=== PATIENT | female | born 1965 | race Caucasian/White ===

== ENCOUNTER 2016-10-20 13:40 | Inpatient (IN) | payer MEDICARE, OTHER ==
[2016-10-20] MEDS ORDERED: SODIUM CHLORIDE 0.9% 500 ML IV STA (14:03)
--- NOTE | 2016-10-20 14:20 | ED ---
Weakness HPI - General Chief complaint: Weakness Stated complaint: weakness Time Seen by Provider: 10/20/16 13:52 Source: patient Mode of arrival: EMS Limitations: physical limitation - History of Present Illness Initial comments: This 51-year-old white female presents with a complaint of some weakness. She relates that her right leg gave out approximately 2 days ago and she fell and twisted her right ankle leg and foot. She was seen at [facility] in their emergency department but not admitted to the hospital. They did a computed tomography scan of the brain as she hit her head as well. They also did x-rays of her right leg, ankle, and foot and did not notice any fracture. They did note a urinary tract infection and placed her on an antibiotic but she has not been able to get this filled as of yet. She further relates that she had a spinal stimulator placed on 10/07/2016 at [facility] by Dr. Guzman. She apparently had some discharge from her back wound 2 days ago. Since being home, she has had is significant problems with ambulation. She denies any urinary symptoms. She has had decreased fluid intake. Her weakness has progressively increased. She denies any actual fever but does have a temperature of 99.7 here. No other complaints or modifying factors. - Related Data Home Medications Medication Instructions Recorded Confirmed Dicyclomine [Bentyl] 20 mg PO Q4-6H PRN 10/08/14 10/20/16 Docusate [Colace] 200 mg PO DAILY 10/08/14 10/20/16 Fenofibrate Nanocrystallized 48 mg PO DAILY 10/08/14 10/20/16 [Tricor] Fesoterodine Fumarate [Toviaz] 8 mg PO DAILY 10/08/14 10/20/16 Fexofenadine HCl 180 mg PO DAILY 10/08/14 10/20/16 Triamterene-Hctz 37.5-25Mg 1 cap PO BID 10/08/14 10/20/16 [Dyazide 37.5-25 Capsule] hydrOXYzine PAMOATE [Vistaril] 25 mg PO HS 10/08/14 10/20/16 levETIRAcetam [Keppra] 750 mg PO BID 10/08/14 10/20/16 Levothyroxine Sodium [Synthroid] 200 mcg PO DAILY 11/01/14 10/20/16 Budesonide [Pulmicort] 0.5 mg INHALATION RT-BID 10/20/16 10/20/16 Diazepam [Valium] 5 mg PO QID PRN 10/20/16 10/20/16 Esomeprazole Magnesium [NexIUM] 40 mg PO DAILY 10/20/16 10/20/16 Haloperidol [Haldol] 5 mg PO DAILY 10/20/16 10/20/16 Lactulose 10 gm PO DAILY PRN 10/20/16 10/20/16 Levothyroxine Sodium [Synthroid] 50 mcg PO DAILY 10/20/16 10/20/16 Linaclotide [Linzess] 145 mcg PO DAILY 10/20/16 10/20/16 amLODIPine [Norvasc] 10 mg PO DAILY 10/20/16 10/20/16 oxyCODONE HCL [OxyCONTIN] 60 mg PO Q12H 10/20/16 10/20/16 oxyCODONE HCL [Roxicodone] 5 mg PO DAILY 10/20/16 10/20/16 tiZANidine [Zanaflex] 2 mg PO DAILY PRN 10/20/16 10/20/16 Previous Rx's Medication Instructions Recorded Citalopram Hydrobromide [CeleXA] 40 mg PO DAILY #30 tablet 11/11/14 Ziprasidone [Geodon] 80 mg PO AC-BID #30 cap 11/11/14 Allergies Allergy/AdvReac Type Severity Reaction Status Date / Time butalbital [From Fiorinal] Allergy Unknown Verified 10/20/16 14:34 caffeine [From Fiorinal] Allergy Unknown Verified 10/20/16 14:34 cimetidine [From Tagamet] Allergy Unknown Verified 10/20/16 14:34 cimetidine HCl [From Tagamet] Allergy Unknown Verified 10/20/16 14:34 codeine Allergy Unknown Verified 10/20/16 14:34 dichloralphenazone Allergy Unknown Verified 10/20/16 14:34 [From Midrin] diphenhydramine HCl Allergy Unknown Verified 10/20/16 14:34 [From Benadryl] heparin Allergy Rash/Hives Verified 10/20/16 14:34 indomethacin [From Indocin] Allergy Unknown Verified 10/20/16 14:34 indomethacin sodium Allergy Unknown Verified 10/20/16 14:34 [From Indocin] iodine Allergy Swelling Verified 10/20/16 14:34 isometheptene mucate Allergy Unknown Verified 10/20/16 14:34 [From Midrin] latex Allergy Anaphylaxis Verified 10/20/16 14:34 Macrolide Antibiotics Allergy Unknown Verified 10/20/16 14:34 nystatin Allergy Rash/Hives Verified 10/20/16 14:34 Penicillins Allergy Unknown Verified 10/20/16 14:34 propoxyphene HCl Allergy Unknown Verified 10/20/16 14:34 [From Darvon] shellfish derived [Shellfish] Allergy Swelling Verified 10/20/16 14:34 theophylline anhydrous Allergy Unknown Verified 10/20/16 14:34 [From [place]] Review of Systems ROS Statement: Those systems with pertinent positive or pertinent negative responses have been documented in the HPI. ROS Other: All systems not noted in ROS Statement are negative. Past Medical History Past Medical History: Respiratory Disorder Additional Past Medical History / Comment(s): 11/01/14 Pt presented to [facility] ER via EMS with c/o tremors-severe shaking at times. Has been occurring for past year. Hx frequent falls-fell yesterday. Can only walk a couple feet. Other HX : cerebral palsy, spinal stenosis, neuropathy bilateral feet and hands, arthritis, chronic respiratory failure, ejection fraction 45% 2011, generalized chronic pain, IBS, overactive bladder. History of Any Multi-Drug Resistant Organisms: C-DIFF, MRSA Date of last positivie culture/infection: 2008 MDRO Source:: foot Past Surgical History: Back Surgery, Cholecystectomy Additional Past Surgical History / Comment(s): Spinal surgery, bilateral eye surgery for muscle repair due to cerebral palsy. Past Anesthesia/Blood Transfusion Reactions: Motion Sickness, Postoperative Nausea & Vomiting (PONV) Past Psychological History: Depression, Schizoaffective Disorder Additional Psychological History / Comment(s): Pt lives with her boyfriend. Pt ambulates with a walker or uses a wheelchair at times. She has home O2 which [facility]. She is unsure of liter flow. She has a home care agency coming into her home 3-4 times aweek - she does not recall the name of the agency at this time. Smoking Status: Current every day smoker Past Alcohol Use History: None Reported Past Drug Use History: None Reported - Past Family History Father Family Medical History: No Reported History Mother Family Medical History: Diabetes Mellitus General Exam - General Exam Comments Initial Comments: GENERAL: The patient is well nourished but appears dehydrated. VITAL SIGNS: Heart rate, blood pressure, respiratory rate reviewed as recorded in nurse's notes. EYES: Pupils are round and reactive. Extraocular movements are intact. No conjunctival / lid redness or swelling. ENT: No external evidence of injury, swelling, or ecchymosis. Airway is patent. Throat is clear. No hematomas noted. The lips are dry. The oropharynx is dry. NECK: Nontender. No swelling or evidence of injury. No subcutaneous emphysema. Trachea is midline. No thyroid mass. HEART: Regular rate and rhythm. Good peripheral pulses. LUNGS/CHEST: Breath sounds clear and equal bilaterally. No rales, rhonchi, or wheezes. No ecchymosis, subcutaneous emphysema, or tenderness. ABDOMEN: Abdomen soft without tenderness. No palpable masses or organomegaly. No peritoneal signs. No abdominal wall swelling or ecchymosis. EXTREMITIES: There is diffuse tenderness present to the distal tibia/fibula, ankle, and foot on the right side. No ecchymosis noted. There is pain with any range of motion. No other masses skeletal abnormalities noted. Normal muscle tone and function. No thoracolumbar tenderness. NEUROLOGIC: Sensation is grossly intact. Cranial nerve exam reveals face is symmetrical, tongue is midline, speech is clear. SKIN: No abrasions or ecchymosis is noted. No induration or masses noted. PSYCHIATRIC: Alert and oriented. Appropriate behavior and judgment. Limitations: physical limitation Course Vital Signs 10/20/16 10/20/16 13:45 16:20 Temperature 99.7 F H 99.2 F Pulse Rate 94 62 Respiratory 18 20 Rate Blood Pressure 147/71 135/66 O2 Sat by Pulse 98 95 Oximetry Medical Decision Making - Medical Decision Making The patient was seen and examined. All diagnostics were reviewed. The EKG shows a normal sinus rhythm at a rate of 94. There is no acute ST-T wave changes identified other than some nonspecific T-wave changes in lead 1 and aVL. The TN interval is 158, castration is 90, and QTc interval is 467. The patient had x-rays of her right tibia/fibula, right ankle, and right foot no fracture is identified. Is felt that she likely does have right ankle sprain. A 4 inch Ortho-Glass custom molded splint is placed by myself with excellent post-splint neurovascular status noted. She also had a chest x-ray which showed possible pulmonary venous congestion although patient denies any actual shortness of breath or chest pain. Her laboratories reviewed and essentially within normal limits except for the magnesium is low at 1.4. This is replaced. Her urine does not show any current evidence of infection. Exact cause of all of her symptoms is not definitively determined. She certainly is feeling quite weak. The surgical wound on her back was evaluated and that does show excellent healing. There is no signs of any erythema or drainage whatsoever. Nevertheless the patient is unable to ambulate at home and is Brady fall and once. Is felt as though she would require admission to the hospital for further treatment. Case will be discussed with internal medicine in the near future and patient will be admitted for further definitive treatment. - Lab Data Result diagrams: 10/20/16 14:37 10/20/16 14:37 Lab Results 10/20/16 10/20/16 10/20/16 Range/Units 14:37 14:37 14:37 WBC 10.6 (3.8-10.6) k/uL RBC 4.81 (3.80-5.40) m/uL Hgb 12.4 (11.4-16.0) gm/dL Hct 39.9 (34.0-46.0) % MCV 82.9 (80.0-100.0) fL MCH 25.7 (25.0-35.0) pg MCHC 31.0 (31.0-37.0) g/dL RDW 19.7 H (11.5-15.5) % Plt Count 398 (150-450) k/uL Neutrophils % 77 % Lymphocytes % 15 % Monocytes % 4 % Eosinophils % 4 % Basophils % 1 % Neutrophils # 8.1 H (1.3-7.7) k/uL Lymphocytes # 1.5 (1.0-4.8) k/uL Monocytes # 0.4 (0-1.0) k/uL Eosinophils # 0.4 (0-0.7) k/uL Basophils # 0.1 (0-0.2) k/uL Hypochromasia Marked Poikilocytosis Slight Anisocytosis Slight Microcytosis Slight PT (9.0-12.0) sec INR (<1.1) APTT (22.0-30.0) sec Sodium 142 (137-145) mmol/L Potassium 4.0 (3.5-5.1) mmol/L Chloride 105 (98-107) mmol/L Carbon Dioxide 27 (22-30) mmol/L Anion Gap 10 mmol/L BUN 9 (7-17) mg/dL Creatinine 0.70 (0.52-1.04) mg/dL Est GFR (MDRD) Af Amer >60 (>60 ml/min/1.73 sqM) Est GFR (MDRD) Non-Af >60 (>60 ml/min/1.73 sqM) Glucose 99 (74-99) mg/dL Calcium 9.4 (8.4-10.2) mg/dL Phosphorus 3.8 (2.5-4.5) mg/dL Magnesium 1.4 L (1.6-2.3) mg/dL Total Bilirubin 0.5 (0.2-1.3) mg/dL AST 27 (14-36) U/L ALT 32 (9-52) U/L Alkaline Phosphatase 98 (38-126) U/L Total Creatine Kinase 38 (30-135) U/L CK-MB (CK-2) 0.3 (0.0-2.4) ng/mL CK-MB (CK-2) Rel Index 0.8 Troponin I <0.012 (0.000-0.034) ng/mL Total Protein 7.4 (6.3-8.2) g/dL Albumin 3.8 (3.5-5.0) g/dL TSH 1.320 (0.465-4.680) mIU/L Urine Color Urine Appearance (Clear) Urine pH (5.0-8.0) Ur Specific [place] (1.001-1.035) Urine Protein (Negative) Urine Glucose (UA) (Negative) Urine Ketones (Negative) Urine Blood (Negative) Urine Nitrate (Negative) Urine Bilirubin (Negative) Urine Urobilinogen (<2.0) mg/dL Ur Leukocyte Esterase (Negative) 10/20/16 10/20/16 Range/Units 14:37 14:50 WBC (3.8-10.6) k/uL RBC (3.80-5.40) m/uL Hgb (11.4-16.0) gm/dL Hct (34.0-46.0) % MCV (80.0-100.0) fL MCH (25.0-35.0) pg MCHC (31.0-37.0) g/dL RDW (11.5-15.5) % Plt Count (150-450) k/uL Neutrophils % % Lymphocytes % % Monocytes % % Eosinophils % % Basophils % % Neutrophils # (1.3-7.7) k/uL Lymphocytes # (1.0-4.8) k/uL Monocytes # (0-1.0) k/uL Eosinophils # (0-0.7) k/uL Basophils # (0-0.2) k/uL Hypochromasia Poikilocytosis Anisocytosis Microcytosis PT 10.7 (9.0-12.0) sec INR 1.1 (<1.1) APTT 23.8 (22.0-30.0) sec Sodium (137-145) mmol/L Potassium (3.5-5.1) mmol/L Chloride (98-107) mmol/L Carbon Dioxide (22-30) mmol/L Anion Gap mmol/L BUN (7-17) mg/dL Creatinine (0.52-1.04) mg/dL Est GFR (MDRD) Af Amer (>60 ml/min/1.73 sqM) Est GFR (MDRD) Non-Af (>60 ml/min/1.73 sqM) Glucose (74-99) mg/dL Calcium (8.4-10.2) mg/dL Phosphorus (2.5-4.5) mg/dL Magnesium (1.6-2.3) mg/dL Total Bilirubin (0.2-1.3) mg/dL AST (14-36) U/L ALT (9-52) U/L Alkaline Phosphatase (38-126) U/L Total Creatine Kinase (30-135) U/L CK-MB (CK-2) (0.0-2.4) ng/mL CK-MB (CK-2) Rel Index Troponin I (0.000-0.034) ng/mL Total Protein (6.3-8.2) g/dL Albumin (3.5-5.0) g/dL TSH (0.465-4.680) mIU/L Urine Color Yellow Urine Appearance Clear (Clear) Urine pH 6.0 (5.0-8.0) Ur Specific [place] 1.010 (1.001-1.035) Urine Protein Negative (Negative) Urine Glucose (UA) Negative (Negative) Urine Ketones Negative (Negative) Urine Blood Negative (Negative) Urine Nitrate Negative (Negative) Urine Bilirubin Negative (Negative) Urine Urobilinogen <2.0 (<2.0) mg/dL Ur Leukocyte Esterase Negative (Negative) Disposition Clinical Impression: Weakness generalized, Fall, Inability to ambulate due to ankle or foot, Right ankle sprain, Right foot sprain, Morbid obesity, Failure of outpatient treatment , Hypomagnesemia, Cerebral palsy, Pulmonary venous congestion Disposition: ADMITTED IP TO THIS [facility] Condition: Fair Time of Disposition: 16:43 Decision Date: 10/20/16 Decision Time: 16:43
[2016-10-20 14:51] LABS: Anisocytosis Slight; Basophils # (A) 0.1 k/uL (0-0.2); Basophils % (A) 1 %; CHCM 30.3; Eosinophils # (A) 0.4 k/uL (0-0.7); Eosinophils % (A) 4 %; HCT 39.9 % (34.0-46.0); HDW 3.65; HGB 12.4 gm/dL (11.4-16.0); Hypochromasia Marked; Luc % (Auto) 1; Lymphocytes # (A) 1.5 k/uL (1.0-4.8); Lymphocytes % (A) 15 %; MCH 25.7 pg (25.0-35.0); MCV 82.9 fL (80.0-100.0); Mean Platelet Volume 7.3; Microcytosis Slight; Monocytes # (A) 0.4 k/uL (0-1.0); Monocytes % (A) 4 %; Neutrophils # (A) 8.1 k/uL (1.3-7.7); Neutrophils % (A) 77 %; Poikilocytosis Slight; RBC 4.81 m/uL (3.80-5.40); RDW 19.7 % (11.5-15.5); WBC 10.6 k/uL (3.8-10.6); WBC (Perox) 10.62
[2016-10-20] MEDS: SODIUM CHLORIDE 0.9% 1,000 ML IV STA ×2 (14:54→17:14)
[2016-10-20 15:02] LABS: ALT 32 U/L (9-52); AST 27 U/L (14-36); Alkaline Phosphatase 98 U/L (38-126); Anion Gap 10 mmol/L; Blood Urea Nitrogen 9 mg/dL (7-17); Calcium 9.4 mg/dL (8.4-10.2); Carbon Dioxide 27 mmol/L (22-30); Chloride 105 mmol/L (98-107); Glucose 99 mg/dL (74-99); Magnesium 1.4 mg/dL (1.6-2.3); Non-African American GFR(MDRD) >60 (>60 ml/min/1.73 sqM); Phosphorous 3.8 mg/dL (2.5-4.5); Sodium 142 mmol/L (137-145); Total Bilirubin 0.5 mg/dL (0.2-1.3); Total Protein 7.4 g/dL (6.3-8.2)
[2016-10-20 15:04] LABS: INR 1.1 (<1.1); Partial Thromboplastin Time 23.8 sec (22.0-30.0); Prothrombin Time 10.7 sec (9.0-12.0)
[2016-10-20 15:11] LABS: Appearance,Urine Clear (Clear); Bilirubin,Urine Negative (Negative); Glucose,Urine (UA) Negative (Negative); Ketones,Urine Negative (Negative); Leukocyte Esterase,Urine Negative (Negative); Nitrite,Urine Negative (Negative); Protein,Urine Negative (Negative); UA Billing (MACRO vs. MICRO) CHEM; Urobilinogen,Urine <2.0 mg/dL (<2.0)
[2016-10-20 15:17] LABS: Creatine Kinase 38 U/L (30-135)
[2016-10-20 15:30] LABS: Creatine Kinase MB 0.3 ng/mL (0.0-2.4); Troponin I <0.012 ng/mL (0.000-0.034)
--- NOTE | 2016-10-20 15:51 | XR ---
EXAMINATION TYPE: XR foot complete RT DATE OF EXAM: 10/20/2016 3:47 PM CLINICAL HISTORY: pain TECHNIQUE: Frontal, lateral and oblique images of the right foot are obtained. COMPARISON: None. FINDINGS: There is no acute fracture/dislocation evident. The joint spaces appear within normal bernal its. Dorsal soft tissue edema is noted. IMPRESSION: There is no acute fracture or dislocation. ICD 10 NO FRACTURE, INITIAL EVALUATION
--- NOTE | 2016-10-20 15:53 | XR ---
EXAMINATION TYPE: XR ankle complete RT DATE OF EXAM: 10/20/2016 3:47 PM COMPARISON: NONE HISTORY: Pain TECHNIQUE: Frontal, lateral and oblique images of the right ankle are obtained. COMPARISON: None. FINDINGS: There is no acute fracture/dislocation evident. Remote avulsion fracture medial malleolus as well as lateral malleolus. Ankle mortise narrowing seen. IMPRESSION: There is no acute fracture or dislocation seen.
--- NOTE | 2016-10-20 15:54 | XR ---
EXAMINATION TYPE: XR chest 2V DATE OF EXAM: 10/20/2016 3:47 PM COMPARISON: 11/06/2014 HISTORY: Shortness of breath TECHNIQUE: Frontal and lateral views of the chest are obtained. FINDINGS: There is pulmonary venous congestion without overt failure. Cardiomegaly is seen. No focal consolidation. Hilar and mediastinal structures are unremarkable. IMPRESSION: Cardiomegaly with pulmonary venous congestion. No overt failure at this time.
--- NOTE | 2016-10-20 15:55 | XR ---
EXAMINATION TYPE: XR tibia fibula RT DATE OF EXAM: 10/20/2016 3:47 PM CLINICAL HISTORY: pain TECHNIQUE: AP and lateral images of the right tibia and fibula are obtained. COMPARISON: None. FINDINGS: There is no acute fracture/dislocation evident. Periosteal reaction and sclerosis about th e proximal fibula likely reflects healed fracture. The overlying soft tissue appears unremarkable. IMPRESSION: There is no acute fracture or dislocation seen. ICD 10 NO FRACTURE, INITIAL EVALUATION
[2016-10-20] MEDS ORDERED: ONDANSETRON 4 MG/2 ML VIAL IVP PRN (16:44)
[2016-10-20] MEDS ORDERED: NALOXONE 0.4 MG/ML 1 ML VIAL IV PRN (16:44)
[2016-10-20] MEDS ORDERED: LACTULOSE 20 GM/30 ML CUP PO PRN (16:48)
[2016-10-20] MEDS ORDERED: DICYCLOMINE 20 MG TAB PO PRN (16:48)
[2016-10-20] MEDS: MAGNESIUM SULFATE-D5W PMX 1 GM in DEXTROSE/WATER 1 100ML.BAG IVPB SCH ×2 (17:14→18:12)
[2016-10-20] MEDS ORDERED: oxyCODONE ER 20 MG TAB.ER.12H PO SCH (18:00)
[2016-10-20] MEDS: ZIPRASIDONE 80 MG CAP PO SCH (18:12)
[2016-10-20] MEDS: SODIUM CHLORIDE 0.9% 1,000 ML IV SCH (18:12)
[2016-10-20] MEDS: oxyCODONE ER 20 MG TAB.ER.12H PO SCH (19:39)
[2016-10-20] MEDS: BUDESONIDE 0.5 MG/2 ML NEBU INHALATION SCH (20:24)
[2016-10-20 21:15] LABS: Glucose,Whole Blood 126 mg/dL (75-99)
[2016-10-20] MEDS: hydrOXYzine PAMOATE 25 MG CAP PO SCH (22:38)
[2016-10-20] MEDS: TRIAMTERENE-HCTZ 37.5-25MG 1 EACH CAP PO SCH (22:38)
[2016-10-20] MEDS: INSULIN LISPRO (humaLOG) 300 UNIT/3 ML VIAL SQ SCH (22:39)
[2016-10-21] MEDS: LEVOTHYROXINE 50 MCG TAB PO SCH (06:48)
[2016-10-21] MEDS: LEVOTHYROXINE 100 MCG TAB PO SCH (06:48)
[2016-10-21 07:15] LABS: Glucose,Whole Blood 123 mg/dL (75-99)
[2016-10-21] MEDS: INSULIN LISPRO (humaLOG) 300 UNIT/3 ML VIAL SQ SCH ×4 (07:31→21:18)
[2016-10-21] MEDS: oxyCODONE ER 20 MG TAB.ER.12H PO SCH ×2 (08:27→19:38)
[2016-10-21] MEDS: DOCUSATE 100 MG CAP PO SCH (08:28)
[2016-10-21] MEDS: amLODIPine 10 MG TAB PO SCH (08:28)
[2016-10-21] MEDS: CITALOPRAM HYDROBROMIDE 20 MG TAB PO SCH (08:28)
[2016-10-21] MEDS: FENOFIBRATE 54 MG TAB PO SCH (08:28)
[2016-10-21] MEDS: LORATADINE 10 MG TAB PO SCH (08:29)
[2016-10-21] MEDS: OXYBUTYNIN XL 5 MG TAB.ER.24 PO SCH (08:29)
[2016-10-21] MEDS: HALOPERIDOL 5 MG TAB PO SCH (08:29)
[2016-10-21] MEDS: PANTOPRAZOLE 40 MG/10 ML VIAL IV SCH (08:30)
[2016-10-21] MEDS: TRIAMTERENE-HCTZ 37.5-25MG 1 EACH CAP PO SCH ×2 (08:30→21:52)
[2016-10-21] MEDS: ZIPRASIDONE 80 MG CAP PO SCH ×2 (08:31→18:17)
[2016-10-21] MEDS ORDERED: NON-FORMULARY DRUG (Linaclotide [Linzess] 145 MCG) PO SCH (09:00)
[2016-10-21] MEDS ORDERED: PANTOPRAZOLE 40 MG TABLET PO SCH (09:00)
[2016-10-21 09:18] LABS: Anisocytosis Slight; Basophils % (A) 0 %; CH 24.9; CHCM 30.2; Eosinophils # (A) 0.3 k/uL (0-0.7); Eosinophils % (A) 3 %; HCT 37.9 % (34.0-46.0); HDW 3.54; HGB 11.6 gm/dL (11.4-16.0); Hypochromasia Marked; Luc # (Auto) 0.14; Luc % (Auto) 1; Lymphocytes # (A) 1.3 k/uL (1.0-4.8); Lymphocytes % (A) 13 %; MCH 25.4 pg (25.0-35.0); MCHC 30.6 g/dL (31.0-37.0); MCV 82.8 fL (80.0-100.0); Mean Platelet Volume 7.2; Microcytosis Slight; Monocytes # (A) 0.4 k/uL (0-1.0); Monocytes % (A) 4 %; Neutrophils % (A) 78 %; Poikilocytosis Slight; RBC 4.57 m/uL (3.80-5.40); RDW 19.6 % (11.5-15.5); WBC 10.3 k/uL (3.8-10.6)
[2016-10-21 09:28] LABS: ALT 31 U/L (9-52); AST 22 U/L (14-36); Alkaline Phosphatase 82 U/L (38-126); Anion Gap 9 mmol/L; Blood Urea Nitrogen 8 mg/dL (7-17); Carbon Dioxide 30 mmol/L (22-30); Chloride 103 mmol/L (98-107); Glucose 133 mg/dL (74-99); Non-African American GFR(MDRD) >60 (>60 ml/min/1.73 sqM); Potassium 4.1 mmol/L (3.5-5.1); Sodium 142 mmol/L (137-145); Total Bilirubin 0.6 mg/dL (0.2-1.3); Total Protein 6.7 g/dL (6.3-8.2)
[2016-10-21] MEDS: BUDESONIDE 0.5 MG/2 ML NEBU INHALATION SCH ×2 (09:29→19:46)
[2016-10-21 09:43] LABS: Magnesium 1.4 mg/dL (1.6-2.3)
[2016-10-21 10:11] LABS: Hemoglobin A1C 6.3 % (4.2-6.1)
[2016-10-21] MEDS: SODIUM CHLORIDE 0.9% 1,000 ML IV SCH (11:07)
[2016-10-21 12:12] LABS: Glucose,Whole Blood 127 mg/dL (75-99)
--- NOTE | 2016-10-21 14:15 | P.CON ---
Consult Note - . Consult date: 10/21/16 Assessment/Plan:: consultation podiatric - General Chief complaint: Weakness Stated complaint: weakness Time Seen by Provider: 10/20/16 13:52 Source: patient Mode of arrival: EMS Limitations: physical limitation - History of Present Illness Initial comments: This 51-year-old white female presents with a complaintall painful nails as well as dry skin bilateral feety. She has been seenas a consultation per request of attending.. She relates that her right leg gave out approximately 2 days ago and she fell and twisted her right ankle leg and foot. She was seen at [facility] in their emergency department but not admitted to the hospital. They did a computed tomography scan of the brain as she hit her head as well. They also did x-rays of her right leg, ankle, and foot and did not notice any fracture. They did note a urinary tract infection and placed her on an antibiotic but she has not been able to get this filled as of yet. She further relates that she had a spinal stimulator placed on 10/07/2016 at [facility] by Dr. Guzman. She apparently had some discharge from her back wound 2 days ago. Since being home, she has had is significant problems with ambulation. She denies any urinary symptoms. She has had decreased fluid intake. Her weakness has progressively increased. She denies any actual fever but does have a temperature of 99.7 here. No other complaints or modifying factors.Review of past mental History is as below - Related Data Home Medications Medication Instructions Recorded Confirmed Dicyclomine [Bentyl] 20 mg PO Q4-6H PRN 10/08/14 10/20/16 Docusate [Colace] 200 mg PO DAILY 10/08/14 10/20/16 Fenofibrate Nanocrystallized 48 mg PO DAILY 10/08/14 10/20/16 [Tricor] Fesoterodine Fumarate [Toviaz] 8 mg PO DAILY 10/08/14 10/20/16 Fexofenadine HCl 180 mg PO DAILY 10/08/14 10/20/16 Triamterene-Hctz 37.5-25Mg 1 cap PO BID 10/08/14 10/20/16 [Dyazide 37.5-25 Capsule] hydrOXYzine PAMOATE [Vistaril] 25 mg PO HS 10/08/14 10/20/16 levETIRAcetam [Keppra] 750 mg PO BID 10/08/14 10/20/16 Levothyroxine Sodium [Synthroid] 200 mcg PO DAILY 11/01/14 10/20/16 Budesonide [Pulmicort] 0.5 mg INHALATION RT-BID 10/20/16 10/20/16 Diazepam [Valium] 5 mg PO QID PRN 10/20/16 10/20/16 Esomeprazole Magnesium [NexIUM] 40 mg PO DAILY 10/20/16 10/20/16 Haloperidol [Haldol] 5 mg PO DAILY 10/20/16 10/20/16 Lactulose 10 gm PO DAILY PRN 10/20/16 10/20/16 Levothyroxine Sodium [Synthroid] 50 mcg PO DAILY 10/20/16 10/20/16 Linaclotide [Linzess] 145 mcg PO DAILY 10/20/16 10/20/16 amLODIPine [Norvasc] 10 mg PO DAILY 10/20/16 10/20/16 oxyCODONE HCL [OxyCONTIN] 60 mg PO Q12H 10/20/16 10/20/16 oxyCODONE HCL [Roxicodone] 5 mg PO DAILY 10/20/16 10/20/16 tiZANidine [Zanaflex] 2 mg PO DAILY PRN 10/20/16 10/20/16 Previous Rx's Medication Instructions Recorded Citalopram Hydrobromide [CeleXA] 40 mg PO DAILY #30 tablet 11/11/14 Ziprasidone [Geodon] 80 mg PO AC-BID #30 cap 11/11/14 Allergies Allergy/AdvReac Type Severity Reaction Status Date / Time butalbital [From Fiorinal] Allergy Unknown Verified 10/20/16 14:34 caffeine [From Fiorinal] Allergy Unknown Verified 10/20/16 14:34 cimetidine [From Tagamet] Allergy Unknown Verified 10/20/16 14:34 cimetidine HCl [From Tagamet] Allergy Unknown Verified 10/20/16 14:34 codeine Allergy Unknown Verified 10/20/16 14:34 dichloralphenazone Allergy Unknown Verified 10/20/16 14:34 [From Midrin] diphenhydramine HCl Allergy Unknown Verified 10/20/16 14:34 [From Benadryl] heparin Allergy Rash/Hives Verified 10/20/16 14:34 indomethacin [From Indocin] Allergy Unknown Verified 10/20/16 14:34 indomethacin sodium Allergy Unknown Verified 10/20/16 14:34 [From Indocin] iodine Allergy Swelling Verified 10/20/16 14:34 isometheptene mucate Allergy Unknown Verified 10/20/16 14:34 [From Midrin] latex Allergy Anaphylaxis Verified 10/20/16 14:34 Macrolide Antibiotics Allergy Unknown Verified 10/20/16 14:34 nystatin Allergy Rash/Hives Verified 10/20/16 14:34 Penicillins Allergy Unknown Verified 10/20/16 14:34 propoxyphene HCl Allergy Unknown Verified 10/20/16 14:34 [From Darvon] shellfish derived [Shellfish] Allergy Swelling Verified 10/20/16 14:34 theophylline anhydrous Allergy Unknown Verified 10/20/16 14:34 [From [place]] Review of Systems ROS Statement: Those systems with pertinent positive or pertinent negative responses have been documented in the HPI. ROS Other: All systems not noted in ROS Statement are negative. Past Medical History Past Medical History: Respiratory Disorder Additional Past Medical History / Comment(s): 11/01/14 Pt presented to [facility] ER via EMS with c/o tremors-severe shaking at times. Has been occurring for past year. Hx frequent falls-fell yesterday. Can only walk a couple feet. Other HX : cerebral palsy, spinal stenosis, neuropathy bilateral feet and hands, arthritis, chronic respiratory failure, ejection fraction 45% 2011, generalized chronic pain, IBS, overactive bladder. History of Any Multi-Drug Resistant Organisms: C-DIFF, MRSA Date of last positivie culture/infection: 2008 MDRO Source:: foot Past Surgical History: Back Surgery, Cholecystectomy Additional Past Surgical History / Comment(s): Spinal surgery, bilateral eye surgery for muscle repair due to cerebral palsy. Past Anesthesia/Blood Transfusion Reactions: Motion Sickness, Postoperative Nausea & Vomiting (PONV) Past Psychological History: Depression, Schizoaffective Disorder Additional Psychological History / Comment(s): Pt lives with her boyfriend. Pt ambulates with a walker or uses a wheelchair at times. She has home O2 which she wears at nite. She is unsure of liter flow. She has a home care agency coming into her home 3-4 times aweek - she does not recall the name of the agency at this time. Smoking Status: Current every day smoker Past Alcohol Use History: None Reported Past Drug Use History: None Reported - Past Family History Father Family Medical History: No Reported History Mother Family Medical History: Diabetes Mellitus Podiatric Exam - podiatric Exam Comments Initial Comments: Dermatologic exam: Patient is elongated dystrophic nails 10. There is localized edema of the right greater than left foot secondary to t There is Xerosis noted bilateral lower extremities mostly from the dorsal skin extending from hallux to the fifth digit. No other significant dermatologic changes. Neurologic exam decreased epicritic and pallesthetic sensations bilateral patient has lack of protective sensation to digits 1 through 5 bilateral vibratory 2. tactile diminished bilateral grossly Vascular exam: Pedal pulses diminished bilaterally skin temperature texture to report decreased bilateral digital hair 10 there is atrophy of skin bilateral. Extremities are cool bilateral. Orthopedic exam range of motion of the ankle joint and subtalar joint diminished and painful on the right lower extremity per history. Remaining pedal joints are essentially normal. All inverters and everters plantar flexors dorsiflexors are grossly intact symmetric bilaterally hammering of digits 2 through 5 bilateral Course Vital Signs 10/20/16 10/20/16 13:45 16:20 Temperature 99.7 F H 99.2 F Pulse Rate 94 62 Respiratory 18 20 Rate Blood Pressure 147/71 135/66 O2 Sat by Pulse 98 95 Oximetry Medical Decision Making - Medical Decision Making The patient was seen and examined. All diagnostics were reviewed. TAfter review of patient's medical histo and clinical findings patient would benefitfrom debridement of these nails. We debrided the nails 10 and patient was given prescription for a emollient to be applied to the vikki She should respond favorably to this treatment plan. - Lab Data Result diagrams: 10/20/16 14:37 10/20/16 14:37 Lab Results 10/20/16 10/20/16 10/20/16 Range/Units 14:37 14:37 14:37 WBC 10.6 (3.8-10.6) k/uL RBC 4.81 (3.80-5.40) m/uL Hgb 12.4 (11.4-16.0) gm/dL Hct 39.9 (34.0-46.0) % MCV 82.9 (80.0-100.0) fL MCH 25.7 (25.0-35.0) pg MCHC 31.0 (31.0-37.0) g/dL RDW 19.7 H (11.5-15.5) % Plt Count 398 (150-450) k/uL Neutrophils % 77 % Lymphocytes % 15 % Monocytes % 4 % Eosinophils % 4 % Basophils % 1 % Neutrophils # 8.1 H (1.3-7.7) k/uL Lymphocytes # 1.5 (1.0-4.8) k/uL Monocytes # 0.4 (0-1.0) k/uL Eosinophils # 0.4 (0-0.7) k/uL Basophils # 0.1 (0-0.2) k/uL Hypochromasia Marked Poikilocytosis Slight Anisocytosis Slight Microcytosis Slight PT (9.0-12.0) sec INR (<1.1) APTT (22.0-30.0) sec Sodium 142 (137-145) mmol/L Potassium 4.0 (3.5-5.1) mmol/L Chloride 105 (98-107) mmol/L Carbon Dioxide 27 (22-30) mmol/L Anion Gap 10 mmol/L BUN 9 (7-17) mg/dL Creatinine 0.70 (0.52-1.04) mg/dL Est GFR (MDRD) Af Amer >60 (>60 ml/min/1.73 sqM) Est GFR (MDRD) Non-Af >60 (>60 ml/min/1.73 sqM) Glucose 99 (74-99) mg/dL Calcium 9.4 (8.4-10.2) mg/dL Phosphorus 3.8 (2.5-4.5) mg/dL Magnesium 1.4 L (1.6-2.3) mg/dL Total Bilirubin 0.5 (0.2-1.3) mg/dL AST 27 (14-36) U/L ALT 32 (9-52) U/L Alkaline Phosphatase 98 (38-126) U/L Total Creatine Kinase 38 (30-135) U/L CK-MB (CK-2) 0.3 (0.0-2.4) ng/mL CK-MB (CK-2) Rel Index 0.8 Troponin I <0.012 (0.000-0.034) ng/mL Total Protein 7.4 (6.3-8.2) g/dL Albumin 3.8 (3.5-5.0) g/dL TSH 1.320 (0.465-4.680) mIU/L Urine Color Urine Appearance (Clear) Urine pH (5.0-8.0) Ur Specific [place] (1.001-1.035) Urine Protein (Negative) Urine Glucose (UA) (Negative) Urine Ketones (Negative) Urine Blood (Negative) Urine Nitrate (Negative) Urine Bilirubin (Negative) Urine Urobilinogen (<2.0) mg/dL Ur Leukocyte Esterase (Negative) 10/20/16 10/20/16 Range/Units 14:37 14:50 WBC (3.8-10.6) k/uL RBC (3.80-5.40) m/uL Hgb (11.4-16.0) gm/dL Hct (34.0-46.0) % MCV (80.0-100.0) fL MCH (25.0-35.0) pg MCHC (31.0-37.0) g/dL RDW (11.5-15.5) % Plt Count (150-450) k/uL Neutrophils % % Lymphocytes % % Monocytes % % Eosinophils % % Basophils % % Neutrophils # (1.3-7.7) k/uL Lymphocytes # (1.0-4.8) k/uL Monocytes # (0-1.0) k/uL Eosinophils # (0-0.7) k/uL Basophils # (0-0.2) k/uL Hypochromasia Poikilocytosis Anisocytosis Microcytosis PT 10.7 (9.0-12.0) sec INR 1.1 (<1.1) APTT 23.8 (22.0-30.0) sec Sodium (137-145) mmol/L Potassium (3.5-5.1) mmol/L Chloride (98-107) mmol/L Carbon Dioxide (22-30) mmol/L Anion Gap mmol/L BUN (7-17) mg/dL Creatinine (0.52-1.04) mg/dL Est GFR (MDRD) Af Amer (>60 ml/min/1.73 sqM) Est GFR (MDRD) Non-Af (>60 ml/min/1.73 sqM) Glucose (74-99) mg/dL Calcium (8.4-10.2) mg/dL Phosphorus (2.5-4.5) mg/dL Magnesium (1.6-2.3) mg/dL Total Bilirubin (0.2-1.3) mg/dL AST (14-36) U/L ALT (9-52) U/L Alkaline Phosphatase (38-126) U/L Total Creatine Kinase (30-135) U/L CK-MB (CK-2) (0.0-2.4) ng/mL CK-MB (CK-2) Rel Index Troponin I (0.000-0.034) ng/mL Total Protein (6.3-8.2) g/dL Albumin (3.5-5.0) g/dL TSH (0.465-4.680) mIU/L Urine Color Yellow Urine Appearance Clear (Clear) Urine pH 6.0 (5.0-8.0) Ur Specific [place] 1.010 (1.001-1.035) Urine Protein Negative (Negative) Urine Glucose (UA) Negative (Negative) Urine Ketones Negative (Negative) Urine Blood Negative (Negative) Urine Nitrate Negative (Negative) Urine Bilirubin Negative (Negative) Urine Urobilinogen <2.0 (<2.0) mg/dL Ur Leukocyte Esterase Negative (Negative) Disposition Clinical Impression: Weakness generalized, Fall, Inability to ambulate due to ankle or foot, Right ankle sprain, Right foot sprain, Morbid obesity, Failure of outpatient treatment , Hypomagnesemia, Cerebral palsy, Pulmonary venous congestion Dystrophic nails x 10 xerosis bilateral Disposition: Dystrophic nails 10 xerosis b bilateral with contributory systemic condition
--- NOTE | 2016-10-21 14:32 | P.PN ---
Subjective 51-year-old who presented on October 20 with a chief complaint of weakness. Patient does have a history of cerebral palsy cognitive impairment. Apparently the patient stated her right leg gave out approximate 2 days she fell twisted her right ankle and foot. He reportedly was taken to [facility] in the emergency room at the facility they did a CAT scan of the brain which was negative. The x-ray of the right leg right ankle right foot there was no evidence of any fracture. They did note a urinary tract infection and did place patient on antibiotics which the patient states she did not get filled subsequently the patient was discharged from the emergency room and reappeared on October 20 to [facility]. Patient states since the incident she has had trouble ambulating. The temp in the emergency room was 99.7. Patient states at home she uses a walker or wheelchair and uses home O2 at night patient lives with an apartment with her boyfriend and does have a home care agency coming to her home 3-4 times a week x-rays were repeated at this facility in the tibia. Ankle and foot all were negative chest x-ray was unremarkable a computer system specialist consultation was requested Dr. Ramos did see patient on the for a chief complaint of painful nails as well as dry skin bilaterally. Fiber Machine Tender did trim the 10 toenails debridement of these nails were done by the computer system specialist. Patient was given a prescription and instructed on using emollient to the dry feet Objective - Vital Signs Vital signs: Vital Signs Temp 98.1 F 10/21/16 07:00 Pulse 80 10/21/16 09:37 Resp 22 10/21/16 07:00 BP 132/74 10/21/16 07:00 Pulse Ox 90 L 10/21/16 07:00 Intake & Output 10/20/16 10/21/16 10/21/16 18:59 06:59 18:59 Intake Total 1000 680 Output Total 28 Balance 1000 -28 680 Intake: IV 480 Sodium Chloride 0.9% 1, 480 000 ml @ 60 mls/hr IV . [id number] Rx#:[id number] Amount of Fluid Infused ( 1000 ml) Oral 200 Output: Post Void Residual 28 Other: Voiding Method Bedpan # Voids 2 # Bowel Movements 1 - Exam Physical exam 51-year-old female resting in bed appears in no acute distress oriented 3 Lungs essentially clear adequate air movement Heart S1-S2 audible regular Abdomen obese soft incontinent of urine Extremities no edema noted elongated dystrophic nails 10. - Labs CBC & Chem 7: 10/21/16 08:55 10/21/16 08:55 Labs: Abnormal Lab Results - Last 24 Hours (Table) 10/20/16 10/21/16 10/21/16 Range/Units 21:03 07:01 08:55 MCHC (31.0-37.0) g/dL RDW (11.5-15.5) % Neutrophils # (1.3-7.7) k/uL Glucose (74-99) mg/dL POC Glucose (mg/dL) 126 H 123 H (75-99) mg/dL Hemoglobin A1c 6.3 H (4.2-6.1) % Magnesium (1.6-2.3) mg/dL Albumin (3.5-5.0) g/dL 10/21/16 10/21/16 10/21/16 Range/Units 08:55 08:55 12:07 MCHC 30.6 L (31.0-37.0) g/dL RDW 19.6 H (11.5-15.5) % Neutrophils # 8.0 H (1.3-7.7) k/uL Glucose 133 H (74-99) mg/dL POC Glucose (mg/dL) 127 H (75-99) mg/dL Hemoglobin A1c (4.2-6.1) % Magnesium 1.4 L (1.6-2.3) mg/dL Albumin 3.3 L (3.5-5.0) g/dL Assessment and Plan Plan: Impression Chronic debility uses a walker or wheelchair suspect due to cerebral palsy History of cerebral palsy History of frequent falls limited mobility Present on admission elongated dystrophic nails 10. Present on admission generalized weakness inability to ambulate due to right ankle sprain Morbid obesity BMI 48 Dystrophic nails x 10 xerosis bilateral Every day current smoker suspect COPD undiagnosed Chronic respiratory failure 2 L at bedtime Suspect obstructive sleep apnea Chronic congestive heart failure systolic dysfunction EF 45 Chronic pain Peripheral neuropathy bilateral feet History of a recent UTI with no evidence of a UTI this admission a mood disorder Depressive disorder nonspecified History of a recent fall 2 days prior to his to right ankle and right leg x- rays right leg ankle and foot no evidence of fracture Plan vaccine manager pursuing subacute rehab placement PT OT Resume home meds as appropriate DVT and GI prophylaxis Further recommendations pending The above dictated assessment and findings were discussed with Dr. Patrick. Impression and the plan of care have been dictated as directed. Swati Aguilar nurse practitioner acting as a scribe for Dr. Patrick
--- NOTE | 2016-10-21 16:26 | HP ---
DATE OF ADMISSION: 10/20/2016 CHIEF COMPLAINT: Injury to the right ankle and inability to ambulate. HISTORY OF PRESENT ILLNESS: This is the first known admission for this 51-year-old white female from a prison who has cerebral palsy. Apparently she fell and injured her right ankle. She was evaluated for fracture and none was found. However, she cannot bear weight. Therefore, she could not stay at the prison and she is admitted as a disposition or management problem. She is not generally active or very ambulatory, anyway. She has a short limb structure, she is overweight, and she has exotropia. She has also been diagnosed to have urinary tract infection. REVIEW OF SYSTEMS: She denies any new neurologic or musculoskeletal signs or symptoms. She is not short of breath. She is not coughing. She has no known heart disease or hypertension. She is not complaining of abdominal pain. She is apparently not diabetic. Past medical history, family history, and personal and social histories are not obtainable from her in full detail at this time. Laboratory studies did indicate that her magnesium is low. PHYSICAL EXAMINATION: VITAL SIGNS: Blood pressure is 141/87 with a pulse of 85, respirations of 35, and she is afebrile. In general she appeared to overweight. Skin color is normal. Skin is warm and dry. Lymph nodes are not enlarged. Head, ears, eyes, nose, mouth and throat were normal. The chest is clear. Cardiac exam demonstrates sinus rhythm without any murmurs or extra sounds. Abdomen is slightly protuberant, soft and nontender. Extremities are normal except that the right ankle and foot were in an Smith wrap. ADMITTING DIAGNOSES: 1. Sprain of the right ankle. 2. Cerebral palsy. 3. Generalized failure to thrive. 4. Hypomagnesemia. 5. Urinary tract infection. PLAN: 1. Bed rest. 2. IV fluids. 3. donor services technician referral.
[2016-10-21 17:06] LABS: Glucose,Whole Blood 104 mg/dL (75-99)
[2016-10-21] MEDS: MAGNESIUM OXIDE 400 MG TAB PO SCH ×2 (18:17→21:52)
[2016-10-21] MEDS: DIAZEPAM 5 MG TAB PO PRN (18:19)
[2016-10-21 20:35] LABS: Glucose,Whole Blood 196 mg/dL (75-99)
[2016-10-21] MEDS: AMMONIUM LACTATE 12% LOTION 225 GM BTL TOPICAL SCH (21:18)
--- NOTE | 2016-10-21 21:32 | PN ---
DATE OF SERVICE: 10/21/2016 CHIEF COMPLAINT: Cerebral palsy, fall, pain in the right ankle. HISTORY OF PRESENT ILLNESS: This lady is having more difficulty in the right foot and ankle and she is quite uncomfortable. We will start working on rehab and a discharge plan. PHYSICAL EXAM: Strabismus is the same and her chest is clear. Cardiac is normal and the abdomen is soft and nontender. IMPRESSION: 1. Sprain of the right ankle. 2. Cerebral palsy with marginal ability to ambulate under normal circumstances. 3. Strabismus. PLAN: Await evaluation by Digital Forensics Examiner and Rehab. We may also have to have her seen by Orthopedics if the ankle and foot seem to be getting worse.
[2016-10-21] MEDS: hydrOXYzine PAMOATE 25 MG CAP PO SCH (22:14)
[2016-10-21] MEDS: ACETAMINOPHEN TAB 325 MG TAB PO PRN (23:32)
[2016-10-22] MEDS: SODIUM CHLORIDE 0.9% 1,000 ML IV SCH ×2 (03:11→17:14)
[2016-10-22] MEDS: LEVOTHYROXINE 100 MCG TAB PO SCH (06:20)
[2016-10-22] MEDS: LEVOTHYROXINE 50 MCG TAB PO SCH (06:20)
[2016-10-22 07:23] LABS: Glucose,Whole Blood 117 mg/dL (75-99)
[2016-10-22] MEDS: BUDESONIDE 0.5 MG/2 ML NEBU INHALATION SCH ×2 (08:33→19:59)
[2016-10-22] MEDS: oxyCODONE ER 20 MG TAB.ER.12H PO SCH ×2 (09:12→19:42)
[2016-10-22] MEDS: DIAZEPAM 5 MG TAB PO PRN ×2 (09:12→16:15)
[2016-10-22] MEDS: TRIAMTERENE-HCTZ 37.5-25MG 1 EACH CAP PO SCH ×2 (11:28→20:39)
[2016-10-22] MEDS: FENOFIBRATE 54 MG TAB PO SCH (11:28)
[2016-10-22] MEDS: OXYBUTYNIN XL 5 MG TAB.ER.24 PO SCH (11:28)
[2016-10-22] MEDS: DOCUSATE 100 MG CAP PO SCH (11:28)
[2016-10-22] MEDS: ZIPRASIDONE 80 MG CAP PO SCH ×2 (11:28→17:14)
[2016-10-22] MEDS: CITALOPRAM HYDROBROMIDE 20 MG TAB PO SCH (11:28)
[2016-10-22] MEDS: LORATADINE 10 MG TAB PO SCH (11:28)
[2016-10-22] MEDS: HALOPERIDOL 5 MG TAB PO SCH (11:28)
[2016-10-22] MEDS: MAGNESIUM OXIDE 400 MG TAB PO SCH ×3 (11:28→20:38)
[2016-10-22] MEDS: amLODIPine 10 MG TAB PO SCH (11:28)
[2016-10-22] MEDS: AMMONIUM LACTATE 12% LOTION 225 GM BTL TOPICAL SCH ×2 (11:29→20:50)
[2016-10-22] MEDS: PANTOPRAZOLE 40 MG/10 ML VIAL IV SCH (11:29)
[2016-10-22] MEDS: INSULIN LISPRO (humaLOG) 300 UNIT/3 ML VIAL SQ SCH ×4 (11:29→21:24)
--- NOTE | 2016-10-22 11:36 | PN ---
CHIEF COMPLAINT: Injury of the right ankle, cerebral palsy and general debility. HISTORY OF PRESENT ILLNESS: This lady is stable and doing fairly well and she has a fpc placement place, but she will have to be here for 72 hours. PHYSICAL EXAM: She has no complaints. Her vital signs are normal. CHEST: Clear. Cardiac exam is normal. IMPRESSION: 1. Cerebral palsy. 2. Sprain of the right ankle. 3. Failure to thrive. PLAN: Await fpc bed ( ) discharge.
--- NOTE | 2016-10-22 12:03 | P.PN ---
Subjective 51-year-old female who is being seen this morning is resting in bed. This been no new events. The discharge plan is in progress patient is scheduled to be transferred to ECF facility within the next 24 hours. Physical therapy indicates the patient does need max assist to stand. The urinalysis that was collected on the October 20 is negative Objective - Vital Signs Vital signs: Vital Signs Temp 98.4 F 10/22/16 07:00 Pulse 78 10/22/16 08:43 Resp 22 10/22/16 07:00 BP 134/77 10/22/16 07:00 Pulse Ox 95 10/22/16 07:00 Intake & Output 10/21/16 10/22/16 10/22/16 18:59 06:59 18:59 Intake Total 880 660 Output Total 150 Balance 880 660 -150 Intake: IV 480 660 Sodium Chloride 0.9% 1, 480 660 000 ml @ 60 mls/hr IV . [id number] [facility] Rx#:[id number] Oral 400 Output: Urine 150 Other: Voiding Method Bedpan # Voids 1 1 # Bowel Movements 1 - Exam Physical exam 51-year-old female resting in bed appears in no acute distress oriented 3 Lungs essentially clear adequate air movement Heart S1-S2 audible regular Abdomen obese soft incontinent of urine no stool Extremities no edema noted elongated dystrophic nails 10. - Labs CBC & Chem 7: 10/21/16 08:55 10/21/16 08:55 Labs: Abnormal Lab Results - Last 24 Hours (Table) 10/21/16 10/21/16 10/21/16 Range/Units 12:07 16:54 20:33 POC Glucose (mg/dL) 127 H 104 H 196 H (75-99) mg/dL 10/22/16 Range/Units 07:19 POC Glucose (mg/dL) 117 H (75-99) mg/dL Assessment and Plan Plan: Impression Chronic debility uses a walker or wheelchair suspect due to cerebral palsy History of cerebral palsy History of frequent falls limited mobility Present on admission elongated dystrophic nails 10. Present on admission generalized weakness inability to ambulate due to right ankle sprain Morbid obesity BMI 48 Dystrophic nails x 10 xerosis bilateral Every day current smoker suspect COPD undiagnosed Chronic respiratory failure 2 L at bedtime Suspect obstructive sleep apnea Chronic compensated congestive heart failure systolic dysfunction EF 45 Chronic pain Peripheral neuropathy bilateral feet History of a recent UTI with no evidence of a UTI this admission negative urine culture a mood disorder Depressive disorder nonspecified History of a recent fall 2 days prior to his to right ankle and right leg x- rays right leg ankle and foot no evidence of fracture Plan manager sales and marketing pursuing subacute rehab placement PT OT Resume home meds as appropriate DVT and GI prophylaxis Further recommendations pending The above dictated assessment and findings were discussed with Dr. Patrick. Impression and the plan of care have been dictated as directed. Swati Aguilar nurse practitioner acting as a scribe for Dr. Patrick
[2016-10-22 12:43] LABS: Glucose,Whole Blood 100 mg/dL (75-99)
[2016-10-22 17:15] LABS: Glucose,Whole Blood 123 mg/dL (75-99)
[2016-10-22] MEDS: hydrOXYzine PAMOATE 25 MG CAP PO SCH (20:38)
[2016-10-22] MEDS: ACETAMINOPHEN TAB 325 MG TAB PO PRN (20:50)
[2016-10-22 21:22] LABS: Glucose,Whole Blood 119 mg/dL (75-99)
[2016-10-23 07:22] LABS: Glucose,Whole Blood 122 mg/dL (75-99)
[2016-10-23] MEDS: LEVOTHYROXINE 50 MCG TAB PO SCH (07:24)
[2016-10-23] MEDS: LEVOTHYROXINE 100 MCG TAB PO SCH (07:24)
[2016-10-23 07:31] VITALS: BP 119/64; RESP 22; TEMP 98.2
[2016-10-23] MEDS: BUDESONIDE 0.5 MG/2 ML NEBU INHALATION SCH (08:06)
[2016-10-23 08:08] VITALS: PULSE 76
[2016-10-23] MEDS: amLODIPine 10 MG TAB PO SCH (08:21)
[2016-10-23] MEDS: ZIPRASIDONE 80 MG CAP PO SCH (08:21)
[2016-10-23] MEDS: CITALOPRAM HYDROBROMIDE 20 MG TAB PO SCH (08:21)
[2016-10-23] MEDS: LORATADINE 10 MG TAB PO SCH (08:21)
[2016-10-23] MEDS: MAGNESIUM OXIDE 400 MG TAB PO SCH (08:21)
[2016-10-23] MEDS: TRIAMTERENE-HCTZ 37.5-25MG 1 EACH CAP PO SCH (08:21)
[2016-10-23] MEDS: OXYBUTYNIN XL 5 MG TAB.ER.24 PO SCH (08:21)
[2016-10-23] MEDS: FENOFIBRATE 54 MG TAB PO SCH (08:21)
[2016-10-23] MEDS: DIAZEPAM 5 MG TAB PO PRN (08:21)
[2016-10-23] MEDS: AMMONIUM LACTATE 12% LOTION 225 GM BTL TOPICAL SCH (08:22)
[2016-10-23] MEDS: DOCUSATE 100 MG CAP PO SCH (08:22)
[2016-10-23] MEDS: INSULIN LISPRO (humaLOG) 300 UNIT/3 ML VIAL SQ SCH ×2 (08:22→12:13)
[2016-10-23] MEDS: oxyCODONE ER 20 MG TAB.ER.12H PO SCH (08:22)
[2016-10-23] MEDS: HALOPERIDOL 5 MG TAB PO SCH (08:23)
[2016-10-23] MEDS ORDERED: PANTOPRAZOLE 40 MG TABLET PO SCH (09:00)
[2016-10-23 12:10] LABS: Glucose,Whole Blood 107 mg/dL (75-99)
[2016-10-23] MEDS: SODIUM CHLORIDE 0.9% 1,000 ML IV SCH (12:14)
--- NOTE | 2016-10-23 13:39 | P.DS ---
Providers Date of admission: 10/20/16 16:45 Expected date of discharge: 10/23/16 Attending physician: Don Patrick Consults: 10/21/16 12:09 Consult Physician Urgent Consulting Provider: Randy Ramos Consult Reason/Comments: Dried scaly's again to the feet toe nail need trimming Do you want consulting provider notified?: Yes Primary care physician: [facility] Course: 51-year-old who presented on October 20 with a chief complaint of weakness. Patient does have a history of cerebral palsy cognitive impairment. Apparently the patient stated her right leg gave out approximate 2 days she fell twisted her right ankle and foot. He reportedly was taken to [facility] in the emergency room at the facility they did a CAT scan of the brain which was negative. The x-ray of the right leg right ankle right foot there was no evidence of any fracture. They did note a urinary tract infection and did place patient on antibiotics which the patient states she did not get filled subsequently the patient was discharged from the emergency room and reappeared on October 20 to [facility]. Patient states since the incident she has had trouble ambulating. The temp in the emergency room was 99.7. Patient states at home she uses a walker or wheelchair and uses home O2 at night patient lives with an apartment with her boyfriend and does have a home care agency coming to her home 3-4 times a week x-rays were repeated at this facility in the tibia. Ankle and foot all were negative chest x-ray was unremarkable a boat diesel motor mechanic consultation was requested Dr. Ramos did see patient on the for a chief complaint of painful nails as well as dry skin bilaterally. Safety Counselor did trim the 10 toenails debridement of these nails were done by the boat diesel motor mechanic. Patient was given a prescription and instructed on using emollient to the dry feet Impression Chronic debility uses a walker or wheelchair suspect due to cerebral palsy History of cerebral palsy History of frequent falls limited mobility Present on admission elongated dystrophic nails 10. Present on admission generalized weakness inability to ambulate due to right ankle sprain Morbid obesity BMI 48 Dystrophic nails x 10 xerosis bilateral Every day current smoker suspect COPD undiagnosed Chronic respiratory failure 2 L at bedtime Suspect obstructive sleep apnea Chronic compensated congestive heart failure systolic dysfunction EF 45 Chronic pain Peripheral neuropathy bilateral feet History of a recent UTI with no evidence of a UTI this admission negative urine culture a mood disorder Depressive disorder nonspecified History of a recent fall 2 days prior to his to right ankle and right leg x- rays right leg ankle and foot no evidence of fracture The above dictated assessment and findings were discussed with Dr. Patrick. Impression and the plan of care have been dictated as directed. Swati Aguilar nurse practitioner acting as a scribe for Dr. Patrick Patient Condition at Discharge: Fair Plan - Discharge Summary New Discharge Prescriptions: Diazepam [Valium] 5 mg PO QID PRN #30 tab PRN Reason: Anxiety Haloperidol [Haldol] 5 mg PO DAILY #30 tab oxyCODONE ER [OxyCONTIN] 60 mg PO Q12H #180 tab.er.12h Discharge Medication List Dicyclomine [Bentyl] 20 mg PO Q4-6H PRN 10/08/14 [History] Docusate [Colace] 200 mg PO DAILY 10/08/14 [History] Fenofibrate Nanocrystallized [Tricor] 48 mg PO DAILY 10/08/14 [History] Fesoterodine Fumarate [Toviaz] 8 mg PO DAILY 10/08/14 [History] Fexofenadine HCl 180 mg PO DAILY 10/08/14 [History] Triamterene-Hctz 37.5-25Mg [Dyazide 37.5-25 Capsule] 1 cap PO BID 10/08/14 [ History] hydrOXYzine PAMOATE [Vistaril] 25 mg PO HS 10/08/14 [History] levETIRAcetam [Keppra] 750 mg PO BID 10/08/14 [History] Levothyroxine Sodium [Synthroid] 200 mcg PO DAILY 11/01/14 [History] Citalopram Hydrobromide [CeleXA] 40 mg PO DAILY #30 tablet 11/11/14 [Rx] Ziprasidone [Geodon] 80 mg PO AC-BID #30 cap 11/11/14 [Rx] Budesonide [Pulmicort] 0.5 mg INHALATION RT-BID 10/20/16 [History] Diazepam [Valium] 5 mg PO QID PRN 10/20/16 [History] Esomeprazole Magnesium [NexIUM] 40 mg PO DAILY 10/20/16 [History] Lactulose 10 gm PO DAILY PRN 10/20/16 [History] Levothyroxine Sodium [Synthroid] 50 mcg PO DAILY 10/20/16 [History] Linaclotide [Linzess] 145 mcg PO DAILY 10/20/16 [History] amLODIPine [Norvasc] 10 mg PO DAILY 10/20/16 [History] oxyCODONE HCL [OxyCONTIN] 60 mg PO Q12H 10/20/16 [History] oxyCODONE HCL [Roxicodone] 5 mg PO DAILY 10/20/16 [History] tiZANidine [Zanaflex] 2 mg PO DAILY PRN 10/20/16 [History] Diazepam [Valium] 5 mg PO QID PRN #30 tab 10/23/16 [Rx] Haloperidol [Haldol] 5 mg PO DAILY #30 tab 10/23/16 [Rx] oxyCODONE ER [OxyCONTIN] 60 mg PO Q12H #180 tab.er.12h 10/23/16 [Rx] Follow up Appointment(s)/Referral(s): Estuardo Grimes DO [Primary Care Provider] - 1-2 days Patient Instructions/Handouts: Type 2 Diabetes in Adults (DC) Discharge Disposition: TRANSFER TO SNF/ECF
--- NOTE | 2016-10-23 17:18 | PN ---
DATE OF SERVICE: 10/23/2016 CHIEF COMPLAINT: Pain in the right foot and ankle with cerebral palsy and inability to ambulate. HISTORY OF PRESENT ILLNESS: This lady has a bed at [facility] and she will be going there today. This will be arranged by the nurse practitioner.
== END 2016-10-23 16:32 | DRG 563 ==
LOC: EC 13:40 → 4MS4W 16:45
PROVIDERS: ADMIT Family Medicine; ATTEND Family Medicine
PROC: 2W3QX1Z Immobilization of Right Lower Leg using Splint (ICD-10-PCS; principal; 2016-10-20)
PROC: 0HBRXZZ Excision of Toe Nail, External Approach (ICD-10-PCS; 2016-10-21)
PROC: 0HBRXZZ Excision of Toe Nail, External Approach (ICD-10-PCS; 2016-10-21)
PROC: 0HBRXZZ Excision of Toe Nail, External Approach (ICD-10-PCS; 2016-10-21)
PROC: 0HBRXZZ Excision of Toe Nail, External Approach (ICD-10-PCS; 2016-10-21)
PROC: 0HBRXZZ Excision of Toe Nail, External Approach (ICD-10-PCS; 2016-10-21)
PROC: 0HBRXZZ Excision of Toe Nail, External Approach (ICD-10-PCS; 2016-10-21)
PROC: 0HBRXZZ Excision of Toe Nail, External Approach (ICD-10-PCS; 2016-10-21)
PROC: 0HBRXZZ Excision of Toe Nail, External Approach (ICD-10-PCS; 2016-10-21)
PROC: 0HBRXZZ Excision of Toe Nail, External Approach (ICD-10-PCS; 2016-10-21)
PROC: 0HBRXZZ Excision of Toe Nail, External Approach (ICD-10-PCS; 2016-10-21)
DX: S93.401A Sprain of unspecified ligament of right ankle, initial encounter (principal); J96.10 Chronic respiratory failure, unspecified whether with hypoxia or hypercapnia; I50.22 Chronic systolic (congestive) heart failure; Z99.81 Dependence on supplemental oxygen; Z68.42 Body mass index [BMI] 45.0-49.9, adult; G80.9 Cerebral palsy, unspecified; E83.42 Hypomagnesemia; G62.9 Polyneuropathy, unspecified; G89.29 Other chronic pain; E66.01 Morbid (severe) obesity due to excess calories; R62.7 Adult failure to thrive; F32.9 Major depressive disorder, single episode, unspecified; N32.81 Overactive bladder; K58.9 Irritable bowel syndrome, unspecified; R29.6 Repeated falls; M48.00 Spinal stenosis, site unspecified; F25.9 Schizoaffective disorder, unspecified; H50.9 Unspecified strabismus; G47.33 Obstructive sleep apnea (adult) (pediatric); J44.9 Chronic obstructive pulmonary disease, unspecified; M19.90 Unspecified osteoarthritis, unspecified site; H50.10 Unspecified exotropia; L60.3 Nail dystrophy; R53.1 Weakness; T36.96XA Underdosing of unspecified systemic antibiotic, initial encounter; G31.84 Mild cognitive impairment of uncertain or unknown etiology; L85.3 Xerosis cutis; R32 Unspecified urinary incontinence; F17.200 Nicotine dependence, unspecified, uncomplicated; Z87.828 Personal history of other (healed) physical injury and trauma; Z86.14 Personal history of Methicillin resistant Staphylococcus aureus infection; Z87.19 Personal history of other diseases of the digestive system; Z91.81 History of falling; Z16.24 Resistance to multiple antibiotics; Z83.3 Family history of diabetes mellitus; Z86.19 Personal history of other infectious and parasitic diseases; Z87.440 Personal history of urinary (tract) infections; Z88.1 Allergy status to other antibiotic agents; Z91.041 Radiographic dye allergy status; Z91.040 Latex allergy status; Z91.011 Allergy to milk products; Z88.5 Allergy status to narcotic agent; Z91.010 Allergy to peanuts; Z91.013 Allergy to seafood; Z88.8 Allergy status to other drugs, medicaments and biological substances; Z91.018 Allergy to other foods; Z79.891 Long term (current) use of opiate analgesic; Z79.51 Long term (current) use of inhaled steroids; Z79.899 Other long term (current) drug therapy; Z90.49 Acquired absence of other specified parts of digestive tract
CPT/HCPCS: 36415; 71020; 80053; 81003; 82550; 82553; 83036; 83735; 84100; 84443; 84484; 85025; 85610; 85730; 87040; 87086; 93005; 94640; 94660; 96361; 96365; 99285

== ENCOUNTER 2016-11-02 21:53 | Emergency (ER) | payer MEDICARE, OTHER ==
[2016-11-02] MEDS ORDERED: ACETAMINOPHEN TAB 325 MG TAB PO STA (23:07)
--- NOTE | 2016-11-02 23:44 | XR ---
EXAM: XR Chest, 2 Views. CLINICAL HISTORY: Reason: fever TECHNIQUE: Frontal and lateral views of the chest. COMPARISON: Chest x-ray 10/20/16 FINDINGS: Lungs: Reduced lung volumes. Vascular congestion and patchy edema and/or pneumonitis in the lower lung yang. Pleural space: Unremarkable. No pneumothorax. Heart: Large cardiomediastinal silhouette. Mediastinum: See above. Bones/joints: Surgical changes related to the right shoulder. Tubes, lines and devices: Spinal lead. IMPRESSION: Vascular congestion and patchy edema and/or pneumonitis in the lower lung yang.
[2016-11-02] MEDS ORDERED: OSELTAMIVIR 75 MG CAP PO STA (23:52)
[2016-11-02 23:56] LABS: Anisocytosis Moderate; Basophils % (A) 0 %; CH 25.6; CHCM 29.8; Eosinophils # (A) 0.2 k/uL (0-0.7); Eosinophils % (A) 2 %; HCT 42.4 % (34.0-46.0); HDW 3.24; HGB 12.4 gm/dL (11.4-16.0); Hypochromasia Marked; Luc # (Auto) 0.15; Luc % (Auto) 2; Lymphocytes # (A) 0.4 k/uL (1.0-4.8); Lymphocytes % (A) 5 %; MCH 25.2 pg (25.0-35.0); MCHC 29.3 g/dL (31.0-37.0); Mean Platelet Volume 7.1; Monocytes # (A) 0.6 k/uL (0-1.0); Monocytes % (A) 6 %; Neutrophils # (A) 8.2 k/uL (1.3-7.7); Neutrophils % (A) 85 %; RBC 4.94 m/uL (3.80-5.40); RDW 20.1 % (11.5-15.5); WBC 9.6 k/uL (3.8-10.6); WBC (Perox) 10.13
[2016-11-03 00:05] LABS: ALT 39 U/L (9-52); AST 56 U/L (14-36); Alkaline Phosphatase 79 U/L (38-126); Anion Gap 12 mmol/L; Blood Urea Nitrogen 10 mg/dL (7-17); Calcium 9.7 mg/dL (8.4-10.2); Carbon Dioxide 29 mmol/L (22-30); Chloride 99 mmol/L (98-107); Glucose 162 mg/dL (74-99); Non-African American GFR(MDRD) >60 (>60 ml/min/1.73 sqM); Potassium 3.9 mmol/L (3.5-5.1); Sodium 140 mmol/L (137-145); Total Bilirubin 0.9 mg/dL (0.2-1.3); Total Protein 7.8 g/dL (6.3-8.2)
--- NOTE | 2016-11-03 01:45 | ED ---
Fever HPI - General Chief Complaint: Fever Stated Complaint: fever Time Seen by Provider: 11/02/16 21:54 Source: EMS Mode of arrival: EMS Limitations: no limitations - History of Present Illness Initial Comments: This patient is a 51-year-old woman sent from the medical [place] to be evaluated for fever and a cough. The patient states that she had been feeling well earlier today and then this evening felt hot, and she also started having cough. The patient is currently denying pain, including no headache, neck pain , or chest pain. She is not having any sputum or shortness of breath. She has not had vomiting or diarrhea. No abdominal pain. She has not noted change in urination. The patient does have a splint on her right leg, but states that she is currently not having pain. She believes that the splint as there related to a fall she had early this month. She states that after the fall she was not able to bear weight. MD Complaint: fever, other (Cough) -: hour(s) Temperature Source: oral Associated Symptoms: cough Treatments Prior to Arrival: none - Related Data Home Medications Medication Instructions Recorded Confirmed Dicyclomine [Bentyl] 20 mg PO Q4-6H PRN 10/08/14 10/20/16 Docusate [Colace] 200 mg PO DAILY 10/08/14 10/20/16 Fenofibrate Nanocrystallized 48 mg PO DAILY 10/08/14 10/20/16 [Tricor] Fesoterodine Fumarate [Toviaz] 8 mg PO DAILY 10/08/14 10/20/16 Fexofenadine HCl 180 mg PO DAILY 10/08/14 10/20/16 Triamterene-Hctz 37.5-25Mg 1 cap PO BID 10/08/14 10/20/16 [Dyazide 37.5-25 Capsule] hydrOXYzine PAMOATE [Vistaril] 25 mg PO HS 10/08/14 10/20/16 levETIRAcetam [Keppra] 750 mg PO BID 10/08/14 10/20/16 Levothyroxine Sodium [Synthroid] 200 mcg PO DAILY 11/01/14 10/20/16 Budesonide [Pulmicort] 0.5 mg INHALATION RT-BID 10/20/16 10/20/16 Diazepam [Valium] 5 mg PO QID PRN 10/20/16 10/20/16 Esomeprazole Magnesium [NexIUM] 40 mg PO DAILY 10/20/16 10/20/16 Lactulose 10 gm PO DAILY PRN 10/20/16 10/20/16 Levothyroxine Sodium [Synthroid] 50 mcg PO DAILY 10/20/16 10/20/16 Linaclotide [Linzess] 145 mcg PO DAILY 10/20/16 10/20/16 amLODIPine [Norvasc] 10 mg PO DAILY 10/20/16 10/20/16 oxyCODONE HCL [OxyCONTIN] 60 mg PO Q12H 10/20/16 10/20/16 oxyCODONE HCL [Roxicodone] 5 mg PO DAILY 10/20/16 10/20/16 tiZANidine [Zanaflex] 2 mg PO DAILY PRN 10/20/16 10/20/16 Previous Rx's Medication Instructions Recorded Citalopram Hydrobromide [CeleXA] 40 mg PO DAILY #30 tablet 11/11/14 Ziprasidone [Geodon] 80 mg PO AC-BID #30 cap 11/11/14 Diazepam [Valium] 5 mg PO QID PRN #30 tab 10/23/16 Haloperidol [Haldol] 5 mg PO DAILY #30 tab 10/23/16 oxyCODONE ER [OxyCONTIN] 60 mg PO Q12H #180 tab.er.12h 10/23/16 Oseltamivir [Tamiflu] 75 mg PO Q12HR #10 cap 11/03/16 Allergies Allergy/AdvReac Type Severity Reaction Status Date / Time butalbital [From Fiorinal] Allergy Unknown Verified 10/20/16 14:34 caffeine [From Fiorinal] Allergy Unknown Verified 10/20/16 14:34 cimetidine [From Tagamet] Allergy Unknown Verified 10/20/16 14:34 cimetidine HCl [From Tagamet] Allergy Unknown Verified 10/20/16 14:34 codeine Allergy Unknown Verified 10/20/16 14:34 dichloralphenazone Allergy Unknown Verified 10/20/16 14:34 [From Midrin] diphenhydramine HCl Allergy Unknown Verified 10/20/16 14:34 [From Benadryl] heparin Allergy Rash/Hives Verified 10/20/16 14:34 indomethacin [From Indocin] Allergy Unknown Verified 10/20/16 14:34 indomethacin sodium Allergy Unknown Verified 10/20/16 14:34 [From Indocin] iodine Allergy Swelling Verified 10/20/16 14:34 isometheptene mucate Allergy Unknown Verified 10/20/16 14:34 [From Midrin] latex Allergy Anaphylaxis Verified 10/20/16 14:34 Macrolide Antibiotics Allergy Unknown Verified 10/20/16 14:34 nystatin Allergy Rash/Hives Verified 10/20/16 14:34 Penicillins Allergy Unknown Verified 10/20/16 14:34 propoxyphene HCl Allergy Unknown Verified 10/20/16 14:34 [From Darvon] shellfish derived [Shellfish] Allergy Swelling Verified 10/20/16 14:34 theophylline anhydrous Allergy Unknown Verified 10/20/16 14:34 [From [place]] lactose intolerant AdvReac Unknown Uncoded 10/20/16 18:32 Review of Systems ROS Statement: Those systems with pertinent positive or pertinent negative responses have been documented in the HPI. ROS Other: All systems not noted in ROS Statement are negative. Constitutional: Reports: fever, chills. Denies: weakness Respiratory: Reports: cough. Denies: dyspnea, hemoptysis Cardiovascular: Denies: chest pain, edema, syncope Gastrointestinal: Denies: abdominal pain, vomiting, diarrhea Genitourinary: Denies: dysuria, frequency, hematuria Musculoskeletal: Reports: as per HPI. Denies: back pain Skin: Denies: rash Neurological: Denies: headache, weakness, numbness Past Medical History Past Medical History: Asthma, Diabetes Mellitus, GERD/Reflux, Osteoarthritis (OA ), Pneumonia, Respiratory Disorder, Seizure Disorder, Sleep Apnea/CPAP/BIPAP, Thyroid Disorder Additional Past Medical History / Comment(s): falls. C-diff 2009 cerebral palsy, spinal stenosis, neuropathy bilateral feet and hands, arthritis, chronic respiratory failure, ejection fraction 45% 2012, generalized chronic pain, IBS/ CONSTIPATION(LAST BM 10-19-16),kidney stones, overactive bladder wears brief for incont of urine."diabetic on metformin", glaucoma, home 02 3 liters during day , 5 liters at hs "pt can't remember what lung disease she has", uti."had a pne vaccine in past but not sure of date" History of Any Multi-Drug Resistant Organisms: MRSA Date of last positivie culture/infection: 2008 MDRO Source:: foot Past Surgical History: Back Surgery, Cholecystectomy Additional Past Surgical History / Comment(s): Spinal surgery x2,spinal stimulator 2-2016, bilateral eye surgery for muscle repair due to cerebral palsy. rt shoulder sx, rom carpal tunnel, cyst removed from wrist Past Anesthesia/Blood Transfusion Reactions: Motion Sickness, Postoperative Nausea & Vomiting (PONV) Past Psychological History: Depression, Schizoaffective Disorder Additional Psychological History / Comment(s): pt has a public legal guardian, Pt lives with her boyfriend. Pt ambulates with a walker or uses a wheelchair at times. She has home O2 which she wears3 liters in daytime and 5 liters at nite.walker/w/c, shower cahir, nebulizer . She has a home health lpn coming into her home daily. no steps to navigate. Smoking Status: Current every day smoker Past Alcohol Use History: None Reported Additional Past Alcohol Use History / Comment(s): started smoking at age 20, smokes 10 cig per day Past Drug Use History: None Reported - Past Family History Father Family Medical History: No Reported History Mother Family Medical History: Diabetes Mellitus General Exam Limitations: no limitations General appearance: alert, in no apparent distress Head exam: Present: atraumatic, normocephalic ENT exam: Present: normal oropharynx Neck exam: Present: normal inspection, full ROM. Absent: meningismus Respiratory exam: Present: normal lung sounds bilaterally, other (Patient has a frequent, nonproductive cough during the exam.). Absent: respiratory distress, wheezes, rales, rhonchi, stridor, decreased breath sounds, prolonged expiratory Cardiovascular Exam: Present: tachycardia (Rate is 100-104 at my exam), normal heart sounds. Absent: systolic murmur, diastolic murmur, rubs, gallop GI/Abdominal exam: Present: soft. Absent: distended, tenderness, guarding, rebound, mass Extremities exam: Present: normal capillary refill, other (Patient wears a posterior mold splint to the right ankle. This was removed with nursing assistance, and reapplied. There is no underlying skin change or evidence of infection.). Absent: pedal edema, calf tenderness Neurological exam: Present: alert, oriented X3 Psychiatric exam: Present: normal affect Skin exam: Present: warm, dry, normal color. Absent: rash Course Vital Signs 11/02/16 11/03/16 21:55 01:11 Temperature 102.6 F H 101.6 F H Pulse Rate 102 H 90 Respiratory 24 22 Rate Blood Pressure 139/60 144/63 O2 Sat by Pulse 93 L 92 L Oximetry Medical Decision Making - Medical Decision Making Patient is a 51-year-old woman in [facility] with cough and fever and found to have influenza. Started on oseltamivir here and discharged with prescription for the same. I do have concerns about the patient remaining in the splint for prolonged period of time and discussed this with her, as well as noting this in the discharge instructions. They will need to follow with orthopedics to have definitive treatment for her lower leg. At this time there is no evidence of any infection or septic arthritis.. - Lab Data Result diagrams: 11/02/16 23:38 11/02/16 23:38 Lab Results 11/02/16 11/02/16 11/02/16 Range/Units 23:10 23:38 23:38 WBC 9.6 (3.8-10.6) k/uL RBC 4.94 (3.80-5.40) m/uL Hgb 12.4 (11.4-16.0) gm/dL Hct 42.4 (34.0-46.0) % MCV 86.0 (80.0-100.0) fL MCH 25.2 (25.0-35.0) pg MCHC 29.3 L (31.0-37.0) g/dL RDW 20.1 H (11.5-15.5) % Plt Count 260 (150-450) k/uL Neutrophils % 85 % Lymphocytes % 5 % Monocytes % 6 % Eosinophils % 2 % Basophils % 0 % Neutrophils # 8.2 H (1.3-7.7) k/uL Lymphocytes # 0.4 L (1.0-4.8) k/uL Monocytes # 0.6 (0-1.0) k/uL Eosinophils # 0.2 (0-0.7) k/uL Basophils # 0.0 (0-0.2) k/uL Hypochromasia Marked Anisocytosis Moderate Sodium 140 (137-145) mmol/L Potassium 3.9 (3.5-5.1) mmol/L Chloride 99 (98-107) mmol/L Carbon Dioxide 29 (22-30) mmol/L Anion Gap 12 mmol/L BUN 10 (7-17) mg/dL Creatinine 0.80 (0.52-1.04) mg/dL Est GFR (MDRD) Af Amer >60 (>60 ml/min/1.73 sqM) Est GFR (MDRD) Non-Af >60 (>60 ml/min/1.73 sqM) Glucose 162 H (74-99) mg/dL Plasma Lactic Acid Mello (0.7-2.0) mmol/L Calcium 9.7 (8.4-10.2) mg/dL Total Bilirubin 0.9 (0.2-1.3) mg/dL AST 56 H (14-36) U/L ALT 39 (9-52) U/L Alkaline Phosphatase 79 (38-126) U/L Total Protein 7.8 (6.3-8.2) g/dL Albumin 3.9 (3.5-5.0) g/dL Influenza Type A RNA Detected H (Not Detectd) Influenza Type B (PCR) Not Detected (Not Detectd) 11/02/16 Range/Units 23:38 WBC (3.8-10.6) k/uL RBC (3.80-5.40) m/uL Hgb (11.4-16.0) gm/dL Hct (34.0-46.0) % MCV (80.0-100.0) fL MCH (25.0-35.0) pg MCHC (31.0-37.0) g/dL RDW (11.5-15.5) % Plt Count (150-450) k/uL Neutrophils % % Lymphocytes % % Monocytes % % Eosinophils % % Basophils % % Neutrophils # (1.3-7.7) k/uL Lymphocytes # (1.0-4.8) k/uL Monocytes # (0-1.0) k/uL Eosinophils # (0-0.7) k/uL Basophils # (0-0.2) k/uL Hypochromasia Anisocytosis Sodium (137-145) mmol/L Potassium (3.5-5.1) mmol/L Chloride (98-107) mmol/L Carbon Dioxide (22-30) mmol/L Anion Gap mmol/L BUN (7-17) mg/dL Creatinine (0.52-1.04) mg/dL Est GFR (MDRD) Af Amer (>60 ml/min/1.73 sqM) Est GFR (MDRD) Non-Af (>60 ml/min/1.73 sqM) Glucose (74-99) mg/dL Plasma Lactic Acid Mello 1.2 (0.7-2.0) mmol/L Calcium (8.4-10.2) mg/dL Total Bilirubin (0.2-1.3) mg/dL AST (14-36) U/L ALT (9-52) U/L Alkaline Phosphatase (38-126) U/L Total Protein (6.3-8.2) g/dL Albumin (3.5-5.0) g/dL Influenza Type A RNA (Not Detectd) Influenza Type B (PCR) (Not Detectd) Disposition Clinical Impression: Influenza Disposition: HOME SELF-CARE Condition: Fair Instructions: Fever in Adults (ED), Ankle Sprain (ED) Additional Instructions: As discussed, you must follow-up with orthopedic doctor about having the splint removed and to see if casting is required. Prolonged use of this type of splint without appropriate follow-up is discouraged. Prescriptions: Oseltamivir [Tamiflu] 75 mg PO Q12HR #10 cap Referrals: Anthony Stone DO [Primary Care Provider] - 1-2 days Jose Bowie MD [Medical Doctor] - 1-2 days
[2016-11-03 02:57] VITALS: BP 145/60; PULSE 88; RESP 16; TEMP 101
== END 2016-11-03 03:19 | disposition home or self-care (01) ==
LOC: EC 21:53
DX: J11.1 Influenza due to unidentified influenza virus with other respiratory manifestations (principal); J45.909 Unspecified asthma, uncomplicated; E07.9 Disorder of thyroid, unspecified; M19.90 Unspecified osteoarthritis, unspecified site; G40.909 Epilepsy, unspecified, not intractable, without status epilepticus; K21.9 Gastro-esophageal reflux disease without esophagitis; F17.200 Nicotine dependence, unspecified, uncomplicated; Z86.14 Personal history of Methicillin resistant Staphylococcus aureus infection; Z79.51 Long term (current) use of inhaled steroids; Z79.891 Long term (current) use of opiate analgesic; Z79.899 Other long term (current) drug therapy; Z88.0 Allergy status to penicillin; Z88.1 Allergy status to other antibiotic agents; Z88.5 Allergy status to narcotic agent; Z88.6 Allergy status to analgesic agent; Z88.8 Allergy status to other drugs, medicaments and biological substances; Z91.013 Allergy to seafood; Z91.040 Latex allergy status; Z91.048 Other nonmedicinal substance allergy status
CPT/HCPCS: 36415; 71020; 80053; 83605; 85025; 87502; 99284

== ENCOUNTER 2016-11-03 14:10 | Inpatient (IN) | payer MEDICARE, OTHER ==
[2016-11-03] MEDS ORDERED: methylPREDNISolone SOD SUCCI 125 MG/2 ML VIAL IV STA (14:48)
[2016-11-03] MEDS ORDERED: SODIUM CHLORIDE 0.9% 1,000 ML IV STA (14:48)
[2016-11-03] MEDS ORDERED: IPRATROPIUM-ALBUTEROL 3 ML NEB INHALATION STA (14:48)
[2016-11-03] MEDS ORDERED: BUTALB/APAP/CAFF 50-325-40MG TAB PO STA (14:52)
--- NOTE | 2016-11-03 15:00 | ED ---
General Adult HPI <Zia Junior J - Last Filed: 11/03/16 17:02> - General Source: patient, EMS, RN notes reviewed, old records reviewed Mode of arrival: EMS <Gordon Cruz - Last Filed: 11/03/16 17:17> - General Chief complaint: Shortness of Breath Stated complaint: EDUARDO Time Seen by Provider: 11/03/16 14:27 - History of Present Illness Initial comments: Patient is a 51-year-old female with significant past medical history for cervical pulses, who presents emergency room today with chief complaint of increased shortness of breath. Patient was seen here in the emergency room late last night diagnosed with influenza A. Started on Tamiflu. Was discharged home. He is currently staying at [facility]. Nursing staff noticed that breathing seemed to be more labored. States they had a difficult time keeping pulse ox greater than 80s. States that they give breathing treatment. States he had increased to a nonrebreather. At this time patient resting more comfortably here in the emergency room. Is on 5 L of oxygen currently pulse ox 95%. She states she is 5 L of oxygen at night and 3 L of oxygen during the day. Patient does admit that she does feel more congested more short of breath. She states his symptoms started just yesterday. She denies any other complaints. She does admit to injury to the right lower extremity that occurred she believes 2 weeks ago had states she has been following up. She currently is splint. Patient denies any recent chest pain, back pain, abdominal pain, nausea or vomiting, numbness or tingling, dysuria or hematuria, constipation or diarrhea, headaches or visual changes, or any other complaints. (Gordon Cruz) - Related Data Home Medications Medication Instructions Recorded Confirmed Dicyclomine [Bentyl] 20 mg PO Q4-6H PRN 10/08/14 11/03/16 Docusate [Colace] 200 mg PO DAILY 10/08/14 11/03/16 Fenofibrate Nanocrystallized 48 mg PO DAILY 10/08/14 11/03/16 [Tricor] Fesoterodine Fumarate [Toviaz] 8 mg PO DAILY 10/08/14 11/03/16 Fexofenadine HCl 180 mg PO DAILY 10/08/14 11/03/16 Triamterene-Hctz 37.5-25Mg 1 cap PO BID 10/08/14 11/03/16 [Dyazide 37.5-25 Capsule] levETIRAcetam [Keppra] 750 mg PO BID 10/08/14 11/03/16 Levothyroxine Sodium [Synthroid] 200 mcg PO HS 11/01/14 11/03/16 Budesonide [Pulmicort] 0.5 mg INHALATION RT-BID 10/20/16 11/03/16 Esomeprazole Magnesium [NexIUM] 40 mg PO DAILY 10/20/16 11/03/16 Lactulose 10 gm PO DAILY PRN 10/20/16 11/03/16 Levothyroxine Sodium [Synthroid] 50 mcg PO HS 10/20/16 11/03/16 Linaclotide [Linzess] 145 mcg PO DAILY 10/20/16 11/03/16 amLODIPine [Norvasc] 10 mg PO DAILY 10/20/16 11/03/16 oxyCODONE HCL [Roxicodone] 5 mg PO HS 10/20/16 11/03/16 tiZANidine [Zanaflex] 2 mg PO DAILY PRN 10/20/16 11/03/16 Sulfamethox-Tmp 800-160Mg [Bactrim 1 tab PO Q12HR 11/03/16 11/03/16 DS 800-160 mg] hydrOXYzine HCL [Atarax] 25 mg PO HS 11/03/16 11/03/16 Previous Rx's Medication Instructions Recorded Citalopram Hydrobromide [CeleXA] 40 mg PO DAILY #30 tablet 11/11/14 Ziprasidone [Geodon] 80 mg PO AC-BID #30 cap 11/11/14 Diazepam [Valium] 5 mg PO QID PRN #30 tab 10/23/16 Haloperidol [Haldol] 5 mg PO DAILY #30 tab 10/23/16 oxyCODONE ER [OxyCONTIN] 60 mg PO Q12H #180 tab.er.12h 10/23/16 Oseltamivir [Tamiflu] 75 mg PO Q12HR #10 cap 11/03/16 Allergies Allergy/AdvReac Type Severity Reaction Status Date / Time butalbital [From Fiorinal] Allergy Unknown Verified 11/03/16 14:28 caffeine [From Fiorinal] Allergy Unknown Verified 11/03/16 14:28 cimetidine [From Tagamet] Allergy Unknown Verified 11/03/16 14:28 cimetidine HCl [From Tagamet] Allergy Unknown Verified 11/03/16 14:28 codeine Allergy Unknown Verified 11/03/16 14:28 dichloralphenazone Allergy Unknown Verified 11/03/16 14:28 [From Midrin] diphenhydramine HCl Allergy Unknown Verified 11/03/16 14:28 [From Benadryl] heparin Allergy Rash/Hives Verified 11/03/16 14:28 indomethacin [From Indocin] Allergy Unknown Verified 11/03/16 14:28 indomethacin sodium Allergy Unknown Verified 11/03/16 14:28 [From Indocin] iodine Allergy Swelling Verified 11/03/16 14:28 isometheptene mucate Allergy Unknown Verified 11/03/16 14:28 [From Midrin] latex Allergy Anaphylaxis Verified 11/03/16 14:28 Macrolide Antibiotics Allergy Unknown Verified 11/03/16 14:28 nystatin Allergy Rash/Hives Verified 11/03/16 14:28 Penicillins Allergy Unknown Verified 11/03/16 14:28 propoxyphene HCl Allergy Unknown Verified 11/03/16 14:28 [From Darvon] shellfish derived [Shellfish] Allergy Swelling Verified 11/03/16 14:28 theophylline anhydrous Allergy Unknown Verified 11/03/16 14:28 [From [place]] lactose intolerant AdvReac Unknown Uncoded 11/03/16 14:28 Review of Systems ROS Other: All systems not noted in ROS Statement are negative. <Zia Junior - Last Filed: 11/03/16 17:02> ROS Other: All systems not noted in ROS Statement are negative. <Gordon Cruz - Last Filed: 11/03/16 17:17> ROS Statement: Those systems with pertinent positive or pertinent negative responses have been documented in the HPI. Past Medical History Past Medical History: Asthma, Diabetes Mellitus, GERD/Reflux, Osteoarthritis (OA ), Pneumonia, Respiratory Disorder, Seizure Disorder, Sleep Apnea/CPAP/BIPAP, Thyroid Disorder Additional Past Medical History / Comment(s): falls. C-diff 2008 cerebral palsy, spinal stenosis, neuropathy bilateral feet and hands, arthritis, chronic respiratory failure, ejection fraction 45% 2011, generalized chronic pain, IBS/ CONSTIPATION(LAST BM 10-19-16),kidney stones, overactive bladder wears brief for incont of urine."diabetic on metformin", glaucoma, home 02 3 liters during day History of Any Multi-Drug Resistant Organisms: MRSA Date of last positivie culture/infection: 2008 MDRO Source:: foot Past Surgical History: Back Surgery, Cholecystectomy Additional Past Surgical History / Comment(s): Spinal surgery x2,spinal stimulator 2-2016, bilateral eye surgery for muscle repair due to cerebral palsy. rt shoulder sx, rom carpal tunnel, cyst removed from wrist Past Anesthesia/Blood Transfusion Reactions: Motion Sickness, Postoperative Nausea & Vomiting (PONV) Past Psychological History: Depression, Schizoaffective Disorder Additional Psychological History / Comment(s): pt has a public legal guardian, Pt lives with her boyfriend. Pt ambulates with a walker or uses a wheelchair at times. She has home O2 which she wears3 liters in daytime and 5 liters at nite.walker/w/c, shower cahir, nebulizer . She has a home supervisor coming into her home daily. no steps to navigate. Smoking Status: Former smoker Past Alcohol Use History: None Reported Additional Past Alcohol Use History / Comment(s): started smoking at age 20, smokes 10 cig per day Past Drug Use History: None Reported - Past Family History Father Family Medical History: No Reported History Mother Family Medical History: Diabetes Mellitus <Gordon Cruz - Last Filed: 11/03/16 17:17> General Exam <Zia Junior - Last Filed: 11/03/16 17:02> <Gordon Cruz - Last Filed: 11/03/16 17:17> - General Exam Comments Initial Comments: General: The patient is awake and alert, in no distress, and does not appear acutely ill. Eye: Pupils are equal, round and reactive to light, extra-ocular movements are intact. No nystagmus. There is normal conjunctiva bilaterally. No signs of icterus. Ears, nose, mouth and throat: There are moist mucous membranes and no oral lesions. Neck: The neck is supple, there is no tenderness or JVD. Cardiovascular: There is a regular rate and rhythm. No murmur, rub or gallop is appreciated. Respiratory: Decreased breath sounds bilaterally. respirations are non-labored , breath sounds are equal. No wheezes, stridor, rales, or rhonchi. Musculoskeletal: Normal ROM, no tenderness. Strength 5/5. Sensation intact. Pulses equal bilaterally 2+. Patient does have a splint short leg on the right lower extremity. Neurological: A&O x 3. CN II-XII intact, There are no obvious motor or sensory deficits. Coordination appears grossly intact. Speech is normal. Skin: Skin is warm and dry and no rashes or lesions are noted. Psychiatric: Cooperative, appropriate mood & affect, normal judgment. (Gordon Cruz) Medical Decision Making - Lab Data Result diagrams: 11/03/16 15:59 11/03/16 15:59 <Zia Junior - Last Filed: 11/03/16 17:02> - Lab Data Result diagrams: 11/03/16 15:59 11/03/16 15:59 <Gordon Cruz - Last Filed: 11/03/16 17:17> - Medical Decision Making The patient was seen and examined. All diagnostics were reviewed. The case is discussed with Dr. Cook. The case is discussed with the PA and I agree with the findings as documented. Case is also discussed with Dr. Parnell. (Zia Junior) Visual be admitted to the hospital continue breathing treatments and steroids. Advised will be added to cover for pneumonia as recommended by admitting physician Dr. Parnell. Patient aware the plan. (Gordon Cruz) - Lab Data Lab Results 11/03/16 11/03/16 Range/Units 15:59 15:59 WBC 5.7 (3.8-10.6) k/uL RBC 4.72 (3.80-5.40) m/uL Hgb 12.1 (11.4-16.0) gm/dL Hct 39.5 (34.0-46.0) % MCV 83.7 (80.0-100.0) fL MCH 25.7 (25.0-35.0) pg MCHC 30.7 L (31.0-37.0) g/dL RDW 20.3 H (11.5-15.5) % Plt Count 246 (150-450) k/uL Neutrophils % 72 % Lymphocytes % 14 % Monocytes % 10 % Eosinophils % 1 % Basophils % 1 % Neutrophils # 4.0 (1.3-7.7) k/uL Lymphocytes # 0.8 L (1.0-4.8) k/uL Monocytes # 0.6 (0-1.0) k/uL Eosinophils # 0.1 (0-0.7) k/uL Basophils # 0.0 (0-0.2) k/uL Hypochromasia Marked Anisocytosis Moderate Microcytosis Slight Sodium 140 (137-145) mmol/L Potassium 3.8 (3.5-5.1) mmol/L Chloride 97 L (98-107) mmol/L Carbon Dioxide 33 H (22-30) mmol/L Anion Gap 10 mmol/L BUN 15 (7-17) mg/dL Creatinine 1.02 (0.52-1.04) mg/dL Est GFR (MDRD) Af Amer >60 (>60 ml/min/1.73 sqM) Est GFR (MDRD) Non-Af 58 (>60 ml/min/1.73 sqM) Glucose 110 H (74-99) mg/dL Calcium 9.4 (8.4-10.2) mg/dL Total Bilirubin 0.7 (0.2-1.3) mg/dL AST 74 H (14-36) U/L ALT 40 (9-52) U/L Alkaline Phosphatase 70 (38-126) U/L Total Protein 7.5 (6.3-8.2) g/dL Albumin 3.8 (3.5-5.0) g/dL Disposition <Zia Junior - Last Filed: 11/03/16 17:02> Time of Disposition: 17:06 <Gordon Cruz - Last Filed: 11/03/16 17:17> Clinical Impression: Influenza A, COPD exacerbation Disposition: ADMITTED IP TO THIS HOSP Condition: Stable
[2016-11-03 16:22] LABS: ALT 40 U/L (9-52); AST 74 U/L (14-36); Alkaline Phosphatase 70 U/L (38-126); Anion Gap 10 mmol/L; Anisocytosis Moderate; Basophils % (A) 1 %; Blood Urea Nitrogen 15 mg/dL (7-17); CH 25.8; CHCM 30.8; Calcium 9.4 mg/dL (8.4-10.2); Carbon Dioxide 33 mmol/L (22-30); Chloride 97 mmol/L (98-107); Eosinophils # (A) 0.1 k/uL (0-0.7); Eosinophils % (A) 1 %; Glucose 110 mg/dL (74-99); HCT 39.5 % (34.0-46.0); HDW 3.37; HGB 12.1 gm/dL (11.4-16.0); Hypochromasia Marked; Luc # (Auto) 0.13; Luc % (Auto) 2; Lymphocytes # (A) 0.8 k/uL (1.0-4.8); Lymphocytes % (A) 14 %; MCH 25.7 pg (25.0-35.0); MCHC 30.7 g/dL (31.0-37.0); MCV 83.7 fL (80.0-100.0); Mean Platelet Volume 7.5; Microcytosis Slight; Monocytes # (A) 0.6 k/uL (0-1.0); Monocytes % (A) 10 %; Neutrophils % (A) 72 %; Non-African American GFR(MDRD) 58 (>60 ml/min/1.73 sqM); Potassium 3.8 mmol/L (3.5-5.1); RBC 4.72 m/uL (3.80-5.40); RDW 20.3 % (11.5-15.5); Sodium 140 mmol/L (137-145); Total Bilirubin 0.7 mg/dL (0.2-1.3); Total Protein 7.5 g/dL (6.3-8.2); WBC 5.7 k/uL (3.8-10.6); WBC (Perox) 5.93
--- NOTE | 2016-11-03 16:25 | XR ---
EXAMINATION TYPE: XR chest 2V DATE OF EXAM: 11/03/2016 4:19 PM COMPARISON: 11/02/2016 TECHNIQUE: PA and lateral views submitted. HISTORY: Fever FINDINGS: Perihilar interstitial pattern seen. Exam limited by technique. Heart is enlarged but stable. Spinal canal device noted. Mild hypertrophic change of the spine. No pneumothorax. IMPRESSION: 1. Perihilar interstitial pattern is stable. Atypical or viral pneumonia or pneumonitis. Venous conge stion less likely consideration given lack of pleural fluid but correlate clinically.
[2016-11-03] MEDS ORDERED: LEVOFLOXACIN 500MG-D5W PMX 500 MG in DEXTROSE/WATER 1 100ML.BAG IVPB STA (16:27)
[2016-11-03] MEDS ORDERED: SODIUM CHLORIDE 0.9% 1,000 ML IV ONE (17:17)
[2016-11-03] MEDS ORDERED: ACETAMINOPHEN TAB 325 MG TAB PO PRN (17:17)
[2016-11-03] MEDS ORDERED: NALOXONE 0.4 MG/ML 1 ML VIAL IV PRN (17:17)
[2016-11-03 20:24] LABS: Glucose,Whole Blood 174 mg/dL (75-99)
[2016-11-03] MEDS ORDERED: DIAZEPAM 5 MG TAB PO PRN (20:52)
[2016-11-03] MEDS ORDERED: DICYCLOMINE 20 MG TAB PO PRN (20:52)
[2016-11-03] MEDS: oxyCODONE ER 20 MG TAB.ER.12H PO SCH (23:01)
[2016-11-03] MEDS: LEVOTHYROXINE 100 MCG TAB PO SCH (23:02)
[2016-11-03] MEDS: OSELTAMIVIR 75 MG CAP PO SCH (23:02)
[2016-11-03] MEDS: hydrOXYzine HCL 25 MG TAB PO SCH (23:03)
[2016-11-03] MEDS: SULFAMETHOX-TMP 800-160MG 1 EACH TAB PO SCH (23:03)
[2016-11-03] MEDS: TRIAMTERENE-HCTZ 37.5-25MG 1 EACH CAP PO SCH (23:04)
[2016-11-04] MEDS: methylPREDNISolone SOD SUCCI 125 MG/2 ML VIAL IV SCH ×5 (00:44→23:59)
[2016-11-04 06:53] LABS: Glucose,Whole Blood 144 mg/dL (75-99)
[2016-11-04] MEDS: ZIPRASIDONE 80 MG CAP PO SCH ×2 (07:32→16:18)
[2016-11-04] MEDS: PANTOPRAZOLE 40 MG TABLET PO SCH (07:32)
[2016-11-04] MEDS: INSULIN LISPRO (humaLOG) 300 UNIT/3 ML VIAL SQ SCH ×4 (07:32→20:22)
[2016-11-04] MEDS: amLODIPine 10 MG TAB PO SCH (07:33)
[2016-11-04] MEDS: HALOPERIDOL 5 MG TAB PO SCH (07:34)
[2016-11-04] MEDS: DOCUSATE 100 MG CAP PO SCH (07:34)
[2016-11-04] MEDS: FENOFIBRATE 54 MG TAB PO SCH (07:34)
[2016-11-04] MEDS: TRIAMTERENE-HCTZ 37.5-25MG 1 EACH CAP PO SCH ×2 (07:34→20:21)
[2016-11-04] MEDS: CITALOPRAM HYDROBROMIDE 20 MG TAB PO SCH (07:34)
[2016-11-04] MEDS: OXYBUTYNIN XL 5 MG TAB.ER.24 PO SCH (07:35)
[2016-11-04] MEDS: oxyCODONE ER 20 MG TAB.ER.12H PO SCH ×2 (07:35→20:21)
[2016-11-04] MEDS: SULFAMETHOX-TMP 800-160MG 1 EACH TAB PO SCH (07:35)
[2016-11-04] MEDS: OSELTAMIVIR 75 MG CAP PO SCH ×2 (07:38→20:21)
[2016-11-04] MEDS: LORATADINE 10 MG TAB PO SCH (07:38)
[2016-11-04 07:55] LABS: Anisocytosis Moderate; Basophils % (A) 0 %; CH 26.1; CHCM 30.7; Eosinophils % (A) 0 %; HGB 12.4 gm/dL (11.4-16.0); Hypochromasia Marked; Luc # (Auto) 0.12; Luc % (Auto) 3; Lymphocytes # (A) 0.7 k/uL (1.0-4.8); Lymphocytes % (A) 18 %; MCH 26.4 pg (25.0-35.0); MCV 85.2 fL (80.0-100.0); Mean Platelet Volume 7.8; Microcytosis Slight; Monocytes # (A) 0.3 k/uL (0-1.0); Monocytes % (A) 8 %; Neutrophils # (A) 2.8 k/uL (1.3-7.7); Neutrophils % (A) 71 %; RDW 20.4 % (11.5-15.5); WBC (Perox) 4.15
[2016-11-04 08:30] LABS: ALT 43 U/L (9-52); AST 74 U/L (14-36); Alkaline Phosphatase 67 U/L (38-126); Anion Gap 12 mmol/L; Blood Urea Nitrogen 18 mg/dL (7-17); Calcium 9.2 mg/dL (8.4-10.2); Carbon Dioxide 30 mmol/L (22-30); Chloride 100 mmol/L (98-107); Glucose 135 mg/dL (74-99); Non-African American GFR(MDRD) >60 (>60 ml/min/1.73 sqM); Potassium 4.2 mmol/L (3.5-5.1); Sodium 142 mmol/L (137-145); Total Bilirubin 0.7 mg/dL (0.2-1.3); Total Protein 7.6 g/dL (6.3-8.2)
[2016-11-04] MEDS: BUDESONIDE 0.5 MG/2 ML NEBU INHALATION SCH ×2 (10:12→19:47)
[2016-11-04] MEDS: IPRATROPIUM-ALBUTEROL 3 ML NEB INHALATION PRN ×2 (10:13→19:47)
[2016-11-04 11:38] LABS: Glucose,Whole Blood 265 mg/dL (75-99)
--- NOTE | 2016-11-04 13:20 | P.CNPUL ---
History of Present Illness Consult date: 11/04/16 Requesting physician: Yoshi Ventura Reason for consult: abnormal CXR/CT Chief complaint: Shortness of breath, hypoxia History of present illness: This is a very pleasant 51-year-old female patient who follows with Dr. Stone as her primary care physician. She resides in [facility]. She has a history of cerebral palsy, diabetes mellitus, osteoarthritis, seizure disorder, spinal surgery 2 and recent stimulator placed in September 2016. She has a history of depression and schizoaffective disorder. She says a previous history of chronic nicotine addiction. She is seen in our office by Dr. Miller for chronic hypoxic respiratory failure and does utilize home oxygen. She also has obstructive sleep apnea and utilizes CPAP in the outpatient setting. She had recently been having issues with cough, congestion and decreased O2 saturations well residing at the [facility]. She was seen in the emergency room 2 evenings ago and was found to have influenza A treated with Tamiflu and discharge back. She represented here later yesterday afternoon with increasing shortness of breath, cough and congestion. They were having trouble maintaining her O2 saturations in the 90s. Her chest x-ray showed atypical versus viral pneumonia or pneumonitis. She is seen today in consultation. Her chest x-ray and labs were reviewed. There is no leukocytosis. She had a T-max of 100.3. She is maintaining good O2 saturations in the upper 90s on 5 L/m per nasal cannula. She is usually on 2-3 L. She is awake and alert in no acute distress. She has a loose nonproductive cough. No nausea, vomiting or diarrhea. Review of Systems 14 point review of system was conducted. Mainly negative other than as mentioned in HPI. Past Medical History Past Medical History: Asthma, Diabetes Mellitus, GERD/Reflux, Osteoarthritis (OA ), Pneumonia, Respiratory Disorder, Seizure Disorder, Sleep Apnea/CPAP/BIPAP, Thyroid Disorder Additional Past Medical History / Comment(s): falls. C-diff 2008 cerebral palsy, spinal stenosis, neuropathy bilateral feet and hands, arthritis, chronic respiratory failure, ejection fraction 45% 2011, generalized chronic pain, IBS/ CONSTIPATION(LAST BM 3),kidney stones, overactive bladder wears brief for incont of urine."diabetic on metformin", glaucoma, "home 02 3 liters during day and 5 liters at night" History of Any Multi-Drug Resistant Organisms: MRSA Date of last positivie culture/infection: 2008 MDRO Source:: foot Past Surgical History: Back Surgery, Cholecystectomy Additional Past Surgical History / Comment(s): Spinal surgery x2,spinal stimulator 2-2016, bilateral eye surgery for muscle repair due to cerebral palsy. rt shoulder sx, rom carpal tunnel, cyst removed from wrist Past Anesthesia/Blood Transfusion Reactions: Motion Sickness, Postoperative Nausea & Vomiting (PONV) Past Psychological History: Depression, Schizoaffective Disorder Additional Psychological History / Comment(s): pt has a public legal guardian, Pt was living with her boyfriend but after 10-23-16 from hospital -she went to [facility]. Pt ambulates with a walker or uses a wheelchair at times. She statesuses O2 which she wears3 liters in daytime and 5 liters at nite. at home she has walker/w/c, shower chair, nebulizer . (She was getting a nursing home assistant coming into her home daily. had no steps to navigate to to apt). Smoking Status: Former smoker Past Alcohol Use History: None Reported Additional Past Alcohol Use History / Comment(s): started smoking at age 20, smoked 10 cig per day, quit 10-20-16 Past Drug Use History: None Reported - Past Family History Father Family Medical History: No Reported History Mother Family Medical History: Diabetes Mellitus Medications and Allergies Home Medications Medication Instructions Recorded Confirmed Type Dicyclomine [Bentyl] 20 mg PO Q4-6H PRN 10/08/14 11/03/16 History Docusate [Colace] 200 mg PO DAILY 10/08/14 11/03/16 History Fenofibrate Nanocrystallized 48 mg PO DAILY 10/08/14 11/03/16 History [Tricor] Fesoterodine Fumarate [Toviaz] 8 mg PO DAILY 10/08/14 11/03/16 History Fexofenadine HCl 180 mg PO DAILY 10/08/14 11/03/16 History Triamterene-Hctz 37.5-25Mg 1 cap PO BID 10/08/14 11/03/16 History [Dyazide 37.5-25 Capsule] levETIRAcetam [Keppra] 750 mg PO BID 10/08/14 11/03/16 History Levothyroxine Sodium [Synthroid] 200 mcg PO HS 11/01/14 11/03/16 History Budesonide [Pulmicort] 0.5 mg INHALATION RT-BID 10/20/16 11/03/16 History Esomeprazole Magnesium [NexIUM] 40 mg PO DAILY 10/20/16 11/03/16 History Lactulose 10 gm PO DAILY PRN 10/20/16 11/03/16 History Levothyroxine Sodium [Synthroid] 50 mcg PO HS 10/20/16 11/03/16 History Linaclotide [Linzess] 145 mcg PO DAILY 10/20/16 11/03/16 History amLODIPine [Norvasc] 10 mg PO DAILY 10/20/16 11/03/16 History oxyCODONE HCL [Roxicodone] 5 mg PO HS 10/20/16 11/03/16 History tiZANidine [Zanaflex] 2 mg PO DAILY PRN 10/20/16 11/03/16 History Sulfamethox-Tmp 800-160Mg [Bactrim 1 tab PO Q12HR 11/03/16 11/03/16 History DS 800-160 mg] hydrOXYzine HCL [Atarax] 25 mg PO HS 11/03/16 11/03/16 History Allergies Allergy/AdvReac Type Severity Reaction Status Date / Time butalbital [From Fiorinal] Allergy Unknown Verified 11/03/16 14:28 caffeine [From Fiorinal] Allergy Unknown Verified 11/03/16 14:28 cimetidine [From Tagamet] Allergy Unknown Verified 11/03/16 14:28 cimetidine HCl [From Tagamet] Allergy Unknown Verified 11/03/16 14:28 codeine Allergy Unknown Verified 11/03/16 14:28 dichloralphenazone Allergy Unknown Verified 11/03/16 14:28 [From Midrin] diphenhydramine HCl Allergy Unknown Verified 11/03/16 14:28 [From Benadryl] heparin Allergy Rash/Hives Verified 11/03/16 14:28 indomethacin [From Indocin] Allergy Unknown Verified 11/03/16 14:28 indomethacin sodium Allergy Unknown Verified 11/03/16 14:28 [From Indocin] iodine Allergy Swelling Verified 11/03/16 14:28 isometheptene mucate Allergy Unknown Verified 11/03/16 14:28 [From Midrin] latex Allergy Anaphylaxis Verified 11/03/16 14:28 Macrolide Antibiotics Allergy Unknown Verified 11/03/16 14:28 nystatin Allergy Rash/Hives Verified 11/03/16 14:28 Penicillins Allergy Unknown Verified 11/03/16 14:28 propoxyphene HCl Allergy Unknown Verified 11/03/16 14:28 [From Darvon] shellfish derived [Shellfish] Allergy Swelling Verified 11/03/16 14:28 theophylline anhydrous Allergy Unknown Verified 11/03/16 14:28 [From [place]] lactose intolerant AdvReac Unknown Uncoded 11/03/16 14:28 Physical Exam Vitals: Vital Signs Temp Pulse Pulse Resp BP BP Pulse Ox 11/04/16 10:37 76 11/04/16 10:15 75 11/04/16 07:49 71 17 11/04/16 07:00 98.1 F 67 17 120/64 97 11/03/16 23:00 97.9 F 71 17 128/58 92 L 11/03/16 19:44 97.8 F 78 17 136/65 95 11/03/16 18:41 98.1 F 83 18 128/63 94 L Intake and Output 11/03/16 11/04/16 11/04/16 22:59 06:59 14:59 Other: Voiding Method Bedpan Bedpan # Voids 4 3 1 Weight 109.769 kg GENERAL EXAM: Obese. Alert, comfortable in no apparent distress. HEAD: Normocephalic. EYES: Normal reaction of pupils, equal size. NOSE: Clear with pink turbinates. THROAT: There is crowding the posterior pharynx. No erythema or exudates. NECK: Short. No masses, no JVD. CHEST: No chest wall deformity. LUNGS: Equal air entry with few scattered rhonchi. CVS: S1 and S2 normal with no audible murmurs, regular rhythm. ABDOMEN: No hepatosplenomegaly, normal bowel sounds, no guarding or rigidity. Extremities: There is trace peripheral edema. No clubbing, no cyanosis. Peripheral pulses are intact. Results - Laboratory Findings CBC and BMP: 11/04/16 07:32 11/04/16 07:32 Abnormal lab findings: Abnormal Labs 11/03/16 11/04/16 11/04/16 20:15 06:47 07:32 RDW 20.4 H Lymphocytes # 0.7 L BUN Glucose POC Glucose (mg/dL) 174 H 144 H AST 11/04/16 11/04/16 07:32 11:23 RDW Lymphocytes # BUN 18 H Glucose 135 H POC Glucose (mg/dL) 265 H AST 74 H - Diagnostic Findings Chest x-ray: image reviewed Assessment and Plan Plan: Impression: #1 Acute on chronic hypoxic respiratory failure secondary to atypical pneumonia. #2 Atypical pneumonia complicated by influenza A. #3Chronic and ongoing tobacco dependence. #4 Morbid obesity with obesity/hypoventilation syndrome. #5 Obstructive sleep apnea utilizing CPAP in the outpatient setting. #6 Diabetes mellitus. #7 Hypothyroidism. #8 Spinal stenosis with previous surgery and stimulator in place. #9 History of nephrolithiasis. #10 History of seizure disorder. #11 Schizophrenia. Plan: The patient was seen and evaluated by Dr. Cook. Her chest x-ray and labs were reviewed. We'll continue with her bronchodilators, antibiotics in the form of Levaquin and Bactrim. She remains on IV Solu-Medrol. She'll complete her course of Tamiflu. We'll repeat her chest x-ray in the a.m. We'll continue to follow. Time with Patient: Greater than 30
--- NOTE | 2016-11-04 13:59 | HP ---
DATE OF ADMISSION: The chief complaint is shortness of breath. HISTORY OF PRESENT ILLNESS: This 51-year-old woman with a past medical history of multiple medical problems, including asthma, history of diabetes mellitus, GERD, DJD, history of pneumonia, respiratory difficulties, seizures, sleep apnea, history of falls, C. difficile, history of back surgery, depression and schizoaffective disorder, being followed by Dr. Stone in the outpatient setting, is apparently residing at the [facility]. Patient apparently had very limited mobility. Patient was diagnosed to have influenza. The patient sent back to the [facility] and now came back with significant shortness of breath and pulse ox dipping into 80's. Patient was started on Tamiflu. Perihilar pneumonia suspected on chest x-ray. Patient admitted for further evaluation and treatment. There is history of any rigors, no history of headaches, loss of consciousness. The patient is on 5 L of oxygen saturating around 95%. PAST MEDICAL HISTORY: History of asthma, diabetes mellitus, GERD, history of pneumonia, history of seizure disorder, sleep apnea, hypothyroidism, C. difficile, history of back surgery, spinal surgery, depression, schizoaffective disorder. Medications prior to admission include, the home medications are: 1. Zanaflex 2 mg daily p.r.n. 2. Geodon 80 mg a.c. b.i.d. 3. Oxycodone 5 mg q.h.s. 4. Dyazide 1 capsule b.i.d. 5. Tamiflu 75 mg b.i.d. 6. TriCor 40 mg p.o. daily. 7. OxyContin 60 mg b.i.d. 8. Linzess 145 mcg p.o. daily. 9. Synthroid 50 mcg p.o. q.h.s. 200 mg p.o. q.h.s. 10. Nexium 40 mg p.o. daily. 11. Keppra 750 mg p.o. b.i.d. 12. Imitrex 25 mg q.h.s. 13. Lactulose 10 gm p.o. daily p.r.n. 14. Haldol 5 mg p.o. daily. 15. Fexofenadine 180 mg p.o. daily. 16. Toviaz 8 mg p.o. daily. 17. Colace 200 mg p.o. daily. 18. Valium 5 mg q.i.d. p.r.n. 19. Bactrim DS 1 p.o. b.i.d. 20. Bentyl 20 mg p.o. q.4 to 6 p.r.n. 21. Celexa 40 mg daily. 22. Pulmicort 0.5 mg daily. 23. Norvasc 10 mg p.o. daily. Allergies are FIORINAL, TAGAMET, CODEINE, MIDRIN, BENADRYL, HEPARIN, INDOCIN, IODINE, LATEX, MACROLIDE ANTIBIOTICS, NYSTATIN, PENICILLIN, CARVONE, SHELLFISH, NISHI-DUR, LACTOSE INTOLERANT. FAMILY HISTORY: No history of heart disease or stroke in the family. SOCIAL HISTORY: Previous history of smoking, no history of current smoke or alcohol intake. REVIEW OF SYSTEMS: ENT: No diminished hearing. No diminished vision. CARDIOVASCULAR: No angina or palpitation. RESPIRATORY: As mentioned earlier. GI: No nausea. : No dysuria. NERVOUS SYSTEM: As mentioned earlier. ALLERGY/IMMUNOLOGY: No asthma or hayfever. MUSCULOSKELETAL: As mentioned earlier. HEMATOLOGY/ONCOLOGY: As mentioned earlier. ENDOCRINE: As mentioned earlier. CONSTITUTIONAL: As mentioned earlier. DERMATOLOGY: Negative. RHEUMATOLOGY: Negative. PSYCHIATRY: As mentioned earlier. PHYSICAL EXAM: Patient is alert and oriented x3. The pulse is 83, blood pressure 126/69, respirations 18, temperature 98.4, pulse ox 94% on 5 L, 98% on 3 L on admission, temperature 100.3. HEENT: Conjunctivae normal, oral mucosa moist. NECK: No jugular venous distension. No lymph node enlargement, no carotid bruit. CARDIOVASCULAR: S1, S2, muffled, no S3, no S4. RESPIRATORY: Breath sounds diminished at the bases. A few scattered rhonchi, no crackles, respiratory wheezing also present. ABDOMEN: Soft, nontender, obese. EXTREMITIES: Legs no edema, no swelling. NERVOUS SYSTEM: Diffusely weak. LAB INVESTIGATION: WBC is 5.7, hemoglobin is 12.1. Otherwise, CO2 is 33, glucose is 110, AST 74. ASSESSMENT: 1. Asthma acute exacerbation. 2. Acute influenza. 3. Pneumonia, possibly influenza pneumonia. 4. Increased random blood sugar. 5. Obesity. 6. Diabetes mellitus type 2. 7. Gastroesophageal reflux disease. 8. History of degenerative joint disease. 9. History of seizure disorder. 10. History of sleep apnea. 11. History of Clostridium difficile colitis. 12. Degenerative joint disease. 13. History of depression, schizoaffective disorder. 14. FULL CODE. RECOMMENDATION: In this 51-year-old woman who was admitted for multiple counts, medically will monitor the patient closely. Continue with the bronchodilators. Continue with the antivirals. Continue with the antibiotics. The patient was also started on IV steroids. We will continue to monitor. Monitor blood sugars closely. Otherwise, Pulmonary will be consulted and continue to monitor. A copy of this will be forwarded to Dr. Stone who is the primary physician.
[2016-11-04] MEDS: LEVOFLOXACIN 500MG-D5W PMX 500 MG in DEXTROSE/WATER 1 100ML.BAG IVPB SCH (16:17)
[2016-11-04 17:15] LABS: Glucose,Whole Blood 250 mg/dL (75-99)
--- NOTE | 2016-11-04 20:08 | PN ---
DATE OF SERVICE: 11/04/2016 PRESENTING COMPLAINT: Short of breath, wheezing. INTERVAL HISTORY: This is a patient admitted with what appears to be influenza A and pneumonitis. Patient is still wheezing, tired, no appetite. A little cough is present. Did not eat much. Review of systems done for constitutional, cardiovascular, GI, pulmonary; relevant findings as above. Current medications are reviewed that include: 1. Tamiflu. 2. Bactrim and 3. Levaquin. 4. Solu-Medrol. On examination, temperature 98.5, pulse 79, respirations 17, blood pressure 114/57, pulse ox 93% on 5L. GENERAL APPEARANCE: Lying in bed. Tired-appearing. EYES: Pupils equal. Conjunctivae normal. NECK: JVD unable to assess. RESPIRATORY: Effort increased. LUNGS: Diminished breath sounds and wheezing. CARDIOVASCULAR: First and second sounds normal. No edema. ABDOMEN: Soft, nontender. PSYCHIATRY: Awake, answering simple questions. INVESTIGATIONS: White count 4, hemoglobin 12.4. Potassium 4.2, BUN 18, creatinine 0.82. ASSESSMENT: 1. Acute pneumonitis from type A. 2. Atypical pneumonia, present on admission. 3. Diabetes mellitus type II. 4. Gastroesophageal reflux disease. 5. Primary osteoarthritis of multiple joints. 6. Sleep apnea, uses continuous positive airway pressure. 7. Hypothyroidism. 8. Cerebral palsy. 9. Peripheral neuropathy in both the feet and hands. 10. History of irritable bowel syndrome. 11. Kidney stones, asymptomatic. 12. Chronic hypoxic respiratory failure, uses 3L to 5L of oxygen at home. 13. Depression, not otherwise specified. 14. Patient has a public legal guardian. 15. Chronic seizure disorder. 16. Chronic pain syndrome. 17. Chronic lumbar spinal stenosis. PLAN: Continue current medication and treatment plan. Will leave the patient on Levaquin empirically. Will discontinue the Bactrim. Patient is slow to respond, not feeling well, tired, poor appetite. Follow.
[2016-11-04 20:12] LABS: Glucose,Whole Blood 235 mg/dL (75-99)
[2016-11-04] MEDS: hydrOXYzine HCL 25 MG TAB PO SCH (20:20)
[2016-11-04] MEDS: LEVOTHYROXINE 100 MCG TAB PO SCH (20:22)
[2016-11-05] MEDS: methylPREDNISolone SOD SUCCI 125 MG/2 ML VIAL IV SCH ×2 (05:46→12:47)
[2016-11-05 07:11] LABS: Glucose,Whole Blood 144 mg/dL (75-99)
[2016-11-05] MEDS: IPRATROPIUM-ALBUTEROL 3 ML NEB INHALATION PRN ×2 (07:55→20:36)
[2016-11-05] MEDS: BUDESONIDE 0.5 MG/2 ML NEBU INHALATION SCH ×2 (07:55→20:35)
--- NOTE | 2016-11-05 08:02 | XR ---
EXAMINATION TYPE: XR chest 1V portable DATE OF EXAM: 11/05/2016 7:22 AM COMPARISON: Prior chest x-ray October HISTORY: Pneumonia, COPD TECHNIQUE: Single frontal view of the chest is obtained. FINDINGS: Patient is rotated. Heart remains enlarged. There are overlying cardiac leads. Thoracic co rd stimulator is noted. No evident pneumothorax or pleural effusion. IMPRESSION: Suspect improvement in volume status.
[2016-11-05] MEDS: DOCUSATE 100 MG CAP PO SCH (10:08)
[2016-11-05] MEDS: CITALOPRAM HYDROBROMIDE 20 MG TAB PO SCH (10:11)
[2016-11-05] MEDS: PANTOPRAZOLE 40 MG TABLET PO SCH (10:11)
[2016-11-05] MEDS: amLODIPine 10 MG TAB PO SCH (10:11)
[2016-11-05] MEDS: ZIPRASIDONE 80 MG CAP PO SCH ×2 (10:11→18:27)
[2016-11-05] MEDS: HALOPERIDOL 5 MG TAB PO SCH (10:12)
[2016-11-05] MEDS: LORATADINE 10 MG TAB PO SCH (10:12)
[2016-11-05] MEDS: FENOFIBRATE 54 MG TAB PO SCH (10:12)
[2016-11-05] MEDS: TRIAMTERENE-HCTZ 37.5-25MG 1 EACH CAP PO SCH ×2 (10:13→22:40)
[2016-11-05] MEDS: oxyCODONE ER 20 MG TAB.ER.12H PO SCH ×2 (10:13→22:48)
[2016-11-05] MEDS: OSELTAMIVIR 75 MG CAP PO SCH ×2 (10:13→22:40)
[2016-11-05] MEDS: OXYBUTYNIN XL 5 MG TAB.ER.24 PO SCH (10:13)
[2016-11-05] MEDS: INSULIN LISPRO (humaLOG) 300 UNIT/3 ML VIAL SQ SCH ×4 (10:14→22:42)
[2016-11-05 11:50] LABS: Glucose,Whole Blood 175 mg/dL (75-99)
--- NOTE | 2016-11-05 12:05 | P.PN ---
Subjective Principal diagnosis: Atypical pneumonia, influenza A. This is a very pleasant 51-year-old female patient who follows with Dr. Stone as her primary care physician. She resides in [facility]. She has a history of cerebral palsy, diabetes mellitus, osteoarthritis, seizure disorder, spinal surgery 2 and recent stimulator placed in September 2016. She has a history of depression and schizoaffective disorder. She says a previous history of chronic nicotine addiction. She is seen in our office by Dr. Miller for chronic hypoxic respiratory failure and does utilize home oxygen. She also has obstructive sleep apnea and utilizes CPAP in the outpatient setting. She had recently been having issues with cough, congestion and decreased O2 saturations well residing at the [facility]. She was seen in the emergency room 2 evenings ago and was found to have influenza A treated with Tamiflu and discharge back. She represented here later yesterday afternoon with increasing shortness of breath, cough and congestion. They were having trouble maintaining her O2 saturations in the 90s. Her chest x-ray showed atypical versus viral pneumonia or pneumonitis. She is seen today in consultation. Her chest x-ray and labs were reviewed. There is no leukocytosis. She had a T-max of 100.3. She is maintaining good O2 saturations in the upper 90s on 5 L/m per nasal cannula. She is usually on 2-3 L. She is awake and alert in no acute distress. She has a loose nonproductive cough. No nausea, vomiting or diarrhea. The patient is seen again today 11/05/2016 in follow-up on the regular medical floor. She is awake and alert in no acute distress. Today's chest x-ray revealed improved aeration. She denies any worsening shortness of breath. She continues with a loose nonproductive cough. No chills or night sweats. She has been maintained on Levaquin and Tamiflu. Blood cultures revealed no growth to date. She is maintaining good O2 saturations in the mid 90s on 3 L/m per nasal cannula. He does utilize BiPAP throughout the evenings. Objective - Vital Signs Vital signs: Vital Signs Temp 98 F 11/05/16 07:00 Pulse 76 11/05/16 08:05 Resp 17 11/05/16 08:00 BP 117/65 11/05/16 07:00 Pulse Ox 97 11/05/16 07:00 Intake & Output 11/04/16 11/05/16 11/05/16 18:59 06:59 18:59 Intake Total 240 240 Balance 240 240 Intake: Oral 240 240 Other: Voiding Method Bedpan Bedpan Bedpan # Voids 3 2 2 - Exam GENERAL EXAM: Obese. Alert, comfortable in no apparent distress. HEAD: Normocephalic. EYES: Normal reaction of pupils, equal size. NOSE: Clear with pink turbinates. THROAT: There is crowding the posterior pharynx. No erythema or exudates. NECK: Short. No masses, no JVD. CHEST: No chest wall deformity. LUNGS: Equal air entry with few scattered rhonchi. CVS: S1 and S2 normal with no audible murmurs, regular rhythm. ABDOMEN: No hepatosplenomegaly, normal bowel sounds, no guarding or rigidity. Extremities: There is trace peripheral edema. No clubbing, no cyanosis. Peripheral pulses are intact. - Labs CBC & Chem 7: 11/04/16 07:32 11/04/16 07:32 Labs: Abnormal Lab Results - Last 24 Hours (Table) 11/04/16 11/04/16 11/05/16 Range/Units 17:03 20:10 06:45 POC Glucose (mg/dL) 250 H 235 H 144 H (75-99) mg/dL 11/05/16 Range/Units 11:39 POC Glucose (mg/dL) 175 H (75-99) mg/dL Assessment and Plan Plan: Impression: #1 Acute on chronic hypoxic respiratory failure secondary to atypical pneumonia. #2 Atypical pneumonia complicated by influenza A. #3Chronic and ongoing tobacco dependence. #4 Morbid obesity with obesity/hypoventilation syndrome. #5 Obstructive sleep apnea utilizing CPAP in the outpatient setting. #6 Diabetes mellitus. #7 Hypothyroidism. #8 Spinal stenosis with previous surgery and stimulator in place. #9 History of nephrolithiasis. #10 History of seizure disorder. #11 Schizophrenia. Plan: The patient was seen and evaluated by Dr. Cook. Her chest x-ray and labs were reviewed. We'll continue with her bronchodilators, Pulmicort and antibiotics in the form of Levaquin. She remains on IV Solu-Medrol, we'll begin to taper. She'll complete her course of Tamiflu. We will increase her activity as tolerated. We'll continue to follow.
--- NOTE | 2016-11-05 12:48 | XR ---
Right ankle HISTORY: Right ankle fracture, pain 3 views of the right ankle correlated to prior 20 October 2016 There is soft tissue swelling present. Lucency at the level of the medial malleolus is well-corticate d and not felt likely to be acute. No dislocation. Lucency at the medial ankle mortise may be indicat amanda of osteochondral defect. Bone mineralization is reduced which may limit sensitivity. Lateral exam not optimally positioned. IMPRESSION: Similar to prior exam. Possible osteochondral fracture and the ankle mortise of indetermi antonio age, ankle MRI may be of benefit.
[2016-11-05] MEDS: LEVOFLOXACIN 500MG-D5W PMX 500 MG in DEXTROSE/WATER 1 100ML.BAG IVPB SCH (15:34)
[2016-11-05] MEDS: methylPREDNISolone SOD SUCCI 40 MG/ML 1 ML VIAL IV SCH (15:34)
[2016-11-05 17:08] LABS: Glucose,Whole Blood 99 mg/dL (75-99)
[2016-11-05] MEDS ORDERED: FUROSEMIDE 10 MG/ML 4 ML VIAL IV STA (17:18)
[2016-11-05 20:50] LABS: Glucose,Whole Blood 197 mg/dL (75-99)
[2016-11-05] MEDS: guaiFENesin 600 MG TABLET.ER PO SCH (22:39)
[2016-11-05] MEDS: LEVOTHYROXINE 100 MCG TAB PO SCH (22:39)
[2016-11-05] MEDS: hydrOXYzine HCL 25 MG TAB PO SCH (22:40)
--- NOTE | 2016-11-05 23:42 | PN ---
DATE OF SERVICE: 11/05/2016 PRESENTING COMPLAINT: Short of breath, wheezing. INTERVAL HISTORY: Patient was admitted with what appears to be influenza A pneumonitis. Wheezing is a shade better. Patient actually did eat a bit but has still got a cough, rather chesty; has not really been out of bed. Review of systems done for constitutional, cardiovascular, GI, pulmonary; relevant findings as above. Current medications are reviewed that include IV Levaquin, Solu-Medrol, Tamiflu. On examination, temperature 98, pulse 61, respiration 20, blood pressure 117/65, pulse ox 97% on 5 L GENERAL APPEARANCE: Lying in bed. Looking better. EYES: Pupils equal. Conjunctivae normal. NECK: JVD not raised. Mass not palpable. RESPIRATORY: Effort increased. LUNGS: Some expiratory wheezing. Some fine expiratory crackles. CARDIOVASCULAR: First and second sounds normal. No edema. ABDOMEN: Soft, nontender. Liver and spleen not palpable. PSYCHIATRY: Far more awake. Answering questions more appropriately today. INVESTIGATIONS: Accu-Cheks are noted. ASSESSMENT: 1. Acute pneumonitis from type A influenza. 2. Atypical pneumonia, present on admission. 3. Diabetes mellitus, type 2, on oral hypoglycemic. 4. Gastroesophageal reflux disease. 5. Primary osteoarthritis in multiple joints. 6. Sleep apnea; uses CPAP. 7. Hypothyroidism. 8. Chronic cerebral palsy. 9. Peripheral neuropathy in both feet and hands from diabetes mellitus, type 2. 10. Irritable bowel syndrome. 11. Kidney stones, asymptomatic. 12. Chronic hypoxic respiratory failure; uses 3 to 5 liters of oxygen at home. 13. Depression not otherwise specified. 14. Patient has a public legal guardian. 15. Chronic seizure disorder. 16. Chronic pain syndrome. 17. Chronic lumbar spinal stenosis. PLAN: Continue with bronchodilators. Patient is feeling a bit better. She may have a bit of a fluid overload per chest x-ray. Will give one dose of IV Lasix. Will also add some Mucinex. Switch the patient to oral Levaquin.
[2016-11-06] MEDS: methylPREDNISolone SOD SUCCI 40 MG/ML 1 ML VIAL IV SCH ×3 (00:08→15:52)
[2016-11-06] MEDS: BUDESONIDE 0.5 MG/2 ML NEBU INHALATION SCH (07:25)
[2016-11-06] MEDS: IPRATROPIUM-ALBUTEROL 3 ML NEB INHALATION PRN ×2 (07:25→15:28)
[2016-11-06 08:13] LABS: Glucose,Whole Blood 84 mg/dL (75-99)
[2016-11-06 08:23] VITALS: RESP 20
[2016-11-06] MEDS: INSULIN LISPRO (humaLOG) 300 UNIT/3 ML VIAL SQ SCH ×2 (08:45→14:15)
[2016-11-06] MEDS: OSELTAMIVIR 75 MG CAP PO SCH (08:48)
[2016-11-06] MEDS: OXYBUTYNIN XL 5 MG TAB.ER.24 PO SCH (08:48)
[2016-11-06] MEDS: TRIAMTERENE-HCTZ 37.5-25MG 1 EACH CAP PO SCH (08:48)
[2016-11-06] MEDS: LORATADINE 10 MG TAB PO SCH (08:49)
[2016-11-06] MEDS: CITALOPRAM HYDROBROMIDE 20 MG TAB PO SCH (08:50)
[2016-11-06] MEDS: guaiFENesin 600 MG TABLET.ER PO SCH (08:50)
[2016-11-06] MEDS: HALOPERIDOL 5 MG TAB PO SCH (08:50)
[2016-11-06] MEDS: DOCUSATE 100 MG CAP PO SCH (08:50)
[2016-11-06] MEDS: FENOFIBRATE 54 MG TAB PO SCH (08:50)
[2016-11-06] MEDS: amLODIPine 10 MG TAB PO SCH (08:51)
[2016-11-06] MEDS: ZIPRASIDONE 80 MG CAP PO SCH (08:51)
[2016-11-06] MEDS: PANTOPRAZOLE 40 MG TABLET PO SCH (08:51)
[2016-11-06] MEDS: oxyCODONE ER 20 MG TAB.ER.12H PO SCH (08:57)
--- NOTE | 2016-11-06 09:54 | P.CNOR ---
History of Present Illness - HPI Consult date: 11/06/16 Requesting physician: Jose Bowie Consult reason: joint pain (Right ankle) History of present illness: Patient is a 51-year-old female seen at bedside today. Orthopedics was consulted for right ankle pain. She states she twisted her ankle a little over 2 weeks ago where there is documentation for an ER visit on October 20. X-rays of the tibia and fibula at that time were negative for acute appearing fracture. Her current admission is for an upper respiratory infection however she has been in a splint and has had continued right ankle and foot pain. Pain worsens with weightbearing and ambulation. She states the pain is across her ankle and foot. She denies numbness or tingling. She has no calf pain. She also denies knee pain. Pertinent past medical history is positive for cerebral palsy and seizure disorder. Review of systems is negative for fever, chills, chest pain, shortness of breath or other. Review of Systems All systems: negative Constitutional: Denies chills, Denies fever Eyes: denies blurred vision, denies pain Ears, nose, mouth and throat: Denies headache, Denies sore throat Cardiovascular: Denies chest pain, Denies shortness of breath Respiratory: Reports cough Gastrointestinal: Denies abdominal pain, Denies diarrhea, Denies nausea, Denies vomiting Genitourinary: Denies dysuria, Denies hematuria Musculoskeletal: Denies myalgias Integumentary: Denies pruritus, Denies rash Neurological: Denies numbness, Denies weakness Psychiatric: Denies anxiety, Denies depression Endocrine: Denies fatigue, Denies weight change Past Medical History Past Medical History: Asthma, Diabetes Mellitus, GERD/Reflux, Osteoarthritis (OA ), Pneumonia, Respiratory Disorder, Seizure Disorder, Sleep Apnea/CPAP/BIPAP, Thyroid Disorder Additional Past Medical History / Comment(s): falls. C-diff 2008 cerebral palsy, spinal stenosis, neuropathy bilateral feet and hands, arthritis, chronic respiratory failure, ejection fraction 45% 2012, generalized chronic pain, IBS/ CONSTIPATION(LAST BM 10-19-16),kidney stones, overactive bladder wears brief for incont of urine."diabetic on metformin", glaucoma, "home 02 3 liters during day and 5 liters at night" History of Any Multi-Drug Resistant Organisms: MRSA Year Discovered:: 2008 MDRO Source:: foot Past Surgical History: Back Surgery, Cholecystectomy Additional Past Surgical History / Comment(s): Spinal surgery x2,spinal stimulator 2-2016, bilateral eye surgery for muscle repair due to cerebral palsy. rt shoulder sx, rom carpal tunnel, cyst removed from wrist Past Anesthesia/Blood Transfusion Reactions: Motion Sickness, Postoperative Nausea & Vomiting (PONV) Past Psychological History: Depression, Schizoaffective Disorder Additional Psychological History / Comment(s): pt has a public legal guardian, Pt was living with her boyfriend but after dc/ 10-23-16 from hospital -[facility]. Pt ambulates with a walker or uses a wheelchair at times. She statesuses O2 which she wears3 liters in daytime and 5 liters at nite. at home she has walker/w/c, shower chair, nebulizer . (She was getting a home health rn coming into her home daily. had no steps to navigate to to apt). Smoking Status: Former smoker Past Alcohol Use History: None Reported Additional Past Alcohol Use History / Comment(s): started smoking at age 20, smoked 10 cig per day, quit 10-20-16 Past Drug Use History: None Reported - Past Family History Father Family Medical History: No Reported History Mother Family Medical History: Diabetes Mellitus Medications and Allergies Home Medications Medication Instructions Recorded Confirmed Type Dicyclomine [Bentyl] 20 mg PO Q4-6H PRN 10/08/14 11/03/16 History Docusate [Colace] 200 mg PO DAILY 10/08/14 11/03/16 History Fenofibrate Nanocrystallized 48 mg PO DAILY 10/08/14 11/03/16 History [Tricor] Fesoterodine Fumarate [Toviaz] 8 mg PO DAILY 10/08/14 11/03/16 History Fexofenadine HCl 180 mg PO DAILY 10/08/14 11/03/16 History Triamterene-Hctz 37.5-25Mg 1 cap PO BID 10/08/14 11/03/16 History [Dyazide 37.5-25 Capsule] levETIRAcetam [Keppra] 750 mg PO BID 10/08/14 11/03/16 History Levothyroxine Sodium [Synthroid] 200 mcg PO HS 11/01/14 11/03/16 History Budesonide [Pulmicort] 0.5 mg INHALATION RT-BID 10/20/16 11/03/16 History Esomeprazole Magnesium [NexIUM] 40 mg PO DAILY 10/20/16 11/03/16 History Lactulose 10 gm PO DAILY PRN 10/20/16 11/03/16 History Levothyroxine Sodium [Synthroid] 50 mcg PO HS 10/20/16 11/03/16 History Linaclotide [Linzess] 145 mcg PO DAILY 10/20/16 11/03/16 History amLODIPine [Norvasc] 10 mg PO DAILY 10/20/16 11/03/16 History oxyCODONE HCL [Roxicodone] 5 mg PO HS 10/20/16 11/03/16 History tiZANidine [Zanaflex] 2 mg PO DAILY PRN 10/20/16 11/03/16 History Sulfamethox-Tmp 800-160Mg [Bactrim 1 tab PO Q12HR 11/03/16 11/03/16 History DS 800-160 mg] hydrOXYzine HCL [Atarax] 25 mg PO HS 11/03/16 11/03/16 History Allergies Allergy/AdvReac Type Severity Reaction Status Date / Time butalbital [From Fiorinal] Allergy Unknown Verified 11/03/16 14:28 caffeine [From Fiorinal] Allergy Unknown Verified 11/03/16 14:28 cimetidine [From Tagamet] Allergy Unknown Verified 11/03/16 14:28 cimetidine HCl [From Tagamet] Allergy Unknown Verified 11/03/16 14:28 codeine Allergy Unknown Verified 11/03/16 14:28 dichloralphenazone Allergy Unknown Verified 11/03/16 14:28 [From Midrin] diphenhydramine HCl Allergy Unknown Verified 11/03/16 14:28 [From Benadryl] heparin Allergy Rash/Hives Verified 11/03/16 14:28 indomethacin [From Indocin] Allergy Unknown Verified 11/03/16 14:28 indomethacin sodium Allergy Unknown Verified 11/03/16 14:28 [From Indocin] iodine Allergy Swelling Verified 11/03/16 14:28 isometheptene mucate Allergy Unknown Verified 11/03/16 14:28 [From Midrin] latex Allergy Anaphylaxis Verified 11/03/16 14:28 Macrolide Antibiotics Allergy Unknown Verified 11/03/16 14:28 nystatin Allergy Rash/Hives Verified 11/03/16 14:28 Penicillins Allergy Unknown Verified 11/03/16 14:28 propoxyphene HCl Allergy Unknown Verified 11/03/16 14:28 [From Darvon] shellfish derived [Shellfish] Allergy Swelling Verified 11/03/16 14:28 theophylline anhydrous Allergy Unknown Verified 11/03/16 14:28 [From Boone-Dur] lactose intolerant AdvReac Unknown Uncoded 11/03/16 14:28 Physical Examination Inspection of the right lower extremity shows generalized edema at the lower leg , ankle and foot. There is no erythema or ecchymoses. There is diffuse tenderness to palpation about the ankle and foot. There is no point specific tenderness. There is no bony deformity. She has ankle pain with dorsiflexion and plantarflexion. The joint appears to be ligamentously stable at the ankle. She has painless range of motion at the knee. The calf is soft and nontender. Sensation to light touch is intact throughout the right leg, ankle and foot. Motor function is also intact throughout the right lower extremity. There is 2+ dorsalis pedis pulses present and less than 2 second capillary refill present. Results X-rays of the right ankle from 11/05/2016 show what appears to be an old medial malleolus fracture versus heterotopic ossification. There is an osteochondral defect noted at the medial aspect of the superior talus. There are no acute appearing fractures or dislocations. There is degenerative changes throughout the ankle and foot. - Labs Labs: Abnormal Lab Results - Last 24 Hours (Table) 11/05/16 11/05/16 Range/Units 11:39 20:49 POC Glucose (mg/dL) 175 H 197 H (75-99) mg/dL Microbiology - Last 24 Hours (Table) 11/05/16 18:13 Gram Stain - Preliminary Labia Wound Culture - Preliminary H & H 11/04/16 Range/Units 07:32 Hgb 12.4 (11.4-16.0) gm/dL Hct 40.0 (34.0-46.0) % Result Diagrams: 11/04/16 07:32 11/04/16 07:32 Assessment and Plan (1) Right ankle sprain Narrative/Plan: Because she is complaining of foot pain in addition to her ankle pain, and the foot is not fully visualized on her ankle x-rays, I have ordered foot x-rays. I 've also ordered a walking boot for the right ankle and foot which she may weight-bear as tolerated with. She likely has a grade 1-2 ankle sprain with degenerative joint disease of the ankle and foot. It doesn't appear that she requires surgical intervention however we'll confirm foot x-rays are negative and review with Dr. Bowie for further recommendations. Should she not improve with time and utilizing the walking boot she may follow up as an outpatient and where MRI may be indicated. Further recommendations to follow. thank you. Status: Acute (2) Right foot sprain Status: Acute Time with Patient: Less than 30
--- NOTE | 2016-11-06 10:02 | XR ---
EXAMINATION TYPE: XR foot complete RT DATE OF EXAM: 11/06/2016 9:53 AM CLINICAL HISTORY: Right foot pain and swelling. TECHNIQUE: Frontal, lateral, and oblique images of the right foot are obtained. COMPARISON: Right foot x-ray October 20, 2016 FINDINGS: There is no acute fracture/dislocation evident in the right foot. Mild spurring at first m etatarsal-phalangeal joint is redemonstrated. Moderate to severe diffuse subcutaneous edema is redemo nstrated most prominent over dorsal surface unchanged from prior. IMPRESSION: There is persistent diffuse soft tissue swelling and subcutaneous edema. No significant change from prior study is seen.
[2016-11-06 11:40] LABS: Glucose,Whole Blood 111 mg/dL (75-99)
[2016-11-06] MEDS ORDERED: LEVOFLOXACIN 500 MG TAB PO SCH (14:00)
--- NOTE | 2016-11-06 14:34 | P.PN ---
Subjective Principal diagnosis: Atypical pneumonia, influenza A. This is a very pleasant 51-year-old female patient who follows with Dr. Stone as her primary care physician. She resides in [facility]. She has a history of cerebral palsy, diabetes mellitus, osteoarthritis, seizure disorder, spinal surgery 2 and recent stimulator placed in September 2016. She has a history of depression and schizoaffective disorder. She says a previous history of chronic nicotine addiction. She is seen in our office by Dr. Miller for chronic hypoxic respiratory failure and does utilize home oxygen. She also has obstructive sleep apnea and utilizes CPAP in the outpatient setting. She had recently been having issues with cough, congestion and decreased O2 saturations well residing at the [facility]. She was seen in the emergency room 2 evenings ago and was found to have influenza A treated with Tamiflu and discharge back. She represented here later yesterday afternoon with increasing shortness of breath, cough and congestion. They were having trouble maintaining her O2 saturations in the 90s. Her chest x-ray showed atypical versus viral pneumonia or pneumonitis. She is seen today in consultation. Her chest x-ray and labs were reviewed. There is no leukocytosis. She had a T-max of 100.3. She is maintaining good O2 saturations in the upper 90s on 5 L/m per nasal cannula. She is usually on 2-3 L. She is awake and alert in no acute distress. She has a loose nonproductive cough. No nausea, vomiting or diarrhea. The patient is seen again today 11/05/2016 in follow-up on the regular medical floor. She is awake and alert in no acute distress. Today's chest x-ray revealed improved aeration. She denies any worsening shortness of breath. She continues with a loose nonproductive cough. No chills or night sweats. She has been maintained on Levaquin and Tamiflu. Blood cultures revealed no growth to date. She is maintaining good O2 saturations in the mid 90s on 3 L/m per nasal cannula. He does utilize BiPAP throughout the evenings. She is seen again today 11/06/2016 in follow-up. She remains awake and alert in no acute distress. She is still has a loose nonproductive cough. No chills or night sweats. Blood cultures reveal no growth to date. Wound culture of the labia revealing moderate gram-negative bacilli. She's also had continued right foot pain and an x-ray reveals persistent diffuse soft tissue swelling and subcutaneous edema but no change from previous. Orthopedics has been consulted. Objective - Vital Signs Vital signs: Vital Signs Temp 98.3 F 11/06/16 07:00 Pulse 72 11/06/16 07:43 Resp 20 11/06/16 07:00 BP 112/62 11/06/16 07:00 Pulse Ox 97 11/06/16 07:00 Intake & Output 11/05/16 11/06/16 11/06/16 18:59 06:59 18:59 Intake Total 240 540 Balance 240 540 Weight 109.769 kg Intake: Oral 240 540 Other: Voiding Method Bedpan Bedpan Bedpan # Voids 5 2 # Bowel Movements 1 - Exam GENERAL EXAM: Obese. Alert, comfortable in no apparent distress. HEAD: Normocephalic. EYES: Normal reaction of pupils, equal size. NOSE: Clear with pink turbinates. THROAT: There is crowding the posterior pharynx. No erythema or exudates. NECK: Short. No masses, no JVD. CHEST: No chest wall deformity. LUNGS: Equal air entry with few scattered rhonchi. CVS: S1 and S2 normal with no audible murmurs, regular rhythm. ABDOMEN: No hepatosplenomegaly, normal bowel sounds, no guarding or rigidity. Extremities: There is trace peripheral edema. No clubbing, no cyanosis. Peripheral pulses are intact. - Labs CBC & Chem 7: 11/04/16 07:32 11/04/16 07:32 Labs: Abnormal Lab Results - Last 24 Hours (Table) 11/05/16 11/06/16 Range/Units 20:49 11:35 POC Glucose (mg/dL) 197 H 111 H (75-99) mg/dL Microbiology - Last 24 Hours (Table) 11/05/16 18:13 Gram Stain - Preliminary Labia Wound Culture - Preliminary Assessment and Plan Plan: Impression: #1 Acute on chronic hypoxic respiratory failure secondary to atypical pneumonia. #2 Atypical pneumonia complicated by influenza A. #3Chronic and ongoing tobacco dependence. #4 Morbid obesity with obesity/hypoventilation syndrome. #5 Obstructive sleep apnea utilizing CPAP in the outpatient setting. #6 Diabetes mellitus. #7 Hypothyroidism. #8 Spinal stenosis with previous surgery and stimulator in place. #9 History of nephrolithiasis. #10 History of seizure disorder. #11 Schizophrenia. #12 Wound of the labia positive for many gram-negative bacilli. Plan: The patient was seen and evaluated by Dr. Cook. We'll continue with her bronchodilators, Pulmicort and antibiotics in the form of Levaquin. She remains on IV Solu-Medrol, we'll continue to taper. She'll complete her course of Tamiflu. We will increase her activity as tolerated. We'll continue to follow.
--- NOTE | 2016-11-06 16:16 | DS ---
DATE OF ADMISSION: 11/03/2016 DATE OF DISCHARGE: 11/06/2016 FINAL DIAGNOSES: 1. Acute pneumonitis from type A influenza. 2. Atypical pneumonia, present on admission. 3. Diabetes mellitus, type 2, on oral hypoglycemic. 4. Gastroesophageal reflux disease. 5. Primary osteoarthritis of multiple joints. 6. Right ankle sprain, present on admission. 7. Sleep apnea; uses CPAP. 8. Hypothyroidism. 9. Chronic cerebral palsy. 10. Peripheral neuropathy in both feet and hands from diabetes mellitus, type 2. 11. Irritable bowel syndrome. 12. Kidney stones, asymptomatic. 13. Chronic hypoxic respiratory failure; uses 3 to 5 liters nasal oxygen at home; secondary to moderate persistent asthma. 14. Acute exacerbation of moderate persistent asthma. 15. Depression not otherwise specified. 16. Patient has a public legal guardian. 17. Chronic seizure disorder. 18. Chronic pain syndrome. 19. Chronic lumbar spinal stenosis. 20. Schizoaffective disorder, chronic. 21. Chronic urinary incontinence with overactive bladder. CONSULTATIONS: 1. Dr. Bowie for sprain of the right ankle. 2. Dr. Cook for asthma. HOSPITAL COURSE: This is a patient who presented with shortness of breath, found to have asthma exacerbation, possibly pneumonia, and also positive for influenza pneumonitis. Short course of antibiotics was given. At the time of discharge, patient is eating much better. Wheezing is greatly improved. Patient did get a burst of steroids. Patient's right ankle was evaluated by Dr. Bowie. Supportive boot has been given; to be followed as an outpatient. Care was discussed with the patient. Also discussed with Dr. Cook. Discharge planning more than 35 minutes. On examination, lungs have improved air entry, mild wheezing. PSYCH: Patient is following commands. DISCHARGE MEDICATIONS: 1. Bentyl 20 mg p.o. q.4 to 6 p.r.n. 2. TriCor 48 mg p.o. daily. 3. Toviaz 8 mg p.o. daily. 4. Fexofenadine 180 mg p.o. daily. 5. Dyazide 37.5/25 one capsule p.o. b.i.d. 6. Keppra 750 mg p.o. b.i.d. 7. Synthroid 200 mcg p.o. at bedtime. 8. Celexa 40 mg p.o. daily. 9. Geodon 80 mg p.o. b.i.d. 10. Pulmicort 0.5 mg nebulizer b.i.d. 11. Nexium 40 mg p.o. daily. 12. Lactulose 10 grams p.o. daily p.r.n. 13. Synthroid 50 mcg p.o. at bedtime. 14. Linzess 145 mcg p.o. daily. 15. Norvasc 10 mg p.o. daily. 16. Zanaflex 2 mg p.o. daily. 17. Atarax 25 mg p.o. at bedtime. 18. Ventolin 2.5 mg q.4 p.r.n. 19. Valium 5 mg p.o. q.i.d. p.r.n. 20. Haldol 5 mg p.o. daily. 21. Tamiflu 75 mg p.o. q.12; 4 capsules. 22. Senokot S one tablet p.o. daily. 23. OxyContin 60 mg p.o. q.12. 24. Oxycodone 5 mg p.o. at bedtime. 25. Prednisone taper. DISPOSITION: Jey. Follow up with Dr. Stone on 11/07/16. Follow up with Dr. Bowie in 2 weeks. Right foot weight-bearing as tolerated. Patient is on home oxygen at 3 L during the day and 5 L at night. Discharge planning more than 35 minutes.
[2016-11-06 16:32] LABS: Glucose,Whole Blood 230 mg/dL (75-99)
[2016-11-06 17:18] VITALS: BP 118/61; PULSE 67; TEMP 98
== END 2016-11-06 17:30 | DRG 193 ==
LOC: EC 14:10 → 5MS5E 17:41
PROVIDERS: ADMIT Hospitalist; ATTEND Hospitalist
DX: J10.00 Influenza due to other identified influenza virus with unspecified type of pneumonia (principal); J96.21 Acute and chronic respiratory failure with hypoxia; E11.42 Type 2 diabetes mellitus with diabetic polyneuropathy; J44.1 Chronic obstructive pulmonary disease with (acute) exacerbation; J45.41 Moderate persistent asthma with (acute) exacerbation; E66.2 Morbid (severe) obesity with alveolar hypoventilation; Z68.43 Body mass index [BMI] 50.0-59.9, adult; G80.9 Cerebral palsy, unspecified; K21.9 Gastro-esophageal reflux disease without esophagitis; F25.9 Schizoaffective disorder, unspecified; F32.9 Major depressive disorder, single episode, unspecified; M19.079 Primary osteoarthritis, unspecified ankle and foot; M19.91 Primary osteoarthritis, unspecified site; F17.210 Nicotine dependence, cigarettes, uncomplicated; G47.33 Obstructive sleep apnea (adult) (pediatric); G40.909 Epilepsy, unspecified, not intractable, without status epilepticus; E03.9 Hypothyroidism, unspecified; G89.4 Chronic pain syndrome; H40.9 Unspecified glaucoma; N32.81 Overactive bladder; R32 Unspecified urinary incontinence; M48.06 Spinal stenosis, lumbar region; K58.9 Irritable bowel syndrome, unspecified; K59.00 Constipation, unspecified; S31.40XA Unspecified open wound of vagina and vulva, initial encounter; S93.401A Sprain of unspecified ligament of right ankle, initial encounter; Z99.81 Dependence on supplemental oxygen; Z91.81 History of falling; Z87.442 Personal history of urinary calculi; Z96.89 Presence of other specified functional implants; Z86.19 Personal history of other infectious and parasitic diseases; Z88.0 Allergy status to penicillin; Z91.040 Latex allergy status; Z88.8 Allergy status to other drugs, medicaments and biological substances; Z88.1 Allergy status to other antibiotic agents; Z91.013 Allergy to seafood; Z87.01 Personal history of pneumonia (recurrent); Z90.49 Acquired absence of other specified parts of digestive tract; Z86.14 Personal history of Methicillin resistant Staphylococcus aureus infection; Z79.899 Other long term (current) drug therapy; Z79.891 Long term (current) use of opiate analgesic; Z79.51 Long term (current) use of inhaled steroids
CPT/HCPCS: 36415; 71010; 71020; 80053; 83605; 85025; 87040; 87070; 87077; 87186; 87205; 87502; 94640; 94660; 96361; 96365; 96375; 99284; 99285

== ENCOUNTER → 2019-04-12 | Outpatient (CLI) | payer MEDICARE, OTHER ==
--- NOTE | 2019-04-12 12:02 | CT ---
EXAMINATION TYPE: CT lumbar spine wo con DATE OF EXAM: 04/12/2019 11:28 AM COMPARISON: MRI lumbar spine February 07, 2016. HISTORY: Low back pain and leg weakness CT DLP: 3787.4 mGycm Automated exposure control for dose reduction was used. Unenhanced CT of the lumbar spine was performed. Bone and soft tissue window settings are submitted as well as coronal and sagittal reconstructions. There is persistent dextroconvex scoliosis centered at L1-L2 level. There is stable slight grade 1 re trolisthesis L5 on S1. 5 lumbar type vertebra are redemonstrated. Vertebral body heights are maintain ed. Disc space heights are fairly well-preserved. Vacuum disc phenomenon T11-T12 level is seen. There is disc calcification at T12-L1 level noted with some disc calcification and moderate to advanced le ft-sided disc space narrowing. Spinal canal is grossly preserved. Axial images demonstrate mild broad disc bulges L2-L3 and mild/moderate broad-based posterior disc pr otrusion L3-L4 level effacing anterior thecal sac. There is mild/moderate facet arthropathy L4-L5 and L5-S1 levels. Exam was suboptimal due to patient's large body habitus. There is stimulator device in the posterior soft tissue with lead terminating at the level of L2-L3 disc space spinal canal bin burgess image 37. Cholecystectomy clips are partially imaged. IMPRESSION: Scoliosis and multilevel degenerative changes redemonstrated as detailed above.
== END | disposition home or self-care (01) ==
LOC: RADCTMAIN 10:53
PROVIDERS: ATTEND Physician Assistant
DX: M47.816 Spondylosis without myelopathy or radiculopathy, lumbar region (principal); M41.86 Other forms of scoliosis, lumbar region; Z91.013 Allergy to seafood; Z91.040 Latex allergy status; Z91.041 Radiographic dye allergy status; Z88.5 Allergy status to narcotic agent; Z88.8 Allergy status to other drugs, medicaments and biological substances
CPT/HCPCS: 72131

== ENCOUNTER 2019-04-20 09:47 | Inpatient (IN) | payer MEDICARE, OTHER ==
[2019-04-20] MEDS ORDERED: SODIUM CHLORIDE 0.9% 1,000 ML IV STA (09:55)
[2019-04-20] MEDS ORDERED: ACETAMINOPHEN SUPPOSITORY 650 MG SUPP RECTAL STA (09:56)
[2019-04-20 10:01] LABS: Glucose,Whole Blood 140 mg/dL (75-99)
--- NOTE | 2019-04-20 10:20 | CT ---
EXAMINATION TYPE: CT brain wo con for TPA DATE OF EXAM: 04/20/2019 COMPARISON: 11/01/2014 INDICATION: dysphasia neuro deficits DLP: 1056.4 mGycm, Automated exposure control for dose reduction was used. CONTRAST: None CT of the brain is performed utilizing 3 mm thick sections through the posterior fossa and 3 mm thick sections through the remaining calvarium. Study is performed within 24 hours of arrival to the hosp ital. No abnormal hyperdensity is present to suggest an acute intracranial hemorrhage. No mass lesion is evident. No acute infarcts are evident. Subtle mild chronic-appearing white matter ischemic type changes are p resent. Ventricles and sulci are appropriate for the patient age. Paranasal sinuses and mastoid air cells within the [id number] are clear. IMPRESSIONS: 1. Mild chronic appearing white matter ischemic changes.
[2019-04-20 10:29] LABS: Basophils # (A) 0.1 k/uL (0-0.2); Basophils % (A) 1 %; Eosinophils # (A) 0.1 k/uL (0-0.7); Eosinophils % (A) 1 %; HCT 45.3 % (34.0-46.0); HGB 14.7 gm/dL (11.4-16.0); Lymphocytes # (A) 1.6 k/uL (1.0-4.8); Lymphocytes % (A) 11 %; MCHC 32.5 g/dL (31.0-37.0); MCV 86.1 fL (80.0-100.0); Mean Platelet Volume 6.3; Monocytes # (A) 0.6 k/uL (0-1.0); Monocytes % (A) 4 %; Neutrophils # (A) 12.2 k/uL (1.3-7.7); Neutrophils % (A) 83 %; Platelet Count 319 k/uL (150-450); RBC 5.25 m/uL (3.80-5.40); RDW 14.9 % (11.5-15.5); WBC 14.8 k/uL (3.8-10.6)
--- NOTE | 2019-04-20 10:30 | ED ---
General Adult HPI - General Chief complaint: Neuro Symptoms/Deficit Stated complaint: poss CVA Time Seen by Provider: 04/20/19 09:50 Source: patient, RN notes reviewed Mode of arrival: EMS Limitations: altered mental status - History of Present Illness Initial comments: This is a 54-year-old female who presents emergency Department with a past history of diabetes hypertension high cholesterol and schizophrenia. [facility] resides at a [facility]. Patient was last seen at her baseline at 5 AM. At about 8:30 she noted her to be altered. Patient was aphasic. Patient is unable to give us any history but she is able to follow basic commands. She does not appear to be any facial droop she does appear to move all 4 extremities equally sensation can't be tested. No other history is available this time. - Related Data Home Medications Medication Instructions Recorded Confirmed Dicyclomine [Bentyl] 20 mg PO Q6H PRN 10/08/14 04/20/19 Fexofenadine HCl 180 mg PO DAILY 10/08/14 04/20/19 levETIRAcetam [Keppra] 750 mg PO BID 10/08/14 04/20/19 Levothyroxine Sodium [Synthroid] 200 mcg PO DAILY 11/01/14 04/20/19 Budesonide [Pulmicort] 0.5 mg INHALATION RT-BID 10/20/16 04/20/19 Esomeprazole Magnesium [NexIUM] 40 mg PO DAILY 10/20/16 04/20/19 Levothyroxine Sodium [Synthroid] 50 mcg PO DAILY 10/20/16 04/20/19 amLODIPine [Norvasc] 10 mg PO DAILY 10/20/16 04/20/19 tiZANidine [Zanaflex] 2 mg PO DAILY 10/20/16 04/20/19 hydrOXYzine HCL [Atarax] 25 mg PO HS 11/03/16 04/20/19 Acetaminophen Tab [Tylenol Tab] 500 mg PO Q6HR PRN 04/20/19 04/20/19 Antifungak Cream 1 applic TOPICAL TID 04/20/19 04/20/19 Atorvastatin [Lipitor] 10 mg PO HS 04/20/19 04/20/19 Butalb/Asprin/Caff 50-325-40Mg 1 cap PO Q4HR PRN 04/20/19 04/20/19 [Fiorinal 50-325-40 MG] Cholecalciferol (Vitamin D3) 2,000 unit PO DAILY 04/20/19 04/20/19 [Vitamin D3] Citalopram Hydrobromide [CeleXA] 20 mg PO DAILY 04/20/19 04/20/19 Gabapentin [Neurontin] 100 mg PO Q6H 04/20/19 04/20/19 Ketoconazole [Ketoconazole 2%] 1 applic TOPICAL Q8H PRN 04/20/19 04/20/19 Lisinopril [Zestril] 5 mg PO DAILY 04/20/19 04/20/19 Loperamide HCl [Imodium A-D] 4 mg PO Q12H PRN 04/20/19 04/20/19 Melatonin 5 mg PO HS 04/20/19 04/20/19 Oxybutynin Chloride [Oxybutynin 10 mg PO DAILY 04/20/19 04/20/19 Chloride ER] Polyethylene Glycol 3350 [Miralax] 17 gm PO Q12H PRN 04/20/19 04/20/19 Promethazine [Phenergan] 25 mg PO Q6H PRN 04/20/19 04/20/19 Sennosides-Docusate Sodium 1 tab PO BID 04/20/19 04/20/19 [Senokot-S] Ziprasidone [Geodon] 20 mg PO HS 04/20/19 04/20/19 glipiZIDE XL [Glucotrol Xl] 5 mg PO DAILY 04/20/19 04/20/19 oxyCODONE-APAP 5-325MG [Percocet 1 tab PO DAILY PRN 04/20/19 04/20/19 5-325 mg] Allergies Allergy/AdvReac Type Severity Reaction Status Date / Time butalbital [From Fiorinal] Allergy Unknown Verified 04/20/19 09:51 caffeine [From Fiorinal] Allergy Unknown Verified 04/20/19 09:51 cimetidine [From Tagamet] Allergy Unknown Verified 04/20/19 09:51 cimetidine HCl [From Tagamet] Allergy Unknown Verified 04/20/19 09:51 codeine Allergy Unknown Verified 04/20/19 09:51 dichloralphenazone Allergy Unknown Verified 04/20/19 09:51 [From Midrin] diphenhydramine HCl Allergy Unknown Verified 04/20/19 09:51 [From Benadryl] heparin Allergy Rash/Hives Verified 04/20/19 09:51 indomethacin [From Indocin] Allergy Unknown Verified 04/20/19 09:51 indomethacin sodium Allergy Unknown Verified 04/20/19 09:51 [From Indocin] iodine Allergy Swelling Verified 04/20/19 09:51 isometheptene mucate Allergy Unknown Verified 04/20/19 09:51 [From Midrin] latex Allergy Anaphylaxis Verified 04/20/19 09:51 Macrolide Antibiotics Allergy Unknown Verified 04/20/19 09:51 nystatin Allergy Rash/Hives Verified 04/20/19 09:51 Penicillins Allergy Unknown Verified 04/20/19 09:51 propoxyphene HCl Allergy Unknown Verified 04/20/19 09:51 [From Darvon] shellfish derived [Shellfish] Allergy Swelling Verified 04/20/19 09:51 theophylline anhydrous Allergy Unknown Verified 04/20/19 09:51 [From [place]] lactose intolerant AdvReac Unknown Uncoded 11/03/16 14:28 Review of Systems ROS Statement: Those systems with pertinent positive or pertinent negative responses have been documented in the HPI. ROS Other: All systems not noted in ROS Statement are negative. Past Medical History Past Medical History: Asthma, Diabetes Mellitus, GERD/Reflux, Osteoarthritis (OA), Pneumonia, Respiratory Disorder, Seizure Disorder, Sleep Apnea/CPAP/BIPAP, Thyroid Disorder Additional Past Medical History / Comment(s): falls. C-diff 2008 cerebral palsy, spinal stenosis, neuropathy bilateral feet and hands, arthritis, chronic respiratory failure, ejection fraction 45% 2011, generalized chronic pain, IBS/ CONSTIPATION(LAST BM 10-19-16),kidney stones, overactive bladder wears brief for incont of urine."diabetic on metformin", glaucoma, "home 02 3 liters during day and 5 liters at night" History of Any Multi-Drug Resistant Organisms: MRSA Date of last positivie culture/infection: 2008 MDRO Source:: foot Past Surgical History: Back Surgery, Cholecystectomy Additional Past Surgical History / Comment(s): Spinal surgery x2,spinal stimul ator -2016, bilateral eye surgery for muscle repair due to cerebral palsy. rt shoulder sx, rom carpal tunnel, cyst removed from wrist Past Anesthesia/Blood Transfusion Reactions: Motion Sickness, Postoperative Nausea & Vomiting (PONV) Past Psychological History: Depression, Schizoaffective Disorder Smoking Status: Former smoker Past Alcohol Use History: None Reported Past Drug Use History: None Reported - Past Family History Father Family Medical History: No Reported History Mother Family Medical History: Diabetes Mellitus General Exam - General Exam Comments Initial Comments: GENERAL: Patient is well-developed and well-nourished. Patient is nontoxic and well- hydrated and is in mild distress ENT: Neck is soft and supple. No significant lymphadenopathy is noted. Oropharynx is clear. Moist mucous membranes. Neck has full range of motion without eliciting any pain. EYES: The sclera were anicteric and conjunctiva were pink and moist. Extraocular movements were intact and pupils were equal round and reactive to light. Eyelids were unremarkable. PULMONARY: Unlabored respirations. Good breath sounds bilaterally. No audible rales rhonchi or wheezing was noted. CARDIOVASCULAR: There is a regular rate and rhythm without any murmurs gallops or rubs. ABDOMEN: Soft and nontender with normal bowel sounds. SKIN: Skin is clear with no lesions or rashes and otherwise unremarkable. NEUROLOGIC: Patient is alert and follows simple commands. Unable to tell orientation since she does not speak she is completely aphasic during the ER stay. Patient is able to move all 4 extremities equally I cannot assess sensation secondary to the fact the patient does not speak. Extraocular motion is intact. MUSCULOSKELETAL: Normal extremities with adequate strength and full range of motion. LYMPHATICS: No significant lymphadenopathy is noted PSYCHIATRIC: Unable to evaluate since the patient is aphasic Limitations: altered mental status Course Vital Signs 04/20/19 04/20/19 04/20/19 09:50 12:30 13:29 Temperature 101.2 F H 98.6 F Pulse Rate 93 93 Respiratory 18 18 Rate Blood Pressure 128/72 177/93 O2 Sat by Pulse 98 94 L Oximetry 04/20/19 14:15 Temperature Pulse Rate 91 Respiratory 18 Rate Blood Pressure 153/88 O2 Sat by Pulse 93 L Oximetry Medical Decision Making - Medical Decision Making EKG shows normal sinus rhythm at 92 bpm FL interval is 152 QRS is 86 QT interval 376 QTC is 464. Patient's EKG shows no ST segment elevation or depression. CT of the brain shows no acute abnormality. CT angiogram shows no significant stenosis. I spoke with Dr. laureano and he did not want TPA since the patient's symptoms were greater than 4 hours old. Patient's chest x-ray showed a possible infiltrate behind the heart on the left side. Patient was started on Rocephin. Spoke with Dr. Ventura admitted the patient I wrote admitting orders and continue the antibiotics. I consult the neurology. - Lab Data Result diagrams: 04/20/19 10:00 04/20/19 10:00 Lab Results 04/20/19 04/20/19 04/20/19 Range/Units 09:53 10:00 10:00 WBC 14.8 H (3.8-10.6) k/uL RBC 5.25 (3.80-5.40) m/uL Hgb 14.7 (11.4-16.0) gm/dL Hct 45.3 (34.0-46.0) % MCV 86.1 (80.0-100.0) fL MCH 28.0 (25.0-35.0) pg MCHC 32.5 (31.0-37.0) g/dL RDW 14.9 (11.5-15.5) % Plt Count 319 (150-450) k/uL Neutrophils % 83 % Lymphocytes % 11 % Monocytes % 4 % Eosinophils % 1 % Basophils % 1 % Neutrophils # 12.2 H (1.3-7.7) k/uL Lymphocytes # 1.6 (1.0-4.8) k/uL Monocytes # 0.6 (0-1.0) k/uL Eosinophils # 0.1 (0-0.7) k/uL Basophils # 0.1 (0-0.2) k/uL PT (9.0-12.0) sec INR (<1.2) APTT (22.0-30.0) sec Sodium 140 (137-145) mmol/L Potassium 4.5 (3.5-5.1) mmol/L Chloride 97 L (98-107) mmol/L Carbon Dioxide 33 H (22-30) mmol/L Anion Gap 10 mmol/L BUN 16 (7-17) mg/dL Creatinine 0.51 L (0.52-1.04) mg/dL Est GFR (CKD-EPI)AfAm >90 (>60 ml/min/1.73 sqM) Est GFR (CKD-EPI)NonAf >90 (>60 ml/min/1.73 sqM) Glucose 144 H (74-99) mg/dL POC Glucose (mg/dL) 140 H (75-99) mg/dL POC Glu Bilingual Sales Consultant ID Nathan Calhoun Plasma Lactic Acid Mello (0.7-2.0) mmol/L Calcium 9.5 (8.4-10.2) mg/dL Total Bilirubin 0.8 (0.2-1.3) mg/dL AST 44 H (14-36) U/L ALT 63 H (9-52) U/L Alkaline Phosphatase 145 H (38-126) U/L Total Creatine Kinase (30-135) U/L CK-MB (CK-2) (0.0-2.4) ng/mL CK-MB (CK-2) Rel Index Troponin I (0.000-0.034) ng/mL Total Protein 8.5 H (6.3-8.2) g/dL Albumin 4.3 (3.5-5.0) g/dL Urine Color Urine Appearance (Clear) Urine pH (5.0-8.0) Ur Specific [place] (1.001-1.035) Urine Protein (Negative) Urine Glucose (UA) (Negative) Urine Ketones (Negative) Urine Blood (Negative) Urine Nitrite (Negative) Urine Bilirubin (Negative) Urine Urobilinogen (<2.0) mg/dL Ur Leukocyte Esterase (Negative) Urine RBC (0-5) /hpf Urine WBC (0-5) /hpf Ur Squamous Epith Cells (0-4) /hpf Urine Mucus (None) /hpf 04/20/19 04/20/19 04/20/19 Range/Units 10:00 10:00 10:00 WBC (3.8-10.6) k/uL RBC (3.80-5.40) m/uL Hgb (11.4-16.0) gm/dL Hct (34.0-46.0) % MCV (80.0-100.0) fL MCH (25.0-35.0) pg MCHC (31.0-37.0) g/dL RDW (11.5-15.5) % Plt Count (150-450) k/uL Neutrophils % % Lymphocytes % % Monocytes % % Eosinophils % % Basophils % % Neutrophils # (1.3-7.7) k/uL Lymphocytes # (1.0-4.8) k/uL Monocytes # (0-1.0) k/uL Eosinophils # (0-0.7) k/uL Basophils # (0-0.2) k/uL PT 10.2 (9.0-12.0) sec INR 0.9 (<1.2) APTT 24.7 (22.0-30.0) sec Sodium (137-145) mmol/L Potassium (3.5-5.1) mmol/L Chloride (98-107) mmol/L Carbon Dioxide (22-30) mmol/L Anion Gap mmol/L BUN (7-17) mg/dL Creatinine (0.52-1.04) mg/dL Est GFR (CKD-EPI)AfAm (>60 ml/min/1.73 sqM) Est GFR (CKD-EPI)NonAf (>60 ml/min/1.73 sqM) Glucose (74-99) mg/dL POC Glucose (mg/dL) (75-99) mg/dL POC Glu Bilingual Sales Consultant ID Plasma Lactic Acid Mello 1.3 (0.7-2.0) mmol/L Calcium (8.4-10.2) mg/dL Total Bilirubin (0.2-1.3) mg/dL AST (14-36) U/L ALT (9-52) U/L Alkaline Phosphatase (38-126) U/L Total Creatine Kinase 45 (30-135) U/L CK-MB (CK-2) 0.8 (0.0-2.4) ng/mL CK-MB (CK-2) Rel Index 1.8 Troponin I <0.012 (0.000-0.034) ng/mL Total Protein (6.3-8.2) g/dL Albumin (3.5-5.0) g/dL Urine Color Urine Appearance (Clear) Urine pH (5.0-8.0) Ur Specific [place] (1.001-1.035) Urine Protein (Negative) Urine Glucose (UA) (Negative) Urine Ketones (Negative) Urine Blood (Negative) Urine Nitrite (Negative) Urine Bilirubin (Negative) Urine Urobilinogen (<2.0) mg/dL Ur Leukocyte Esterase (Negative) Urine RBC (0-5) /hpf Urine WBC (0-5) /hpf Ur Squamous Epith Cells (0-4) /hpf Urine Mucus (None) /hpf 04/20/19 Range/Units Unknown WBC (3.8-10.6) k/uL RBC (3.80-5.40) m/uL Hgb (11.4-16.0) gm/dL Hct (34.0-46.0) % MCV (80.0-100.0) fL MCH (25.0-35.0) pg MCHC (31.0-37.0) g/dL RDW (11.5-15.5) % Plt Count (150-450) k/uL Neutrophils % % Lymphocytes % % Monocytes % % Eosinophils % % Basophils % % Neutrophils # (1.3-7.7) k/uL Lymphocytes # (1.0-4.8) k/uL Monocytes # (0-1.0) k/uL Eosinophils # (0-0.7) k/uL Basophils # (0-0.2) k/uL PT (9.0-12.0) sec INR (<1.2) APTT (22.0-30.0) sec Sodium (137-145) mmol/L Potassium (3.5-5.1) mmol/L Chloride (98-107) mmol/L Carbon Dioxide (22-30) mmol/L Anion Gap mmol/L BUN (7-17) mg/dL Creatinine (0.52-1.04) mg/dL Est GFR (CKD-EPI)AfAm (>60 ml/min/1.73 sqM) Est GFR (CKD-EPI)NonAf (>60 ml/min/1.73 sqM) Glucose (74-99) mg/dL POC Glucose (mg/dL) (75-99) mg/dL POC Glu Bilingual Sales Consultant ID Plasma Lactic Acid [place] (0.7-2.0) mmol/L Calcium (8.4-10.2) mg/dL Total Bilirubin (0.2-1.3) mg/dL AST (14-36) U/L ALT (9-52) U/L Alkaline Phosphatase (38-126) U/L Total Creatine Kinase (30-135) U/L CK-MB (CK-2) (0.0-2.4) ng/mL CK-MB (CK-2) Rel Index Troponin I (0.000-0.034) ng/mL Total Protein (6.3-8.2) g/dL Albumin (3.5-5.0) g/dL Urine Color Yellow Urine Appearance Clear (Clear) Urine pH 7.5 (5.0-8.0) Ur Specific [place] 1.025 (1.001-1.035) Urine Protein 4+ H (Negative) Urine Glucose (UA) Negative (Negative) Urine Ketones 2+ H (Negative) Urine Blood Negative (Negative) Urine Nitrite Negative (Negative) Urine Bilirubin 1+ H (Negative) Urine Urobilinogen 6.0 (<2.0) mg/dL Ur Leukocyte Esterase Negative (Negative) Urine RBC 3 (0-5) /hpf Urine WBC <1 (0-5) /hpf Ur Squamous Epith Cells 1 (0-4) /hpf Urine Mucus Rare H (None) /hpf Disposition Clinical Impression: Cerebrovascular accident, Pneumonia, Altered mental status Disposition: ADMITTED IP TO THIS HOSP Referrals: Anthony Stone DO [Primary Care Provider] - 1-2 days Time of Disposition: 14:22
[2019-04-20 10:38] LABS: ALT 63 U/L (9-52); AST 44 U/L (14-36); African American GFR (CKD) >90 (>60 ml/min/1.73 sqM); Albumin 4.3 g/dL (3.5-5.0); Alkaline Phosphatase 145 U/L (38-126); Anion Gap 10 mmol/L; Blood Urea Nitrogen 16 mg/dL (7-17); Calcium 9.5 mg/dL (8.4-10.2); Carbon Dioxide 33 mmol/L (22-30); Chloride 97 mmol/L (98-107); Glucose 144 mg/dL (74-99); Potassium 4.5 mmol/L (3.5-5.1); Sodium 140 mmol/L (137-145); Total Bilirubin 0.8 mg/dL (0.2-1.3); Total Protein 8.5 g/dL (6.3-8.2)
[2019-04-20 10:39] LABS: INR 0.9 (<1.2); Partial Thromboplastin Time 24.7 sec (22.0-30.0); Prothrombin Time 10.2 sec (9.0-12.0)
[2019-04-20 10:49] LABS: Creatine Kinase 45 U/L (30-135)
[2019-04-20] MEDS ORDERED: diphenhydrAMINE 50 MG/ML 1 ML VIAL IVP STA (10:54)
[2019-04-20] MEDS ORDERED: EPINEPHrine 1 MG/ML 1 ML AMP IM STA (10:54)
[2019-04-20] MEDS ORDERED: methylPREDNISolone SOD SUCCI 125 MG/2 ML VIAL IV STA (10:54)
[2019-04-20 11:03] LABS: Creatine Kinase MB 0.8 ng/mL (0.0-2.4); Troponin I <0.012 ng/mL (0.000-0.034)
[2019-04-20 11:17] LABS: Appearance,Urine Clear (Clear); Bilirubin,Urine 1+ (Negative); Blood,Urine Negative (Negative); Color,Urine Yellow; Glucose,Urine (UA) Negative (Negative); Ketones,Urine 2+ (Negative); Leukocyte Esterase,Urine Negative (Negative); Mucus,Urine Rare /hpf; Nitrite,Urine Negative (Negative); PH, Urine 7.5 (5.0-8.0); Protein,Urine 4+ (Negative); RBC,Urine 3 /hpf (0-5); Specific Gravity,Urine 1.025 (1.001-1.035); Squamous Epithelial Cell,Urine 1 /hpf (0-4); WBC,Urine <1 /hpf (0-5)
[2019-04-20] MEDS ORDERED: cefTRIAXone IN SWFI 1,000 MG/10 ML SYRINGE IVP STA (12:08)
--- NOTE | 2019-04-20 12:53 | XR ---
EXAMINATION TYPE: XR chest 2V DATE OF EXAM: 04/20/2019 COMPARISON: 11/05/2016 INDICATION: Mental status history of asthma TECHNIQUE: Frontal and lateral views of the chest are obtained. FINDINGS: The heart size is largest. The pulmonary vasculature is upper limits of normal. No suspicious consolidations are evident. On the lateral view is somewhat limited. Stimulator leads a re within the mid thoracic region.. IMPRESSION: 1. Cardiomegaly.
--- NOTE | 2019-04-20 13:10 | CT ---
EXAMINATION TYPE: CT angio head neck DATE OF EXAM: 04/20/2019 HISTORY: Neuro deficits COMPARISON: None CT DLP: 663.2 mGycm. Automated Exposure Control for Dose Reduction was Utilized. TECHNIQUE: CTA scan of the neck is performed with IV Contrast, patient injected with 50 mL of Isovue 370, axial images are obtained, coronal and sagittal reformatted images are reviewed. Three-D recons tructed images are created on an independent workstation and reviewed. Source images are reviewed. FINDINGS: Carotid/Vascular Structures: There is a three-vessel arch. Vertebral arteries are codominant. Common carotid arteries bifurcate into internal and external iliac vessels without obvious stenosis. The int ernal carotid artery course is somewhat medial in nearly in the prevertebral space. Reconstructed nilo ges have some atheromatous plaquing at the internal carotid artery origin on the left and right inter nal carotid artery appears normal. Cervical of [place]: Vertebral basilar system appears normal. Posterior cerebral vasculature is unrema rkable. Internal carotid arteries bifurcate normally into A1 and M1 segments. A2 segments are normal. The anterior communicating artery is visualized. Posterior communicating arteries are not visualized . Small left posterior communicating artery on reconstructed images however is not excluded. Other: The soft tissues of the neck appear grossly normal. Upper lung yang appear clear IMPRESSION: 1. No flow-limiting stenosis bilateral carotid bifurcations. Some atheromatous plaquing is present on the left at the origin. 2. Normal [place]
[2019-04-20] MEDS ORDERED: AZITHROMYCIN 500 MG in SODIUM CHLORIDE 0.9% 250 ML IVPB STA (15:19)
[2019-04-20 20:13] LABS: Glucose,Whole Blood 156 mg/dL (75-99)
[2019-04-21 01:51] VITALS: BMI 42.9
[2019-04-21 03:20] LABS: Cholesterol 209 mg/dL (<200); HDL Cholesterol 66 mg/dL (40-60); LDL Cholesterol,Calculated 112 mg/dL (0-99); Triglycerides 157 mg/dL (<150)
[2019-04-21 06:28] LABS: Glucose,Whole Blood 135 mg/dL (75-99)
--- NOTE | 2019-04-21 08:09 | P.CNNES ---
History of Present Illness Consult date: 04/20/19 Reason for Consult: Altered mental status Chief complaint: Altered mental status History of Present Illness: REFERRING PHYSICIAN: Dr. Mateo Dodd HISTORY OF PRESENT ILLNESS: Thank you for allowing me to evaluate Ms. Sneha Vasquez. Ms. Vasquez is a 54-year-old woman with past medical history of asthma, diabetes, GERD, ocular arthritis, pneumonia, seizure disorder, sleep apnea, cerebral palsy, spinal stenosis, peripheral neuropathy, chronic respiratory failure, arthritis, congestive heart failure, generalized chronic pain, overactive bladder, glaucoma, depression, schizoaffective disorder/nicholas, hypothyroidism, presenting to [facility] for altered mental status and aphasic. No further additional information is available at this time. It appears the patient was here last time on 11/03/2016 for shortness of breath and diagnosed with. Even at that time. Patient was on Geodon 80 mg twice a day dosing. PAST MEDICAL HISTORY: Asthma, diabetes, GERD, ocular arthritis, pneumonia, seizure disorder, sleep apnea, cerebral palsy, spinal stenosis, peripheral neuropathy, chronic respiratory failure, arthritis, congestive heart failure, generalized chronic pain, overactive bladder, glaucoma, depression, schizoaffective disorder, hypothyroidism PAST SURGICAL HISTORY: Cholecystectomy, spine surgery 2, spinal stimulator, bilateral eye surgery for muscle repair due to cerebral palsy, right shoulder surgery, bilateral upper tunnel surgery HOME MEDICATIONS: Fexofenadine, Keppra 750 twice a day, levothyroxine, tizanidine, Nexium, budesonide, amlodipine, hydroxyzine, oxycodone when necessary, gabapentin, ox ybutynin, melatonin, lisinopril, atorvastatin, glipizide, Geodon, citalopram ALLERGIES: Butalbital, caffeine, symmetric, codeine, diphenhydramine, heparin, indomethacin, iodine, latex, macrolides, penicillin, shellfish, iodine, [place], and lactose intolerant SOCIAL HISTORY: Former smoker. He resides a facility FAMILY HISTORY: Mother had diabetes. PHYSICAL EXAMINATION: VITAL SIGNS: Temperature 98.5 pulse rate 92 respiratory rate 16 blood pressure 140/82 O2 saturation 92% on 2 L via nasal cannula GEN.: Blank stares although patient follows, appears catatonic HEENT: NCAT, sclera without icterus NECK: Supple SKIN AND EXTREMITIES: Warm to touch, no edema NEURO: MENTAL STATUS: No verbal response. When asked about patient's tattoos on her right arm, patient turns her head and look at her arm but does not answer any questions. Patient did not her head when I asked whether the song that's tattooed to her arm is repair of her song. CRANIAL NERVES II THROUGH XII: II: Left pupil 2 mm right pupil 1.5 mm but both responsive to light equally. Blinks to threat bilaterally III, IV, : No ptosis. Tracks horizontally. Some baseline exotropia. VII. No clear facial asymmetry. MOTOR: Normal bulk/tone. Patient is able to keep her arms against gravity but they drift down. No movement appreciated there bilateral lower extremities. SENSORY: no grimacing to pain in all 4 showers. REFLEXES: 1+ throughout. Toes are mute. COORDINATION/GAIT: unable to examine DIAGNOSTIC TESTING: LABORATORY: WBC 14.8 hemoglobin 14.7 platelets 319 PT 10.2 INR 0.9 Sodium 140 potassium 4.5 chloride 97 bicarb 33 BUN 16 findings 0.51 glucose 144 AST 44 ALT 63 alk phos 145 troponin <0.012 urinalysis 4+ protein 2+ ketones no nitrites or esterase IMAGING: CT head without contrast 04/20/2019: Mild chronic-appearing white matter ischemic changes. CTA head and neck with contrast 04/20/2019: No flow-limiting stenosis bilateral carotid bifurcations. [place]. ASSESSMENT: Ms. Vasquez is a 54-year-old woman with past medical history of asthma, diabetes, GERD, ocular arthritis, pneumonia, seizure disorder, sleep apnea, cerebral palsy, spinal stenosis, peripheral neuropathy, chronic respiratory failure, arthritis, congestive heart failure, generalized chronic pain, overactive bladder, glaucoma, depression, schizoaffective disorder/nicholas, hypothyroidism, presenting to [facility] for altered mental status and aphasic. Patient with psychiatric disorders along with her symptom of global aphasia with no other neuro deficits is unusual as global A facial be caused by a large terr itory MCA stroke. However, patient with multiple risk factors. Will obtain MRI brain w/o contrast and if positive, consider stroke work-up and management. RECOMMENDATIONS: 1. Routine EEG 2. MRI brain without contrast 3. Psychiatry consultation 4. Neurology will continue to follow Past Medical History Past Medical History: Asthma, Diabetes Mellitus, GERD/Reflux, Osteoarthritis (OA), Pneumonia, Respiratory Disorder, Seizure Disorder, Sleep Apnea/CPAP/BIPAP, Thyroid Disorder Additional Past Medical History / Comment(s): falls. C-diff 2008 cerebral palsy, spinal stenosis, neuropathy bilateral feet and hands, arthritis, chronic respiratory failure, ejection fraction 45% 2011, generalized chronic pain, IBS/ CONSTIPATION(LAST BM 10-19-16),kidney stones, overactive bladder wears brief for incont of urine."diabetic on metformin", glaucoma, "home 02 3 liters during day and 5 liters at night" History of Any Multi-Drug Resistant Organisms: MRSA Date of last positivie culture/infection: 2008 MDRO Source:: foot Past Surgical History: Back Surgery, Cholecystectomy Additional Past Surgical History / Comment(s): Spinal surgery x2,spinal stimulator -2016, bilateral eye surgery for muscle repair due to cerebral palsy. rt shoulder sx, rom carpal tunnel, cyst removed from wrist Past Anesthesia/Blood Transfusion Reactions: Motion Sickness, Postoperative Nausea & Vomiting (PONV) Past Psychological History: Depression, Schizoaffective Disorder Smoking Status: Former smoker Past Alcohol Use History: None Reported Past Drug Use History: None Reported - Past Family History Father Family Medical History: No Reported History Mother Family Medical History: Diabetes Mellitus Medications and Allergies Home Medications Medication Instructions Recorded Confirmed Type Dicyclomine [Bentyl] 20 mg PO Q6H PRN 10/08/14 04/20/19 History Fexofenadine HCl 180 mg PO DAILY 10/08/14 04/20/19 History levETIRAcetam [Keppra] 750 mg PO BID 10/08/14 04/20/19 History Levothyroxine Sodium [Synthroid] 200 mcg PO DAILY 11/01/14 04/20/19 History Budesonide [Pulmicort] 0.5 mg INHALATION RT-BID 10/20/16 04/20/19 History Esomeprazole Magnesium [NexIUM] 40 mg PO DAILY 10/20/16 04/20/19 History Levothyroxine Sodium [Synthroid] 50 mcg PO DAILY 10/20/16 04/20/19 History amLODIPine [Norvasc] 10 mg PO DAILY 10/20/16 04/20/19 History tiZANidine [Zanaflex] 2 mg PO DAILY 10/20/16 04/20/19 History hydrOXYzine HCL [Atarax] 25 mg PO HS 11/03/16 04/20/19 History Acetaminophen Tab [Tylenol Tab] 500 mg PO Q6HR PRN 04/20/19 04/20/19 History Antifungak Cream 1 applic TOPICAL TID 04/20/19 04/20/19 History Atorvastatin [Lipitor] 10 mg PO HS 04/20/19 04/20/19 History Butalb/Asprin/Caff 50-325-40Mg 1 cap PO Q4HR PRN 04/20/19 04/20/19 History [Fiorinal 50-325-40 MG] Cholecalciferol (Vitamin D3) 2,000 unit PO DAILY 04/20/19 04/20/19 History [Vitamin D3] Citalopram Hydrobromide [CeleXA] 20 mg PO DAILY 04/20/19 04/20/19 History Gabapentin [Neurontin] 100 mg PO Q6H 04/20/19 04/20/19 History Ketoconazole [Ketoconazole 2%] 1 applic TOPICAL Q8H PRN 04/20/19 04/20/19 History Lisinopril [Zestril] 5 mg PO DAILY 04/20/19 04/20/19 History Loperamide HCl [Imodium A-D] 4 mg PO Q12H PRN 04/20/19 04/20/19 History Melatonin 5 mg PO HS 04/20/19 04/20/19 History Oxybutynin Chloride [Oxybutynin 10 mg PO DAILY 04/20/19 04/20/19 History Chloride ER] Polyethylene Glycol 3350 [Miralax] 17 gm PO Q12H PRN 04/20/19 04/20/19 History Promethazine [Phenergan] 25 mg PO Q6H PRN 04/20/19 04/20/19 History Sennosides-Docusate Sodium 1 tab PO BID 04/20/19 04/20/19 History [Senokot-S] Ziprasidone [Geodon] 20 mg PO HS 04/20/19 04/20/19 History glipiZIDE XL [Glucotrol Xl] 5 mg PO DAILY 04/20/19 04/20/19 History oxyCODONE-APAP 5-325MG [Percocet 1 tab PO DAILY PRN 04/20/19 04/20/19 History 5-325 mg] Allergies Allergy/AdvReac Type Severity Reaction Status Date / Time butalbital [From Fiorinal] Allergy Unknown Verified 04/20/19 09:51 caffeine [From Fiorinal] Allergy Unknown Verified 04/20/19 09:51 cimetidine [From Tagamet] Allergy Unknown Verified 04/20/19 09:51 cimetidine HCl [From Tagamet] Allergy Unknown Verified 04/20/19 09:51 codeine Allergy Unknown Verified 04/20/19 09:51 dichloralphenazone Allergy Unknown Verified 04/20/19 09:51 [From Midrin] diphenhydramine HCl Allergy Unknown Verified 04/20/19 09:51 [From Benadryl] heparin Allergy Rash/Hives Verified 04/20/19 09:51 indomethacin [From Indocin] Allergy Unknown Verified 04/20/19 09:51 indomethacin sodium Allergy Unknown Verified 04/20/19 09:51 [From Indocin] iodine Allergy Swelling Verified 04/20/19 09:51 isometheptene mucate Allergy Unknown Verified 04/20/19 09:51 [From Midrin] latex Allergy Anaphylaxis Verified 04/20/19 09:51 Macrolide Antibiotics Allergy Unknown Verified 04/20/19 09:51 nystatin Allergy Rash/Hives Verified 04/20/19 09:51 Penicillins Allergy Unknown Verified 04/20/19 09:51 propoxyphene HCl Allergy Unknown Verified 04/20/19 09:51 [From Darvon] shellfish derived [Shellfish] Allergy Swelling Verified 04/20/19 09:51 theophylline anhydrous Allergy Unknown Verified 04/20/19 09:51 [From [place]] lactose intolerant AdvReac Unknown Uncoded 11/03/16 14:28 Physical Examination - Vital Signs Vital Signs: Vital Signs Temp Pulse Pulse Resp BP BP Pulse Ox 04/20/19 19:02 98.5 F 92 16 148/82 92 L 04/20/19 18:00 98 18 181/98 93 L 04/20/19 16:00 98.2 F 92 18 177/91 94 L 04/20/19 15:00 90 18 163/83 93 L 04/20/19 14:15 91 18 153/88 93 L 04/20/19 13:29 98.6 F 04/20/19 12:30 93 18 177/93 94 L 04/20/19 09:50 101.2 F H 93 18 128/72 98 Intake and Output 04/20/19 04/20/19 04/20/19 06:59 14:59 22:59 Other: Weight 113.398 kg Results - Laboratory Findings CBC and BMP: 04/20/19 10:00 04/20/19 10:00 Abnormal Lab Findings: Abnormal Labs 04/20/19 04/20/19 04/20/19 09:53 10:00 10:00 WBC 14.8 H Neutrophils # 12.2 H Chloride 97 L Carbon Dioxide 33 H Creatinine 0.51 L Glucose 144 H POC Glucose (mg/dL) 140 H AST 44 H ALT 63 H Alkaline Phosphatase 145 H Total Protein 8.5 H Urine Protein Urine Ketones Urine Bilirubin Urine Mucus 04/20/19 04/20/19 20:12 Unknown WBC Neutrophils # Chloride Carbon Dioxide Creatinine Glucose POC Glucose (mg/dL) 156 H AST ALT Alkaline Phosphatase Total Protein Urine Protein 4+ H Urine Ketones 2+ H Urine Bilirubin 1+ H Urine Mucus Rare H
[2019-04-21] MEDS: AZITHROMYCIN 500 MG in SODIUM CHLORIDE 0.9% 250 ML IVPB SCH (11:11)
[2019-04-21 11:47] LABS: Glucose,Whole Blood 133 mg/dL (75-99)
--- NOTE | 2019-04-21 12:29 | P.PN ---
Progress Note - Text Progress Note Date: 04/21/19 SUBJECTIVE/INTERVAL EVENTS: No acute overnight event. 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 Today patient says "yeah" and smiles when I ask her about the song on her right arm. Of note, MRI cannot be done as patient with a spinal pump that is not MRI compatible PHYSICAL EXAMINATION: VITAL SIGNS: Temperature 98.5 pulse rate 98 respiratory rate 18 blood pressure 143/72 O2 saturation 99% on 3 L via nasal cannula GEN.: Blank stares although patient follows, appears catatonic HEENT: NCAT, sclera without icterus NECK: Supple SKIN AND EXTREMITIES: Warm to touch, no edema NEURO: MENTAL STATUS: No verbal response. When asked about patient's tattoos on her right arm, patient turns her head and look at her arm but does not answer any questions. Patient did not her head when I asked whether the song that's tattooed to her arm is repair of her song. CRANIAL NERVES II THROUGH XII: II: Left pupil 2 mm right pupil 1.5 mm but both responsive to light equally. Blinks to threat bilaterally III, IV, : No ptosis. Tracks horizontally. Some baseline exotropia. VII. No clear facial asymmetry. MOTOR: Normal bulk/tone. Patient is able to keep her arms against gravity but they drift down. No movement appreciated there bilateral lower extremities. SENSORY: no grimacing to pain in all 4 showers. REFLEXES: 1+ throughout. Toes are mute. COORDINATION/GAIT: unable to examine DIAGNOSTIC TESTING: LABORATORY: WBC 14.8 hemoglobin 14.7 platelets 319 PT 10.2 INR 0.9 Sodium 140 potassium 4.5 chloride 97 bicarb 33 BUN 16 findings 0.51 glucose 144 AST 44 ALT 63 alk phos 145 troponin <0.012 urinalysis 4+ protein 2+ ketones no nitrites or esterase IMAGING: CT head without contrast 04/20/2019: Mild chronic-appearing white matter ischemic changes. CTA head and neck with contrast 04/20/2019: No flow-limiting stenosis bilateral carotid bifurcations. [place]. ASSESSMENT: Ms. Vasquez is a 54-year-old woman with past medical history of asthma, diabetes, GERD, ocular arthritis, pneumonia, seizure disorder, sleep apnea, cerebral palsy, spinal stenosis, peripheral neuropathy, chronic respiratory failure, arthritis, congestive heart failure, generalized chronic pain, overactive bladder, glaucoma, depression, schizoaffective disorder/nicholas, hypothyroidism, presenting to [facility] for altered mental status and aphasic. Patient with psychiatric disorders along with her symptom of global aphasia with no other neuro deficits is unusual as global aphasia be caused by a large territory MCA stroke. However, patient with multiple risk factors. Will obtain MRI brain w/o contrast and if positive, consider stroke work-up and management. RECOMMENDATIONS: 1. Routine EEG done. Awaiting final results. 2. MRI brain without contrast contraindicated due to her spinal pump 3. Will obtain CT head later today to see if there is any evolution of a stroke if she had one. If negative, neurology will sign off. 3. Psychiatry consultation
[2019-04-21] MEDS ORDERED: BUTALB PO PRN (12:40)
[2019-04-21] MEDS ORDERED: oxyCODONE-APAP 5-325MG 1 EACH TAB PO PRN (12:40)
[2019-04-21] MEDS ORDERED: PROMETHAZINE 25 MG TAB PO PRN (12:40)
[2019-04-21] MEDS ORDERED: DICYCLOMINE 20 MG TAB PO PRN (12:40)
[2019-04-21] MEDS ORDERED: ASPRIN PO PRN (12:40)
[2019-04-21] MEDS ORDERED: CAFF PO PRN (12:40)
[2019-04-21] MEDS: amLODIPine 10 MG TAB PO SCH (14:11)
[2019-04-21] MEDS: LISINOPRIL 5 MG TAB PO SCH (14:11)
[2019-04-21] MEDS: GABAPENTIN 100 MG CAP PO SCH ×2 (14:12→20:36)
[2019-04-21] MEDS ORDERED: CLOTRIMAZOLE 1% CREAM 15 GM TUBE TOPICAL PRN (15:39)
[2019-04-21] MEDS ORDERED: LOPERAMIDE 2 MG CAP PO PRN (15:39)
[2019-04-21] MEDS ORDERED: ACETAMINOPHEN TAB 500 MG TAB PO PRN (15:39)
[2019-04-21] MEDS ORDERED: [UNRECOGNIZED DRUG - OTHER] TOPICAL SCH (16:00)
--- NOTE | 2019-04-21 16:00 | P.HPIM ---
History of Present Illness H&P Date: 04/21/19 Chief Complaint: Less responsive History of presenting complaint: This is a 54-year-old patient was currently a resident of [facility] at [facility].. Chronic stable medical conditions include diabetes, GERD, osteoarthritis, sleep apnea uses CPAP, hypothyroid, cerebral palsy, peripheral neuropathy, kidney stones, moderate persistent asthma, home oxygen, seizure disorder, chronic lumbar spinal stenosis, schizoaffective disorder, chronic urinary incontinence. Patient was around 5:00 in the morning noticed to be usual self. Late in the morning she was just noted to be generally less responsive. Does still awake. Following less commands. She was brought in by the EMS to the ER. When I saw this patient this morning. Patient is awake with simply did not respond to name may slowly sometime more eyes. Spoke to this to the nurse at the bedside. She has spoken occasional word earlier today. But not really been on a conversation. Simply just slow in all aspect. Review of systems cannot be done as patient is barely communicating Past medical history: Diabetes mellitus type 2, GERD, primary osteoarthritis, sleep apnea uses CPAP, hypothyroid, chronic cerebral palsy, peripheral neuropathy in both feet and hands from diabetes, irritable bowel syndrome, kidney stones, home oxygen, moderate persistent asthma, depression, seizure disorder, chronic pain syndrome, chronic lumbar spinal stenosis, schizoaffective disorder, chronic urinary incontinence,. 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 She had a baseline has a walker or uses a wheelchair at times. Based 3 L of oxygen the daytime on 5 L at night. Patient started smoking at age of 20 smoked 10 cigarettes a day stopped in October 2016. No alcohol. Family history: Patient cannot tell Physical examination: VITAL SIGNS: 101.2, 93, 18, 128/72 GENERAL: BMI 45.6, propped up in bed lethargic but awake. EYES: Pupils equal. Conjunctiva normal. HEENT: External appearance of nose and ears normal, oral cavity grossly normal. NECK: JVD unable to assess, mass not palpable. HEART: Heart sounds distant no edema. LUNGS: Respiratory rate normal; diminished breath sounds. ABDOMEN: Soft, nontender, liver spleen not palpable, no masses palpable. PSYCH: Unable to assess as patient is Sigrid answering questionsl. NEUROLOGICAL: No facial asymmetry, patient is Sigrid following commands, has spoken occasional word to the nursing staff.. Limbs and not floppy LYMPHATICS: No lymph nodes palpable in the axilla and neck INVESTIGATIONS, reviewed in the clinical context: White count 14.8 hemoglobin 14.7 potassium 4.5 bun 16 creatinine 0.51 LDL 112 AST 44 ALT 63 EKG tracing personally reviewed by me-normal sinus rhythm nonspecific findings Chest x-ray film personally reviewed by me-on the lateral view shows possible infiltrate, the film penetration not very good CT angiogram head and neck unremarkable. Computed tomography scan of the brain chronic white matter changes Assessment: -Possible basal pneumonia suspect gram-negative organism, causing sepsis on presentation with fever and elevated white count -Patient is overall decreased responsiveness, maybe encephalopathy from the pneumonia. Unable to rule out a catatonic state. We'll also order an EEG to rule out subclinical seizures -Diabetes mellitus type 2 -GERD -Primary osteoarthritis -Obstructive sleep apnea uses CPAP -Hypothyroid -Chronic cerebral palsy -The diabetic peripheral neuropathy -Moderate persistent asthma -Chronic hypoxic respiratory failure on 3 L oxygen at the time and 5 L at night -Chronic seizure disorder -Chronic lumbar spinal stenosis Schizoaffective disorder -Chronic urinary incontinence Plan: Patient to be continued on ceftriaxone. Home medications resumed. Accu-Cheks will be followed. We'll order EEG. Both neurology and psychiatry consultation be done. Aspiration precautions neurochecks were done. And fall precautions. Past Medical History Past Medical History: Asthma, Diabetes Mellitus, GERD/Reflux, Osteoarthritis (OA), Pneumonia, Respiratory Disorder, Seizure Disorder, Sleep Apnea/CPAP/BIPAP, Thyroid Disorder Additional Past Medical History / Comment(s): falls. C-diff 2008 cerebral palsy, spinal stenosis, neuropathy bilateral feet and hands, arthritis, chronic respiratory failure, ejection fraction 45% 2011, generalized chronic pain, IBS/ CONSTIPATION(LAST BM 10-19-16),kidney stones, overactive bladder wears brief for incont of urine."diabetic on metformin", glaucoma, "home 02 3 liters during day and 5 liters at night" History of Any Multi-Drug Resistant Organisms: MRSA Date of last positivie culture/infection: 2008 MDRO Source:: foot Past Surgical History: Back Surgery, Cholecystectomy Additional Past Surgical History / Comment(s): Spinal surgery x2,spinal stim ulator 2-2016, bilateral eye surgery for muscle repair due to cerebral palsy. rt shoulder sx, rom carpal tunnel, cyst removed from wrist Past Anesthesia/Blood Transfusion Reactions: Motion Sickness, Postoperative Nausea & Vomiting (PONV) Past Psychological History: Depression, Schizoaffective Disorder Smoking Status: Former smoker Past Alcohol Use History: None Reported Past Drug Use History: None Reported - Past Family History Father Family Medical History: No Reported History Mother Family Medical History: Diabetes Mellitus Medications and Allergies Home Medications Medication Instructions Recorded Confirmed Type Dicyclomine [Bentyl] 20 mg PO Q6H PRN 10/08/14 04/20/19 History Fexofenadine HCl 180 mg PO DAILY 10/08/14 04/20/19 History levETIRAcetam [Keppra] 750 mg PO BID 10/08/14 04/20/19 History Levothyroxine Sodium [Synthroid] 200 mcg PO DAILY 11/01/14 04/20/19 History Budesonide [Pulmicort] 0.5 mg INHALATION RT-BID 10/20/16 04/20/19 History Esomeprazole Magnesium [NexIUM] 40 mg PO DAILY 10/20/16 04/20/19 History Levothyroxine Sodium [Synthroid] 50 mcg PO DAILY 10/20/16 04/20/19 History amLODIPine [Norvasc] 10 mg PO DAILY 10/20/16 04/20/19 History tiZANidine [Zanaflex] 2 mg PO DAILY 10/20/16 04/20/19 History hydrOXYzine HCL [Atarax] 25 mg PO HS 11/03/16 04/20/19 History Acetaminophen Tab [Tylenol Tab] 500 mg PO Q6HR PRN 04/20/19 04/20/19 History Antifungak Cream 1 applic TOPICAL TID 04/20/19 04/20/19 History Atorvastatin [Lipitor] 10 mg PO HS 04/20/19 04/20/19 History Butalb/Asprin/Caff 50-325-40Mg 1 cap PO Q4HR PRN 04/20/19 04/20/19 History [Fiorinal 50-325-40 MG] Cholecalciferol (Vitamin D3) 2,000 unit PO DAILY 04/20/19 04/20/19 History [Vitamin D3] Citalopram Hydrobromide [CeleXA] 20 mg PO DAILY 04/20/19 04/20/19 History Gabapentin [Neurontin] 100 mg PO Q6H 04/20/19 04/20/19 History Ketoconazole [Ketoconazole 2%] 1 applic TOPICAL Q8H PRN 04/20/19 04/20/19 History Lisinopril [Zestril] 5 mg PO DAILY 04/20/19 04/20/19 History Loperamide HCl [Imodium A-D] 4 mg PO Q12H PRN 04/20/19 04/20/19 History Melatonin 5 mg PO HS 04/20/19 04/20/19 History Oxybutynin Chloride [Oxybutynin 10 mg PO DAILY 04/20/19 04/20/19 History Chloride ER] Polyethylene Glycol 3350 [Miralax] 17 gm PO Q12H PRN 04/20/19 04/20/19 History Promethazine [Phenergan] 25 mg PO Q6H PRN 04/20/19 04/20/19 History Sennosides-Docusate Sodium 1 tab PO BID 04/20/19 04/20/19 History [Senokot-S] Ziprasidone [Geodon] 20 mg PO HS 04/20/19 04/20/19 History glipiZIDE XL [Glucotrol Xl] 5 mg PO DAILY 04/20/19 04/20/19 History oxyCODONE-APAP 5-325MG [Percocet 1 tab PO DAILY PRN 04/20/19 04/20/19 History 5-325 mg] Allergies Allergy/AdvReac Type Severity Reaction Status Date / Time Fish Containing Products Allergy Unknown Swelling Verified 04/21/19 11:52 [Fish] butalbital [From Fiorinal] Allergy Unknown Verified 04/20/19 09:51 caffeine [From Fiorinal] Allergy Unknown Verified 04/20/19 09:51 cimetidine [From Tagamet] Allergy Unknown Verified 04/20/19 09:51 cimetidine HCl [From Tagamet] Allergy Unknown Verified 04/20/19 09:51 codeine Allergy Unknown Verified 04/20/19 09:51 dichloralphenazone Allergy Unknown Verified 04/20/19 09:51 [From Midrin] diphenhydramine HCl Allergy Unknown Verified 04/20/19 09:51 [From Benadryl] heparin Allergy Rash/Hives Verified 04/20/19 09:51 indomethacin [From Indocin] Allergy Unknown Verified 04/20/19 09:51 indomethacin sodium Allergy Unknown Verified 04/20/19 09:51 [From Indocin] iodine Allergy Swelling Verified 04/20/19 09:51 isometheptene mucate Allergy Unknown Verified 04/20/19 09:51 [From Midrin] latex Allergy Anaphylaxis Verified 04/20/19 09:51 Macrolide Antibiotics Allergy Unknown Verified 04/20/19 09:51 nystatin Allergy Rash/Hives Verified 04/20/19 09:51 Penicillins Allergy Unknown Verified 04/20/19 09:51 propoxyphene HCl Allergy Unknown Verified 04/20/19 09:51 [From Darvon] shellfish derived [Shellfish] Allergy Swelling Verified 04/20/19 09:51 theophylline anhydrous Allergy Unknown Verified 04/20/19 09:51 [From [place]] lactose intolerant AdvReac Unknown Uncoded 11/03/16 14:28 Physical Exam Vitals: Vital Signs Temp Pulse Pulse Pulse Resp BP BP 04/21/19 08:00 98 18 04/21/19 07:42 98.5 F 98 18 04/21/19 04:13 97.4 F L 92 17 177/77 04/21/19 04:00 97.4 F L 92 16 177/77 04/21/19 00:00 97.4 F L 100 17 140/96 04/20/19 20:13 99.2 F 91 17 140/75 04/20/19 20:00 99.2 F 91 17 04/20/19 19:02 98.5 F 92 16 04/20/19 18:00 98 18 181/98 04/20/19 16:00 98.2 F 92 18 177/91 04/20/19 15:00 90 18 163/83 04/20/19 14:15 91 18 153/88 04/20/19 13:29 98.6 F 04/20/19 12:30 93 18 177/93 BP Pulse Ox 04/21/19 08:00 04/21/19 07:42 143/72 04/21/19 04:13 99 04/21/19 04:00 99 04/21/19 00:00 97 04/20/19 20:13 98 04/20/19 20:00 140/75 98 04/20/19 19:02 148/82 92 L 04/20/19 18:00 93 L 09/04/19 16:00 94 L 04/20/19 15:00 93 L 04/20/19 14:15 93 L 04/20/19 13:29 04/20/19 12:30 94 L Intake and Output 04/20/19 04/21/19 04/21/19 22:59 06:59 14:59 Intake Total 200 Balance 200 Intake: Oral 200 Other: # Voids 1 Weight 120.5 kg Results CBC & Chem 7: 04/20/19 10:00 04/20/19 10:00 Labs: Abnormal Lab Results - Last 24 Hours (Table) 04/20/19 04/20/19 04/20/19 Range/Units 10:00 10:00 10:00 WBC 14.8 H (3.8-10.6) k/uL Neutrophils # 12.2 H (1.3-7.7) k/uL Chloride 97 L (98-107) mmol/L Carbon Dioxide 33 H (22-30) mmol/L Creatinine 0.51 L (0.52-1.04) mg/dL Glucose 144 H (74-99) mg/dL POC Glucose (mg/dL) (75-99) mg/dL AST 44 H (14-36) U/L ALT 63 H (9-52) U/L Alkaline Phosphatase 145 H (38-126) U/L Total Protein 8.5 H (6.3-8.2) g/dL Triglycerides 157 H (<150) mg/dL Cholesterol 209 H (<200) mg/dL LDL Cholesterol, Calc 112 H (0-99) mg/dL HDL Cholesterol 66 H (40-60) mg/dL Urine Protein (Negative) Urine Ketones (Negative) Urine Bilirubin (Negative) Urine Mucus (None) /hpf 04/20/19 04/20/19 04/21/19 Range/Units 20:12 Unknown 06:27 WBC (3.8-10.6) k/uL Neutrophils # (1.3-7.7) k/uL Chloride (98-107) mmol/L Carbon Dioxide (22-30) mmol/L Creatinine (0.52-1.04) mg/dL Glucose (74-99) mg/dL POC Glucose (mg/dL) 156 H 135 H (75-99) mg/dL AST (14-36) U/L ALT (9-52) U/L Alkaline Phosphatase (38-126) U/L Total Protein (6.3-8.2) g/dL Triglycerides (<150) mg/dL Cholesterol (<200) mg/dL LDL Cholesterol, Calc (0-99) mg/dL HDL Cholesterol (40-60) mg/dL Urine Protein 4+ H (Negative) Urine Ketones 2+ H (Negative) Urine Bilirubin 1+ H (Negative) Urine Mucus Rare H (None) /hpf Thrombosis Risk Factor Assmnt - Choose All That Apply Any of the Below Risk Factors Present?: Yes Each Factor Represents 1 point: Abnormal pulmonary function (COPD), Age 41-60 years, Obesity (BMI >25), Swollen legs (current) Other Risk Factors: Yes Each Risk Factor Represents 2 Points: Patient confined to bed Other congenital or acquired thrombophilia - If yes, enter type in comment: No Thrombosis Risk Factor Assessment Total Risk Factor Score: 6 Thrombosis Risk Factor Assessment Level: High Risk
--- NOTE | 2019-04-21 16:23 | CT ---
EXAMINATION TYPE: CT brain wo con DATE OF EXAM: 04/21/2019 COMPARISON: 04/20/2019 HISTORY: CVA CT DLP: 1099.[address] of the brain was performed. The ventricles, basal cisterns and sulci overlying the cerebral convexities demonstrate mild enlargem ent. There is no evidence for intracranial hemorrhage or sulcal effacement. There is decreased attenuation about the periventricular white matter and deep white matter of both c erebral hemispheres, compatible with chronic small vessel ischemia. Differential diagnosis does inclu de demyelination. No mass effects are seen.No midline shift. Osseous calvarium is intact. If symptoms persist consider MRI. IMPRESSION: 1. Age related atrophic and chronic small vessel ischemic change without acute intracranial process s een at this time.
[2019-04-21 16:38] LABS: Glucose,Whole Blood 145 mg/dL (75-99)
[2019-04-21] MEDS: PANTOPRAZOLE 40 MG TABLET PO SCH (16:52)
[2019-04-21] MEDS: ENOXAPARIN 40 MG/0.4 ML SYRINGE SQ SCH (16:52)
[2019-04-21] MEDS: BUDESONIDE 0.5 MG/2 ML NEBU INHALATION SCH (19:19)
[2019-04-21] MEDS: ATORVASTATIN 10 MG TAB PO SCH (20:35)
[2019-04-21] MEDS: MELATONIN 5 MG TABLET PO SCH (20:35)
[2019-04-21] MEDS: SENNOSIDES-DOCUSATE SODIUM 1 EACH TAB PO SCH (20:35)
[2019-04-21 20:44] LABS: Glucose,Whole Blood 150 mg/dL (75-99)
[2019-04-21] MEDS ORDERED: hydrOXYzine HCL 25 MG TAB PO SCH (21:00)
[2019-04-21] MEDS ORDERED: ZIPRASIDONE 20 MG CAP PO SCH (21:00)
[2019-04-22] MEDS: GABAPENTIN 100 MG CAP PO SCH ×5 (04:45→23:10)
[2019-04-22 06:02] LABS: Glucose,Whole Blood 121 mg/dL (75-99)
[2019-04-22] MEDS: LEVOTHYROXINE 100 MCG TAB PO SCH (06:26)
[2019-04-22] MEDS: LEVOTHYROXINE 50 MCG TAB PO SCH (06:26)
[2019-04-22] MEDS: PANTOPRAZOLE 40 MG TABLET PO SCH (06:26)
[2019-04-22] MEDS: BUDESONIDE 0.5 MG/2 ML NEBU INHALATION SCH ×2 (08:09→19:53)
[2019-04-22] MEDS: OXYBUTYNIN 10 MG TAB.ER.24 PO SCH (08:45)
[2019-04-22] MEDS: CHOLECALCIFEROL 1,000 UNIT TAB PO SCH (08:45)
[2019-04-22] MEDS: LISINOPRIL 5 MG TAB PO SCH (08:46)
[2019-04-22] MEDS: SENNOSIDES-DOCUSATE SODIUM 1 EACH TAB PO SCH ×2 (08:46→20:22)
[2019-04-22] MEDS: amLODIPine 10 MG TAB PO SCH (08:46)
[2019-04-22] MEDS: CITALOPRAM HYDROBROMIDE 20 MG TAB PO SCH (08:46)
[2019-04-22] MEDS: ENOXAPARIN 40 MG/0.4 ML SYRINGE SQ SCH (08:46)
[2019-04-22] MEDS ORDERED: POLYETHYLENE GLYCOL 3350 17 GM POWD.PACK PO PRN (09:00)
[2019-04-22] MEDS: AZITHROMYCIN 500 MG in SODIUM CHLORIDE 0.9% 250 ML IVPB SCH (09:32)
[2019-04-22 10:08] LABS: Basophils # (A) 0.2 k/uL (0-0.2); Basophils % (A) 1 %; Eosinophils # (A) 0.3 k/uL (0-0.7); Eosinophils % (A) 2 %; HCT 39.2 % (34.0-46.0); HGB 13.1 gm/dL (11.4-16.0); Lymphocytes # (A) 1.9 k/uL (1.0-4.8); Lymphocytes % (A) 14 %; MCH 28.8 pg (25.0-35.0); MCHC 33.3 g/dL (31.0-37.0); MCV 86.4 fL (80.0-100.0); Mean Platelet Volume 7.8; Monocytes # (A) 0.8 k/uL (0-1.0); Monocytes % (A) 6 %; Neutrophils # (A) 10.1 k/uL (1.3-7.7); Neutrophils % (A) 75 %; Platelet Count 262 k/uL (150-450); RBC 4.54 m/uL (3.80-5.40); RDW 15.1 % (11.5-15.5); WBC 13.5 k/uL (3.8-10.6)
[2019-04-22 11:57] LABS: Glucose,Whole Blood 137 mg/dL (75-99)
--- NOTE | 2019-04-22 13:58 | EEG ---
ELECTROENCEPHALOGRAM REPORT PROCEDURE DATE: 04/21/2019. ELECTROENCEPHALOGRAM (EEG) REPORT: TECHNIQUE: A routine 18 channel EEG was performed with video using the 10/20 international placement system. HISTORY: The patient presented with altered mental status and aphagia. OTHER MEDICAL HISTORY: Includes asthma, diabetes, gastroesophageal reflux, pneumonia, seizure disorder, depression, schizoaffective disorder, hypothyroidism, spinal stenosis, and other conditions. CURRENT MEDICATIONS: Antibiotics. STUDY DURATION: 21 minutes. FINDINGS: Please note that quality of this study was limited due to the presence of muscle artifact over the right frontotemporal chains. Interpretation from these chains was essentially not possible. A mild excess of beta frequency activity was noted. This is not epileptiform in nature and may in part be due to medication effect. BACKGROUND: The background activity consists of unsustained 8-9 hertz rhythmic waveforms symmetric through both posterior quadrants. ACTIVATION: HYPERVENTILATION: Not performed. PHOTIC STIMULATION: Symmetric driving seen. SLEEP: Drowsy. ABNORMALITIES: Intermittent diffuse 5-7 hertz polymorphic theta range slowing was seen. IMPRESSION: Limited study, abnormal EEG. The intermittent diffuse theta range slowing mentioned above is not epileptiform in nature. These findings suggest mild diffuse cerebral dysfunction. No seizures were recorded. No definitive epileptiform activity was present. If clinical concern remains for a seizure disorder, would suggest a repeat study. MMODL / IJN: [id number] /
--- NOTE | 2019-04-22 14:57 | P.CN ---
Psychiatric Consult - . Consult date: 04/22/19 Consult:: 04/22/19 14:44 IDENTIFYING DATA: This patient is a 54-year-old female who is currently living at an assisted living facility, no kids and is unmarried HISTORY OF PRESENT ILLNESS: The patient was brought into the hospital for c oncerns of acute AMS and patient being aphasic. Patient does have a reported history of cerebral palsy and "schizophrenia". Patient appeared to have mild leukocytosis with neutrophilia associated with it and an increase in her liver function tests. Psychiatry was consulted for history of schizophrenia. Patient did undergo a CTA and CT had that showed no acute changes however did show chronic white matter ischemic changes. Reproduction Artist sought patient today who is laying in the bed and was sleeping however was arousable and somewhat somnolent initially. Patient was initially not very cooperative with the interview however began to awaken and speak more. She was mainly struggling to speak and had slowed thought process. Patient did however answer all questions appropriately and followed commands when asked. Patient did endorse a "poor mood" chronically however states that it is somewhat stable and did also endorse poor sleep. She claims that she has no problems at her assisted living and enjoys living there. When asked about auditory hallucinations and hearing voices patient was unclear in her answer however did state that one to 2 times a week she does hear voices and states that it is troubling her. Patient denies any visual hallucinations. At this time patient denies any suicidal or homical ideations, intent or plan. Patient denies any paranoia or delusions. As per nurse who is caring for patient, she claims that patient has been cooperative in taking her medications and is a lot more alert than when she came in. PAST PSYCHIATRIC HISTORY: History of schizophrenia, cerebral palsy. Patient claims that she has been admitted to a psych hospital in the past in 2008 and claims that she was following up with her psychiatrist Dr. Arguelles however has not seen her in years and has been off meds. Patient denies any previous suicide attempts. PAST MEDICAL HISTORY: Seizures, asthma, diabetes mellitus, GERD, cerebral palsy, respiratory failure, CHF, chronic pain, thyroid disorder. ALLERGIES: As per EMR. CHEMICAL DEPENDENCY HISTORY: Patient denies any substance use. She states that she quit cigarettes in 2017. FAMILY PSYCHIATRIC/SUBSTANCE USE HISTORY: denies. SOCIAL HISTORY: Patient states that she was born and raised in [place] and moved to [place]. She states that she currently lives at [facility] living facility has no kids and is unmarried. Patient claims that she completed the 12th grade of high school. MENTAL STATUS EXAM: General Appearance: Patient appears to be older than stated age is lethargic, pleasant, and cooperative. Patient is obese and appears to have poor hygiene and grooming. Behavior: Patient is calmly lying in bed without any agitated behavior. Appears to be lethargic. Speech: Patient's speech is fluent and nonpressured. Mood/Affect: Patient reports their mood is "poor", affect is congruent Suicidality/Homicidality: Patient denies having any suicidal or homicidal ideation intent or plan. Perceptions: Patient does admit to auditory hallucinations, occurring 1-2 times per week however cannot give detailed information about what the voices say. Though content/process: There is no evidence of any delusional thought content and thought process is linear and goal-directed. Memory and concentration: AOX3, grossly intact for the purposes of this session. Can spell "WORLD" backwards Judgment and insight: fair IMPRESSIONS: Psychosis unspecified PLAN: -At this time patient patient does NOT meet criteria for inpatient psychiatric admission. -Patient appears to be more cooperative and alert and is unclear the etiology of acute mental status changes and aphasia. MRI would've helped to rule out any acute stroke or organic brain problem. -Would recommend the following medication changes/additions: We'll order Seroquel 25 mg daily at bedtime for psychosis/insomnia. This dose can be increased to 50 mg daily at bedtime if patient is still having poor sleep after 2-3 days. Will discontinue Geodon. We'll also discontinue Atarax as a could be contributing to somnolence and has anticholinergic effects. Patient may continue Celexa 20 mg daily for mood. -Psychiatry will sign off at this point, can see patient if needed. Thank you for the consult
[2019-04-22 17:15] LABS: Glucose,Whole Blood 103 mg/dL (75-99)
[2019-04-22 20:16] LABS: Glucose,Whole Blood 136 mg/dL (75-99)
[2019-04-22] MEDS: ATORVASTATIN 10 MG TAB PO SCH (20:22)
[2019-04-22] MEDS: MELATONIN 5 MG TABLET PO SCH (20:22)
[2019-04-22] MEDS ORDERED: QUEtiapine 25 MG TAB PO SCH (21:00)
--- NOTE | 2019-04-22 22:25 | P.PN ---
Progress Note - Text Progress Note Date: 04/22/19 Chief Complaint: Less responsive Interval history: This is a 54-year-old patient was currently a resident of COUNTS IN[facility] 234 BEDS AT THE [facility] at [facility].. Chronic stable medical conditions include diabetes, GERD, osteoarthritis, sleep apnea uses CPAP, hypothyroid, cerebral palsy, peripheral neuropathy, kidney stones, moderate persistent asthma, home oxygen, seizure disorder, chronic lumbar spinal stenosis, schizoaffective disorder, chronic urinary incontinence. Patient was around 5:00 in the morning noticed to be usual self. Late in the morning she was just noted to be generally less responsive. Does still awake. Following less commands. She was brought in by the EMS to the ER. When I saw this patient this morning. Patient is awake with simply did not respond to name may slowly sometime more eyes. Spoke to this to the nurse at the bedside. She has spoken occasional word earlier today. But not really been on a conversation. Simply just slow in all aspect. Patient was admitted would appear to be catatonic state. Possibly precipitated by pneumonia. Today-patient did much better cooperative answering questions. Did tolerate her diet. More recently the limbs. Patient is much better. Review of systems: Was done for constitutional, cardiovascular, GI, pulmonary. relevant finding as above Active Medications Acetaminophen (Tylenol Tab) 500 mg PO Q6HR PRN PRN Reason: Pain Amlodipine Besylate (Norvasc) 10 mg PO DAILY [facility] Last Admin: 04/22/19 08:46 Dose: 10 mg Documented by: Atorvastatin Calcium (Lipitor) 10 mg PO HS [facility] Last Admin: 04/22/19 20:22 Dose: 10 mg Documented by: Budesonide (Pulmicort) 0.5 mg INHALATION RT-BID [facility] Last Admin: 04/22/19 19:53 Dose: 0.5 mg Documented by: Cholecalciferol (Vitamin D3 (25 Mcg = 1000 Iu)) 2,000 unit PO DAILY [facility] Last Admin: 04/22/19 08:45 Dose: 2,000 unit Documented by: Citalopram Hydrobromide (Celexa) 20 mg PO DAILY [facility] Last Admin: 04/22/19 08:46 Dose: 20 mg Documented by: Clotrimazole (Lotrimin Cream) 1 applic TOPICAL Q8H PRN PRN Reason: REDNESS Dicyclomine HCl (Bentyl) 20 mg PO Q6H PRN PRN Reason: GI Upset Enoxaparin Sodium (Lovenox) 40 mg SQ DAILY [facility] Last Admin: 04/22/19 08:46 Dose: 40 mg Documented by: Gabapentin (Neurontin) 100 mg PO Q6H [facility] Last Admin: 04/22/19 17:39 Dose: 100 mg Documented by: Ceftriaxone Sodium 1 gm/ (Sodium Chloride) 50 mls @ 100 mls/hr IVPB Q24HR [facility] Last Admin: 04/22/19 08:43 Dose: 100 mls/hr Documented by: Azithromycin 500 mg/ Sodium (Chloride) 250 mls @ 250 mls/hr IVPB DAILY [facility] Last Admin: 04/22/19 09:32 Dose: 250 mls/hr Documented by: Levetiracetam (Keppra) 750 mg PO BID [facility] Last Admin: 04/22/19 20:22 Dose: 750 mg Documented by: Levothyroxine Sodium (Synthroid) 50 mcg PO 0630 [facility] Last Admin: 04/22/19 06:26 Dose: 50 mcg Documented by: Levothyroxine Sodium (Synthroid) 200 mcg PO 0630 [facility] Last Admin: 04/22/19 06:26 Dose: 200 mcg Documented by: Lisinopril (Zestril) 5 mg PO DAILY [facility] Last Admin: 04/22/19 08:46 Dose: 5 mg Documented by: Loperamide HCl (Imodium) 4 mg PO Q12H PRN PRN Reason: Loose Stool Melatonin (Melatonin) 5 mg PO HS [facility] Last Admin: 04/22/19 20:22 Dose: 5 mg Documented by: Patient's Own ( Butalb/Asprin/Caff 50-325-40mg 1 Cap) 1 cap PO Q4HR PRN PRN Reason: Headache Oxybutynin Chloride (Ditropan Xl) 10 mg PO DAILY [facility] Last Admin: 04/22/19 08:45 Dose: 10 mg Documented by: Oxycodone/Acetaminophen (Percocet 5-325) 1 each PO DAILY PRN PRN Reason: Pain Last Admin: 04/22/19 18:52 Dose: 1 each Documented by: Pantoprazole Sodium (Protonix) 40 mg PO AC-BRKFST [facility] Last Admin: 04/22/19 06:26 Dose: 40 mg Documented by: Polyethylene Glycol (Miralax) 17 gm PO Q12H PRN PRN Reason: Constipation Promethazine HCl (Phenergan) 25 mg PO Q6H PRN PRN Reason: GI UPSET Quetiapine Fumarate (Seroquel) 25 mg PO HS [facility] Last Admin: 04/22/19 20:22 Dose: 25 mg Documented by: Senna/Docusate Sodium (Senokot-S) 1 each PO BID [facility] Last Admin: 04/22/19 20:22 Dose: 1 each Documented by: Tizanidine HCl (Zanaflex) 2 mg PO DAILY [facility] Last Admin: 04/22/19 08:46 Dose: 2 mg Documented by: Physical examination: VITAL SIGNS: 97.9, 88, 18, 118/74, 92% on 3 L GENERAL: Laying in bed, awake, more responsive today EYES: Pupils equal. Conjunctiva normal. HEENT: External appearance of nose and ears normal, oral cavity grossly normal. NECK: JVD unable to assess, mass not palpable. HEART: Heart sounds distant no edema. LUNGS: Respiratory rate normal; diminished breath sounds. ABDOMEN: Soft, nontender, liver spleen not palpable, no masses palpable. PSYCH: Awake, answering questions. NEUROLOGICAL: Awake, moving her limbs INVESTIGATIONS, reviewed in the clinical context: White count 13.5 hemoglobin 13.1 EEG shows evidence of weeks laying down evidence of encephalopathy. No seizure activity White count 14.8 hemoglobin 14.7 potassium 4.5 bun 16 creatinine 0.51 LDL 112 AST 44 ALT 63 EKG tracing personally reviewed by me-normal sinus rhythm nonspecific findings Chest x-ray film personally reviewed by me-on the lateral view shows possible infiltrate, the film penetration not very good CT angiogram head and neck unremarkable. Computed tomography scan of the brain chronic white matter changes Assessment: -Possible basal pneumonia suspect gram-negative organism, causing sepsis on presentation with fever and elevated white count, with clinical improvement -Possible catatonic state precipitated by pneumonia -Diabetes mellitus type 2 -GERD -Primary osteoarthritis -Obstructive sleep apnea uses CPAP -Hypothyroid -Chronic cerebral palsy -The diabetic peripheral neuropathy -Moderate persistent asthma -Chronic hypoxic respiratory failure on 3 L oxygen at the time and 5 L at night -Chronic seizure disorder -Chronic lumbar spinal stenosis Schizoaffective disorder -Chronic urinary incontinence Plan: Per psychiatry patient Atarax discontinued. Started on Seroquel. No further intervention per neurology. Hoping patient can be discharged back to the [facility] tomorrow. Discussed with patient
[2019-04-23 06:21] LABS: Glucose,Whole Blood 122 mg/dL (75-99)
[2019-04-23] MEDS: GABAPENTIN 100 MG CAP PO SCH ×2 (06:37→15:25)
[2019-04-23] MEDS: LEVOTHYROXINE 100 MCG TAB PO SCH (06:37)
[2019-04-23] MEDS: LEVOTHYROXINE 50 MCG TAB PO SCH (06:37)
[2019-04-23] MEDS: PANTOPRAZOLE 40 MG TABLET PO SCH (06:37)
[2019-04-23] MEDS: BUDESONIDE 0.5 MG/2 ML NEBU INHALATION SCH (08:02)
[2019-04-23] MEDS: CHOLECALCIFEROL 1,000 UNIT TAB PO SCH (09:15)
[2019-04-23] MEDS: ENOXAPARIN 40 MG/0.4 ML SYRINGE SQ SCH (09:16)
[2019-04-23] MEDS: amLODIPine 10 MG TAB PO SCH (09:16)
[2019-04-23] MEDS: CITALOPRAM HYDROBROMIDE 20 MG TAB PO SCH (09:16)
[2019-04-23] MEDS: SENNOSIDES-DOCUSATE SODIUM 1 EACH TAB PO SCH (09:16)
[2019-04-23] MEDS: LISINOPRIL 5 MG TAB PO SCH (09:16)
[2019-04-23] MEDS: OXYBUTYNIN 10 MG TAB.ER.24 PO SCH (09:26)
[2019-04-23 10:56] VITALS: BP 134/74; PULSE 83; RESP 12; TEMP 98.7
[2019-04-23] MEDS: AZITHROMYCIN 500 MG in SODIUM CHLORIDE 0.9% 250 ML IVPB SCH (11:56)
--- NOTE | 2019-04-23 12:04 | P.DS ---
Providers Date of admission: 04/20/19 15:12 Expected date of discharge: 04/23/19 Attending physician: Yoshi Ventura Consults: 04/20/19 15:13 Consult Physician Routine Consulting Provider: Alejandra Sorenson Consult Reason/Comments: CVA Do you want consulting provider notified?: Yes 04/21/19 11:20 Consult Physician Routine Consulting Provider: Anthony Garcia Consult Reason/Comments: history of schizophrenia Do you want consulting provider notified?: Yes Primary care physician: [facility] Hospital Course: Chief Complaint: Less responsive Hospital course: This is a 54-year-old patient was currently a resident of [facility] at [facility].. Chronic stable medical conditions include diabetes, GERD, osteoarthritis, sleep apnea uses CPAP, hypothyroid, cerebral palsy, peripheral neuropathy, kidney stones, moderate persistent asthma, home oxygen, seizure disorder, chronic lumbar spinal stenosis, schizoaffective disorder, chronic urinary incontinence. Patient was around 5:00 in the morning noticed to be usual self. Late in the morning she was just noted to be generally less responsive. Does still awake. Following less commands. She was brought in by the EMS to the ER. When I saw this patient this morning. Patient is awake with simply did not respond to name may slowly sometime more eyes. Spoke to this to the nurse at the bedside. She has spoken occasional word earlier today. But not really been on a conversation. Simply just slow in all aspect. Patient was admitted would appear to be catatonic state. Possibly precipitated by pneumonia. Patient was treated with IV antibiotics. Responded well. His by the time of discharge there was no fever. Also patient's Geodon was discontinued started on Senokot. Patient is responsive tolerating a diet back to baseline. Seen by psychiatrist. Also seen by neurology. No further intervention. EEG negative for seizures Consultants: Dr. Sorenson from neurology Dr. Garcia from psychiatry Physical examination: VITAL SIGNS: 98.7, 83, 12, 134/74, 95% room air GENERAL: Laying in bed, awake, answering questions EYES: Pupils equal. Conjunctiva normal. HEENT: External appearance of nose and ears normal, oral cavity grossly normal. NECK: JVD unable to assess, mass not palpable. HEART: Heart sounds distant no edema. LUNGS: Respiratory rate normal; diminished breath sounds. ABDOMEN: Soft, nontender, liver spleen not palpable, no masses palpable. PSYCH: Awake, answering questions. NEUROLOGICAL: Awake, moving her limbs INVESTIGATIONS, reviewed in clinical context: White count 13.5 hemoglobin 13.1 EEG shows evidence of weeks laying down evidence of encephalopathy. No seizure activity White count 14.8 hemoglobin 14.7 potassium 4.5 bun 16 creatinine 0.51 LDL 112 AST 44 ALT 63 EKG tracing personally reviewed by me-normal sinus rhythm nonspecific findings Chest x-ray film personally reviewed by me-on the lateral view shows possible infiltrate, the film penetration not very good CT angiogram head and neck unremarkable. Computed tomography scan of the brain chronic white matter changes Assessment: -Possible basal pneumonia suspect gram-negative organism, causing sepsis on presentation with fever and elevated white count,, POA -Possible catatonic state precipitated by pneumonia -Diabetes mellitus type 2 -GERD -Primary osteoarthritis -Obstructive sleep apnea uses CPAP -Hypothyroid -Chronic cerebral palsy -diabetic peripheral neuropathy -Moderate persistent asthma -Chronic hypoxic respiratory failure on 3 L oxygen at the time and 5 L at night -Chronic seizure disorder -Chronic lumbar spinal stenosis -Schizoaffective disorder -Chronic urinary incontinence Disposition: [facility] Patient Condition at Discharge: Stable Plan - Discharge Summary Discharge Rx Participant: No New Discharge Prescriptions: New Cefuroxime Axetil [Ceftin] 500 mg PO BID 3 Days #6 tab QUEtiapine [SEROquel] 25 mg PO HS #3 tab Continue levETIRAcetam [Keppra] 750 mg PO BID Dicyclomine [Bentyl] 20 mg PO Q6H PRN PRN Reason: Gi Upset Levothyroxine Sodium [Synthroid] 200 mcg PO DAILY tiZANidine [Zanaflex] 2 mg PO DAILY Levothyroxine Sodium [Synthroid] 50 mcg PO DAILY Esomeprazole Magnesium [NexIUM] 40 mg PO DAILY Budesonide [Pulmicort] 0.5 mg INHALATION RT-BID amLODIPine [Norvasc] 10 mg PO DAILY Promethazine [Phenergan] 25 mg PO Q6H PRN PRN Reason: GI UPSET Ketoconazole [Ketoconazole 2%] 1 applic TOPICAL Q8H PRN PRN Reason: REDNESS Polyethylene Glycol 3350 [Miralax] 17 gm PO Q12H PRN PRN Reason: Constipation Loperamide HCl [Imodium A-D] 4 mg PO Q12H PRN PRN Reason: Loose Stool Butalb/Asprin/Caff 50-325-40Mg [Fiorinal 50-325-40 MG] 1 cap PO Q4HR PRN PRN Reason: Headache Gabapentin [Neurontin] 100 mg PO Q6H Acetaminophen Tab [Tylenol] 500 mg PO Q6HR PRN PRN Reason: Pain Antifungak Cream 1 applic TOPICAL TID Oxybutynin Chloride [Oxybutynin Chloride ER] 10 mg PO DAILY Melatonin 5 mg PO HS Lisinopril [Zestril] 5 mg PO DAILY Atorvastatin [Lipitor] 10 mg PO HS Citalopram Hydrobromide [CeleXA] 20 mg PO DAILY Cholecalciferol (Vitamin D3) [Vitamin D3] 2,000 unit PO DAILY Sennosides-Docusate Sodium [Senokot-S] 1 tab PO BID oxyCODONE-APAP 5-325MG [Percocet 5-325 mg] 1 tab PO DAILY PRN #3 tab PRN Reason: Pain Discontinued Fexofenadine HCl 180 mg PO DAILY hydrOXYzine HCL [Atarax] 25 mg PO HS glipiZIDE XL [Glucotrol Xl] 5 mg PO DAILY Ziprasidone [Geodon] 20 mg PO HS Discharge Medication List Dicyclomine [Bentyl] 20 mg PO Q6H PRN 10/08/14 [History] levETIRAcetam [Keppra] 750 mg PO BID 10/08/14 [History] Levothyroxine Sodium [Synthroid] 200 mcg PO DAILY 11/01/14 [History] Budesonide [Pulmicort] 0.5 mg INHALATION RT-BID 10/20/16 [History] Esomeprazole Magnesium [NexIUM] 40 mg PO DAILY 10/20/16 [History] Levothyroxine Sodium [Synthroid] 50 mcg PO DAILY 10/20/16 [History] amLODIPine [Norvasc] 10 mg PO DAILY 10/20/16 [History] tiZANidine [Zanaflex] 2 mg PO DAILY 10/20/16 [History] Acetaminophen Tab [Tylenol] 500 mg PO Q6HR PRN 04/20/19 [History] Antifungak Cream 1 applic TOPICAL TID 04/20/19 [History] Atorvastatin [Lipitor] 10 mg PO HS 04/20/19 [History] Butalb/Asprin/Caff 50-325-40Mg [Fiorinal 50-325-40 MG] 1 cap PO Q4HR PRN 04/20/19 [History] Cholecalciferol (Vitamin D3) [Vitamin D3] 2,000 unit PO DAILY 04/20/19 [History] Citalopram Hydrobromide [CeleXA] 20 mg PO DAILY 04/20/19 [History] Gabapentin [Neurontin] 100 mg PO Q6H 04/20/19 [History] Ketoconazole [Ketoconazole 2%] 1 applic TOPICAL Q8H PRN 04/20/19 [History] Lisinopril [Zestril] 5 mg PO DAILY 04/20/19 [History] Loperamide HCl [Imodium A-D] 4 mg PO Q12H PRN 04/20/19 [History] Melatonin 5 mg PO HS 04/20/19 [History] Oxybutynin Chloride [Oxybutynin Chloride ER] 10 mg PO DAILY 04/20/19 [History] Polyethylene Glycol 3350 [Miralax] 17 gm PO Q12H PRN 04/20/19 [History] Promethazine [Phenergan] 25 mg PO Q6H PRN 04/20/19 [History] Sennosides-Docusate Sodium [Senokot-S] 1 tab PO BID 04/20/19 [History] Cefuroxime Axetil [Ceftin] 500 mg PO BID 3 Days #6 tab 04/23/19 [Rx] QUEtiapine [SEROquel] 25 mg PO HS #3 tab 04/23/19 [Rx] oxyCODONE-APAP 5-325MG [Percocet 5-325 mg] 1 tab PO DAILY PRN #3 tab 04/23/19 [Rx] Follow up Appointment(s)/Referral(s): psychiatry, [Other] - 2 Weeks Anthony Stone DO [Primary Care Provider] - 1-2 days
[2019-04-23 12:35] LABS: Glucose,Whole Blood 125 mg/dL (75-99)
[2019-04-24] MEDS ORDERED: AZITHROMYCIN 500 MG TAB PO SCH (09:00)
== END 2019-04-23 15:34 | DRG 871 ==
LOC: EC 09:47 → 3SCARD 15:12
PROVIDERS: ADMIT Hospitalist; ATTEND Hospitalist
DX: A41.50 Gram-negative sepsis, unspecified (principal); J15.6 Pneumonia due to other Gram-negative bacteria; J96.11 Chronic respiratory failure with hypoxia; R47.01 Aphasia; E11.42 Type 2 diabetes mellitus with diabetic polyneuropathy; E03.9 Hypothyroidism, unspecified; E78.00 Pure hypercholesterolemia, unspecified; F32.9 Major depressive disorder, single episode, unspecified; F20.9 Schizophrenia, unspecified; F06.1 Catatonic disorder due to known physiological condition; G40.909 Epilepsy, unspecified, not intractable, without status epilepticus; G47.33 Obstructive sleep apnea (adult) (pediatric); G80.9 Cerebral palsy, unspecified; G89.4 Chronic pain syndrome; I50.9 Heart failure, unspecified; H40.9 Unspecified glaucoma; I11.0 Hypertensive heart disease with heart failure; J45.40 Moderate persistent asthma, uncomplicated; K58.9 Irritable bowel syndrome, unspecified; M19.91 Primary osteoarthritis, unspecified site; M48.061 Spinal stenosis, lumbar region without neurogenic claudication; N20.0 Calculus of kidney; M19.90 Unspecified osteoarthritis, unspecified site; N32.81 Overactive bladder; F29 Unspecified psychosis not due to a substance or known physiological condition; R32 Unspecified urinary incontinence; K21.9 Gastro-esophageal reflux disease without esophagitis; Z79.84 Long term (current) use of oral hypoglycemic drugs; Z79.890 Hormone replacement therapy; Z79.899 Other long term (current) drug therapy; Z83.3 Family history of diabetes mellitus; Z87.442 Personal history of urinary calculi; Z87.891 Personal history of nicotine dependence; Z88.6 Allergy status to analgesic agent; Z88.1 Allergy status to other antibiotic agents; Z91.041 Radiographic dye allergy status; Z91.040 Latex allergy status; Z91.011 Allergy to milk products; Z88.0 Allergy status to penicillin; Z91.013 Allergy to seafood; Z88.8 Allergy status to other drugs, medicaments and biological substances; Z98.890 Other specified postprocedural states; Z91.018 Allergy to other foods; Z99.89 Dependence on other enabling machines and devices; Z86.14 Personal history of Methicillin resistant Staphylococcus aureus infection; Z90.49 Acquired absence of other specified parts of digestive tract
CPT/HCPCS: 36415; 70450; 70496; 70498; 71046; 80053; 80061; 80177; 81001; 82550; 82553; 83605; 84145; 84484; 85025; 85610; 85730; 87040; 93005; 94640; 95816; 96361; 96365; 96366; 96375; 99285

== ENCOUNTER 2019-07-03 17:31 | Emergency (ER) | payer MEDICARE, OTHER ==
[2019-07-03] MEDS ORDERED: SODIUM CHLORIDE 0.9% 1,000 ML IV STA ×2 (17:39)
--- NOTE | 2019-07-03 17:43 | ED ---
General Adult HPI - General Stated complaint: weakness Time Seen by Provider: 07/03/19 17:31 Source: EMS, RN notes reviewed, old records reviewed Mode of arrival: EMS - History of Present Illness Initial comments: Social 54-year-old female history of multiple medical issues including cerebral palsy COPD who [facility] because of lethargy. It started 2 days ago after her pain pump was adjusted. Was brought in by EMS. Initially she was lethargic with some altered mental status and answering questions well she was noted have a blood pressure 209 systolic she was given 250 mL saline the pressure came down 155 and she seemed to be more cognizant. Also she is a decreased urine output over last day or so. No pulsatile no fevers chills nausea vomiting sweats or other symptoms reported. The patient herself is a poor historian - Related Data Home Medications Medication Instructions Recorded Confirmed Dicyclomine [Bentyl] 20 mg PO Q6H PRN 10/08/14 04/20/19 levETIRAcetam [Keppra] 750 mg PO BID 10/08/14 04/20/19 Levothyroxine Sodium [Synthroid] 200 mcg PO DAILY 11/01/14 04/20/19 Budesonide [Pulmicort] 0.5 mg INHALATION RT-BID 10/20/16 04/20/19 Esomeprazole Magnesium [NexIUM] 40 mg PO DAILY 10/20/16 04/20/19 Levothyroxine Sodium [Synthroid] 50 mcg PO DAILY 10/20/16 04/20/19 amLODIPine [Norvasc] 10 mg PO DAILY 10/20/16 04/20/19 tiZANidine [Zanaflex] 2 mg PO DAILY 10/20/16 04/20/19 Acetaminophen Tab [Tylenol] 500 mg PO Q6HR PRN 04/20/19 04/20/19 Antifungak Cream 1 applic TOPICAL TID 04/20/19 04/20/19 Atorvastatin [Lipitor] 10 mg PO HS 04/20/19 04/20/19 Butalb/Asprin/Caff 50-325-40Mg 1 cap PO Q4HR PRN 04/20/19 04/20/19 [Fiorinal 50-325-40 MG] Cholecalciferol (Vitamin D3) 2,000 unit PO DAILY 04/20/19 04/20/19 [Vitamin D3] Citalopram Hydrobromide [CeleXA] 20 mg PO DAILY 04/20/19 04/20/19 Gabapentin [Neurontin] 100 mg PO Q6H 04/20/19 04/20/19 Ketoconazole [Ketoconazole 2%] 1 applic TOPICAL Q8H PRN 04/20/19 04/20/19 Lisinopril [Zestril] 5 mg PO DAILY 04/20/19 04/20/19 Loperamide HCl [Imodium A-D] 4 mg PO Q12H PRN 04/20/19 04/20/19 Melatonin 5 mg PO HS 04/20/19 04/20/19 Oxybutynin Chloride [Oxybutynin 10 mg PO DAILY 04/20/19 04/20/19 Chloride ER] Polyethylene Glycol 3350 [Miralax] 17 gm PO Q12H PRN 04/20/19 04/20/19 Promethazine [Phenergan] 25 mg PO Q6H PRN 04/20/19 04/20/19 Sennosides-Docusate Sodium 1 tab PO BID 04/20/19 04/20/19 [Senokot-S] Previous Rx's Medication Instructions Recorded Cefuroxime Axetil [Ceftin] 500 mg PO BID 3 Days #6 tab 04/23/19 QUEtiapine [SEROquel] 25 mg PO HS #3 tab 04/23/19 oxyCODONE-APAP 5-325MG [Percocet 1 tab PO DAILY PRN #3 tab 04/23/19 5-325 mg] Allergies Allergy/AdvReac Type Severity Reaction Status Date / Time Fish Containing Products Allergy Unknown Swelling Verified 04/21/19 11:52 [Fish] butalbital [From Fiorinal] Allergy Unknown Verified 04/20/19 09:51 caffeine [From Fiorinal] Allergy Unknown Verified 04/20/19 09:51 cimetidine [From Tagamet] Allergy Unknown Verified 04/20/19 09:51 cimetidine HCl [From Tagamet] Allergy Unknown Verified 04/20/19 09:51 codeine Allergy Unknown Verified 04/20/19 09:51 dichloralphenazone Allergy Unknown Verified 04/20/19 09:51 [From Midrin] diphenhydramine HCl Allergy Unknown Verified 04/20/19 09:51 [From Benadryl] heparin Allergy Rash/Hives Verified 04/20/19 09:51 indomethacin [From Indocin] Allergy Unknown Verified 04/20/19 09:51 indomethacin sodium Allergy Unknown Verified 04/20/19 09:51 [From Indocin] iodine Allergy Swelling Verified 04/20/19 09:51 isometheptene mucate Allergy Unknown Verified 04/20/19 09:51 [From Midrin] latex Allergy Anaphylaxis Verified 04/20/19 09:51 Macrolide Antibiotics Allergy Unknown Verified 04/20/19 09:51 nystatin Allergy Rash/Hives Verified 04/20/19 09:51 Penicillins Allergy Unknown Verified 04/20/19 09:51 propoxyphene HCl Allergy Unknown Verified 04/20/19 09:51 [From [place]von] shellfish derived [Shellfish] Allergy Swelling Verified 04/20/19 09:51 theophylline anhydrous Allergy Unknown Verified 04/20/19 09:51 [From [place]] lactose intolerant AdvReac Unknown Uncoded 11/03/16 14:28 Review of Systems ROS Statement: Those systems with pertinent positive or pertinent negative responses have been documented in the HPI. ROS Other: All systems not noted in ROS Statement are negative. Limitations: ROS unobtainable due to patients medical condition Past Medical History Past Medical History: Asthma, Diabetes Mellitus, GERD/Reflux, Osteoarthritis (OA), Pneumonia, Respiratory Disorder, Seizure Disorder, Sleep Apnea/CPAP/BIPAP, Thyroid Disorder Additional Past Medical History / Comment(s): falls. C-diff 2008 cerebral palsy, spinal stenosis, neuropathy bilateral feet and hands, arthritis, chronic respiratory failure, ejection fraction 45% 2011, generalized chronic pain, IBS/ CONSTIPATION(LAST BM 10-19-16),kidney stones, overactive bladder wears brief for incont of urine."diabetic on metformin", glaucoma, "home 02 3 liters during day and 5 liters at night" History of Any Multi-Drug Resistant Organisms: MRSA Date of last positivie culture/infection: 2008 MDRO Source:: foot Past Surgical History: Back Surgery, Cholecystectomy Additional Past Surgical History / Comment(s): Spinal surgery x2,spinal stimulator 2-2016, bilateral eye surgery for muscle repair due to cerebral palsy. rt shoulder sx, rom carpal tunnel, cyst removed from wrist Past Anesthesia/Blood Transfusion Reactions: Motion Sickness, Postoperative Nausea & Vomiting (PONV) Past Psychological History: Depression, Schizoaffective Disorder Smoking Status: Former smoker Past Alcohol Use History: None Reported Past Drug Use History: None Reported - Past Family History Father Family Medical History: No Reported History Mother Family Medical History: Diabetes Mellitus General Exam - General Exam Comments Initial Comments: This a well-developed morbidly obese female who is awake and alert in no acute distress General appearance: alert, in no apparent distress Head exam: Present: atraumatic, normocephalic, normal inspection Eye exam: Present: normal appearance, PERRL, EOMI. Absent: scleral icterus, conjunctival injection, periorbital swelling ENT exam: Present: mucous membranes dry Neck exam: Present: normal inspection. Absent: tenderness, meningismus, lymphadenopathy Respiratory exam: Present: normal lung sounds bilaterally. Absent: respiratory distress, wheezes, rales, rhonchi, stridor Cardiovascular Exam: Present: regular rate, normal rhythm, normal heart sounds. Absent: systolic murmur, diastolic murmur, rubs, gallop, clicks GI/Abdominal exam: Present: soft, normal bowel sounds. Absent: distended, tenderness, guarding, rebound, rigid Extremities exam: Present: normal inspection, full ROM, normal capillary refill. Absent: tenderness, pedal edema, joint swelling, calf tenderness Back exam: Present: normal inspection Neurological exam: Present: alert, altered, CN II-XII intact Psychiatric exam: Present: normal mood, flat affect Skin exam: Present: warm, dry, intact, normal color. Absent: rash Course Vital Signs 07/03/19 07/03/19 07/03/19 17:33 18:10 19:33 Temperature 98.8 F 98.6 F Pulse Rate 80 86 Respiratory 20 20 18 Rate Blood Pressure 147/81 128/74 158/86 O2 Sat by Pulse 96 95 98 Oximetry Medical Decision Making - Medical Decision Making Patient has responded to IV fluids he was given IV magnesium. Patient will be discharged after additional fluids. - Lab Data Result diagrams: 07/03/19 18:10 07/03/19 18:10 Lab Results 07/03/19 07/03/19 07/03/19 Range/Units 16:55 18:10 18:10 WBC 13.1 H (3.8-10.6) k/uL RBC 5.05 (3.80-5.40) m/uL Hgb 14.3 (11.4-16.0) gm/dL Hct 45.0 (34.0-46.0) % MCV 89.1 (80.0-100.0) fL MCH 28.3 (25.0-35.0) pg MCHC 31.8 (31.0-37.0) g/dL RDW 15.1 (11.5-15.5) % Plt Count 274 (150-450) k/uL Neutrophils % 78 % Lymphocytes % 13 % Monocytes % 4 % Eosinophils % 2 % Basophils % 2 % Neutrophils # 10.3 H (1.3-7.7) k/uL Lymphocytes # 1.6 (1.0-4.8) k/uL Monocytes # 0.6 (0-1.0) k/uL Eosinophils # 0.3 (0-0.7) k/uL Basophils # 0.2 (0-0.2) k/uL Sodium 140 (137-145) mmol/L Potassium 4.3 (3.5-5.1) mmol/L Chloride 99 (98-107) mmol/L Carbon Dioxide 34 H (22-30) mmol/L Anion Gap 7 mmol/L BUN 17 (7-17) mg/dL Creatinine 0.53 (0.52-1.04) mg/dL Est GFR (CKD-EPI)AfAm >90 (>60 ml/min/1.73 sqM) Est GFR (CKD-EPI)NonAf >90 (>60 ml/min/1.73 sqM) Glucose 161 H (74-99) mg/dL Calcium 9.8 (8.4-10.2) mg/dL Magnesium 1.4 L (1.6-2.3) mg/dL Total Bilirubin 0.6 (0.2-1.3) mg/dL AST 43 H (14-36) U/L ALT 47 (9-52) U/L Alkaline Phosphatase 122 (38-126) U/L Creatine Kinase 67 (30-135) U/L Total Protein 9.0 H (6.3-8.2) g/dL Albumin 4.3 (3.5-5.0) g/dL Urine Color Yellow Urine Appearance Clear (Clear) Urine pH 6.5 (5.0-8.0) Ur Specific [place] 1.030 (1.001-1.035) Urine Protein 3+ H (Negative) Urine Glucose (UA) Negative (Negative) Urine Ketones Negative (Negative) Urine Blood Negative (Negative) Urine Nitrite Negative (Negative) Urine Bilirubin Negative (Negative) Urine Urobilinogen 4.0 (<2.0) mg/dL Ur Leukocyte Esterase Negative (Negative) Urine RBC 2 (0-5) /hpf Urine WBC 6 H (0-5) /hpf Ur Squamous Epith Cells 4 (0-4) /hpf Hyaline Casts 2 (0-2) /lpf Urine Mucus Many H (None) /hpf - Radiology Data Radiology results: report reviewed (Did review the imaging and report no acute findings.), image reviewed Disposition Clinical Impression: Delirium due to general medical condition, Dehydration, Hypomagnesemia Disposition: HOME SELF-CARE Condition: Good Instructions (If sedation given, give patient instructions): Altered Mental Status (ED), Dehydration (ED), Hypomagnesemia (ED) Is patient prescribed a controlled substance at d/c from ED?: No Referrals: Anthony Stone DO [Primary Care Provider] - 1-2 days
[2019-07-03 18:22] LABS: Basophils # (A) 0.2 k/uL (0-0.2); Basophils % (A) 2 %; Eosinophils # (A) 0.3 k/uL (0-0.7); Eosinophils % (A) 2 %; HGB 14.3 gm/dL (11.4-16.0); Lymphocytes # (A) 1.6 k/uL (1.0-4.8); Lymphocytes % (A) 13 %; MCH 28.3 pg (25.0-35.0); MCHC 31.8 g/dL (31.0-37.0); MCV 89.1 fL (80.0-100.0); Mean Platelet Volume 6.5; Monocytes # (A) 0.6 k/uL (0-1.0); Monocytes % (A) 4 %; Neutrophils # (A) 10.3 k/uL (1.3-7.7); Neutrophils % (A) 78 %; Platelet Count 274 k/uL (150-450); RBC 5.05 m/uL (3.80-5.40); RDW 15.1 % (11.5-15.5); WBC 13.1 k/uL (3.8-10.6)
[2019-07-03 18:37] LABS: ALT 47 U/L (9-52); AST 43 U/L (14-36); African American GFR (CKD) >90 (>60 ml/min/1.73 sqM); Albumin 4.3 g/dL (3.5-5.0); Alkaline Phosphatase 122 U/L (38-126); Anion Gap 7 mmol/L; Blood Urea Nitrogen 17 mg/dL (7-17); Calcium 9.8 mg/dL (8.4-10.2); Carbon Dioxide 34 mmol/L (22-30); Chloride 99 mmol/L (98-107); Creatine Kinase 67 U/L (30-135); Glucose 161 mg/dL (74-99); Magnesium 1.4 mg/dL (1.6-2.3); Non-African American GFR(CKD) >90 (>60 ml/min/1.73 sqM); Sodium 140 mmol/L (137-145); Total Bilirubin 0.6 mg/dL (0.2-1.3)
[2019-07-03 18:39] LABS: Potassium 4.3 mmol/L (3.5-5.1)
[2019-07-03] MEDS ORDERED: MAGNESIUM SULFATE-D5W PMX 1 GM in DEXTROSE/WATER 1 100ML.BAG IVPB ONE (18:43)
[2019-07-03 18:56] LABS: Appearance,Urine Clear (Clear); Bilirubin,Urine Negative (Negative); Blood,Urine Negative (Negative); Color,Urine Yellow; Glucose,Urine (UA) Negative (Negative); Hyaline Casts,Urine 2 /lpf (0-2); Ketones,Urine Negative (Negative); Leukocyte Esterase,Urine Negative (Negative); Mucus,Urine Many /hpf; Nitrite,Urine Negative (Negative); PH, Urine 6.5 (5.0-8.0); Protein,Urine 3+ (Negative); RBC,Urine 2 /hpf (0-5); Squamous Epithelial Cell,Urine 4 /hpf (0-4)
[2019-07-03 19:36] VITALS: BP 158/86; PULSE 86; RESP 18; TEMP 98.6
--- NOTE | 2019-07-03 19:37 | XR ---
EXAMINATION TYPE: XR chest 2V DATE OF EXAM: 07/03/2019 COMPARISON: 04/20/2019 HISTORY: Weakness TECHNIQUE: Frontal and lateral views of the chest are obtained. FINDINGS: There is no heart failure nor confluent pneumonic infiltrate. There is neural stimulator i n the thoracic spine. Costophrenic angles are clear. Thoracic spine is intact. IMPRESSION: No active cardiopulmonary disease. Normal heart. No change.
== END 2019-07-03 21:50 | disposition home or self-care (01) ==
LOC: EC 17:31
DX: E83.42 Hypomagnesemia (principal); E86.0 Dehydration; F05 Delirium due to known physiological condition; J44.9 Chronic obstructive pulmonary disease, unspecified; E11.42 Type 2 diabetes mellitus with diabetic polyneuropathy; K21.9 Gastro-esophageal reflux disease without esophagitis; M19.90 Unspecified osteoarthritis, unspecified site; G89.29 Other chronic pain; G40.909 Epilepsy, unspecified, not intractable, without status epilepticus; J96.10 Chronic respiratory failure, unspecified whether with hypoxia or hypercapnia; G47.30 Sleep apnea, unspecified; N32.81 Overactive bladder; K58.1 Irritable bowel syndrome with constipation; E07.9 Disorder of thyroid, unspecified; F32.9 Major depressive disorder, single episode, unspecified; Z87.891 Personal history of nicotine dependence; Z88.0 Allergy status to penicillin; Z88.1 Allergy status to other antibiotic agents; Z88.5 Allergy status to narcotic agent; Z88.6 Allergy status to analgesic agent; Z88.8 Allergy status to other drugs, medicaments and biological substances; Z91.013 Allergy to seafood; Z91.018 Allergy to other foods; Z91.040 Latex allergy status; Z91.048 Other nonmedicinal substance allergy status; Z79.51 Long term (current) use of inhaled steroids; Z79.82 Long term (current) use of aspirin; Z79.84 Long term (current) use of oral hypoglycemic drugs; Z79.890 Hormone replacement therapy; Z79.899 Other long term (current) drug therapy; Z86.14 Personal history of Methicillin resistant Staphylococcus aureus infection; Z99.81 Dependence on supplemental oxygen; Z97.8 Presence of other specified devices; Z99.89 Dependence on other enabling machines and devices
CPT/HCPCS: 99285; 96374; 96361 ×3; 36415; 80053; 82550; 83735; 85025; 81001; 71046; J3475

== ENCOUNTER 2019-07-04 07:22 | Inpatient (IN) | payer MEDICARE, OTHER ==
[2019-07-04] MEDS ORDERED: SODIUM CHLORIDE 0.9% 1,000 ML IV ONE (07:39)
--- NOTE | 2019-07-04 07:42 | ED ---
General Adult HPI - General Chief complaint: Altered Mental Status Stated complaint: ALTERED MENTAL STATUS Time Seen by Provider: 07/04/19 07:27 Source: EMS, RN notes reviewed Mode of arrival: EMS Limitations: altered mental status, physical limitation - History of Present Illness Initial comments: Patient is a 54-year-old female with history of reported cerebral palsy presenting to emergency department for being nonverbal. Patient remains nonverbal at this time and does not provide any history. Patient does follow with her eyes and does make some movements however will not follow commands. Patient does have a psychiatric history as well. Patient reportedly has been taking her medications however did not today. - Related Data Home Medications Medication Instructions Recorded Confirmed Dicyclomine [Bentyl] 20 mg PO Q6H PRN 10/08/14 07/04/19 levETIRAcetam [Keppra] 750 mg PO BID 10/08/14 07/04/19 Budesonide [Pulmicort] 0.5 mg INHALATION RT-BID 10/20/16 07/04/19 Esomeprazole Magnesium [NexIUM] 40 mg PO DAILY 10/20/16 07/04/19 Levothyroxine Sodium [Synthroid] 50 mcg PO DAILY 10/20/16 07/04/19 amLODIPine [Norvasc] 10 mg PO DAILY 10/20/16 07/04/19 tiZANidine [Zanaflex] 2 mg PO DAILY PRN 10/20/16 07/04/19 Acetaminophen Tab [Tylenol] 500 mg PO Q6HR PRN 04/20/19 07/04/19 Atorvastatin [Lipitor] 10 mg PO HS 04/20/19 07/04/19 Butalb/Asprin/Caff 50-325-40Mg 1 cap PO Q4HR PRN 04/20/19 07/04/19 [Fiorinal 50-325-40 MG] Cholecalciferol (Vitamin D3) 2,000 unit PO DAILY 04/20/19 07/04/19 [Vitamin D3] Citalopram Hydrobromide [CeleXA] 20 mg PO DAILY 04/20/19 07/04/19 Gabapentin [Neurontin] 100 mg PO Q6H 04/20/19 07/04/19 Ketoconazole [Ketoconazole 2%] 1 applic TOPICAL Q8H PRN 04/20/19 07/04/19 Lisinopril [Zestril] 5 mg PO DAILY 04/20/19 07/04/19 Melatonin 5 mg PO HS 04/20/19 07/04/19 Oxybutynin Chloride [Oxybutynin 10 mg PO DAILY 04/20/19 07/04/19 Chloride ER] Promethazine [Phenergan] 25 mg PO Q6H PRN 04/20/19 07/04/19 Sennosides-Docusate Sodium 1 tab PO BID 04/20/19 07/04/19 [Senokot-S] Cholecalciferol [Vitamin D3 (25 1,000 unit PO DAILY 07/04/19 07/04/19 Mcg = 1000 Iu)] Fexofenadine HCl [Lesly Allergy] 180 mg PO DAILY PRN 07/04/19 07/04/19 Levothyroxine Sodium [Synthroid] 200 mcg PO DAILY 07/04/19 07/04/19 Ziprasidone [Geodon] 20 mg PO HS 07/04/19 07/04/19 glipiZIDE XL [Glucotrol Xl] 10 mg PO DAILY 07/04/19 07/04/19 Previous Rx's Medication Instructions Recorded oxyCODONE-APAP 5-325MG [Percocet 1 tab PO DAILY PRN #3 tab 04/23/19 5-325 mg] Allergies Allergy/AdvReac Type Severity Reaction Status Date / Time Fish Containing Products Allergy Unknown Swelling Verified 07/04/19 07:50 [Fish] butalbital [From Fiorinal] Allergy Unknown Verified 07/04/19 07:50 caffeine [From Fiorinal] Allergy Unknown Verified 07/04/19 07:50 cimetidine [From Tagamet] Allergy Unknown Verified 07/04/19 07:50 cimetidine HCl [From Tagamet] Allergy Unknown Verified 07/04/19 07:50 codeine Allergy Unknown Verified 07/04/19 07:50 dichloralphenazone Allergy Unknown Verified 07/04/19 07:50 [From Midrin] diphenhydramine HCl Allergy Unknown Verified 07/04/19 07:50 [From Benadryl] heparin Allergy Rash/Hives Verified 07/04/19 07:50 indomethacin [From Indocin] Allergy Unknown Verified 07/04/19 07:50 indomethacin sodium Allergy Unknown Verified 07/04/19 07:50 [From Indocin] iodine Allergy Swelling Verified 07/04/19 07:50 isometheptene mucate Allergy Unknown Verified 07/04/19 07:50 [From Midrin] latex Allergy Anaphylaxis Verified 07/04/19 07:50 Macrolide Antibiotics Allergy Unknown Verified 07/04/19 07:50 nystatin Allergy Rash/Hives Verified 07/04/19 07:50 Penicillins Allergy Unknown Verified 07/04/19 07:50 propoxyphene HCl Allergy Unknown Verified 07/04/19 07:50 [From [place]] shellfish derived [Shellfish] Allergy Swelling Verified 07/04/19 07:50 theophylline anhydrous Allergy Unknown Verified 07/04/19 07:50 [From [place]] lactose intolerant AdvReac Unknown Uncoded 11/03/16 14:28 Review of Systems ROS Statement: Those systems with pertinent positive or pertinent negative responses have been documented in the HPI. ROS Other: All systems not noted in ROS Statement are negative. Limitations: ROS unobtainable due to patients medical condition Past Medical History Past Medical History: Asthma, Diabetes Mellitus, GERD/Reflux, Osteoarthritis (OA), Pneumonia, Respiratory Disorder, Seizure Disorder, Sleep Apnea/CPAP/BIPAP, Thyroid Disorder Additional Past Medical History / Comment(s): falls. C-diff 2008 cerebral palsy, spinal stenosis, neuropathy bilateral feet and hands, arthritis, chronic respiratory failure, ejection fraction 45% 2011, generalized chronic pain, IBS/ CONSTIPATION(LAST BM 10-19-16),kidney stones, overactive bladder wears brief for incont of urine."diabetic on metformin", glaucoma, "home 02 3 liters during day and 5 liters at night" History of Any Multi-Drug Resistant Organisms: MRSA Date of last positivie culture/infection: 2008 MDRO Source:: foot Past Surgical History: Back Surgery, Cholecystectomy Additional Past Surgical History / Comment(s): Spinal surgery x2,spinal stimulator 2-2016, bilateral eye surgery for muscle repair due to cerebral p alsy. rt shoulder sx, rom carpal tunnel, cyst removed from wrist Past Anesthesia/Blood Transfusion Reactions: Motion Sickness, Postoperative Nausea & Vomiting (PONV) Past Psychological History: Depression, Schizoaffective Disorder Smoking Status: Former smoker Past Alcohol Use History: None Reported Past Drug Use History: None Reported - Past Family History Father Family Medical History: No Reported History Mother Family Medical History: Diabetes Mellitus General Exam Limitations: altered mental status, physical limitation General appearance: alert, in no apparent distress Head exam: Present: atraumatic, normocephalic Eye exam: Present: normal appearance, PERRL ENT exam: Present: normal oropharynx Neck exam: Present: normal inspection Respiratory exam: Present: normal lung sounds bilaterally Cardiovascular Exam: Present: regular rate, normal rhythm GI/Abdominal exam: Present: soft. Absent: tenderness Extremities exam: Present: pedal edema. Absent: calf tenderness Neurological exam: Present: alert, altered, other (Nonverbal. Does withdrawal all extremities to pain. Does not follow commands.) Psychiatric exam: Present: flat affect, other (Nonverbal) Skin exam: Present: normal color Course Vital Signs 07/04/19 07/04/19 07/04/19 07:24 09:01 11:07 Temperature 99.0 F Pulse Rate 96 90 86 Respiratory 16 16 20 Rate Blood Pressure 145/94 160/95 135/79 O2 Sat by Pulse 93 L 96 95 Oximetry - Reevaluation(s) Reevaluation #1: 07/04/19 12:45 There is concern for possible sepsis diagnosed at 12:45 PM. Blood culture and l actic acid and IV antibiotic's will be ordered. EKG Findings - EKG Comments: EKG Findings:: Normal sinus rhythm at 89. DE 162. QRS 94. QT 380. QTC 462. Left axis. Normal QRS. No acute ST change. Medical Decision Making - Medical Decision Making Patient was reevaluated and unchanged. Symptoms are likely associated with patient psychosis history. There is some concern for possible pneumonia. Case was discussed in detail with Dr. Ventura, who will admit covering Dr. Stone for medical. Psychiatry will be consult. - Lab Data Result diagrams: 07/04/19 07:30 07/04/19 07:30 Lab Results 07/04/19 07/04/19 07/04/19 Range/Units 07:30 07:30 07:30 WBC 11.9 H (3.8-10.6) k/uL RBC 4.86 (3.80-5.40) m/uL Hgb 13.7 (11.4-16.0) gm/dL Hct 43.3 (34.0-46.0) % MCV 89.0 (80.0-100.0) fL MCH 28.2 (25.0-35.0) pg MCHC 31.7 (31.0-37.0) g/dL RDW 15.1 (11.5-15.5) % Plt Count 248 (150-450) k/uL Neutrophils % 77 % Lymphocytes % 12 % Monocytes % 4 % Eosinophils % 3 % Basophils % 3 % Neutrophils # 9.1 H (1.3-7.7) k/uL Lymphocytes # 1.5 (1.0-4.8) k/uL Monocytes # 0.5 (0-1.0) k/uL Eosinophils # 0.4 (0-0.7) k/uL Basophils # 0.3 H (0-0.2) k/uL PT 10.2 (9.0-12.0) sec INR 0.9 (<1.2) APTT 24.1 (22.0-30.0) sec Sodium 140 (137-145) mmol/L Potassium 4.2 (3.5-5.1) mmol/L Chloride 102 (98-107) mmol/L Carbon Dioxide 30 (22-30) mmol/L Anion Gap 8 mmol/L BUN 13 (7-17) mg/dL Creatinine 0.44 L (0.52-1.04) mg/dL Est GFR (CKD-EPI)AfAm >90 (>60 ml/min/1.73 sqM) Est GFR (CKD-EPI)NonAf >90 (>60 ml/min/1.73 sqM) Glucose 144 H (74-99) mg/dL Calcium 9.1 (8.4-10.2) mg/dL Magnesium 1.5 L (1.6-2.3) mg/dL Total Bilirubin 0.6 (0.2-1.3) mg/dL AST 35 (14-36) U/L ALT 52 (9-52) U/L Alkaline Phosphatase 114 (38-126) U/L Troponin I (0.000-0.034) ng/mL NT-Pro-B Natriuret Pep pg/mL Total Protein 7.9 (6.3-8.2) g/dL Albumin 4.0 (3.5-5.0) g/dL TSH (0.465-4.680) mIU/L Free T4 (0.78-2.19) ng/dL Free T3 pg/mL (2.8-5.3) pg/ml Urine Color Urine Appearance (Clear) Urine pH (5.0-8.0) Ur Specific [place] (1.001-1.035) Urine Protein (Negative) Urine Glucose (UA) (Negative) Urine Ketones (Negative) Urine Blood (Negative) Urine Nitrite (Negative) Urine Bilirubin (Negative) Urine Urobilinogen (<2.0) mg/dL Ur Leukocyte Esterase (Negative) Urine RBC (0-5) /hpf Urine WBC (0-5) /hpf Urine Opiates Screen (NotDetected) Ur Oxycodone Screen (NotDetected) Urine Methadone Screen (NotDetected) Ur Propoxyphene Screen (NotDetected) Ur Barbiturates Screen (NotDetected) U Tricyclic Antidepress (NotDetected) Ur Phencyclidine Scrn (NotDetected) Ur Amphetamines Screen (NotDetected) U Methamphetamines Scrn (NotDetected) U Benzodiazepines Scrn (NotDetected) Urine Cocaine Screen (NotDetected) U Marijuana (THC) Screen (NotDetected) Serum Alcohol <10 mg/dL 07/04/19 07/04/19 07/04/19 Range/Units 07:30 07:30 07:30 WBC (3.8-10.6) k/uL RBC (3.80-5.40) m/uL Hgb (11.4-16.0) gm/dL Hct (34.0-46.0) % MCV (80.0-100.0) fL MCH (25.0-35.0) pg MCHC (31.0-37.0) g/dL RDW (11.5-15.5) % Plt Count (150-450) k/uL Neutrophils % % Lymphocytes % % Monocytes % % Eosinophils % % Basophils % % Neutrophils # (1.3-7.7) k/uL Lymphocytes # (1.0-4.8) k/uL Monocytes # (0-1.0) k/uL Eosinophils # (0-0.7) k/uL Basophils # (0-0.2) k/uL PT (9.0-12.0) sec INR (<1.2) APTT (22.0-30.0) sec Sodium (137-145) mmol/L Potassium (3.5-5.1) mmol/L Chloride (98-107) mmol/L Carbon Dioxide (22-30) mmol/L Anion Gap mmol/L BUN (7-17) mg/dL Creatinine (0.52-1.04) mg/dL Est GFR (CKD-EPI)AfAm (>60 ml/min/1.73 sqM) Est GFR (CKD-EPI)NonAf (>60 ml/min/1.73 sqM) Glucose (74-99) mg/dL Calcium (8.4-10.2) mg/dL Magnesium (1.6-2.3) mg/dL Total Bilirubin (0.2-1.3) mg/dL AST (14-36) U/L ALT (9-52) U/L Alkaline Phosphatase (38-126) U/L Troponin I 0.013 (0.000-0.034) ng/mL NT-Pro-B Natriuret Pep 161 pg/mL Total Protein (6.3-8.2) g/dL Albumin (3.5-5.0) g/dL TSH 5.020 H (0.465-4.680) mIU/L Free T4 1.57 (0.78-2.19) ng/dL Free T3 pg/mL 2.7 L (2.8-5.3) pg/ml Urine Color Urine Appearance (Clear) Urine pH (5.0-8.0) Ur Specific [place] (1.001-1.035) Urine Protein (Negative) Urine Glucose (UA) (Negative) Urine Ketones (Negative) Urine Blood (Negative) Urine Nitrite (Negative) Urine Bilirubin (Negative) Urine Urobilinogen (<2.0) mg/dL Ur Leukocyte Esterase (Negative) Urine RBC (0-5) /hpf Urine WBC (0-5) /hpf Urine Opiates Screen (NotDetected) Ur Oxycodone Screen (NotDetected) Urine Methadone Screen (NotDetected) Ur Propoxyphene Screen (NotDetected) Ur Barbiturates Screen (NotDetected) U Tricyclic Antidepress (NotDetected) Ur Phencyclidine Scrn (NotDetected) Ur Amphetamines Screen (NotDetected) U Methamphetamines Scrn (NotDetected) U Benzodiazepines Scrn (NotDetected) Urine Cocaine Screen (NotDetected) U Marijuana (THC) Screen (NotDetected) Serum Alcohol mg/dL 07/04/19 Range/Units 09:48 WBC (3.8-10.6) k/uL RBC (3.80-5.40) m/uL Hgb (11.4-16.0) gm/dL Hct (34.0-46.0) % MCV (80.0-100.0) fL MCH (25.0-35.0) pg MCHC (31.0-37.0) g/dL RDW (11.5-15.5) % Plt Count (150-450) k/uL Neutrophils % % Lymphocytes % % Monocytes % % Eosinophils % % Basophils % % Neutrophils # (1.3-7.7) k/uL Lymphocytes # (1.0-4.8) k/uL Monocytes # (0-1.0) k/uL Eosinophils # (0-0.7) k/uL Basophils # (0-0.2) k/uL PT (9.0-12.0) sec INR (<1.2) APTT (22.0-30.0) sec Sodium (137-145) mmol/L Potassium (3.5-5.1) mmol/L Chloride (98-107) mmol/L Carbon Dioxide (22-30) mmol/L Anion Gap mmol/L BUN (7-17) mg/dL Creatinine (0.52-1.04) mg/dL Est GFR (CKD-EPI)AfAm (>60 ml/min/1.73 sqM) Est GFR (CKD-EPI)NonAf (>60 ml/min/1.73 sqM) Glucose (74-99) mg/dL Calcium (8.4-10.2) mg/dL Magnesium (1.6-2.3) mg/dL Total Bilirubin (0.2-1.3) mg/dL AST (14-36) U/L ALT (9-52) U/L Alkaline Phosphatase (38-126) U/L Troponin I (0.000-0.034) ng/mL NT-Pro-B Natriuret Pep pg/mL Total Protein (6.3-8.2) g/dL Albumin (3.5-5.0) g/dL TSH (0.465-4.680) mIU/L Free T4 (0.78-2.19) ng/dL Free T3 pg/mL (2.8-5.3) pg/ml Urine Color Yellow Urine Appearance Clear (Clear) Urine pH 6.5 (5.0-8.0) Ur Specific [place] 1.020 (1.001-1.035) Urine Protein 2+ H (Negative) Urine Glucose (UA) Negative (Negative) Urine Ketones 1+ H (Negative) Urine Blood Negative (Negative) Urine Nitrite Negative (Negative) Urine Bilirubin Negative (Negative) Urine Urobilinogen 2.0 (<2.0) mg/dL Ur Leukocyte Esterase Negative (Negative) Urine RBC 1 (0-5) /hpf Urine WBC 1 (0-5) /hpf Urine Opiates Screen Detected H (NotDetected) Ur Oxycodone Screen Not Detected (NotDetected) Urine Methadone Screen Not Detected (NotDetected) Ur Propoxyphene Screen Not Detected (NotDetected) Ur Barbiturates Screen Detected H (NotDetected) U Tricyclic Antidepress Not Detected (NotDetected) Ur Phencyclidine Scrn Not Detected (NotDetected) Ur Amphetamines Screen Not Detected (NotDetected) U Methamphetamines Scrn Not Detected (NotDetected) U Benzodiazepines Scrn Not Detected (NotDetected) Urine Cocaine Screen Not Detected (NotDetected) U Marijuana (THC) Screen Not Detected (NotDetected) Serum Alcohol mg/dL - Radiology Data Radiology results: report reviewed (Computed tomography scan of the brain reveals no acute intercranial abnormality. Exophthalmos. Mild burden nonspecific white matter change.), image reviewed (Chest x-ray shows mild cardiac megaly. Diffuse interstitial changes, correlate for bronchitis, atypical pneumonia, or vascular congestion.) Critical Care Time Critical Care Time: Yes Total Critical Care Time: 33 Disposition Clinical Impression: Pneumonia, Psychosis Disposition: ADMITTED IP TO THIS HOSP Is patient prescribed a controlled substance at d/c from ED?: No Referrals: Anthony Stone DO [Primary Care Provider] - 1-2 days Decision Time: 12:50
[2019-07-04 07:51] LABS: Basophils # (A) 0.3 k/uL (0-0.2); Basophils % (A) 3 %; Eosinophils # (A) 0.4 k/uL (0-0.7); Eosinophils % (A) 3 %; HCT 43.3 % (34.0-46.0); HGB 13.7 gm/dL (11.4-16.0); Lymphocytes # (A) 1.5 k/uL (1.0-4.8); Lymphocytes % (A) 12 %; MCH 28.2 pg (25.0-35.0); MCHC 31.7 g/dL (31.0-37.0); Mean Platelet Volume 6.9; Monocytes # (A) 0.5 k/uL (0-1.0); Monocytes % (A) 4 %; Neutrophils # (A) 9.1 k/uL (1.3-7.7); Neutrophils % (A) 77 %; Platelet Count 248 k/uL (150-450); RBC 4.86 m/uL (3.80-5.40); RDW 15.1 % (11.5-15.5); WBC 11.9 k/uL (3.8-10.6)
[2019-07-04 08:01] LABS: ALT 52 U/L (9-52); AST 35 U/L (14-36); African American GFR (CKD) >90 (>60 ml/min/1.73 sqM); Alcohol <10 mg/dL; Alkaline Phosphatase 114 U/L (38-126); Anion Gap 8 mmol/L; Blood Urea Nitrogen 13 mg/dL (7-17); Calcium 9.1 mg/dL (8.4-10.2); Carbon Dioxide 30 mmol/L (22-30); Chloride 102 mmol/L (98-107); Glucose 144 mg/dL (74-99); INR 0.9 (<1.2); Magnesium 1.5 mg/dL (1.6-2.3); Non-African American GFR(CKD) >90 (>60 ml/min/1.73 sqM); Partial Thromboplastin Time 24.1 sec (22.0-30.0); Potassium 4.2 mmol/L (3.5-5.1); Prothrombin Time 10.2 sec (9.0-12.0); Sodium 140 mmol/L (137-145); Total Bilirubin 0.6 mg/dL (0.2-1.3); Total Protein 7.9 g/dL (6.3-8.2)
--- NOTE | 2019-07-04 08:48 | XR ---
EXAMINATION TYPE: XR chest 2V DATE OF EXAM: 07/04/2019 COMPARISON: 07/03/2019 HISTORY: 54-year-old female confusion, altered mental state TECHNIQUE: AP and lateral views FINDINGS: Spinal stimulator array along the mid thoracic spinal canal. Heart mildly enlarged. Diffuse interstit ial densities. No consolidation or pleural effusion. IMPRESSION: 1. Mild cardiomegaly. 2. Diffuse interstitial changes, correlate for bronchitis, atypical pneumonias, or pulmonary vascular congestion.
--- NOTE | 2019-07-04 09:09 | CT ---
EXAMINATION TYPE: CT brain wo con DATE OF EXAM: 07/04/2019 COMPARISON: 04/21/2019 HISTORY: Altered mental status CT DLP: 1086.4 mGycm. Automated Exposure Control for Dose Reduction was Utilized. TECHNIQUE: CT scan of the head is performed without contrast. FINDINGS: There is no acute intracranial hemorrhage, mass effect, or midline shift identified. The ventricles and sulci are within normal limits in size. A few patchy areas of hypoattenuation are se en in the periventricular white matter, particularly in the frontal regions such as on image 36 and 3 7. Exophthalmos is incidentally seen. The globes are intact and the visualized sinuses are clear. Wit h low-lying cerebellar tonsils are seen, slightly limited on the sagittal images at the foramen magnu m. This appears similar to the prior of 04/21/2019. IMPRESSION: 1. No acute intracranial hemorrhage, mass effect, or midline shift is seen. 2. Incidentally noted exophthalmos. Nonemergent workup could include thyroid serum laboratory values. 3. Mild burden nonspecific white matter change, most commonly on the basis of chronic microangiopathy .
[2019-07-04 10:34] LABS: Appearance,Urine Clear (Clear); Bilirubin,Urine Negative (Negative); Blood,Urine Negative (Negative); Color,Urine Yellow; Glucose,Urine (UA) Negative (Negative); Ketones,Urine 1+ (Negative); Leukocyte Esterase,Urine Negative (Negative); Nitrite,Urine Negative (Negative); PH, Urine 6.5 (5.0-8.0); Protein,Urine 2+ (Negative)
[2019-07-04 10:45] LABS: Amphetamine Screen,Urine Not Detected (NotDetected); Barbiturate Screen,Urine Detected (NotDetected); Benzodiazepines Screen,Urine Not Detected (NotDetected); Cocaine Screen,Urine Not Detected (NotDetected); Methadone Screen, Urine Not Detected (NotDetected); Opiate Screen,Urine Detected (NotDetected); Oxycodone Screen, Urine Not Detected (NotDetected); Phencyclidine Screen,Urine Not Detected (NotDetected); Tricyclic Antidepressant,Urine Not Detected (NotDetected); Urn Cannabinoid Scrn Not Detected (NotDetected)
[2019-07-04 10:50] LABS: RBC,Urine 1 /hpf (0-5)
[2019-07-04 12:22] LABS: T4, Free (Free Thyroxine) 1.57 ng/dL (0.78-2.19)
[2019-07-04] MEDS ORDERED: PNEUMONIA PROTOCOL UTILIZED 1 EACH MISC PO PRN (12:46)
[2019-07-04] MEDS ORDERED: LEVOFLOXACIN 750MG-D5W PMX 750 MG in DEXTROSE/WATER 1 150ML.BAG IVPB STA (12:46)
[2019-07-04] MEDS ORDERED: SODIUM CHLORIDE 0.9% 1,000 ML IV SCH (13:00)
[2019-07-04] MEDS ORDERED: tiZANidine 4 MG TAB PO PRN (17:52)
[2019-07-04] MEDS ORDERED: oxyCODONE-APAP 5-325MG 1 EACH TAB PO PRN (17:52)
[2019-07-04] MEDS ORDERED: BUTALB/APAP/CAFF 50-325-40MG TAB PO PRN (17:52)
[2019-07-04] MEDS ORDERED: DICYCLOMINE 20 MG TAB PO PRN (17:52)
[2019-07-04] MEDS ORDERED: PROMETHAZINE 25 MG TAB PO PRN (17:52)
[2019-07-04] MEDS ORDERED: LORATADINE 10 MG TAB PO PRN (17:52)
[2019-07-04] MEDS: GABAPENTIN 100 MG CAP PO SCH ×3 (18:26→21:59)
[2019-07-04] MEDS: BUDESONIDE 0.5 MG/2 ML NEBU INHALATION SCH (19:14)
[2019-07-04 20:44] LABS: Glucose,Whole Blood 100 mg/dL (75-99)
--- NOTE | 2019-07-04 21:10 | P.HPIM ---
History of Present Illness H&P Date: 07/04/19 Chief Complaint: Less responsive History of presenting complaint: This is a 54-year-old patient was currently a resident of [facility] at [facility].. Chronic stable medical conditions include diabetes, GERD, osteoarthritis, sleep apnea uses CPAP, hypothyroid, cerebral palsy, peripheral neuropathy, kidney stones, moderate persistent asthma, home oxygen, seizure diso rder, chronic lumbar spinal stenosis, schizoaffective disorder, chronic urinary incontinence. Patient is normally. Alert and oriented 3. ECF call the EMS because patient was less responsive. Barely communicating. Per the ER notes. The patient. Communicated. When I came to see the patient patient said helrosa but then he would not really also by questions to she followed me with her eyes. She appeared comfortable otherwise. Review of systems cannot be done as patient is barely communicating Past medical history: Diabetes mellitus type 2, GERD, primary osteoarthritis, sleep apnea uses CPAP, hypothyroid, chronic cerebral palsy, peripheral neuropathy in both feet and hands from diabetes, irritable bowel syndrome, kidney stones, home oxygen, moderate persistent asthma, depression, seizure disorder, chronic pain syndrome, chronic lumbar spinal stenosis, schizoaffective disorder, chronic urinary incontinence,. 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 She had a baseline has a walker or uses a wheelchair at times. Based 3 L of oxygen the daytime on 5 L at night. Pat leandro started smoking at age of 20 smoked 10 cigarettes a day stopped in October 2016. No alcohol. Family history: Patient cannot tell Physical examination: VITAL SIGNS: 99, 96, 16, 145/94, 93% on 2 L GENERAL: BMI 39, propped up in bed, awake but lethargic EYES: Pupils equal. Conjunctiva normal. HEENT: External appearance of nose and ears normal, oral cavity grossly normal. NECK: JVD unable to assess, mass not palpable. HEART: Heart sounds distant no edema. LUNGS: Respiratory rate normal; diminished breath sounds. ABDOMEN: Soft, nontender, liver spleen not palpable, no masses palpable. PSYCH: She also followed depending they did not answer my questions THAT. NEUROLOGICAL: No facial asymmetry, patient is not following commands, only spoke couple of words to be LYMPHATICS: No lymph nodes palpable in the axilla and neck INVESTIGATIONS, reviewed in the clinical context: White count 11.9 hemoglobin 13.7 potassium 4.2 creatinine 0.44 ProBNP 161 TSH 5.0 free T4 1 0.57 free T3 2 0.7 UA negative for leukoesterase and nitrite Urine drug screen positive for opiates and barbiturates EKG tracing personally reviewed by me-normal sinus rhythm Computed tomography scan of the brain-Acute some incidental finding of exophthalmos Chest x-ray film-personally reviewed by me shows some underpenetration and possible infiltrate versus vascular congestion Assessment: -Questionable pneumonia in a patient was checks x-ray shows possible infiltrates, and the patient was less responsive barely talking no obvious fevers, was slightly elevated white count -Decreased responsiveness, with no obvious focal signs could be encephalopathy -Diabetes mellitus type 2 -GERD -Primary osteoarthritis -Obstructive sleep apnea uses CPAP -Hypothyroid -Chronic cerebral palsy -diabetic peripheral neuropathy -Moderate persistent asthma -Chronic hypoxic respiratory failure on 3 L oxygen at the time and 5 L at night -Chronic seizure disorder -Chronic lumbar spinal stenosis Schizoaffective disorder -Chronic urinary incontinence Plan: Patient started on Levaquin in the ER. Will switch to ceftriaxone which she tolerated of blood loss admission. Home medications resumed. We'll order an EEG. Neurology consultation and psychiatry consultation. Prognosis guarded. Past Medical History Past Medical History: Asthma, Heart Failure, COPD, Diabetes Mellitus, Eye Dis order, GERD/Reflux, Hyperlipidemia, Hypertension, Osteoarthritis (OA), Pneumonia, Renal Disease, Respiratory Disorder, Seizure Disorder, Sleep Apnea/CPAP/BIPAP, Thyroid Disorder Additional Past Medical History / Comment(s): Cerebral palsey, borderline intelectual functioning, spinal stenosis, muscle spasms in back, weakness, NIDDM type II, peripheral neuropathy bilateral hands/feet, chronic respiratory failure with O2 ATC, pulmonary htn, DESTINEE with cpap, generalized chronic pain, UTIs, CKD stageII, nephrolithiasis, incontinence or urine/stool, overactive bladder, IBS, constipation/diarrhea, hypothyroid, ulcer, glaucoma, allergic rhinitis, vitamin D deficiency, insomnia. History of Any Multi-Drug Resistant Organisms: MRSA Date of last positivie culture/infection: 2008 MDRO Source:: foot Past Surgical History: Back Surgery, Cholecystectomy Additional Past Surgical History / Comment(s): Spinal surgery x2, spinal stimulator 2-2016, bilateral eye surgery for muscle repair, rt shoulder arthroscopy, rom carpal tunnel releases, cyst removed from wrist, EGD, colonoscopy Past Anesthesia/Blood Transfusion Reactions: Motion Sickness, Postoperative Nausea & Vomiting (PONV) Smoking Status: Former smoker - Past Family History Father Family Medical History: No Reported History Mother Family Medical History: Diabetes Mellitus Medications and Allergies Home Medications Medication Instructions Recorded Confirmed Type Dicyclomine [Bentyl] 20 mg PO Q6H PRN 10/08/14 07/04/19 History levETIRAcetam [Keppra] 750 mg PO BID 10/08/14 07/04/19 History Budesonide [Pulmicort] 0.5 mg INHALATION RT-BID 10/20/16 07/04/19 History Esomeprazole Magnesium [NexIUM] 40 mg PO DAILY 10/20/16 07/04/19 History Levothyroxine Sodium [Synthroid] 50 mcg PO DAILY 10/20/16 07/04/19 History amLODIPine [Norvasc] 10 mg PO DAILY 10/20/16 07/04/19 History tiZANidine [Zanaflex] 2 mg PO DAILY PRN 10/20/16 07/04/19 History Acetaminophen Tab [Tylenol] 500 mg PO Q6HR PRN 04/20/19 07/04/19 History Atorvastatin [Lipitor] 10 mg PO HS 04/20/19 07/04/19 History Butalb/Asprin/Caff 50-325-40Mg 1 cap PO Q4HR PRN 04/20/19 07/04/19 History [Fiorinal 50-325-40 MG] Cholecalciferol (Vitamin D3) 2,000 unit PO DAILY 04/20/19 07/04/19 History [Vitamin D3] Citalopram Hydrobromide [CeleXA] 20 mg PO DAILY 04/20/19 07/04/19 History Gabapentin [Neurontin] 100 mg PO Q6H 04/20/19 07/04/19 History Ketoconazole [Ketoconazole 2%] 1 applic TOPICAL Q8H PRN 04/20/19 07/04/19 History Lisinopril [Zestril] 5 mg PO DAILY 04/20/19 07/04/19 History Melatonin 5 mg PO HS 04/20/19 07/04/19 History Oxybutynin Chloride [Oxybutynin 10 mg PO DAILY 04/20/19 07/04/19 History Chloride ER] Promethazine [Phenergan] 25 mg PO Q6H PRN 04/20/19 07/04/19 History Sennosides-Docusate Sodium 1 tab PO BID 04/20/19 07/04/19 History [Senokot-S] oxyCODONE-APAP 5-325MG [Percocet 1 tab PO DAILY PRN #3 tab 04/23/19 07/04/19 Rx 5-325 mg] Cholecalciferol [Vitamin D3 (25 1,000 unit PO DAILY 07/04/19 07/04/19 History Mcg = 1000 Iu)] Fexofenadine HCl [Lesly Allergy] 180 mg PO DAILY PRN 07/04/19 07/04/19 History Levothyroxine Sodium [Synthroid] 200 mcg PO DAILY 07/04/19 07/04/19 History Ziprasidone [Geodon] 20 mg PO HS 07/04/19 07/04/19 History glipiZIDE XL [Glucotrol Xl] 10 mg PO DAILY 07/04/19 07/04/19 History Allergies Allergy/AdvReac Type Severity Reaction Status Date / Time Fish Containing Products Allergy Unknown Swelling Verified 07/04/19 07:50 [Fish] butalbital [From Fiorinal] Allergy Unknown Verified 07/04/19 07:50 caffeine [From Fiorinal] Allergy Unknown Verified 07/04/19 07:50 cimetidine [From Tagamet] Allergy Unknown Verified 07/04/19 07:50 cimetidine HCl [From Tagamet] Allergy Unknown Verified 07/04/19 07:50 codeine Allergy Unknown Verified 07/04/19 07:50 dichloralphenazone Allergy Unknown Verified 07/04/19 07:50 [From Midrin] diphenhydramine HCl Allergy Unknown Verified 07/04/19 07:50 [From Benadryl] heparin Allergy Rash/Hives Verified 07/04/19 07:50 indomethacin [From Indocin] Allergy Unknown Verified 07/04/19 07:50 indomethacin sodium Allergy Unknown Verified 07/04/19 07:50 [From Indocin] iodine Allergy Swelling Verified 07/04/19 07:50 isometheptene mucate Allergy Unknown Verified 07/04/19 07:50 [From Midrin] latex Allergy Anaphylaxis Verified 07/04/19 07:50 Macrolide Antibiotics Allergy Unknown Verified 07/04/19 07:50 nystatin Allergy Rash/Hives Verified 07/04/19 07:50 Penicillins Allergy Unknown Verified 07/04/19 07:50 propoxyphene HCl Allergy Unknown Verified 07/04/19 07:50 [From Darvon] shellfish derived [Shellfish] Allergy Swelling Verified 07/04/19 07:50 theophylline anhydrous Allergy Unknown Verified 07/04/19 07:50 [From [place]] lactose intolerant AdvReac Unknown Uncoded 11/03/16 14:28 Physical Exam Vitals: Vital Signs Temp Pulse Pulse Resp BP BP Pulse Ox 07/04/19 19:21 88 07/04/19 19:16 88 07/04/19 15:20 98.6 F 88 16 176/90 07/04/19 14:00 98.8 F 87 16 143/82 98 07/04/19 13:30 80 16 153/87 95 07/04/19 12:30 90 20 179/88 95 07/04/19 12:00 87 20 162/93 95 07/04/19 11:07 86 20 135/79 95 07/04/19 09:01 90 16 160/95 96 07/04/19 07:24 99.0 F 96 16 145/94 93 L Intake and Output 07/04/19 07/04/19 07/04/19 06:59 14:59 22:59 Intake Total 690 Balance 690 Intake: Oral 690 Other: # Voids 1 Weight 90.718 kg Results CBC & Chem 7: 07/04/19 07:30 07/04/19 07:30 Labs: Abnormal Lab Results - Last 24 Hours (Table) 07/04/19 07/04/19 07/04/19 Range/Units 07:30 07:30 07:30 WBC 11.9 H (3.8-10.6) k/uL Neutrophils # 9.1 H (1.3-7.7) k/uL Basophils # 0.3 H (0-0.2) k/uL Creatinine 0.44 L (0.52-1.04) mg/dL Glucose 144 H (74-99) mg/dL POC Glucose (mg/dL) (75-99) mg/dL Magnesium 1.5 L (1.6-2.3) mg/dL TSH 5.020 H (0.465-4.680) mIU/L Free T3 pg/mL 2.7 L (2.8-5.3) pg/ml Urine Protein (Negative) Urine Ketones (Negative) Urine Opiates Screen (NotDetected) Ur Barbiturates Screen (NotDetected) 07/04/19 07/04/19 Range/Units 09:48 20:41 WBC (3.8-10.6) k/uL Neutrophils # (1.3-7.7) k/uL Basophils # (0-0.2) k/uL Creatinine (0.52-1.04) mg/dL Glucose (74-99) mg/dL POC Glucose (mg/dL) 100 H (75-99) mg/dL Magnesium (1.6-2.3) mg/dL TSH (0.465-4.680) mIU/L Free T3 pg/mL (2.8-5.3) pg/ml Urine Protein 2+ H (Negative) Urine Ketones 1+ H (Negative) Urine Opiates Screen Detected H (NotDetected) Ur Barbiturates Screen Detected H (NotDetected) Thrombosis Risk Factor Assmnt - Choose All That Apply Any of the Below Risk Factors Present?: Yes Each Factor Represents 1 point: Abnormal pulmonary function (COPD), Age 41-60 years, Medical pt on bed rest, Obesity (BMI >25), Serious lung disease incl. pneumonia (< 1month) Other Risk Factors: Yes Each Risk Factor Represents 2 Points: Patient confined to bed Other congenital or acquired thrombophilia - If yes, enter type in comment: No Thrombosis Risk Factor Assessment Total Risk Factor Score: 7 Thrombosis Risk Factor Assessment Level: High Risk
[2019-07-04] MEDS: ATORVASTATIN 10 MG TAB PO SCH (21:59)
[2019-07-04] MEDS: SENNOSIDES-DOCUSATE SODIUM 1 EACH TAB PO SCH (21:59)
[2019-07-04] MEDS: MELATONIN 5 MG TABLET PO SCH (21:59)
[2019-07-04] MEDS: ZIPRASIDONE 20 MG CAP PO SCH (22:00)
[2019-07-05 07:12] LABS: Glucose,Whole Blood 122 mg/dL (75-99)
[2019-07-05] MEDS: GABAPENTIN 100 MG CAP PO SCH ×4 (07:47→23:33)
[2019-07-05] MEDS: BUDESONIDE 0.5 MG/2 ML NEBU INHALATION SCH ×2 (07:52→19:52)
[2019-07-05] MEDS: PANTOPRAZOLE 40 MG TABLET PO SCH (07:59)
[2019-07-05] MEDS: CITALOPRAM HYDROBROMIDE 20 MG TAB PO SCH (07:59)
[2019-07-05] MEDS: SENNOSIDES-DOCUSATE SODIUM 1 EACH TAB PO SCH ×2 (07:59→20:44)
[2019-07-05] MEDS: LISINOPRIL 5 MG TAB PO SCH (07:59)
[2019-07-05] MEDS: glipiZIDE 5 MG TAB PO SCH ×2 (07:59→20:44)
[2019-07-05] MEDS: OXYBUTYNIN 10 MG TAB.ER.24 PO SCH (07:59)
[2019-07-05] MEDS: LEVOTHYROXINE 125 MCG TAB PO SCH (07:59)
[2019-07-05] MEDS: amLODIPine 10 MG TAB PO SCH (07:59)
[2019-07-05] MEDS: CHOLECALCIFEROL 1,000 UNIT TAB PO SCH (07:59)
[2019-07-05] MEDS ORDERED: LEVOTHYROXINE 100 MCG TAB PO SCH (09:00)
[2019-07-05] MEDS ORDERED: NON FORMULARY DRUG (Cholecalciferol (Vitamin D3) [Vitamin D3] 2,000 UNIT) PO SCH (09:00)
[2019-07-05 09:21] LABS: HCT 40.3 % (34.0-46.0); HGB 13.1 gm/dL (11.4-16.0); MCH 28.9 pg (25.0-35.0); MCHC 32.4 g/dL (31.0-37.0); MCV 89.1 fL (80.0-100.0); Mean Platelet Volume 6.5; Platelet Count 253 k/uL (150-450); RBC 4.52 m/uL (3.80-5.40); RDW 14.9 % (11.5-15.5); WBC 10.6 k/uL (3.8-10.6)
--- NOTE | 2019-07-05 10:17 | XR ---
EXAMINATION TYPE: XR chest 2V DATE OF EXAM: 07/05/2019 COMPARISON: 07/04/2019 HISTORY: Pneumonia. TECHNIQUE: Frontal and lateral views of the chest are obtained. FINDINGS: Improved diffuse interstitial prominence. Patchy left lower lung opacity remains. The card iomediastinal silhouette is enlarged. Nerve root stimulator and postoperative changes of the right sh oulder are noted. Copious soft tissues overlie the lung bases. No sizable pneumothorax or pleural eff usion. Mild degenerative changes of the spine. IMPRESSION: Improved aeration of the lungs, likely improved pulmonary edema now mild. Left basilar o pacity may represent confluent edema, pneumonia, or atelectasis.
[2019-07-05 11:52] LABS: Glucose,Whole Blood 77 mg/dL (75-99)
[2019-07-05] MEDS ORDERED: LEVOFLOXACIN 750 MG TAB PO SCH (13:00)
--- NOTE | 2019-07-05 14:06 | P.CN ---
Psychiatric Consult - . Consult date: 07/05/19 Consult:: Reason for consultation: "Acute psychosis" Identifying data: Patient is a 54-year-old female who has history of psychiatric disorder "schizoaffective", and she is currently on Geodon and Celexa. The patient was seen while she was at the medical floor. Chief complaint and history of present illness: The patient was admitted due to to after mental status. Patient was a sleeping when I approach her, and she responded to calling her name. When she opened her eyes she responded to question about her name and she mentioned her name, but once I introduced myself as a psychiatrist she did not answer any question and continued to respond by staring. As per nursing staff the patient is Pedro alert and oriented, and most probably she chooses not to answer questions and responding only by staring. No report of severe agitation, aggressive or psychotic behavior including responding to internal stimuli or delusional. No reports of any hallucinations. No report of patient mentioning suicidal or threatening to hurt herself or others. At this point, the patient was not cooperative to complete the psychiatric evaluation and she didn't respond to questions other than starring. The patient was not cooperative and no other information available about the patient's past psychiatric history, substance use history, family history of psychiatric illness, or other social history. Past psychiatric history: Mental status examination: The patient appears stated age, not well groomed, dressed in hospital gown, apparently morbid obesity. Gait was not assessed because the patient was lying in bed with no abnormal movements noticed. The patient was not cooperative and she didn't answer any question besides her name. Her eye contact was staring with no response to questions. No abnormal psychomotor activity, and most pr obably the patient chooses to not respond as a behavior. Mood was not assessed and the patient affect is very restricted to flat. Thought form and thought content was not assessed, but no report of any delusions, suicidal or homicidal thoughts. No reports of any perceptual problems or disturbances as hallucinations and no report patient responding to internal stimuli. Attention, patient responded to calling her name and as per nursing staff she was oriented. Insight and judgment are limited. Assessment: Unspecified mood disorder. Schizo-affective disorder by history Rule out Catatonic state. Recommendations: There is no evidence the patient has any current acute psychiatric emergency and she is not actively suicidal and in no threats to hurt self or others. Also there is no evidence of psychosis or acute nicholas and this time. Most appropriate the patient choose not to responded to questions as there is no presentation of catatonia. Obtain more collateral information from her residence about any stressors could provoke this behavior. Recommended to keep the patient on one to one observation. Patient might benefit from further monitoring and assessment at psychiatric floor so please contact psychiatric team if decision taken to discharge the patient before improvement of her current behavior. Psychiatry team will continue follow-up with the patient . Medication management: Continue current psychiatric medications as the patient has been been maintained on them prior to admission. Discussed the treatment plan with the requesting physician/service. Thank you for permitting me to assist in this patient's treatment. Please call psychiatry department if you have any question or need further help with this case.
[2019-07-05] MEDS: CEPHALEXIN 250 MG CAP PO SCH ×2 (15:15→20:45)
--- NOTE | 2019-07-05 15:48 | EEG ---
ELECTROENCEPHALOGRAM REPORT DATE OF SERVICE: 07/05/2019. PREAMBLE: This is a 54-year-old female with altered mental status. This study is performed to evaluate for any epileptiform activity. CURRENT MEDICATIONS: 1. Geodon. 2. Zanaflex. 3. Senokot. 4. Phenergan. 5. Percocet. 6. Melatonin. 7. Lisinopril. 8. Levothyroxine. 9. Keppra. 10.Glipizide. 11.Gabapentin. 12.Bentyl. 13.Celexa. 14.Ceftriaxone. 15.Atorvastatin. 16.Amlodipine. EEG FINDINGS: This is a routine 21-channel awake digital EEG recording accomplished utilizing the 10/20 international system with bipolar and referential montages. The background consists of well developed but not very well organized mixed frequencies in the 6 to 7 Hz theta with some fast frequency beta and some alpha activity. Background is posterior-dominant and does not seem to be reactive to eye opening and closing. Different stages of sleep were not seen. Photic driving response was not seen. Intermittent frontal rhythmic delta activity was seen sporadically. EKG rhythm lead revealed no obvious arrhythmia. No definitive focal or generalized epileptiform activity was seen. Frequent myogenic activity and movement artifacts were seen. IMPRESSION: This is an abnormal EEG due to disorganized background with mild slowing. This is suggestive of generalized cerebral dysfunction as can be seen in toxic metabolic encephalopathies or due to diffuse structural brain abnormality. No definitive epileptiform activity was seen. MMODL / IJN: [id number] /
[2019-07-05 16:14] LABS: Glucose,Whole Blood 75 mg/dL (75-99)
[2019-07-05 16:58] LABS: Glucose,Whole Blood 82 mg/dL (75-99)
[2019-07-05] MEDS: MELATONIN 5 MG TABLET PO SCH (20:44)
[2019-07-05] MEDS: ATORVASTATIN 10 MG TAB PO SCH (20:44)
[2019-07-05] MEDS: ZIPRASIDONE 20 MG CAP PO SCH (20:45)
[2019-07-05 21:01] LABS: Glucose,Whole Blood 145 mg/dL (75-99)
--- NOTE | 2019-07-05 21:49 | P.CNNES ---
History of Present Illness Consult date: 07/05/19 Requesting physician: Yoshi Ventura Reason for Consult: Altered mental status History of Present Illness: Patient is a 54-year-old female who has history of nerve palsy, presented to the ER because of being nonverbal. Patient was not able to provide any history in the ER. Patient would follow up with her eyes and does make movements however would not follow commands. Patient has history of psychiatric disorder. P ange has been seen by psychiatry, and has been diagnosed with an unspecified mood disorder, schizoaffective disorder by history, rule out catatonic state. Patient had a computed tomography scan of head which revealed no acute process. Mild burden of nonspecific white matter changes, most commonly on the basis of chronic microangiopathy. Patient's TSH is elevated 5.020 with normal free T4. Total cholesterol 209, LDL 112, HDL 66. Vitamin D 22.7. When I came to see the patient, patient was watching TV. Patient was communicating normally. Patient states that she was not able to feel left side of the body as long as she can remember, but now she can feel it. Patient apparently had presented with similar symptoms in April 2019 when patient was seen by Dr. Sorenson. Patient had CTA of head and neck performed at the time which revealed no flow limiting stenosis. Some atheromatous plaquing is present on the left. Normal [place]. Patient could not have MRI, because she has some metal in the body. Patient also has history of seizure disorder. Patient could not tell when was her last seizure. She follows up with Dr. Sun. Patient is on Keppra 750 mg twice a day. Review of Systems Denies headache, problem with the vision. Denies speech or swallow difficulties. Denies chest pain shortness of breath. Denies abdominal pain. Patient does have numbness of left side of the body for a long time. All other review of systems unremarkable. Past Medical History Past Medical History: Asthma, Heart Failure, COPD, Diabetes Mellitus, Eye Disorder, GERD/Reflux, Hyperlipidemia, Hypertension, Osteoarthritis (OA), Pneumonia, Renal Disease, Respiratory Disorder, Seizure Disorder, Sleep Apnea/CPAP/BIPAP, Thyroid Disorder Additional Past Medical History / Comment(s): Cerebral palsey, borderline intelectual functioning, spinal stenosis, muscle spasms in back, weakness, NIDDM type II, peripheral neuropathy bilateral hands/feet, chronic respiratory failure with O2 ATC, pulmonary htn, DESTINEE with cpap, generalized chronic pain, UTIs, CKD stageII, nephrolithiasis, incontinence or urine/stool, overactive bladder, IBS, constipation/diarrhea, hypothyroid, ulcer, glaucoma, allergic rhinitis, vitamin D deficiency, insomnia. History of Any Multi-Drug Resistant Organisms: MRSA Date of last positivie culture/infection: 2008 MDRO Source:: foot Past Surgical History: Back Surgery, Cholecystectomy Additional Past Surgical History / Comment(s): Spinal surgery x2, spinal stimulator 2-2016, bilateral eye surgery for muscle repair, rt shoulder arthroscopy, rom carpal tunnel releases, cyst removed from wrist, EGD, colonoscopy Past Anesthesia/Blood Transfusion Reactions: Motion Sickness, Postoperative Nausea & Vomiting (PONV) Smoking Status: Former smoker - Past Family History Father Family Medical History: No Reported History Mother Family Medical History: Diabetes Mellitus Medications and Allergies Home Medications Medication Instructions Recorded Confirmed Type Dicyclomine [Bentyl] 20 mg PO Q6H PRN 10/08/14 07/04/19 History levETIRAcetam [Keppra] 750 mg PO BID 10/08/14 07/04/19 History Budesonide [Pulmicort] 0.5 mg INHALATION RT-BID 10/20/16 07/04/19 History Esomeprazole Magnesium [NexIUM] 40 mg PO DAILY 10/20/16 07/04/19 History Levothyroxine Sodium [Synthroid] 50 mcg PO DAILY 10/20/16 07/04/19 History amLODIPine [Norvasc] 10 mg PO DAILY 10/20/16 07/04/19 History tiZANidine [Zanaflex] 2 mg PO DAILY PRN 10/20/16 07/04/19 History Acetaminophen Tab [Tylenol] 500 mg PO Q6HR PRN 04/20/19 07/04/19 History Atorvastatin [Lipitor] 10 mg PO HS 04/20/19 07/04/19 History Butalb/Asprin/Caff 50-325-40Mg 1 cap PO Q4HR PRN 04/20/19 07/04/19 History [Fiorinal 50-325-40 MG] Cholecalciferol (Vitamin D3) 2,000 unit PO DAILY 04/20/19 07/04/19 History [Vitamin D3] Citalopram Hydrobromide [CeleXA] 20 mg PO DAILY 04/20/19 07/04/19 History Gabapentin [Neurontin] 100 mg PO Q6H 04/20/19 07/04/19 History Ketoconazole [Ketoconazole 2%] 1 applic TOPICAL Q8H PRN 04/20/19 07/04/19 History Lisinopril [Zestril] 5 mg PO DAILY 04/20/19 07/04/19 History Melatonin 5 mg PO HS 04/20/19 07/04/19 History Oxybutynin Chloride [Oxybutynin 10 mg PO DAILY 04/20/19 07/04/19 History Chloride ER] Promethazine [Phenergan] 25 mg PO Q6H PRN 04/20/19 07/04/19 History Sennosides-Docusate Sodium 1 tab PO BID 04/20/19 07/04/19 History [Senokot-S] oxyCODONE-APAP 5-325MG [Percocet 1 tab PO DAILY PRN #3 tab 04/23/19 07/04/19 Rx 5-325 mg] Cholecalciferol [Vitamin D3 (25 1,000 unit PO DAILY 07/04/19 07/04/19 History Mcg = 1000 Iu)] Fexofenadine HCl [Lesly Allergy] 180 mg PO DAILY PRN 07/04/19 07/04/19 History Levothyroxine Sodium [Synthroid] 200 mcg PO DAILY 07/04/19 07/04/19 History Ziprasidone [Geodon] 20 mg PO HS 07/04/19 07/04/19 History glipiZIDE XL [Glucotrol Xl] 10 mg PO DAILY 07/04/19 07/04/19 History Allergies Allergy/AdvReac Type Severity Reaction Status Date / Time Fish Containing Products Allergy Unknown Swelling Verified 07/04/19 07:50 [Fish] butalbital [From Fiorinal] Allergy Unknown Verified 07/04/19 07:50 caffeine [From Fiorinal] Allergy Unknown Verified 07/04/19 07:50 cimetidine [From Tagamet] Allergy Unknown Verified 07/04/19 07:50 cimetidine HCl [From Tagamet] Allergy Unknown Verified 07/04/19 07:50 codeine Allergy Unknown Verified 07/04/19 07:50 dichloralphenazone Allergy Unknown Verified 07/04/19 07:50 [From Midrin] diphenhydramine HCl Allergy Unknown Verified 07/04/19 07:50 [From Benadryl] heparin Allergy Rash/Hives Verified 07/04/19 07:50 indomethacin [From Indocin] Allergy Unknown Verified 07/04/19 07:50 indomethacin sodium Allergy Unknown Verified 07/04/19 07:50 [From Indocin] iodine Allergy Swelling Verified 07/04/19 07:50 isometheptene mucate Allergy Unknown Verified 07/04/19 07:50 [From Midrin] latex Allergy Anaphylaxis Verified 07/04/19 07:50 Macrolide Antibiotics Allergy Unknown Verified 07/04/19 07:50 nystatin Allergy Rash/Hives Verified 07/04/19 07:50 Penicillins Allergy Unknown Verified 07/04/19 07:50 propoxyphene HCl Allergy Unknown Verified 07/04/19 07:50 [From [place]von] shellfish derived [Shellfish] Allergy Swelling Verified 07/04/19 07:50 theophylline anhydrous Allergy Unknown Verified 07/04/19 07:50 [From [place]] lactose intolerant AdvReac Unknown Uncoded 11/03/16 14:28 Physical Examination - Vital Signs Vital Signs: Vital Signs Temp Pulse Pulse Resp BP Pulse Ox 07/05/19 20:00 90 07/05/19 19:53 88 07/05/19 14:12 95 07/05/19 12:52 97.6 F 89 16 137/81 96 07/05/19 08:00 88 07/05/19 07:53 84 07/05/19 05:00 97.2 F L 83 20 165/76 95 Intake and Output 07/05/19 07/05/19 07/05/19 06:59 14:59 22:59 Intake Total 250 120 120 Balance 250 120 120 Intake: Oral 250 120 120 Other: # Voids 2 3 Weight 123 kg On examination patient is a middle aged female, laying comfortably in the bed. Patient is alert and awake fully oriented. Patient was able to tell me her name, age, date of , that she is in [facility] in [facility] and name of the current president. She knows it is June 2019. Speech and language functions are normal. She appeared pleasant. On cranial nerve examination pupils are round and reacting, visual yang reveal some defect in the right lower quadrant. Patient has some disconjugate eyes with exotropia on the right. Face is symmetric and tongue protrudes the midline. Muscle strength appears normal in the arms and legs although her ankles are somewhat stiff bilaterally. Patient has somewhat shorter arms and legs. Reflexes are diminished and plantars are a equivocal. Sensations are equal. Results - Laboratory Findings CBC and BMP: 07/05/19 08:38 07/04/19 07:30 Abnormal Lab Findings: Abnormal Labs 07/04/19 07/04/19 07/04/19 07:30 07:30 07:30 WBC 11.9 H Neutrophils # 9.1 H Basophils # 0.3 H Creatinine 0.44 L Glucose 144 H POC Glucose (mg/dL) Magnesium 1.5 L TSH 5.020 H Free T3 pg/mL 2.7 L Urine Protein Urine Ketones Urine Opiates Screen Ur Barbiturates Screen 07/04/19 07/04/19 07/05/19 09:48 20:41 07:10 WBC Neutrophils # Basophils # Creatinine Glucose POC Glucose (mg/dL) 100 H 122 H Magnesium TSH Free T3 pg/mL Urine Protein 2+ H Urine Ketones 1+ H Urine Opiates Screen Detected H Ur Barbiturates Screen Detected H 07/05/19 20:59 WBC Neutrophils # Basophils # Creatinine Glucose POC Glucose (mg/dL) 145 H Magnesium TSH Free T3 pg/mL Urine Protein Urine Ketones Urine Opiates Screen Ur Barbiturates Screen Assessment and Plan Assessment: * Altered mental status, with nonverbal state, now resolved. Patient able to speak normally, provided history and was examined as mentioned above in [place]. Patient probably has psychogenic muteness at times. * Schizoaffective disorder * History of cerebral palsy. * Seizure disorder, on Keppra 750 mg twice a day * Osteoarthritis Plan: * At present patient's mentation appears to be probably baseline. She is talking normally. Patient is fully oriented 4. * Her intermittent speech impediment is likely psychogenic. Psychiatry on board. * Patient has history of seizure disorder, currently on Keppra 750 mg twice a day. May consider switching to another antiepileptic medication, as Keppra sometimes can be associated with behavioral problems. Patient follows up with Dr. Sun, who can possibly switch to another antiepileptic medication, who knows her history in detail. Patient could not tell me when was her last seizure however. * Neurologically clear otherwise.
--- NOTE | 2019-07-05 22:35 | P.PN ---
Progress Note - Text Progress Note Date: 07/05/19 Chief Complaint: Less responsive History of presenting complaint: This is a 54-year-old patient was currently a resident of ECF at [facility].. Chronic stable medical conditions include diabetes, GERD, osteoarthritis, sleep apnea uses CPAP, hypothyroid, cerebral palsy, peripheral neuropathy, kidney stones, moderate persistent asthma, home oxygen, seizure disorder, chronic lumbar spinal stenosis, schizoaffective disorder, chronic urinary incontinence. Patient is normally. Alert and oriented 3. ECF call the EMS because patient was less responsive. Barely communicating. Per the ER notes. The patient. Communicated. When I came to see the patient patient said hello but then he would not really also by questions to she followed me with her eyes. She appeared comfortable otherwise. Admitted with pneumonia Today-spoke to nurse. Patient did eat a bit. Also took her medications. Patient only spoke briefly to the psychiatrist. Give more history to the neurologist. Greeted me when I came to the room. That did speak to be. Review of systems I could not obtain from the patient. Active Medications Acetaminophen (Tylenol Tab) 500 mg PO Q6HR PRN PRN Reason: MILD Pain Acetaminophen/Butalbital/Caffeine (Fioricet 50-325-40) 1 each PO Q4HR PRN PRN Reason: Headache Amlodipine Besylate (Norvasc) 10 mg PO DAILY [facility] Last Admin: 07/05/19 07:59 Dose: 10 mg Documented by: Atorvastatin Calcium (Lipitor) 10 mg PO HS [facility] Last Admin: 07/05/19 20:44 Dose: 10 mg Documented by: Budesonide (Pulmicort) 0.5 mg INHALATION RT-BID [facility] Last Admin: 07/05/19 19:52 Dose: 0.5 mg Documented by: Cephalexin (Keflex) 250 mg PO TID [facility] Last Admin: 07/05/19 20:45 Dose: 250 mg Documented by: Cholecalciferol (Vitamin D3 (25 Mcg = 1000 Iu)) 3,000 unit PO DAILY [facility] Last Admin: 07/05/19 07:59 Dose: 3,000 unit Documented by: Citalopram Hydrobromide (Celexa) 20 mg PO DAILY [facility] Last Admin: 07/05/19 07:59 Dose: 20 mg Documented by: Dicyclomine HCl (Bentyl) 20 mg PO Q6H PRN PRN Reason: IBS Gabapentin (Neurontin) 100 mg PO Q6HR [facility] Last Admin: 07/05/19 17:02 Dose: Not Given Documented by: Glipizide (Glucotrol) 5 mg PO BID [facility] Last Admin: 07/05/19 20:44 Dose: 5 mg Documented by: Levetiracetam (Keppra) 750 mg PO BID [facility] Last Admin: 07/05/19 20:44 Dose: 750 mg Documented by: Levothyroxine Sodium (Synthroid) 250 mcg PO DAILY@0630 [facility] Last Admin: 07/05/19 07:59 Dose: 250 mcg Documented by: Lisinopril (Zestril) 5 mg PO DAILY [facility] Last Admin: 07/05/19 07:59 Dose: 5 mg Documented by: Loratadine (Claritin) 10 mg PO DAILY PRN PRN Reason: Allergy Symptoms Melatonin (Melatonin) 5 mg PO [facility] Last Admin: 07/05/19 20:44 Dose: 5 mg Documented by: Miscellaneous Information (Pneumonia Protocol Utilized) 1 each PO ONCE PRN PRN Reason: Per Protocol Oxybutynin Chloride (Ditropan Xl) 10 mg PO DAILY [facility] Last Admin: 07/05/19 07:59 Dose: 10 mg Documented by: Oxycodone/Acetaminophen (Percocet 5-325) 1 each PO DAILY PRN PRN Reason: SEVERE Pain Pantoprazole Sodium (Protonix) 40 mg PO AC-BRKFST [facility] Last Admin: 07/05/19 07:59 Dose: 40 mg Documented by: Promethazine HCl (Phenergan) 25 mg PO Q6H PRN PRN Reason: Nausea Senna/Docusate Sodium (Senokot-S) 1 each PO BID [facility] Last Admin: 07/05/19 20:44 Dose: 1 each Documented by: Tizanidine HCl (Zanaflex) 2 mg PO DAILY PRN PRN Reason: MUSCLE WEAKNESS Ziprasidone (Geodon) 20 mg PO [facility] Last Admin: 07/05/19 20:45 Dose: 20 mg Documented by: Physical examination: VITAL SIGNS: 97.6, 89, 16, 137 / 81, 96% on 4 L GENERAL: Awake, did not talk to me, except for initial treating EYES: Pupils equal. Conjunctiva normal. HEENT: External appearance of nose and ears normal, oral cavity grossly normal. NECK: JVD unable to assess, mass not palpable. HEART: Heart sounds distant no edema. LUNGS: Respiratory rate normal; diminished breath sounds. ABDOMEN: Soft, nontender, liver spleen not palpable, no masses palpable. PSYCH: Was unable to assess NEUROLOGICAL: No facial asymmetry, only spoke couple of words and greeted me. INVESTIGATIONS, reviewed in the clinical context: White count 11.9 hemoglobin 13.7 potassium 4.2 creatinine 0.44 ProBNP 161 TSH 5.0 free T4 1 0.57 free T3 2 0.7 UA negative for leukoesterase and nitrite Urine drug screen positive for opiates and barbiturates EKG tracing personally reviewed by me-normal sinus rhythm Computed tomography scan of the brain-Acute some incidental finding of exophthalmos Chest x-ray film-personally reviewed by me shows some underpenetration and possible infiltrate versus vascular congestion Assessment: -Questionable pneumonia in a patient was checks x-ray shows possible infiltrates, and the patient was less responsive barely talking no obvious fevers, was slightly elevated white count -Psychogenic muteness as per neurology which I agree, however, sensation is selective. She speaks. -Diabetes mellitus type 2 -GERD -Primary osteoarthritis -Obstructive sleep apnea uses CPAP -Hypothyroid -Chronic cerebral palsy -diabetic peripheral neuropathy -Moderate persistent asthma -Chronic hypoxic respiratory failure on 3 L oxygen at the time and 5 L at night -Chronic seizure disorder -Chronic lumbar spinal stenosis Schizoaffective disorder -Chronic urinary incontinence Plan: Patient had earlier poor IV access. Ceftriaxone is being switched over to Keflex. Psychiatry was ordered one-to-one sitter. Patient's been taking her medications. Patient hasn't be discharged back to snf or go to the psychiatry unit depending on further evaluation by psychiatry, tomorrow,
[2019-07-06] MEDS: GABAPENTIN 100 MG CAP PO SCH ×3 (05:42→16:59)
[2019-07-06] MEDS: LEVOTHYROXINE 125 MCG TAB PO SCH (05:42)
[2019-07-06 06:54] LABS: Glucose,Whole Blood 111 mg/dL (75-99)
[2019-07-06] MEDS: BUDESONIDE 0.5 MG/2 ML NEBU INHALATION SCH ×2 (07:28→20:11)
[2019-07-06] MEDS: CHOLECALCIFEROL 1,000 UNIT TAB PO SCH (07:58)
[2019-07-06] MEDS: OXYBUTYNIN 10 MG TAB.ER.24 PO SCH (07:58)
[2019-07-06] MEDS: SENNOSIDES-DOCUSATE SODIUM 1 EACH TAB PO SCH ×2 (07:58→20:26)
[2019-07-06] MEDS: CEPHALEXIN 250 MG CAP PO SCH ×3 (07:58→20:27)
[2019-07-06] MEDS: LISINOPRIL 5 MG TAB PO SCH (07:58)
[2019-07-06] MEDS: amLODIPine 10 MG TAB PO SCH (07:58)
[2019-07-06] MEDS: CITALOPRAM HYDROBROMIDE 20 MG TAB PO SCH (07:58)
[2019-07-06] MEDS: glipiZIDE 5 MG TAB PO SCH ×2 (07:58→20:26)
[2019-07-06] MEDS: PANTOPRAZOLE 40 MG TABLET PO SCH (07:58)
[2019-07-06 11:52] LABS: Glucose,Whole Blood 58 mg/dL (75-99)
[2019-07-06 11:57] LABS: Glucose,Whole Blood 64 mg/dL (75-99)
[2019-07-06 12:20] LABS: Glucose,Whole Blood 101 mg/dL (75-99)
--- NOTE | 2019-07-06 14:08 | P.CON ---
Consult Note - . Consult date: 07/06/19 Assessment/Plan:: The patient was seen as follow up psychiatric consult. Subjective: The patient was admitted to medical floor due to altered mental status. The patient was [facility] less responsive and he barely communicating. Patient has stable medical conditions include diabetes, GERD, osteoarthritis, sleep apnea uses CPAP, hypothyroid, cerebral palsy, peripheral neuropathy, kidney stones, moderate persistent asthma, home oxygen, seizure disorder, chronic lumbar spinal stenosis, schizoaffective disorder, chronic urinary incontinence. The patient is normally alert and oriented. Patient was evaluated today for psychiatric clearance and she continued to be nonverbal and barely communicating. She answered a question about her name, but she didn't answer any question about suicidal or homicidal thoughts. The patient didn't answer any question about hallucinations and she continued to respond eye staring which could. Presentation of psychotic behavior. As per chart review, the patient continued to be very minimally communicating with the treatment team and at this point no information to make a decision that the patient is psychiatrically cleared to continue outpatient treatment. Mental status examination: The patient appears stated age, not well groomed, dressed in hospital gown, apparently morbid obesity. Gait was not assessed because the patient was lying in bed with no abnormal movements noticed. The patient was not cooperative and she didn't answer any question besides her name. Her eye contact was staring with no response to questions. No abnormal psychomotor activity, and most probably the patient chooses to not respond. Mood not reported, and the patient affect is very restricted to flat. Thought form and thought content was not assessed, but no report report or deny delusions, suicidal or homicidal thoughts. No report to support or deny perceptual problems or disturbances as hallucinations. Attention, patient responded to calling her name but she didn't answer any question about orientation. Insight and judgment are limited. Assessment: Unspecified mood disorder. Schizo-affective disorder by history Rule out Catatonic state. Recommendations: Obtain more collateral information from her residence about any social stress could provoke this behavior. Recommended to keep the patient on one to one observation. Patient needs further monitoring and assessment so the patient is candidate for transfer to inpatient psychiatry. Medication management: Continue current psychiatric medications as the patient has been been maintained on them prior to admission. Celexa 20 mg daily, and Geodon 20 mg at bedtime. Discussed the treatment plan with the requesting physician/service. Thank you for permitting me to assist in this patient's treatment.
[2019-07-06 16:59] LABS: Glucose,Whole Blood 219 mg/dL (75-99)
--- NOTE | 2019-07-06 17:34 | P.PN ---
Subjective Progress Note Date: 07/06/19 Patient is laying comfortably in the bed. Offers no new complaints. Today appears to have more flat affect. She did answer a few questions. Still with numbness of the left side of the body, which is chronic. Objective - Vital Signs Vital signs: Vital Signs Temp 98.0 F 07/06/19 13:00 Pulse 79 07/06/19 13:00 Resp 16 07/06/19 13:00 BP 104/66 07/06/19 13:00 Pulse Ox 97 07/06/19 13:00 Intake & Output 07/05/19 07/06/19 07/06/19 18:59 06:59 18:59 Intake Total 240 100 Balance 240 100 Weight 123 kg Intake: Oral 240 100 Other: # Voids 3 0 1 # Bowel Movements 1 1 - Exam Essentially unchanged. - Labs CBC & Chem 7: 07/05/19 08:38 07/04/19 07:30 Labs: Abnormal Lab Results - Last 24 Hours (Table) 07/05/19 07/06/19 07/06/19 Range/Units 20:59 06:51 11:45 POC Glucose (mg/dL) 145 H 111 H 58 L (75-99) mg/dL 07/06/19 07/06/19 07/06/19 Range/Units 11:55 12:19 16:57 POC Glucose (mg/dL) 64 L 101 H 219 H (75-99) mg/dL Microbiology - Last 24 Hours (Table) 07/04/19 13:34 Blood Culture - Preliminary Blood No Growth after 48 hours Assessment and Plan Assessment: * Altered mental status, with nonverbal state, now resolved. Patient able to speak normally, provided history and was examined as mentioned above in detail. Patient probably has psychogenic muteness at times. * Schizoaffective disorder * History of cerebral palsy. * Seizure disorder, on Keppra 750 mg twice a day * Osteoarthritis Plan: * Her intermittent speech impediment is likely psychogenic. Psychiatry on board. * Patient has history of seizure disorder, currently on Keppra 750 mg twice a day. May consider switching to another antiepileptic medication, as Keppra sometimes can be associated with behavioral problems. Patient follows up with Dr. Sun, who can possibly switch to another antiepileptic medication, who knows her history in detail. Patient could not tell me when was her last seizure however. * We'll check B12, folate. * Neurologically clear otherwise.
[2019-07-06] MEDS: ATORVASTATIN 10 MG TAB PO SCH (20:26)
[2019-07-06] MEDS: MELATONIN 5 MG TABLET PO SCH (20:26)
[2019-07-06] MEDS: ZIPRASIDONE 20 MG CAP PO SCH (20:27)
[2019-07-06] MEDS: ACETAMINOPHEN TAB 500 MG TAB PO PRN (20:35)
[2019-07-06 20:53] LABS: Glucose,Whole Blood 123 mg/dL (75-99)
--- NOTE | 2019-07-06 22:23 | P.PN ---
Progress Note - Text Progress Note Date: 07/06/19 Chief Complaint: Less responsive History of presenting complaint: This is a 54-year-old patient was currently a resident of ECF at [facility].. Chronic stable medical conditions include diabetes, GERD, osteoarthritis, sleep apnea uses CPAP, hypothyroid, cerebral palsy, peripheral neuropathy, kidney stones, moderate persistent asthma, home oxygen, seizure disorder, chronic lumbar spinal stenosis, schizoaffective disorder, chronic urinary incontinence. Patient is normally. Alert and oriented 3. ECF call the EMS because patient was less responsive. Barely communicating. Per the ER notes. The patient. Communicated. When I came to see the patient patient said hello but then he would not really also by questions to she followed me with her eyes. She appeared comfortable otherwise. Admitted with pneumonia, psychogenic mutism Today-patient ate well. tool all her medications. Did communicate well to the nurse. Review of systems attempted Active Medications Acetaminophen (Tylenol Tab) 500 mg PO Q6HR PRN PRN Reason: MILD Pain Last Admin: 07/06/19 20:35 Dose: 500 mg Documented by: Acetaminophen/Butalbital/Caffeine (Fioricet 50-325-40) 1 each PO Q4HR PRN PRN Reason: Headache Amlodipine Besylate (Norvasc) 10 mg PO DAILY [facility] Last Admin: 07/06/19 07:58 Dose: 10 mg Documented by: Atorvastatin Calcium (Lipitor) 10 mg PO HS [facility] Last Admin: 07/06/19 20:26 Dose: 10 mg Documented by: Budesonide (Pulmicort) 0.5 mg INHALATION RT-BID [facility] Last Admin: 07/06/19 20:11 Dose: Not Given Documented by: Cephalexin (Keflex) 250 mg PO TID [facility] Last Admin: 07/06/19 20:27 Dose: 250 mg Documented by: Cholecalciferol (Vitamin D3 (25 Mcg = 1000 Iu)) 3,000 unit PO DAILY [facility] Last Admin: 07/06/19 07:58 Dose: 3,000 unit Documented by: Citalopram Hydrobromide (Celexa) 20 mg PO DAILY [facility] Last Admin: 07/06/19 07:58 Dose: 20 mg Documented by: Dicyclomine HCl (Bentyl) 20 mg PO Q6H PRN PRN Reason: IBS Gabapentin (Neurontin) 100 mg PO Q6HR [facility] Last Admin: 07/06/19 16:59 Dose: 100 mg Documented by: Glipizide (Glucotrol) 5 mg PO BID [facility] Last Admin: 07/06/19 20:26 Dose: 5 mg Documented by: Levetiracetam (Keppra) 750 mg PO BID [facility] Last Admin: 07/06/19 20:27 Dose: 750 mg Documented by: Levothyroxine Sodium (Synthroid) 250 mcg PO DAILY@0630 [facility] Last Admin: 07/06/19 05:42 Dose: 250 mcg Documented by: Lisinopril (Zestril) 5 mg PO DAILY [facility] Last Admin: 07/06/19 07:58 Dose: 5 mg Documented by: Loratadine (Claritin) 10 mg PO DAILY PRN PRN Reason: Allergy Symptoms Melatonin (Melatonin) 5 mg PO [facility] Last Admin: 07/06/19 20:26 Dose: 5 mg Documented by: Miscellaneous Information (Pneumonia Protocol Utilized) 1 each PO ONCE PRN PRN Reason: Per Protocol Oxybutynin Chloride (Ditropan Xl) 10 mg PO DAILY [facility] Last Admin: 07/06/19 07:58 Dose: 10 mg Documented by: Oxycodone/Acetaminophen (Percocet 5-325) 1 each PO DAILY PRN PRN Reason: SEVERE Pain Pantoprazole Sodium (Protonix) 40 mg PO AC-BRKFST [facility] Last Admin: 07/06/19 07:58 Dose: 40 mg Documented by: Promethazine HCl (Phenergan) 25 mg PO Q6H PRN PRN Reason: Nausea Senna/Docusate Sodium (Senokot-S) 1 each PO BID [facility] Last Admin: 07/06/19 20:26 Dose: 1 each Documented by: Tizanidine HCl (Zanaflex) 2 mg PO DAILY PRN PRN Reason: MUSCLE WEAKNESS Ziprasidone (Geodon) 20 mg PO [facility] Last Admin: 07/06/19 20:27 Dose: 20 mg Documented by: Physical examination: VITAL SIGNS: 98, 79, 16, 104/66, 97% on 4 L GENERAL: Awake, answering questions EYES: Pupils equal. Conjunctiva normal. HEENT: External appearance of nose and ears normal, oral cavity grossly normal. NECK: JVD unable to assess, mass not palpable. HEART: Heart sounds distant no edema. LUNGS: Respiratory rate normal; diminished breath sounds. ABDOMEN: Soft, nontender, liver spleen not palpable, no masses palpable. PSYCH: Answering simple questions NEUROLOGICAL: No facial asymmetry, only spoke couple of words and greeted me. INVESTIGATIONS, reviewed in the clinical context: White count 11.9 hemoglobin 13.7 potassium 4.2 creatinine 0.44 ProBNP 161 TSH 5.0 free T4 1 0.57 free T3 2 0.7 UA negative for leukoesterase and nitrite Urine drug screen positive for opiates and barbiturates EKG tracing personally reviewed by me-normal sinus rhythm Computed tomography scan of the brain-Acute some incidental finding of exophthalmos Chest x-ray film-personally reviewed by me shows some underpenetration and possible infiltrate versus vascular congestion Assessment: -Possible pneumonia in a patient was checks x-ray shows possible infiltrates, and the patient was less responsive barely talking no obvious fevers, was slightly elevated white count -Psychogenic muteness -Diabetes mellitus type 2 -GERD -Primary osteoarthritis -Obstructive sleep apnea uses CPAP -Hypothyroid -Chronic cerebral palsy -diabetic peripheral neuropathy -Moderate persistent asthma -Chronic hypoxic respiratory failure on 3 L oxygen at the time and 5 L at night -Chronic seizure disorder -Chronic lumbar spinal stenosis Schizoaffective disorder -Chronic urinary incontinence Plan: Spoke to from psychiatry. This afternoon. He will take the patient daughter the psychiatry unit. Late in the evening I was called to nurse that because patient oxygen and needs one-to-one care she cannot go down. Awaiting further input from 3 W. psychiatry unit. Discharge was canceled.
[2019-07-07] MEDS: GABAPENTIN 100 MG CAP PO SCH ×3 (00:11→12:03)
[2019-07-07 02:35] LABS: Folate, Serum 19.4 ng/mL
[2019-07-07] MEDS: ACETAMINOPHEN TAB 500 MG TAB PO PRN (05:38)
[2019-07-07] MEDS: LEVOTHYROXINE 125 MCG TAB PO SCH (05:38)
[2019-07-07 06:49] VITALS: RESP 18
[2019-07-07 07:20] LABS: Glucose,Whole Blood 135 mg/dL (75-99)
[2019-07-07] MEDS: BUDESONIDE 0.5 MG/2 ML NEBU INHALATION SCH (07:54)
[2019-07-07] MEDS: SENNOSIDES-DOCUSATE SODIUM 1 EACH TAB PO SCH (08:18)
[2019-07-07] MEDS: CHOLECALCIFEROL 1,000 UNIT TAB PO SCH (08:18)
[2019-07-07] MEDS: glipiZIDE 5 MG TAB PO SCH (08:18)
[2019-07-07] MEDS: amLODIPine 10 MG TAB PO SCH (08:19)
[2019-07-07] MEDS: CITALOPRAM HYDROBROMIDE 20 MG TAB PO SCH (08:19)
[2019-07-07] MEDS: PANTOPRAZOLE 40 MG TABLET PO SCH (08:19)
[2019-07-07] MEDS: LISINOPRIL 5 MG TAB PO SCH (08:19)
[2019-07-07] MEDS: OXYBUTYNIN 10 MG TAB.ER.24 PO SCH (12:03)
[2019-07-07] MEDS: CEPHALEXIN 250 MG CAP PO SCH (12:03)
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
[2019-07-07 12:31] LABS: Glucose,Whole Blood 213 mg/dL (75-99)
[2019-07-07 14:20] VITALS: BP 115/56; PULSE 74; TEMP 97.8
== END 2019-07-07 15:50 | DRG 178 ==
LOC: EC 07:22 → 3NMEDONC 12:46 → 4MS4W 14:31
PROVIDERS: ADMIT Hospitalist; ATTEND Hospitalist
DX: J15.6 Pneumonia due to other Gram-negative bacteria (principal); Z68.43 Body mass index [BMI] 50.0-59.9, adult; J44.0 Chronic obstructive pulmonary disease with (acute) lower respiratory infection; J96.11 Chronic respiratory failure with hypoxia; R47.01 Aphasia; F25.9 Schizoaffective disorder, unspecified; E03.9 Hypothyroidism, unspecified; E11.41 Type 2 diabetes mellitus with diabetic mononeuropathy; E11.42 Type 2 diabetes mellitus with diabetic polyneuropathy; E11.51 Type 2 diabetes mellitus with diabetic peripheral angiopathy without gangrene; E66.01 Morbid (severe) obesity due to excess calories; E78.5 Hyperlipidemia, unspecified; F39 Unspecified mood [affective] disorder; G40.909 Epilepsy, unspecified, not intractable, without status epilepticus; G47.33 Obstructive sleep apnea (adult) (pediatric); I50.9 Heart failure, unspecified; J45.40 Moderate persistent asthma, uncomplicated; K21.9 Gastro-esophageal reflux disease without esophagitis; K58.9 Irritable bowel syndrome, unspecified; M19.91 Primary osteoarthritis, unspecified site; M48.061 Spinal stenosis, lumbar region without neurogenic claudication; N20.0 Calculus of kidney; N32.81 Overactive bladder; R32 Unspecified urinary incontinence; G80.9 Cerebral palsy, unspecified; G89.4 Chronic pain syndrome; I11.0 Hypertensive heart disease with heart failure; I27.20 Pulmonary hypertension, unspecified; Z99.89 Dependence on other enabling machines and devices; Z79.84 Long term (current) use of oral hypoglycemic drugs; Z79.890 Hormone replacement therapy; Z79.899 Other long term (current) drug therapy; Z83.3 Family history of diabetes mellitus; Z87.442 Personal history of urinary calculi; Z87.891 Personal history of nicotine dependence; Z90.49 Acquired absence of other specified parts of digestive tract; Z98.890 Other specified postprocedural states; Z88.8 Allergy status to other drugs, medicaments and biological substances; Z88.6 Allergy status to analgesic agent; Z88.1 Allergy status to other antibiotic agents; Z91.041 Radiographic dye allergy status; Z91.040 Latex allergy status; Z91.011 Allergy to milk products; Z88.5 Allergy status to narcotic agent; Z88.0 Allergy status to penicillin; Z91.013 Allergy to seafood
CPT/HCPCS: 36415; 70450; 71046; 80053; 80177; 80306; 80320; 81001; 82607; 82746; 83605; 83735; 83880; 84145; 84439; 84443; 84481; 84484; 85025; 85027; 85610; 85730; 87040; 93005; 94640; 95816; 96361; 96365; 99291

== ENCOUNTER 2019-07-11 12:57 | Emergency (ER) | payer MEDICARE, OTHER ==
[2019-07-11] MEDS ORDERED: SODIUM CHLORIDE 0.9% 500 ML 500 ML IV ONE (13:26)
[2019-07-11 13:46] LABS: Glucose,Whole Blood 158 mg/dL (75-99)
[2019-07-11 13:50] LABS: Basophils # (A) 0.2 k/uL (0-0.2); Basophils % (A) 2 %; Eosinophils # (A) 0.2 k/uL (0-0.7); Eosinophils % (A) 2 %; HCT 42.9 % (34.0-46.0); HGB 13.9 gm/dL (11.4-16.0); Lymphocytes # (A) 1.5 k/uL (1.0-4.8); Lymphocytes % (A) 15 %; MCH 28.1 pg (25.0-35.0); MCHC 32.4 g/dL (31.0-37.0); MCV 86.8 fL (80.0-100.0); Mean Platelet Volume 7.3; Monocytes # (A) 0.4 k/uL (0-1.0); Monocytes % (A) 4 %; Neutrophils # (A) 7.5 k/uL (1.3-7.7); Neutrophils % (A) 75 %; Platelet Count 324 k/uL (150-450); RBC 4.95 m/uL (3.80-5.40); RDW 14.6 % (11.5-15.5)
--- NOTE | 2019-07-11 13:51 | ED ---
General Adult HPI - General Source: patient, RN notes reviewed, old records reviewed Mode of arrival: EMS Limitations: no limitations <Mateo Dodd - Last Filed: 07/11/19 16:28> <Mateo Arita - Last Filed: 07/11/19 20:45> - General Chief complaint: Psychiatric Symptoms Stated complaint: Mental Health Time Seen by Provider: 07/11/19 13:00 - History of Present Illness Initial comments: This is a 54-year-old female who was sent in from medical [place] for altered mental status. According to staff they stated this occurs in a regular basis where she refuses to speak and they seem to think this is altered mental status so they sent her into the emergency department. Patient refuses to speak to any of us at this time and initially refused to even open her eyes. When I opened her eyes for her and she kept them open and looked around the room but refused to talk to us. No one is with the patient had no further history at this time. (Mateo Dodd) - Related Data Home Medications Medication Instructions Recorded Confirmed Dicyclomine [Bentyl] 20 mg PO Q6H PRN 10/08/14 07/11/19 levETIRAcetam [Keppra] 750 mg PO BID 10/08/14 07/11/19 Budesonide [Pulmicort] 0.5 mg INHALATION RT-BID 10/20/16 07/11/19 Levothyroxine Sodium [Synthroid] 50 mcg PO HS 10/20/16 07/11/19 amLODIPine [Norvasc] 10 mg PO DAILY 10/20/16 07/11/19 tiZANidine [Zanaflex] 2 mg PO DAILY PRN 10/20/16 07/11/19 Acetaminophen Tab [Tylenol] 500 mg PO Q6HR PRN 04/20/19 07/11/19 Atorvastatin [Lipitor] 10 mg PO HS 04/20/19 07/11/19 Butalb/Asprin/Caff 50-325-40Mg 1 cap PO Q4HR PRN 04/20/19 07/11/19 [Fiorinal 50-325-40 MG] Cholecalciferol (Vitamin D3) 2,000 unit PO DAILY 04/20/19 07/11/19 [Vitamin D3] Citalopram Hydrobromide [CeleXA] 20 mg PO DAILY 04/20/19 07/11/19 Ketoconazole [Ketoconazole 2%] 1 applic TOPICAL Q8H PRN 04/20/19 07/11/19 Lisinopril [Zestril] 5 mg PO DAILY 04/20/19 07/11/19 Melatonin 5 mg PO HS 04/20/19 07/11/19 Oxybutynin Chloride [Oxybutynin 10 mg PO DAILY 04/20/19 07/11/19 Chloride ER] Promethazine [Phenergan] 25 mg PO Q6H PRN 04/20/19 07/11/19 Sennosides-Docusate Sodium 1 tab PO BID@0800,1600 04/20/19 07/11/19 [Senokot-S] Cholecalciferol [Vitamin D3 (25 1,000 unit PO DAILY 07/04/19 07/11/19 Mcg = 1000 Iu)] Levothyroxine Sodium [Synthroid] 200 mcg PO HS 07/04/19 07/11/19 glipiZIDE XL [Glucotrol XL] 10 mg PO DAILY 07/04/19 07/11/19 Omeprazole [PriLOSEC] 20 mg PO HS 07/11/19 07/11/19 Previous Rx's Medication Instructions Recorded Cephalexin [Keflex] 250 mg PO Q8HR #6 capsule 07/07/19 Gabapentin [Neurontin] 100 mg PO Q6H #12 cap 07/07/19 Ziprasidone [Geodon] 20 mg PO HS #3 cap 07/07/19 Allergies Allergy/AdvReac Type Severity Reaction Status Date / Time Fish Containing Products Allergy Unknown Swelling Verified 07/11/19 14:25 [Fish] butalbital [From Fiorinal] Allergy Unknown Verified 07/11/19 14:35 caffeine [From Fiorinal] Allergy Unknown Verified 07/11/19 14:35 cimetidine [From Tagamet] Allergy Unknown Verified 07/11/19 14:25 cimetidine HCl [From Tagamet] Allergy Unknown Verified 07/11/19 14:25 codeine Allergy Unknown Verified 07/11/19 14:25 dichloralphenazone Allergy Unknown Verified 07/11/19 14:25 [From Midrin] diphenhydramine HCl Allergy Unknown Verified 07/11/19 14:25 [From Benadryl] heparin Allergy Rash/Hives Verified 07/11/19 14:25 indomethacin [From Indocin] Allergy Unknown Verified 07/11/19 14:25 indomethacin sodium Allergy Unknown Verified 07/11/19 14:25 [From Indocin] iodine Allergy Swelling Verified 07/11/19 14:25 isometheptene mucate Allergy Unknown Verified 07/11/19 14:25 [From Midrin] lactose Allergy Unknown Verified 07/11/19 14:25 latex Allergy Anaphylaxis Verified 07/11/19 14:25 Macrolide Antibiotics Allergy Unknown Verified 07/11/19 14:25 nystatin Allergy Rash/Hives Verified 07/11/19 14:25 Penicillins Allergy Unknown Verified 07/11/19 14:25 propoxyphene HCl Allergy Unknown Verified 07/11/19 14:25 [From Darvon] shellfish derived [Shellfish] Allergy Swelling Verified 07/11/19 14:25 theophylline anhydrous Allergy Unknown Verified 07/11/19 14:25 [From [place]] Review of Systems ROS Other: All systems not noted in ROS Statement are negative. <Mateo Dodd - Last Filed: 07/11/19 16:28> ROS Other: All systems not noted in ROS Statement are negative. <Mateo Arita - Last Filed: 07/11/19 20:45> ROS Statement: Those systems with pertinent positive or pertinent negative responses have been documented in the HPI. Past Medical History Past Medical History: Asthma, Heart Failure, COPD, Diabetes Mellitus, Eye Disorder, GERD/Reflux, Hyperlipidemia, Hypertension, Osteoarthritis (OA), Pn eumonia, Renal Disease, Respiratory Disorder, Seizure Disorder, Sleep Apnea/CPAP/BIPAP, Thyroid Disorder Additional Past Medical History / Comment(s): Cerebral palsey, borderline intelectual functioning, spinal stenosis, muscle spasms in back, weakness, NIDDM type II, peripheral neuropathy bilateral hands/feet, chronic respiratory failure with O2 ATC, pulmonary htn, DESTINEE with cpap, generalized chronic pain, UTIs, CKD stageII, nephrolithiasis, incontinence or urine/stool, overactive bladder, IBS, constipation/diarrhea, hypothyroid, ulcer, glaucoma, allergic rhinitis, vitamin D deficiency, insomnia. History of Any Multi-Drug Resistant Organisms: MRSA Date of last positivie culture/infection: 2008 MDRO Source:: foot Past Surgical History: Back Surgery, Cholecystectomy Additional Past Surgical History / Comment(s): Spinal surgery x2, spinal st imulator 2-2017, bilateral eye surgery for muscle repair, rt shoulder arthroscopy, rmo carpal tunnel releases, cyst removed from wrist, EGD, colonoscopy Past Anesthesia/Blood Transfusion Reactions: Motion Sickness, Postoperative Nausea & Vomiting (PONV) Past Psychological History: Depression, Schizoaffective Disorder Smoking Status: Former smoker - Past Family History Father Family Medical History: No Reported History Mother Family Medical History: Diabetes Mellitus <aMteo Dodd - Last Filed: 07/11/19 16:28> General Exam Limitations: no limitations <Mateo Dodd - Last Filed: 07/11/19 16:28> General appearance: alert, in no apparent distress Head exam: Present: atraumatic, normocephalic, normal inspection Eye exam: Present: normal appearance, PERRL, EOMI. Absent: scleral icterus, conjunctival injection, periorbital swelling ENT exam: Present: normal exam, mucous membranes moist Neck exam: Present: normal inspection. Absent: tenderness, meningismus, lymphadenopathy Respiratory exam: Present: normal lung sounds bilaterally. Absent: respiratory distress, wheezes, rales, rhonchi, stridor Cardiovascular Exam: Present: regular rate, normal rhythm, normal heart sounds. Absent: systolic murmur, diastolic murmur, rubs, gallop, clicks GI/Abdominal exam: Present: soft, normal bowel sounds. Absent: distended, tenderness, guarding, rebound, rigid Extremities exam: Present: normal inspection, full ROM, normal capillary refill. Absent: tenderness, pedal edema, joint swelling, calf tenderness Back exam: Present: normal inspection Neurological exam: Present: alert, oriented X3, CN II-XII intact Psychiatric exam: Present: normal affect, normal mood Skin exam: Present: warm, dry, intact, normal color. Absent: rash <Mateo Arita - Last Filed: 07/11/19 20:45> - General Exam Comments Initial Comments: GENERAL: Patient is well-developed and well-nourished. Patient is nontoxic and well- hydrated and is in no acute distress. ENT: Neck is soft and supple. No significant lymphadenopathy is noted. Oropharynx is clear. Moist mucous membranes. Neck has full range of motion without eliciting any pain. EYES: The sclera were anicteric and conjunctiva were pink and moist. Extraocular movements were intact and pupils were equal round and reactive to light. Eyelids were unremarkable. PULMONARY: Unlabored respirations. Good breath sounds bilaterally. No audible rales rhonchi or wheezing was noted. CARDIOVASCULAR: There is a regular rate and rhythm without any murmurs gallops or rubs. ABDOMEN: Soft and nontender with normal bowel sounds. No palpable organomegaly was noted. There is no palpable pulsatile mass. SKIN: Skin is clear with no lesions or rashes and otherwise unremarkable. NEUROLOGIC: Patient is alert and oriented unable to assess because she will not speak to us. Cranial nerves II through XII are grossly intact. MUSCULOSKELETAL: Normal extremities with adequate strength and full range of motion. No lower extremity swelling or edema. No calf tenderness. LYMPHATICS: No significant lymphadenopathy is noted PSYCHIATRIC: Unable to assess since patient will not talk to us (Mateo Dodd) Course Vital Signs 07/11/19 07/11/19 07/11/19 13:11 15:38 18:10 Pulse Rate 102 H 98 104 H Respiratory 18 18 18 Rate Blood Pressure 188/54 181/91 181/85 O2 Sat by Pulse 96 92 L 94 L Oximetry EKG Findings - EKG Comments: EKG Findings:: EKG shows sinus tachycardia rate of 101, by mouth 166, QRS 92, QTC 479 <Mateo Arita - Last Filed: 07/11/19 20:45> Medical Decision Making - Lab Data Result diagrams: 07/11/19 13:36 07/11/19 13:36 <Mateo Dodd - Last Filed: 07/11/19 16:28> - Lab Data Result diagrams: 07/11/19 13:36 07/11/19 13:36 <Mateo Arita - Last Filed: 07/11/19 20:45> - Medical Decision Making Dr. Avila, taking over the care of this patient at 5 PM (Mateo Dodd) 54 female seeing and evaluated by psychiatry, patient is ok for discharg. (Mateo Arita) - Lab Data Lab Results 07/11/19 07/11/19 07/11/19 Range/Units 13:36 13:36 13:36 WBC 10.0 (3.8-10.6) k/uL RBC 4.95 (3.80-5.40) m/uL Hgb 13.9 (11.4-16.0) gm/dL Hct 42.9 (34.0-46.0) % MCV 86.8 (80.0-100.0) fL MCH 28.1 (25.0-35.0) pg MCHC 32.4 (31.0-37.0) g/dL RDW 14.6 (11.5-15.5) % Plt Count 324 (150-450) k/uL Neutrophils % 75 % Lymphocytes % 15 % Monocytes % 4 % Eosinophils % 2 % Basophils % 2 % Neutrophils # 7.5 (1.3-7.7) k/uL Lymphocytes # 1.5 (1.0-4.8) k/uL Monocytes # 0.4 (0-1.0) k/uL Eosinophils # 0.2 (0-0.7) k/uL Basophils # 0.2 (0-0.2) k/uL PT 10.4 (9.0-12.0) sec INR 1.0 (<1.2) APTT 23.9 (22.0-30.0) sec Sodium 138 (137-145) mmol/L Potassium 4.8 (3.5-5.1) mmol/L Chloride 98 (98-107) mmol/L Carbon Dioxide 29 (22-30) mmol/L Anion Gap 11 mmol/L BUN 14 (7-17) mg/dL Creatinine 0.48 L (0.52-1.04) mg/dL Est GFR (CKD-EPI)AfAm >90 (>60 ml/min/1.73 sqM) Est GFR (CKD-EPI)NonAf >90 (>60 ml/min/1.73 sqM) Glucose 164 H (74-99) mg/dL POC Glucose (mg/dL) (75-99) mg/dL POC Glu Director Corporate ID Calcium 9.9 (8.4-10.2) mg/dL Total Bilirubin 0.7 (0.2-1.3) mg/dL AST 32 (14-36) U/L ALT 45 (9-52) U/L Alkaline Phosphatase 127 H (38-126) U/L Troponin I (0.000-0.034) ng/mL Total Protein 8.5 H (6.3-8.2) g/dL Albumin 4.5 (3.5-5.0) g/dL Urine Color Urine Appearance (Clear) Urine pH (5.0-8.0) Ur Specific [place] (1.001-1.035) Urine Protein (Negative) Urine Glucose (UA) (Negative) Urine Ketones (Negative) Urine Blood (Negative) Urine Nitrite (Negative) Urine Bilirubin (Negative) Urine Urobilinogen (<2.0) mg/dL Ur Leukocyte Esterase (Negative) Urine RBC (0-5) /hpf Urine WBC (0-5) /hpf Ur Squamous Epith Cells (0-4) /hpf Urine Mucus (None) /hpf Urine Opiates Screen (NotDetected) Ur Oxycodone Screen (NotDetected) Urine Methadone Screen (NotDetected) Ur Propoxyphene Screen (NotDetected) Ur Barbiturates Screen (NotDetected) U Tricyclic Antidepress (NotDetected) Ur Phencyclidine Scrn (NotDetected) Ur Amphetamines Screen (NotDetected) U Methamphetamines Scrn (NotDetected) U Benzodiazepines Scrn (NotDetected) Urine Cocaine Screen (NotDetected) U Marijuana (THC) Screen (NotDetected) Serum Alcohol <10 mg/dL 07/11/19 07/11/19 07/11/19 Range/Units 13:36 13:44 19:30 WBC (3.8-10.6) k/uL RBC (3.80-5.40) m/uL Hgb (11.4-16.0) gm/dL Hct (34.0-46.0) % MCV (80.0-100.0) fL MCH (25.0-35.0) pg MCHC (31.0-37.0) g/dL RDW (11.5-15.5) % Plt Count (150-450) k/uL Neutrophils % % Lymphocytes % % Monocytes % % Eosinophils % % Basophils % % Neutrophils # (1.3-7.7) k/uL Lymphocytes # (1.0-4.8) k/uL Monocytes # (0-1.0) k/uL Eosinophils # (0-0.7) k/uL Basophils # (0-0.2) k/uL PT (9.0-12.0) sec INR (<1.2) APTT (22.0-30.0) sec Sodium (137-145) mmol/L Potassium (3.5-5.1) mmol/L Chloride (98-107) mmol/L Carbon Dioxide (22-30) mmol/L Anion Gap mmol/L BUN (7-17) mg/dL Creatinine (0.52-1.04) mg/dL Est GFR (CKD-EPI)AfAm (>60 ml/min/1.73 sqM) Est GFR (CKD-EPI)NonAf (>60 ml/min/1.73 sqM) Glucose (74-99) mg/dL POC Glucose (mg/dL) 158 H (75-99) mg/dL POC Glu Director Corporate ID [place] Calcium (8.4-10.2) mg/dL Total Bilirubin (0.2-1.3) mg/dL AST (14-36) U/L ALT (9-52) U/L Alkaline Phosphatase (38-126) U/L Troponin I <0.012 (0.000-0.034) ng/mL Total Protein (6.3-8.2) g/dL Albumin (3.5-5.0) g/dL Urine Color Yellow Urine Appearance Clear (Clear) Urine pH 7.0 (5.0-8.0) Ur Specific [place] 1.026 (1.001-1.035) Urine Protein 3+ H (Negative) Urine Glucose (UA) Negative (Negative) Urine Ketones 2+ H (Negative) Urine Blood Negative (Negative) Urine Nitrite Negative (Negative) Urine Bilirubin 1+ H (Negative) Urine Urobilinogen 4.0 (<2.0) mg/dL Ur Leukocyte Esterase Negative (Negative) Urine RBC 3 (0-5) /hpf Urine WBC 1 (0-5) /hpf Ur Squamous Epith Cells 1 (0-4) /hpf Urine Mucus Rare H (None) /hpf Urine Opiates Screen Detected H (NotDetected) Ur Oxycodone Screen Not Detected (NotDetected) Urine Methadone Screen Not Detected (NotDetected) Ur Propoxyphene Screen Not Detected (NotDetected) Ur Barbiturates Screen Detected H (NotDetected) U Tricyclic Antidepress Not Detected (NotDetected) Ur Phencyclidine Scrn Not Detected (NotDetected) Ur Amphetamines Screen Not Detected (NotDetected) U Methamphetamines Scrn Not Detected (NotDetected) U Benzodiazepines Scrn Not Detected (NotDetected) Urine Cocaine Screen Not Detected (NotDetected) U Marijuana (THC) Screen Not Detected (NotDetected) Serum Alcohol mg/dL Disposition <Mateo Dodd - Last Filed: 07/11/19 16:28> Is patient prescribed a controlled substance at d/c from ED?: No <Mateo Arita - Last Filed: 07/11/19 20:45> Clinical Impression: Altered mental status, Acute psychosis, Mood disorder Disposition: HOME SELF-CARE Condition: Fair Instructions (If sedation given, give patient instructions): Mood Disorders (ED) Referrals: Anthony Stone DO [Primary Care Provider] - 1-2 days
[2019-07-11 13:59] LABS: ALT 45 U/L (9-52); AST 32 U/L (14-36); African American GFR (CKD) >90 (>60 ml/min/1.73 sqM); Albumin 4.5 g/dL (3.5-5.0); Alcohol <10 mg/dL; Alkaline Phosphatase 127 U/L (38-126); Anion Gap 11 mmol/L; Blood Urea Nitrogen 14 mg/dL (7-17); Calcium 9.9 mg/dL (8.4-10.2); Carbon Dioxide 29 mmol/L (22-30); Chloride 98 mmol/L (98-107); Glucose 164 mg/dL (74-99); Non-African American GFR(CKD) >90 (>60 ml/min/1.73 sqM); Sodium 138 mmol/L (137-145); Total Bilirubin 0.7 mg/dL (0.2-1.3); Total Protein 8.5 g/dL (6.3-8.2)
[2019-07-11 14:04] LABS: Potassium 4.8 mmol/L (3.5-5.1)
[2019-07-11 14:38] LABS: Partial Thromboplastin Time 23.9 sec (22.0-30.0); Prothrombin Time 10.4 sec (9.0-12.0)
--- NOTE | 2019-07-11 19:02 | XR ---
EXAMINATION TYPE: XR chest 2V DATE OF EXAM: 07/11/2019 COMPARISON: 07/05/2019 HISTORY: Altered mental status TECHNIQUE: Frontal and lateral views of the chest are obtained. FINDINGS: There is no heart failure nor confluent pneumonic infiltrate. Costophrenic angles are silvina r. There is neural stimulator in the mid thoracic spine. There are chest leads. Bony thorax appears i ntact. IMPRESSION: No active cardiopulmonary disease. No change.
[2019-07-11 19:48] LABS: Appearance,Urine Clear (Clear); Bilirubin,Urine 1+ (Negative); Blood,Urine Negative (Negative); Color,Urine Yellow; Glucose,Urine (UA) Negative (Negative); Ketones,Urine 2+ (Negative); Leukocyte Esterase,Urine Negative (Negative); Mucus,Urine Rare /hpf; Nitrite,Urine Negative (Negative); Protein,Urine 3+ (Negative); RBC,Urine 3 /hpf (0-5); Specific Gravity,Urine 1.026 (1.001-1.035); Squamous Epithelial Cell,Urine 1 /hpf (0-4)
[2019-07-11 20:00] LABS: Amphetamine Screen,Urine Not Detected (NotDetected); Barbiturate Screen,Urine Detected (NotDetected); Benzodiazepines Screen,Urine Not Detected (NotDetected); Cocaine Screen,Urine Not Detected (NotDetected); Methadone Screen, Urine Not Detected (NotDetected); Opiate Screen,Urine Detected (NotDetected); Oxycodone Screen, Urine Not Detected (NotDetected); Phencyclidine Screen,Urine Not Detected (NotDetected); Tricyclic Antidepressant,Urine Not Detected (NotDetected); Urn Cannabinoid Scrn Not Detected (NotDetected)
[2019-07-11 21:05] VITALS: BP 163/96; PULSE 86; RESP 22
== END 2019-07-11 22:00 | disposition home or self-care (01) ==
LOC: EC 12:57
DX: F23 Brief psychotic disorder (principal); R41.82 Altered mental status, unspecified; F32.9 Major depressive disorder, single episode, unspecified; G40.909 Epilepsy, unspecified, not intractable, without status epilepticus; G80.9 Cerebral palsy, unspecified; K21.9 Gastro-esophageal reflux disease without esophagitis; K58.9 Irritable bowel syndrome, unspecified; E78.5 Hyperlipidemia, unspecified; G47.33 Obstructive sleep apnea (adult) (pediatric); E03.9 Hypothyroidism, unspecified; E55.9 Vitamin D deficiency, unspecified; G89.29 Other chronic pain; I27.20 Pulmonary hypertension, unspecified; J44.9 Chronic obstructive pulmonary disease, unspecified; I13.0 Hypertensive heart and chronic kidney disease with heart failure and stage 1 through stage 4 chronic kidney disease, or unspecified chronic kidney disease; E11.22 Type 2 diabetes mellitus with diabetic chronic kidney disease; I50.9 Heart failure, unspecified; N18.2 Chronic kidney disease, stage 2 (mild); E11.42 Type 2 diabetes mellitus with diabetic polyneuropathy; H40.9 Unspecified glaucoma; G47.00 Insomnia, unspecified; N32.81 Overactive bladder; J96.10 Chronic respiratory failure, unspecified whether with hypoxia or hypercapnia; Z79.890 Hormone replacement therapy; Z79.51 Long term (current) use of inhaled steroids; Z79.84 Long term (current) use of oral hypoglycemic drugs; Z79.899 Other long term (current) drug therapy; Z91.013 Allergy to seafood; Z88.8 Allergy status to other drugs, medicaments and biological substances; Z91.018 Allergy to other foods; Z88.5 Allergy status to narcotic agent; Z91.041 Radiographic dye allergy status; Z91.040 Latex allergy status; Z88.1 Allergy status to other antibiotic agents; Z88.0 Allergy status to penicillin; Z87.891 Personal history of nicotine dependence; Z99.81 Dependence on supplemental oxygen; Z99.89 Dependence on other enabling machines and devices; Z86.14 Personal history of Methicillin resistant Staphylococcus aureus infection
CPT/HCPCS: 36415; 93005; 80053; 84484; 85025; 85610; 85730; 81001; 80306; 71046; 99285; G0480; 80320

== ENCOUNTER 2019-07-20 14:43 | Emergency (ER) | payer MEDICARE, OTHER ==
[2019-07-20] MEDS ORDERED: ONDANSETRON 4 MG/2 ML VIAL IVP STA (14:55)
--- NOTE | 2019-07-20 15:01 | ED ---
General Adult HPI - General Stated complaint: mental health Time Seen by Provider: 07/20/19 14:45 Source: RN notes reviewed, old records reviewed - History of Present Illness Initial comments: This is a 54-year-old female who presents to the emergency department from a retirement because she is refusing to take her medications. Patient refuses to talk to me other than to say she is nauseated and when I ask her why she won't speak to me she says because it is her right not to speak to me. I gave the patient many opportunities to speak to me and she absolutely refuses. I have no other history on this patient other than she has not taken her medications at the retirement - Related Data Home Medications Medication Instructions Recorded Confirmed Dicyclomine [Bentyl] 20 mg PO Q6H PRN 10/08/14 07/11/19 levETIRAcetam [Keppra] 750 mg PO BID 10/08/14 07/11/19 Budesonide [Pulmicort] 0.5 mg INHALATION RT-BID 10/20/16 07/11/19 Levothyroxine Sodium [Synthroid] 50 mcg PO HS 10/20/16 07/11/19 amLODIPine [Norvasc] 10 mg PO DAILY 10/20/16 07/11/19 tiZANidine [Zanaflex] 2 mg PO DAILY PRN 10/20/16 07/11/19 Acetaminophen Tab [Tylenol] 500 mg PO Q6HR PRN 04/20/19 07/11/19 Atorvastatin [Lipitor] 10 mg PO HS 04/20/19 07/11/19 Butalb/Asprin/Caff 50-325-40Mg 1 cap PO Q4HR PRN 04/20/19 07/11/19 [Fiorinal 50-325-40 MG] Cholecalciferol (Vitamin D3) 2,000 unit PO DAILY 04/20/19 07/11/19 [Vitamin D3] Citalopram Hydrobromide [CeleXA] 20 mg PO DAILY 04/20/19 07/11/19 Ketoconazole [Ketoconazole 2%] 1 applic TOPICAL Q8H PRN 04/20/19 07/11/19 Lisinopril [Zestril] 5 mg PO DAILY 04/20/19 07/11/19 Melatonin 5 mg PO HS 04/20/19 07/11/19 Oxybutynin Chloride [Oxybutynin 10 mg PO DAILY 04/20/19 07/11/19 Chloride ER] Promethazine [Phenergan] 25 mg PO Q6H PRN 04/20/19 07/11/19 Sennosides-Docusate Sodium 1 tab PO BID@0800,1600 04/20/19 07/11/19 [Senokot-S] Cholecalciferol [Vitamin D3 (25 1,000 unit PO DAILY 07/04/19 07/11/19 Mcg = 1000 Iu)] Levothyroxine Sodium [Synthroid] 200 mcg PO HS 07/04/19 07/11/19 glipiZIDE XL [Glucotrol XL] 10 mg PO DAILY 07/04/19 07/11/19 Omeprazole [PriLOSEC] 20 mg PO HS 07/11/19 07/11/19 Previous Rx's Medication Instructions Recorded Cephalexin [Keflex] 250 mg PO Q8HR #6 capsule 07/07/19 Gabapentin [Neurontin] 100 mg PO Q6H #12 cap 07/07/19 Ziprasidone [Geodon] 20 mg PO HS #3 cap 07/07/19 Allergies Allergy/AdvReac Type Severity Reaction Status Date / Time Fish Containing Products Allergy Unknown Swelling Verified 07/20/19 15:02 [Fish] butalbital [From Fiorinal] Allergy Unknown Verified 07/20/19 15:02 caffeine [From Fiorinal] Allergy Unknown Verified 07/20/19 15:02 cimetidine [From Tagamet] Allergy Unknown Verified 07/20/19 15:02 cimetidine HCl [From Tagamet] Allergy Unknown Verified 07/20/19 15:02 codeine Allergy Unknown Verified 07/20/19 15:02 dichloralphenazone Allergy Unknown Verified 07/20/19 15:02 [From Midrin] diphenhydramine HCl Allergy Unknown Verified 07/20/19 15:02 [From Benadryl] heparin Allergy Rash/Hives Verified 07/20/19 15:02 indomethacin [From Indocin] Allergy Unknown Verified 07/20/19 15:02 indomethacin sodium Allergy Unknown Verified 07/20/19 15:02 [From Indocin] iodine Allergy Swelling Verified 07/20/19 15:02 isometheptene mucate Allergy Unknown Verified 07/20/19 15:02 [From Midrin] lactose Allergy Unknown Verified 07/20/19 15:02 latex Allergy Anaphylaxis Verified 07/20/19 15:02 Macrolide Antibiotics Allergy Unknown Verified 07/20/19 15:02 nystatin Allergy Rash/Hives Verified 07/20/19 15:02 Penicillins Allergy Unknown Verified 07/20/19 15:02 propoxyphene HCl Allergy Unknown Verified 07/20/19 15:02 [From Darvon] shellfish derived [Shellfish] Allergy Swelling Verified 07/20/19 15:02 theophylline anhydrous Allergy Unknown Verified 07/20/19 15:02 [From [place]] Review of Systems ROS Statement: Those systems with pertinent positive or pertinent negative responses have been documented in the HPI. ROS Other: All systems not noted in ROS Statement are negative. Past Medical History Past Medical History: Asthma, Heart Failure, COPD, Diabetes Mellitus, Eye Disorder, GERD/Reflux, Hyperlipidemia, Hypertension, Osteoarthritis (OA), Pneumonia, Renal Disease, Respiratory Disorder, Seizure Disorder, Sleep Apnea/CPAP/BIPAP, Thyroid Disorder Additional Past Medical History / Comment(s): Cerebral palsey, borderline intelectual functioning, spinal stenosis, muscle spasms in back, weakness, NIDDM type II, peripheral neuropathy bilateral hands/feet, chronic respiratory failure with O2 ATC, pulmonary htn, DESTINEE with cpap, generalized chronic pain, UTIs, CKD stageII, nephrolithiasis, incontinence or urine/stool, overactive bladder, IBS, constipation/diarrhea, hypothyroid, ulcer, glaucoma, allergic rhinitis, vitamin D deficiency, insomnia. History of Any Multi-Drug Resistant Organisms: MRSA Date of last positivie culture/infection: 2008 MDRO Source:: foot Past Surgical History: Back Surgery, Cholecystectomy Additional Past Surgical History / Comment(s): Spinal surgery x2, spinal stimulator 2-2016, bilateral eye surgery for muscle repair, rt shoulder arthroscopy, rom carpal tunnel releases, cyst removed from wrist, EGD, colonoscopy Past Anesthesia/Blood Transfusion Reactions: Motion Sickness, Postoperative Nausea & Vomiting (PONV) Past Psychological History: Depression, Schizoaffective Disorder Smoking Status: Former smoker - Past Family History Father Family Medical History: No Reported History Mother Family Medical History: Diabetes Mellitus General Exam - General Exam Comments Initial Comments: GENERAL: Patient is well-developed and well-nourished. Patient is nontoxic and well- hydrated and is in no acute distress. ENT: Neck is soft and supple. No significant lymphadenopathy is noted. Oropharynx is clear. Moist mucous membranes. Neck has full range of motion without eliciting any pain. EYES: The sclera were anicteric and conjunctiva were pink and moist. Extraocular movements were intact and pupils were equal round and reactive to light. Eyelids were unremarkable. PULMONARY: Unlabored respirations. Good breath sounds bilaterally. No audible rales rhonchi or wheezing was noted. CARDIOVASCULAR: There is a regular rate and rhythm without any murmurs gallops or rubs. ABDOMEN: Soft and nontender with normal bowel sounds. No palpable organomegaly was note d. There is no palpable pulsatile mass. SKIN: Skin is clear with no lesions or rashes and otherwise unremarkable. NEUROLOGIC: Patient is alert and oriented unable to assess since she will not talk to me. Patient will not follow simple commands to assess her cranial nerves or motor or sensory MUSCULOSKELETAL: Normal extremities with adequate strength and full range of motion. LYMPHATICS: No significant lymphadenopathy is noted PSYCHIATRIC: Unable to assess Course Vital Signs 07/20/19 07/20/19 07/20/19 14:58 15:14 18:36 Temperature 98.5 F Pulse Rate 111 H 112 H Respiratory 18 20 Rate Blood Pressure 195/104 194/98 160/95 O2 Sat by Pulse 97 95 Oximetry Medical Decision Making - Medical Decision Making Patient refused to let us draw any blood. Patient refused to speak to anyone more than I indicated in HPI. EPS went in to evaluate her she Refused to Speak to Them. We Called [facility] No One There Was Willing to Petition the Patient and It Was Recommended That She Follow-Up with a Psychiatrist As an Outpatient. Disposition Clinical Impression: Nausea Disposition: HOME SELF-CARE Condition: Good Instructions (If sedation given, give patient instructions): Acute Nausea and Vomiting (ED) Is patient prescribed a controlled substance at d/c from ED?: No Referrals: Anthony Stone DO [Primary Care Provider] - 1-2 days Time of Disposition: 20:12
[2019-07-20 18:37] VITALS: RESP 20
[2019-07-20 21:03] VITALS: BP 172/89; PULSE 99; TEMP 97.9
== END 2019-07-20 21:44 | disposition home or self-care (01) ==
LOC: EC 14:43
DX: R11.0 Nausea (principal); F32.9 Major depressive disorder, single episode, unspecified; G40.909 Epilepsy, unspecified, not intractable, without status epilepticus; J44.9 Chronic obstructive pulmonary disease, unspecified; I50.9 Heart failure, unspecified; E11.40 Type 2 diabetes mellitus with diabetic neuropathy, unspecified; K21.9 Gastro-esophageal reflux disease without esophagitis; E78.5 Hyperlipidemia, unspecified; M19.90 Unspecified osteoarthritis, unspecified site; G47.33 Obstructive sleep apnea (adult) (pediatric); E03.9 Hypothyroidism, unspecified; G80.9 Cerebral palsy, unspecified; E11.42 Type 2 diabetes mellitus with diabetic polyneuropathy; J96.10 Chronic respiratory failure, unspecified whether with hypoxia or hypercapnia; I27.20 Pulmonary hypertension, unspecified; I13.0 Hypertensive heart and chronic kidney disease with heart failure and stage 1 through stage 4 chronic kidney disease, or unspecified chronic kidney disease; N18.2 Chronic kidney disease, stage 2 (mild); E11.22 Type 2 diabetes mellitus with diabetic chronic kidney disease; K58.9 Irritable bowel syndrome, unspecified; H40.9 Unspecified glaucoma; Z79.890 Hormone replacement therapy; Z79.84 Long term (current) use of oral hypoglycemic drugs; Z79.899 Other long term (current) drug therapy; Z79.51 Long term (current) use of inhaled steroids; Z91.013 Allergy to seafood; Z88.8 Allergy status to other drugs, medicaments and biological substances; Z91.018 Allergy to other foods; Z88.5 Allergy status to narcotic agent; Z88.0 Allergy status to penicillin; Z88.1 Allergy status to other antibiotic agents; Z91.040 Latex allergy status; Z99.81 Dependence on supplemental oxygen; Z53.20 Procedure and treatment not carried out because of patient's decision for unspecified reasons; Z99.89 Dependence on other enabling machines and devices; Z87.891 Personal history of nicotine dependence
CPT/HCPCS: 82075; 99284

== ENCOUNTER 2019-08-08 10:57 | Inpatient (IN) | payer MEDICARE, OTHER ==
[2019-08-08] MEDS ORDERED: ALBUTEROL NEBULIZED 2.5 MG/3 ML INHALATION STA (10:59)
[2019-08-08] MEDS ORDERED: IPRATROPIUM 0.5 MG/2.5 ML NEBU INHALATION STA (10:59)
[2019-08-08] MEDS ORDERED: LEVOFLOXACIN 500MG-D5W PMX 500 MG in DEXTROSE/WATER 1 100ML.BAG IVPB STA (11:00)
[2019-08-08 11:22] LABS: Glucose,Whole Blood 176 mg/dL (75-99)
[2019-08-08] MEDS ORDERED: VANCOMYCIN IV PER PHARMACY 1 EACH MISC MISCELLANE PRN (11:24)
[2019-08-08] MEDS ORDERED: CEFEPIME 2 GM in SODIUM CHLORIDE 0.9% 100 ML IVPB STA (11:24)
[2019-08-08] MEDS ORDERED: MIDAZOLAM 1 MG/ML 5 ML VIAL IV STA (11:24)
[2019-08-08] MEDS ORDERED: ROCURONIUM BROMIDE 10 MG/ML 10 ML VIAL IV STA (11:24)
[2019-08-08] MEDS ORDERED: SODIUM CHLORIDE 0.9% 1,000 ML IV ONE ×3 (11:24→12:42)
[2019-08-08] MEDS ORDERED: methylPREDNISolone SOD SUCCI 125 MG/2 ML VIAL IV STA (11:25)
[2019-08-08] MEDS ORDERED: VANCOMYCIN 2,250 MG in SODIUM CHLORIDE 0.9% 500 ML 500 ML IVPB STA (11:27)
--- NOTE | 2019-08-08 11:49 | XR ---
EXAMINATION TYPE: XR chest 1V portable DATE OF EXAM: 08/08/2019 Comparison: 07/11/2019 Clinical History: 54-year-old female Pain Findings: ET tube tip 2.3 cm from the reginald. NG tube courses below the diaphragm and is looped within the stom ach. Spinal stimulator array centered along the mid thoracic spinal canal. Patient is rotated slightl y towards the right. Heart mildly enlarged with diffuse interstitial densities. No significant pleura l effusion. Impression: Mild cardiomegaly and interstitial changes. Correlate for possible mild pulmonary vascular congestion versus interstitial pneumonitis or atypical pneumonias.
[2019-08-08 11:54] LABS: Basophils % (A) 0 %; Eosinophils # (A) 0.1 k/uL (0-0.7); Eosinophils % (A) 1 %; HCT 36.3 % (34.0-46.0); HGB 11.8 gm/dL (11.4-16.0); Hypochromasia Slight; Lymphocytes # (A) 0.8 k/uL (1.0-4.8); Lymphocytes % (A) 4 %; MCH 28.7 pg (25.0-35.0); MCHC 32.5 g/dL (31.0-37.0); MCV 88.4 fL (80.0-100.0); Mean Platelet Volume 7.6; Monocytes % (A) 5 %; Neutrophils # (A) 16.7 k/uL (1.3-7.7); Neutrophils % (A) 89 %; Platelet Count 444 k/uL (150-450); RBC 4.11 m/uL (3.80-5.40); RDW 15.7 % (11.5-15.5); WBC 18.7 k/uL (3.8-10.6)
[2019-08-08 12:01] LABS: Appearance,Urine Turbid (Clear); Bacteria,Urine Many /hpf; Bilirubin,Urine Negative (Negative); Blood,Urine Moderate (Negative); Budding Yeast,Urine Many /hpf; Color,Urine Light Red; Glucose,Urine (UA) Negative (Negative); Ketones,Urine Negative (Negative); Leukocyte Esterase,Urine Large (Negative); Mucus,Urine Few /hpf; Nitrite,Urine Negative (Negative); Protein,Urine 1+ (Negative); RBC,Urine 68 /hpf (0-5); Specific Gravity,Urine 1.023 (1.001-1.035); Squamous Epithelial Cell,Urine 8 /hpf (0-4); WBC,Urine >182 /hpf (0-5)
[2019-08-08 12:06] LABS: ABG Base Excess -6.7 mmol/L; ABG HCO3 21 mmol/L (21-25); ABG Oxygen Saturation 99.3 % (94-97); ABG PCO2 56 mmHg (35-45); ABG PO2 202 mmHg (83-108); ABG TCO2 23 mmol/L (19-24); Allen Test Performed? Yes
[2019-08-08 12:07] LABS: Albumin 3.5 g/dL (3.5-5.0); Calcium 8.1 mg/dL (8.4-10.2); Magnesium 1.8 mg/dL (1.6-2.3); Total Bilirubin 0.7 mg/dL (0.2-1.3); Total Protein 6.9 g/dL (6.3-8.2)
[2019-08-08 12:24] LABS: Potassium 7.2 mmol/L (3.5-5.1)
[2019-08-08 12:33] LABS: VBG PH 7.11 (7.31-7.41)
[2019-08-08] MEDS ORDERED: DEXTROSE 10 % IN WATER 250 ML IV ONE (12:42)
[2019-08-08] MEDS ORDERED: ALBUTEROL NEB (CONC) 2.5 MG/0.5 ML INHALATION ONE (12:42)
[2019-08-08] MEDS ORDERED: INSULIN REGULAR 100 UNIT/ML VIAL IV ONE (12:42)
[2019-08-08] MEDS ORDERED: CALCIUM GLUCONATE 1 GM in SODIUM CHLORIDE 0.9% 100 ML IVPB ONE (12:42)
[2019-08-08] MEDS ORDERED: ACETAMINOPHEN SUPPOSITORY 650 MG SUPP RECTAL PRN (12:53)
[2019-08-08] MEDS ORDERED: NALOXONE 0.4 MG/ML 1 ML VIAL IV PRN (12:53)
[2019-08-08 12:56] LABS: INR 0.9 (<1.2); Partial Thromboplastin Time 18.1 sec (22.0-30.0); Prothrombin Time 9.8 sec (9.0-12.0)
[2019-08-08] MEDS ORDERED: MIDAZOLAM HCL 50 MG in SODIUM CHLORIDE 0.9% 40 ML IV SCH (13:00)
--- NOTE | 2019-08-08 13:06 | ED ---
General Adult HPI - General Chief complaint: Shortness of Breath Stated complaint: SOB Time Seen by Provider: 08/08/19 10:58 Source: EMS, RN notes reviewed, old records reviewed Mode of arrival: EMS Limitations: altered mental status, physical limitation - History of Present Illness Initial comments: 54-year-old female presenting with hypoxia and altered mental status. Patient transported from residential with hypoxia, hypotension and altered mental status. Unknown how long the patient had been confused. She is morbidly obese, history of COPD, bedbound with indwelling Miranda catheter. Patient had been hypoxic for some time according EMS in the 50s to 60s. She was placed on a nonrebreather rather than intubated by EMS because he was some concern over current status. Upon arrival we did verify that the patient is a full code and she was intubated in the ER. - Related Data Home Medications Medication Instructions Recorded Confirmed Dicyclomine [Bentyl] 20 mg PO Q6H PRN 10/08/14 07/11/19 levETIRAcetam [Keppra] 750 mg PO BID 10/08/14 07/11/19 Budesonide [Pulmicort] 0.5 mg INHALATION RT-BID 10/20/16 07/11/19 Levothyroxine Sodium [Synthroid] 50 mcg PO HS 10/20/16 07/11/19 amLODIPine [Norvasc] 10 mg PO DAILY 10/20/16 07/11/19 tiZANidine [Zanaflex] 2 mg PO DAILY PRN 10/20/16 07/11/19 Acetaminophen Tab [Tylenol] 500 mg PO Q6HR PRN 04/20/19 07/11/19 Atorvastatin [Lipitor] 10 mg PO HS 04/20/19 07/11/19 Butalb/Asprin/Caff 50-325-40Mg 1 cap PO Q4HR PRN 04/20/19 07/11/19 [Fiorinal 50-325-40 MG] Cholecalciferol (Vitamin D3) 2,000 unit PO DAILY 04/20/19 07/11/19 [Vitamin D3] Citalopram Hydrobromide [CeleXA] 20 mg PO DAILY 04/20/19 07/11/19 Ketoconazole [Ketoconazole 2%] 1 applic TOPICAL Q8H PRN 04/20/19 07/11/19 Lisinopril [Zestril] 5 mg PO DAILY 04/20/19 07/11/19 Melatonin 5 mg PO HS 04/20/19 07/11/19 Oxybutynin Chloride [Oxybutynin 10 mg PO DAILY 04/20/19 07/11/19 Chloride ER] Promethazine [Phenergan] 25 mg PO Q6H PRN 04/20/19 07/11/19 Sennosides-Docusate Sodium 1 tab PO BID@0800,1600 04/20/19 07/11/19 [Senokot-S] Cholecalciferol [Vitamin D3 (25 1,000 unit PO DAILY 07/04/19 07/11/19 Mcg = 1000 Iu)] Levothyroxine Sodium [Synthroid] 200 mcg PO HS 07/04/19 07/11/19 glipiZIDE XL [Glucotrol XL] 10 mg PO DAILY 07/04/19 07/11/19 Omeprazole [PriLOSEC] 20 mg PO HS 07/11/19 07/11/19 Previous Rx's Medication Instructions Recorded Cephalexin [Keflex] 250 mg PO Q8HR #6 capsule 07/07/19 Gabapentin [Neurontin] 100 mg PO Q6H #12 cap 07/07/19 Ziprasidone [Geodon] 20 mg PO HS #3 cap 07/07/19 Allergies Allergy/AdvReac Type Severity Reaction Status Date / Time Fish Containing Products Allergy Unknown Swelling Verified 08/08/19 12:20 [Fish] butalbital [From Fiorinal] Allergy Unknown Verified 08/08/19 12:20 caffeine [From Fiorinal] Allergy Unknown Verified 08/08/19 12:20 cimetidine [From Tagamet] Allergy Unknown Verified 08/08/19 12:20 cimetidine HCl [From Tagamet] Allergy Unknown Verified 08/08/19 12:20 codeine Allergy Unknown Verified 08/08/19 12:20 dichloralphenazone Allergy Unknown Verified 08/08/19 12:20 [From Midrin] diphenhydramine HCl Allergy Unknown Verified 08/08/19 12:20 [From Benadryl] heparin Allergy Rash/Hives Verified 08/08/19 12:20 indomethacin [From Indocin] Allergy Unknown Verified 08/08/19 12:20 indomethacin sodium Allergy Unknown Verified 08/08/19 12:20 [From Indocin] iodine Allergy Swelling Verified 08/08/19 12:20 isometheptene mucate Allergy Unknown Verified 08/08/19 12:20 [From Midrin] lactose Allergy Unknown Verified 08/08/19 12:20 latex Allergy Anaphylaxis Verified 08/08/19 12:20 Macrolide Antibiotics Allergy Unknown Verified 08/08/19 12:20 nystatin Allergy Rash/Hives Verified 08/08/19 12:20 Penicillins Allergy Unknown Verified 08/08/19 12:20 propoxyphene HCl Allergy Unknown Verified 08/08/19 12:20 [From Darvon] shellfish derived [Shellfish] Allergy Swelling Verified 08/08/19 12:20 theophylline anhydrous Allergy Unknown Verified 08/08/19 12:20 [From [place]] Review of Systems ROS Statement: Those systems with pertinent positive or pertinent negative responses have been documented in the HPI. ROS Other: All systems not noted in ROS Statement are negative. Past Medical History Past Medical History: Asthma, Heart Failure, COPD, Diabetes Mellitus, Eye Disorder, GERD/Reflux, Hyperlipidemia, Hypertension, Osteoarthritis (OA), Pneumonia, Renal Disease, Respiratory Disorder, Seizure Disorder, Sleep Apnea/ CPAP/BIPAP, Thyroid Disorder Additional Past Medical History / Comment(s): Cerebral palsey, borderline intelectual functioning, spinal stenosis, muscle spasms in back, weakness, NIDDM type II, peripheral neuropathy bilateral hands/feet, chronic respiratory failure with O2 ATC, pulmonary htn, DESTINEE with cpap, generalized chronic pain, UTIs, CKD stageII, nephrolithiasis, incontinence or urine/stool, overactive bladder, IBS, constipation/diarrhea, hypothyroid, ulcer, glaucoma, allergic rhinitis, vitamin D deficiency, insomnia. History of Any Multi-Drug Resistant Organisms: MRSA Date of last positivie culture/infection: 2008 MDRO Source:: foot Past Surgical History: Back Surgery, Cholecystectomy Additional Past Surgical History / Comment(s): Spinal surgery x2, spinal stimulator 2-2016, bilateral eye surgery for muscle repair, rt shoulder arthr oscopy, rom carpal tunnel releases, cyst removed from wrist, EGD, colonoscopy Past Anesthesia/Blood Transfusion Reactions: Motion Sickness, Postoperative Nausea & Vomiting (PONV) Past Psychological History: Depression, Schizoaffective Disorder Smoking Status: Former smoker Past Alcohol Use History: Unable to Obtain Past Drug Use History: Unable to Obtain - Past Family History Father Family Medical History: No Reported History Mother Family Medical History: Diabetes Mellitus General Exam Limitations: altered mental status, physical limitation General appearance: obtunded, in distress Eye exam: Present: PERRL (Sluggish) ENT exam: Present: mucous membranes dry Neck exam: Present: normal inspection Respiratory exam: Present: respiratory distress, wheezes, rhonchi, decreased breath sounds Cardiovascular Exam: Present: regular rate, normal rhythm GI/Abdominal exam: Present: soft, distended. Absent: tenderness, guarding, rebound Extremities exam: Present: normal inspection, normal capillary refill Neurological exam: Absent: alert Skin exam: Present: warm, dry, intact, cyanosis. Absent: diaphoretic Course Vital Signs 08/08/19 08/08/19 08/08/19 11:05 11:14 11:16 Temperature 98.9 F Pulse Rate 87 91 90 Respiratory 32 H 20 19 Rate Blood Pressure 77/41 107/95 O2 Sat by Pulse 90 L Oximetry 08/08/19 08/08/19 08/08/19 11:18 11:20 11:22 Temperature Pulse Rate 90 71 98 Respiratory 22 26 H 29 H Rate Blood Pressure 107/95 107/95 59/35 O2 Sat by Pulse 90 L 99 Oximetry 08/08/19 08/08/19 08/08/19 11:24 11:26 11:28 Temperature Pulse Rate 92 90 90 Respiratory 11 L 19 11 L Rate Blood Pressure 80/38 87/52 87/52 O2 Sat by Pulse 96 100 Oximetry 08/08/19 08/08/19 08/08/19 11:30 11:32 11:42 Temperature Pulse Rate 89 93 88 Respiratory 16 16 16 Rate Blood Pressure 87/52 68/37 88/45 O2 Sat by Pulse 100 100 100 Oximetry 08/08/19 08/08/19 08/08/19 11:46 11:50 11:56 Temperature Pulse Rate 90 89 86 Respiratory 20 16 16 Rate Blood Pressure 91/40 91/40 O2 Sat by Pulse 100 100 Oximetry 08/08/19 08/08/19 08/08/19 12:08 12:10 12:52 Temperature Pulse Rate 80 80 Respiratory 18 18 Rate Blood Pressure 91/36 O2 Sat by Pulse 100 Oximetry EKG Findings - EKG Comments: EKG Findings:: EKG: Normal sinus rhythm, left axis deviation, rate of 90, WI interval 154, QRS duration 94, QTC 457, no ST segment elevation Procedures - Intubation Sedative: Versed Mg Given: 5 Paralytic: Rocuronium Mg Given: 50 Laryngoscope: Lulu Size: 3 ET Tube Size: 7.5 ET Tube Uncuffed: No Tube Secured Depth (cm): 23 Tube Secured Location: lips Tube Placement Confirmation: visualized tube passing through cords, equal breath sounds bilaterally, no breath sounds over epigastrium, confirmation by ca pnometry Patient Tolerated Procedure: well Intubation Complications: none (Copious yellow-brown secretions) Medical Decision Making - Medical Decision Making 54-year-old female presenting with respiratory failure, hypoxia. Patient transported by EMS on a nonrebreather. She is intubated upon arrival after was concerned that this patient is a full code. Patient has x-ray concerning for vascular congestion versus atypical pneumonia. She has an elevated white blood cell count at 18.7. She's had acute renal failure with a creatinine 4.68 and a potassium 7.2. Is treated with IV fluids and calcium gluconate, insulin, dextrose, albuterol. She is acidotic with an arterial pH is 7.2 and isM with a CO2 of 56. She is maintained on a ventilator with minimal sedation. She is given broad-spectrum antibiotics and admitted to the ICU. Case discussed with the pulmonary goodwill representative and the admitting physician. Given the suspected long period of hypoxia prior to EMS arrival prognosis is v jenny poor for this patient. - Lab Data Result diagrams: 08/08/19 11:31 08/08/19 11:31 Lab Results 08/08/19 08/08/19 08/08/19 Range/Units 11:20 11:31 11:31 WBC 18.7 H (3.8-10.6) k/uL RBC 4.11 (3.80-5.40) m/uL Hgb 11.8 (11.4-16.0) gm/dL Hct 36.3 (34.0-46.0) % MCV 88.4 (80.0-100.0) fL MCH 28.7 (25.0-35.0) pg MCHC 32.5 (31.0-37.0) g/dL RDW 15.7 H (11.5-15.5) % Plt Count 444 (150-450) k/uL Neutrophils % 89 % Lymphocytes % 4 % Monocytes % 5 % Eosinophils % 1 % Basophils % 0 % Neutrophils # 16.7 H (1.3-7.7) k/uL Lymphocytes # 0.8 L (1.0-4.8) k/uL Monocytes # 1.0 (0-1.0) k/uL Eosinophils # 0.1 (0-0.7) k/uL Basophils # 0.0 (0-0.2) k/uL Hypochromasia Slight PT (9.0-12.0) sec INR (<1.2) APTT (22.0-30.0) sec Sample Site ABG pH (7.35-7.45) ABG pCO2 (35-45) mmHg ABG pO2 (83-108) mmHg ABG HCO3 (21-25) mmol/L ABG Total CO2 (19-24) mmol/L ABG O2 Saturation (94-97) % ABG Base Excess mmol/L Santos Test VBG pH (7.31-7.41) VBG pCO2 (37-51) mmHg VBG HCO3 (24-28) mmol/L FiO2 % Sodium 137 (137-145) mmol/L Potassium 7.2 H* (3.5-5.1) mmol/L Chloride 101 (98-107) mmol/L Carbon Dioxide 18 L (22-30) mmol/L Anion Gap 18 mmol/L BUN 161 H* (7-17) mg/dL Creatinine 4.68 H (0.52-1.04) mg/dL Est GFR (CKD-EPI)AfAm 12 (>60 ml/min/1.73 sqM) Est GFR (CKD-EPI)NonAf 10 (>60 ml/min/1.73 sqM) Glucose 153 H (74-99) mg/dL POC Glucose (mg/dL) 176 H (75-99) mg/dL POC Glu Asset Management Lead ID Trisha Duarte Plasma Lactic Acid Mello (0.7-2.0) mmol/L Calcium 8.1 L (8.4-10.2) mg/dL Magnesium 1.8 (1.6-2.3) mg/dL Total Bilirubin 0.7 (0.2-1.3) mg/dL AST 46 H (14-36) U/L ALT 30 (4-34) U/L Alkaline Phosphatase 85 (38-126) U/L NT-Pro-B Natriuret Pep pg/mL Total Protein 6.9 (6.3-8.2) g/dL Albumin 3.5 (3.5-5.0) g/dL Urine Color Urine Appearance (Clear) Urine pH (5.0-8.0) Ur Specific [place] (1.001-1.035) Urine Protein (Negative) Urine Glucose (UA) (Negative) Urine Ketones (Negative) Urine Blood (Negative) Urine Nitrite (Negative) Urine Bilirubin (Negative) Urine Urobilinogen (<2.0) mg/dL Ur Leukocyte Esterase (Negative) Urine RBC (0-5) /hpf Urine WBC (0-5) /hpf Ur Squamous Epith Cells (0-4) /hpf Urine Bacteria (None) /hpf Urine Mucus (None) /hpf Urine Yeast (Budding) (None) /hpf Influenza Type A RNA (Not Detectd) Influenza Type B (PCR) (Not Detectd) 08/08/19 08/08/19 08/08/19 Range/Units 11:31 11:31 11:31 WBC (3.8-10.6) k/uL RBC (3.80-5.40) m/uL Hgb (11.4-16.0) gm/dL Hct (34.0-46.0) % MCV (80.0-100.0) fL MCH (25.0-35.0) pg MCHC (31.0-37.0) g/dL RDW (11.5-15.5) % Plt Count (150-450) k/uL Neutrophils % % Lymphocytes % % Monocytes % % Eosinophils % % Basophils % % Neutrophils # (1.3-7.7) k/uL Lymphocytes # (1.0-4.8) k/uL Monocytes # (0-1.0) k/uL Eosinophils # (0-0.7) k/uL Basophils # (0-0.2) k/uL Hypochromasia PT (9.0-12.0) sec INR (<1.2) APTT (22.0-30.0) sec Sample Site ABG pH (7.35-7.45) ABG pCO2 (35-45) mmHg ABG pO2 (83-108) mmHg ABG HCO3 (21-25) mmol/L ABG Total CO2 (19-24) mmol/L ABG O2 Saturation (94-97) % ABG Base Excess mmol/L Santos Test VBG pH (7.31-7.41) VBG pCO2 (37-51) mmHg VBG HCO3 (24-28) mmol/L FiO2 % Sodium (137-145) mmol/L Potassium (3.5-5.1) mmol/L Chloride (98-107) mmol/L Carbon Dioxide (22-30) mmol/L Anion Gap mmol/L BUN (7-17) mg/dL Creatinine (0.52-1.04) mg/dL Est GFR (CKD-EPI)AfAm (>60 ml/min/1.73 sqM) Est GFR (CKD-EPI)NonAf (>60 ml/min/1.73 sqM) Glucose (74-99) mg/dL POC Glucose (mg/dL) (75-99) mg/dL POC Glu Asset Management Lead ID Plasma Lactic Acid Mello 1.2 (0.7-2.0) mmol/L Calcium (8.4-10.2) mg/dL Magnesium (1.6-2.3) mg/dL Total Bilirubin (0.2-1.3) mg/dL AST (14-36) U/L ALT (4-34) U/L Alkaline Phosphatase (38-126) U/L NT-Pro-B Natriuret Pep 3440 pg/mL Total Protein (6.3-8.2) g/dL Albumin (3.5-5.0) g/dL Urine Color Urine Appearance (Clear) Urine pH (5.0-8.0) Ur Specific [place] (1.001-1.035) Urine Protein (Negative) Urine Glucose (UA) (Negative) Urine Ketones (Negative) Urine Blood (Negative) Urine Nitrite (Negative) Urine Bilirubin (Negative) Urine Urobilinogen (<2.0) mg/dL Ur Leukocyte Esterase (Negative) Urine RBC (0-5) /hpf Urine WBC (0-5) /hpf Ur Squamous Epith Cells (0-4) /hpf Urine Bacteria (None) /hpf Urine Mucus (None) /hpf Urine Yeast (Budding) (None) /hpf Influenza Type A RNA Not Detected (Not Detectd) Influenza Type B (PCR) Not Detected (Not Detectd) 08/08/19 08/08/19 08/08/19 Range/Units 11:31 12:03 12:07 WBC (3.8-10.6) k/uL RBC (3.80-5.40) m/uL Hgb (11.4-16.0) gm/dL Hct (34.0-46.0) % MCV (80.0-100.0) fL MCH (25.0-35.0) pg MCHC (31.0-37.0) g/dL RDW (11.5-15.5) % Plt Count (150-450) k/uL Neutrophils % % Lymphocytes % % Monocytes % % Eosinophils % % Basophils % % Neutrophils # (1.3-7.7) k/uL Lymphocytes # (1.0-4.8) k/uL Monocytes # (0-1.0) k/uL Eosinophils # (0-0.7) k/uL Basophils # (0-0.2) k/uL Hypochromasia PT 9.8 (9.0-12.0) sec INR 0.9 (<1.2) APTT 18.1 L (22.0-30.0) sec Sample Site lbrac ABG pH 7.19 L* (7.35-7.45) ABG pCO2 56 H (35-45) mmHg ABG pO2 202 H (83-108) mmHg ABG HCO3 21 (21-25) mmol/L ABG Total CO2 23 (19-24) mmol/L ABG O2 Saturation 99.3 H (94-97) % ABG Base Excess -6.7 mmol/L Santos Test Yes VBG pH (7.31-7.41) VBG pCO2 (37-51) mmHg VBG HCO3 (24-28) mmol/L FiO2 100 % Sodium (137-145) mmol/L Potassium (3.5-5.1) mmol/L Chloride (98-107) mmol/L Carbon Dioxide (22-30) mmol/L Anion Gap mmol/L BUN (7-17) mg/dL Creatinine (0.52-1.04) mg/dL Est GFR (CKD-EPI)AfAm (>60 ml/min/1.73 sqM) Est GFR (CKD-EPI)NonAf (>60 ml/min/1.73 sqM) Glucose (74-99) mg/dL POC Glucose (mg/dL) (75-99) mg/dL POC Glu Asset Management Lead ID Plasma Lactic Acid Mello (0.7-2.0) mmol/L Calcium (8.4-10.2) mg/dL Magnesium (1.6-2.3) mg/dL Total Bilirubin (0.2-1.3) mg/dL AST (14-36) U/L ALT (4-34) U/L Alkaline Phosphatase (38-126) U/L NT-Pro-B Natriuret Pep pg/mL Total Protein (6.3-8.2) g/dL Albumin (3.5-5.0) g/dL Urine Color Light Red Urine Appearance Turbid H (Clear) Urine pH 5.0 (5.0-8.0) Ur Specific [place] 1.023 (1.001-1.035) Urine Protein 1+ H (Negative) Urine Glucose (UA) Negative (Negative) Urine Ketones Negative (Negative) Urine Blood Moderate H (Negative) Urine Nitrite Negative (Negative) Urine Bilirubin Negative (Negative) Urine Urobilinogen 2.0 (<2.0) mg/dL Ur Leukocyte Esterase Large H (Negative) Urine RBC 68 H (0-5) /hpf Urine WBC >182 H (0-5) /hpf Ur Squamous Epith Cells 8 H (0-4) /hpf Urine Bacteria Many H (None) /hpf Urine Mucus Few H (None) /hpf Urine Yeast (Budding) Many H (None) /hpf Influenza Type A RNA (Not Detectd) Influenza Type B (PCR) (Not Detectd) 08/08/19 Range/Units 12:07 WBC (3.8-10.6) k/uL RBC (3.80-5.40) m/uL Hgb (11.4-16.0) gm/dL Hct (34.0-46.0) % MCV (80.0-100.0) fL MCH (25.0-35.0) pg MCHC (31.0-37.0) g/dL RDW (11.5-15.5) % Plt Count (150-450) k/uL Neutrophils % % Lymphocytes % % Monocytes % % Eosinophils % % Basophils % % Neutrophils # (1.3-7.7) k/uL Lymphocytes # (1.0-4.8) k/uL Monocytes # (0-1.0) k/uL Eosinophils # (0-0.7) k/uL Basophils # (0-0.2) k/uL Hypochromasia PT (9.0-12.0) sec INR (<1.2) APTT (22.0-30.0) sec Sample Site ABG pH (7.35-7.45) ABG pCO2 (35-45) mmHg ABG pO2 (83-108) mmHg ABG HCO3 (21-25) mmol/L ABG Total CO2 (19-24) mmol/L ABG O2 Saturation (94-97) % ABG Base Excess mmol/L Santos Test VBG pH 7.11 L* (7.31-7.41) VBG pCO2 56 H (37-51) mmHg VBG HCO3 17 L (24-28) mmol/L FiO2 % Sodium (137-145) mmol/L Potassium (3.5-5.1) mmol/L Chloride (98-107) mmol/L Carbon Dioxide (22-30) mmol/L Anion Gap mmol/L BUN (7-17) mg/dL Creatinine (0.52-1.04) mg/dL Est GFR (CKD-EPI)AfAm (>60 ml/min/1.73 sqM) Est GFR (CKD-EPI)NonAf (>60 ml/min/1.73 sqM) Glucose (74-99) mg/dL POC Glucose (mg/dL) (75-99) mg/dL POC Glu Asset Management Lead ID Plasma Lactic Acid Mello (0.7-2.0) mmol/L Calcium (8.4-10.2) mg/dL Magnesium (1.6-2.3) mg/dL Total Bilirubin (0.2-1.3) mg/dL AST (14-36) U/L ALT (4-34) U/L Alkaline Phosphatase (38-126) U/L NT-Pro-B Natriuret Pep pg/mL Total Protein (6.3-8.2) g/dL Albumin (3.5-5.0) g/dL Urine Color Urine Appearance (Clear) Urine pH (5.0-8.0) Ur Specific [place] (1.001-1.035) Urine Protein (Negative) Urine Glucose (UA) (Negative) Urine Ketones (Negative) Urine Blood (Negative) Urine Nitrite (Negative) Urine Bilirubin (Negative) Urine Urobilinogen (<2.0) mg/dL Ur Leukocyte Esterase (Negative) Urine RBC (0-5) /hpf Urine WBC (0-5) /hpf Ur Squamous Epith Cells (0-4) /hpf Urine Bacteria (None) /hpf Urine Mucus (None) /hpf Urine Yeast (Budding) (None) /hpf Influenza Type A RNA (Not Detectd) Influenza Type B (PCR) (Not Detectd) Critical Care Time Critical Care Time: Yes Total Critical Care Time: 35 Disposition Clinical Impression: COPD exacerbation, HCAP (healthcare-associated pneumonia), Sepsis, Respiratory failure, Hypoxia Disposition: ADMITTED IP TO THIS [facility] Condition: Serious Is patient prescribed a controlled substance at d/c from ED?: No Referrals: Anthony Stone DO [Primary Care Provider] - 1-2 days Decision to Admit Reason: Admit from EC Decision Date: 08/08/19 Decision Time: 13:05
[2019-08-08] MEDS ORDERED: PROPOFOL 1,000 MG in EMPTY BAG 1 BAG IV SCH (14:15)
[2019-08-08] MEDS ORDERED: SODIUM CHLORIDE 0.9% 1,000 ML IV SCH (14:15)
[2019-08-08] MEDS ORDERED: SODIUM POLYSTYRENE SULFONATE 15 GM/60 ML BOTTLE PO STA (14:32)
[2019-08-08] MEDS ORDERED: BUDESONIDE 0.5 MG/2 ML NEBU INHALATION PRN (14:34)
[2019-08-08 14:47] LABS: Glucose,Whole Blood 195 mg/dL (75-99)
--- NOTE | 2019-08-08 14:48 | P.HPIM ---
History of Present Illness 54-year-old female was brought into ER with altered mental status patient was subsequently and intubated patient was hypotensive altered mental status unable to protect her airway. 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 Unfortunately patient is not being well managed because of her the hospital status and being full code. Patient apparently is hospice but the public guardian wanted her to be intubated and an public guardian wanted her to be resuscitated which it doesn't make sense at all. Trying to reach the guardian at this point of time unable to reach the public guardian. Patient came in with hypercapnic respiratory failure part of and severe dehydration part of which is secondary to her comfort care status. Patient is receiving morphine and severe COPD which puts her at higher risk for hypercapnic respiratory failure and the support patient is presently with. Patient being on morphine pump site area puts her at a higher risk for aspiration pneumonia patient may well have aspirated patient has thick secretions from the endotracheal tube. Patient cannot be well managed at if she is hospice as well as full code. I want to discuss the same thing with the public guardian. Patient is presently intubated on broad-spectrum antibiotics. Patient will also be started on steroids IV fluids. Patient had past medical hi story of sleep apnea as per the documentation and has history of cerebral palsy psychogenic mutism. It appears like patient was recently discharged [facility]. Patient at the time was treated for pneumonia. Patient is morbidly obese. Review of Systems Unable to obtain. Past Medical History Past Medical History: Asthma, Heart Failure, COPD, Diabetes Mellitus, Eye Disorder, GERD/Reflux, Hyperlipidemia, Hypertension, Osteoarthritis (OA), Pneumonia, Renal Disease, Respiratory Disorder, Seizure Disorder, Sleep Apnea/CPAP/BIPAP, Thyroid Disorder Additional Past Medical History / Comment(s): Cerebral palsey, borderline intelectual functioning, selective mutism, lumbar spinal stenosis, muscle spasms in back, weakness, NIDDM type II, peripheral neuropathy bilateral hands/feet, chronic respiratory failure with O2 ATC, pulmonary htn, DESTINEE with cpap, generalized chronic pain, UTIs, CKD stageII, nephrolithiasis, incontinence or urine/stool, overactive bladder, IBS, constipation/diarrhea, hypothyroid, ulcer, glaucoma, allergic rhinitis, vitamin D deficiency, insomnia. History of Any Multi-Drug Resistant Organisms: MRSA Date of last positivie culture/infection: 2008 MDRO Source:: foot Past Surgical History: Back Surgery, Cholecystectomy Additional Past Surgical History / Comment(s): Spinal surgery x2, spinal stimulator 2-2017, bilateral eye surgery for muscle repair, rt shoulder arthroscopy, rom carpal tunnel releases, cyst removed from wrist, EGD, colonoscopy Past Anesthesia/Blood Transfusion Reactions: Motion Sickness, Postoperative Nausea & Vomiting (PONV) Smoking Status: Former smoker - Past Family History Father Family Medical History: No Reported History Mother Family Medical History: Diabetes Mellitus Medications and Allergies Home Medications Medication Instructions Recorded Confirmed Type Dicyclomine [Bentyl] 20 mg PO Q6H PRN 10/08/14 08/08/19 History levETIRAcetam [Keppra] 750 mg PO BID 10/08/14 08/08/19 History Budesonide [Pulmicort] 0.5 mg INHALATION RT-BID PRN 10/20/16 08/08/19 History Levothyroxine Sodium [Synthroid] 50 mcg PO HS 10/20/16 08/08/19 History amLODIPine [Norvasc] 10 mg PO DAILY 10/20/16 08/08/19 History tiZANidine [Zanaflex] 2 mg PO DAILY PRN 10/20/16 08/08/19 History Acetaminophen Tab [Tylenol] 500 mg PO Q6HR PRN 04/20/19 08/08/19 History Atorvastatin [Lipitor] 10 mg PO HS@199904/20/19 08/08/19 History Butalb/Asprin/Caff 50-325-40Mg 1 cap PO Q4HR PRN 04/20/19 08/08/19 History [Fiorinal 50-325-40 MG] Cholecalciferol (Vitamin D3) 2,000 unit PO DAILY 04/20/19 08/08/19 History [Vitamin D3] Citalopram Hydrobromide [CeleXA] 20 mg PO DAILY@0800 04/20/19 08/08/19 History Ketoconazole [Ketoconazole 2%] 1 applic TOPICAL Q8H PRN 04/20/19 08/08/19 History Lisinopril [Zestril] 5 mg PO DAILY 04/20/19 08/08/19 History Melatonin 5 mg PO HS 04/20/19 08/08/19 History Oxybutynin Chloride [Oxybutynin 10 mg PO DAILY@0800 04/20/19 08/08/19 History Chloride ER] Promethazine [Phenergan] 25 mg PO Q6H PRN 04/20/19 08/08/19 History Sennosides-Docusate Sodium 1 tab PO BID@0800,1600 04/20/19 08/08/19 History [Senokot-S] Cholecalciferol [Vitamin D3 (25 1,000 unit PO DAILY@0800 07/04/19 08/08/19 History Mcg = 1000 Iu)] Levothyroxine Sodium [Synthroid] 200 mcg PO HS 07/04/19 08/08/19 History glipiZIDE XL [Glucotrol XL] 10 mg PO DAILY 07/04/19 08/08/19 History Gabapentin [Neurontin] 100 mg PO Q6H #12 cap 07/07/19 08/08/19 Rx Omeprazole [PriLOSEC] 20 mg PO HS 07/11/19 08/08/19 History 2 Hank Hn 30 ml PO QID 08/08/19 08/08/19 History Bisacodyl [Dulcolax] 10 mg RECTAL DAILY PRN 08/08/19 08/08/19 History Hyoscyamine Sulfate [Levsin-Sl] 0.125 - 0.25 mg SL Q4H PRN 08/08/19 08/08/19 History LORazepam [Ativan] 0.5 mg PO Q4H PRN 08/08/19 08/08/19 History Morphine Sulfate Oral Solution 1 mg PO Q1H PRN 08/08/19 08/08/19 History 20mg/5ml Morphine Sulfate Oral Solution 1 mg PO Q4H PRN 08/08/19 08/08/19 History 20mg/5ml Ziprasidone [Geodon] 20 mg PO BID@0800,1600 08/08/19 08/08/19 History Allergies Allergy/AdvReac Type Severity Reaction Status Date / Time Fish Containing Products Allergy Unknown Swelling Verified 08/08/19 13:10 [Fish] butalbital [From Fiorinal] Allergy Unknown Verified 08/08/19 13:10 caffeine [From Fiorinal] Allergy Unknown Verified 08/08/19 13:10 cimetidine [From Tagamet] Allergy Unknown Verified 08/08/19 13:10 cimetidine HCl [From Tagamet] Allergy Unknown Verified 08/08/19 13:10 codeine Allergy Unknown Verified 08/08/19 13:10 dichloralphenazone Allergy Unknown Verified 08/08/19 13:10 [From Midrin] diphenhydramine HCl Allergy Unknown Verified 08/08/19 13:10 [From Benadryl] heparin Allergy Rash/Hives Verified 08/08/19 13:10 indomethacin [From Indocin] Allergy Unknown Verified 08/08/19 13:10 indomethacin sodium Allergy Unknown Verified 08/08/19 13:10 [From Indocin] iodine Allergy Swelling Verified 08/08/19 13:10 isometheptene mucate Allergy Unknown Verified 08/08/19 13:10 [From Midrin] lactose Allergy Unknown Verified 08/08/19 13:10 latex Allergy Anaphylaxis Verified 08/08/19 13:10 Macrolide Antibiotics Allergy Unknown Verified 08/08/19 13:10 nystatin Allergy Rash/Hives Verified 08/08/19 13:10 Penicillins Allergy Unknown Verified 08/08/19 13:10 propoxyphene HCl Allergy Unknown Verified 08/08/19 13:10 [From Darvon] shellfish derived [Shellfish] Allergy Swelling Verified 08/08/19 13:10 theophylline anhydrous Allergy Unknown Verified 08/08/19 13:10 [From [place]] Physical Exam Vitals: Vital Signs Temp Pulse Resp BP Pulse Ox 08/08/19 13:45 98 18 96/70 08/08/19 13:30 95 18 119/81 08/08/19 13:16 88 08/08/19 13:15 87 14 108/57 08/08/19 13:00 75 18 94/54 08/08/19 12:52 80 08/08/19 12:45 79 21 91/36 100 08/08/19 12:30 79 0 L 91/36 84 L 08/08/19 12:15 84 14 80/52 100 08/08/19 12:10 80 18 91/36 100 08/08/19 12:08 18 08/08/19 12:00 88 17 91/36 87 L 08/08/19 11:56 86 16 08/08/19 11:50 89 16 91/40 100 08/08/19 11:46 90 20 91/40 100 08/08/19 11:42 88 16 88/45 100 08/08/19 11:32 93 16 68/37 100 08/08/19 11:30 89 16 87/52 100 08/08/19 11:28 90 11 L 87/52 100 08/08/19 11:26 90 19 87/52 08/08/19 11:24 92 11 L 80/38 96 08/08/19 11:22 98 29 H 59/35 99 08/08/19 11:20 71 26 H 107/95 90 L 08/08/19 11:18 90 22 107/95 08/08/19 11:16 90 19 107/95 08/08/19 11:14 91 20 08/08/19 11:05 98.9 F 87 32 H 77/41 90 L Intake and Output 08/07/19 08/08/19 08/08/19 22:59 06:59 14:59 Other: Weight 121 kg PHYSICAL EXAMINATION: GENERAL: Patient is intubated sedated, morbidly obese thick secretions are coming out of the endotracheal tube HEENT: Pupils are round and equally reacting to light. EOMI. No scleral icterus. No conjunctival pallor. Normocephalic, atraumatic. No pharyngeal erythema. No thyromegaly. CARDIOVASCULAR: S1 and S2 present. No murmurs, rubs, or gallops. PULMONARY: Diffuse bilateral rhonchi ABDOMEN: Soft, obese abdomen does have bowel sounds MUSCULOSKELETAL: No joint swelling or deformity. EXTREMITIES: No cyanosis, clubbing, or pedal edema. NEUROLOGICAL: Sedated as mentioned above SKIN: No rashes. Results CBC & Chem 7: 08/08/19 11:31 08/08/19 11:31 Labs: Abnormal Lab Results - Last 24 Hours (Table) 08/08/19 08/08/19 08/08/19 Range/Units 11:20 11:31 11:31 WBC 18.7 H (3.8-10.6) k/uL RDW 15.7 H (11.5-15.5) % Neutrophils # 16.7 H (1.3-7.7) k/uL Lymphocytes # 0.8 L (1.0-4.8) k/uL APTT (22.0-30.0) sec ABG pH (7.35-7.45) ABG pCO2 (35-45) mmHg ABG pO2 (83-108) mmHg ABG O2 Saturation (94-97) % VBG pH (7.31-7.41) VBG pCO2 (37-51) mmHg VBG HCO3 (24-28) mmol/L Potassium 7.2 H* (3.5-5.1) mmol/L Carbon Dioxide 18 L (22-30) mmol/L BUN 161 H* (7-17) mg/dL Creatinine 4.68 H (0.52-1.04) mg/dL Glucose 153 H (74-99) mg/dL POC Glucose (mg/dL) 176 H (75-99) mg/dL Calcium 8.1 L (8.4-10.2) mg/dL AST 46 H (14-36) U/L Urine Appearance (Clear) Urine Protein (Negative) Urine Blood (Negative) Ur Leukocyte Esterase (Negative) Urine RBC (0-5) /hpf Urine WBC (0-5) /hpf Ur Squamous Epith Cells (0-4) /hpf Urine Bacteria (None) /hpf Urine Mucus (None) /hpf Urine Yeast (Budding) (None) /hpf 08/08/19 08/08/19 08/08/19 Range/Units 11:31 12:03 12:07 WBC (3.8-10.6) k/uL RDW (11.5-15.5) % Neutrophils # (1.3-7.7) k/uL Lymphocytes # (1.0-4.8) k/uL APTT 18.1 L (22.0-30.0) sec ABG pH 7.19 L* (7.35-7.45) ABG pCO2 56 H (35-45) mmHg ABG pO2 202 H (83-108) mmHg ABG O2 Saturation 99.3 H (94-97) % VBG pH (7.31-7.41) VBG pCO2 (37-51) mmHg VBG HCO3 (24-28) mmol/L Potassium (3.5-5.1) mmol/L Carbon Dioxide (22-30) mmol/L BUN (7-17) mg/dL Creatinine (0.52-1.04) mg/dL Glucose (74-99) mg/dL POC Glucose (mg/dL) (75-99) mg/dL Calcium (8.4-10.2) mg/dL AST (14-36) U/L Urine Appearance Turbid H (Clear) Urine Protein 1+ H (Negative) Urine Blood Moderate H (Negative) Ur Leukocyte Esterase Large H (Negative) Urine RBC 68 H (0-5) /hpf Urine WBC >182 H (0-5) /hpf Ur Squamous Epith Cells 8 H (0-4) /hpf Urine Bacteria Many H (None) /hpf Urine Mucus Few H (None) /hpf Urine Yeast (Budding) Many H (None) /hpf 08/08/19 Range/Units 12:07 WBC (3.8-10.6) k/uL RDW (11.5-15.5) % Neutrophils # (1.3-7.7) k/uL Lymphocytes # (1.0-4.8) k/uL APTT (22.0-30.0) sec ABG pH (7.35-7.45) ABG pCO2 (35-45) mmHg ABG pO2 (83-108) mmHg ABG O2 Saturation (94-97) % VBG pH 7.11 L* (7.31-7.41) VBG pCO2 56 H (37-51) mmHg VBG HCO3 17 L (24-28) mmol/L Potassium (3.5-5.1) mmol/L Carbon Dioxide (22-30) mmol/L BUN (7-17) mg/dL Creatinine (0.52-1.04) mg/dL Glucose (74-99) mg/dL POC Glucose (mg/dL) (75-99) mg/dL Calcium (8.4-10.2) mg/dL AST (14-36) U/L Urine Appearance (Clear) Urine Protein (Negative) Urine Blood (Negative) Ur Leukocyte Esterase (Negative) Urine RBC (0-5) /hpf Urine WBC (0-5) /hpf Ur Squamous Epith Cells (0-4) /hpf Urine Bacteria (None) /hpf Urine Mucus (None) /hpf Urine Yeast (Budding) (None) /hpf Thrombosis Risk Factor Assmnt - Choose All That Apply Any of the Below Risk Factors Present?: Yes Each Factor Represents 1 point: Abnormal pulmonary function (COPD), Age 41-60 years, Medical pt on bed rest, Obesity (BMI >25), Serious lung disease incl. pneumonia (< 1month) Other Risk Factors: Yes Each Risk Factor Represents 2 Points: Patient confined to bed Other congenital or acquired thrombophilia - If yes, enter type in comment: No Thrombosis Risk Factor Assessment Total Risk Factor Score: 7 Thrombosis Risk Factor Assessment Level: High Risk Assessment and Plan Plan: Possible septic shock: Secondary to diffuse pneumonia may have aspiration pneumonia patient will be continued on the cefepime and vancomycin will consider adding clindamycin patient is ALLERGIC to penicillins. Patient will continued on IV fluids if needed will start her on norepinephrine. -Acute hypercapnic respiratory failure: Secondary to obesity and pneumonia along with morphine contributing to her respiratory failure patient will be started on inhalational treatments patient will be started on respiratory support with ventilator as his CO2 retention is secondary to restrictive lung disease steroids may not be much helpful. Although inhaled steroids will be continued.. -Acute renal failure mostly prerenal azotemia that may be a competent of acute tubular necrosis can you with IV fluids as mentioned above -Acute metabolic acidosis and acute respiratory acidosis involved acidosis secondary to his hyperuricemia and respiratory acidosis secondary to CO2 retention. -History of cerebral palsy and mental retardation from that -Psychogenic mutism -Type 2 diabetes mellitus next and-gastroesophageal reflux disease -Hypothyroidism -The diabetic peripheral neuropathy -Wasting sleep apnea and restrictive lung disease -Seizure disorder patient will be resumed on antiseizure medications -Hyperkalemia secondary to acute renal failure patient will be given capsulate patient received calcium gluconate. -Patient has contaminated urine sample from a chronic Miranda catheter which will be replaced. Patient is on antibiotics anyways, may have not have urinary tract infection Her overall prognosis is extremely poor her clinical condition is guarded. We'll discuss with the public guardian regarding appropriate care for her. In my professional opinion patient is not being well managed with both ways of full resuscitation and in proper decisions of completed treatment when she is on hospice. Hospice medications are responsible for her present situation including aspiration and hypercapnic respiratory failure along with renal fail ure, because of this reason patient cannot be managed both ways.
[2019-08-08] MEDS ORDERED: CEFEPIME 2 GM in SODIUM CHLORIDE 0.9% 100 ML IVPB SCH (16:00)
[2019-08-08 16:31] LABS: Calcium 7.7 mg/dL (8.4-10.2)
--- NOTE | 2019-08-08 16:42 | P.CNPUL ---
History of Present Illness Consult date: 08/08/19 Requesting physician: Shelbie Batista Reason for consult: dyspnea Chief complaint: acute hypoxic respiratory failure History of present illness: this is a 54-year-old female patient who is a resident of the local long term with past medical history of COPD, chronic congestive heart failure, diabetes mellitus, GERD/reflux, hypertension, hyperlipidemia, cerebral palsy, chronic cognitive impairment, DrFranklin sleep apnea, morbid obesity, chronic kidney disease stage II, hypothyroidism, who was recently placed in hospice, laboratory there was confusion about her CODE STATUS and apparently patient had remained a full code. This morning on 08/08/2019 patient was noted to be increasingly short of breath, hypoxic, and having altered mentation. Because of her full CODE STATUS, she was transported to the emergency department. Her public guardian was supposed to have an emergency hearing with the Copy Lathe Tender Niall about changing her CODE STATUS, but in view of her deteriorating clinical cond ition and respiratory distress she was emergently intubated and placed on mechanical ventilator. post intubation chest x-ray showed cardiomegaly, and interstitial densities, mild pulmonary vessel congestion and left lower lobe infiltrates. initial blood work showed leukocytosis, with blood cell was 18.7, hemoglobin was 11.8, sodium was 137, potassium 7.2, chloride was 101, CO2 is 18, B1 is 161, creatinine is 4.68, proBNP was 3440, urinalysis showed large amount of leuks, greater than 182 white blood cells, and many bacteria, influenza screen was negative. Patient was started on empiric antibiotics in the form of cefepime and vancomycin, she was fluid resuscitated and high potassium was jared luis with 50% dextrose, insulin and nebulized albuterol. Patient was transferred to the intensive care unit, and were consulted for critical care management. Review of Systems All systems: negative Constitutional: Denies chills, Denies fever Eyes: denies blurred vision, denies pain Ears, nose, mouth and throat: Denies headache, Denies sore throat Cardiovascular: Denies chest pain, Denies shortness of breath Respiratory: Reports dyspnea, Denies cough Gastrointestinal: Denies abdominal pain, Denies diarrhea, Denies nausea, Denies vomiting Genitourinary: Denies dysuria, Denies hematuria Musculoskeletal: Denies myalgias Integumentary: Denies pruritus, Denies rash Neurological: Reports confusion, Denies numbness, Denies weakness Psychiatric: Denies anxiety, Denies depression Endocrine: Denies fatigue, Denies weight change Past Medical History Past Medical History: Asthma, Heart Failure, COPD, Diabetes Mellitus, Eye Disorder, GERD/Reflux, Hyperlipidemia, Hypertension, Osteoarthritis (OA), Pneumonia, Renal Disease, Respiratory Disorder, Seizure Disorder, Sleep Apnea/CPAP/BIPAP, Thyroid Disorder Additional Past Medical History / Comment(s): Cerebral palsey, borderline intelectual functioning, selective mutism, lumbar spinal stenosis, muscle spasms in back, weakness, NIDDM type II, peripheral neuropathy bilateral hands/feet, chronic respiratory failure with O2 ATC, pulmonary htn, DESTINEE with cpap, generalized chronic pain, UTIs, CKD stageII, nephrolithiasis, incontinence or urine/stool, overactive bladder, IBS, constipation/diarrhea, hypothyroid, ulcer, glaucoma, allergic rhinitis, vitamin D deficiency, insomnia. History of Any Multi-Drug Resistant Organisms: MRSA Date of last positivie culture/infection: 2008 MDRO Source:: foot Past Surgical History: Back Surgery, Cholecystectomy Additional Past Surgical History / Comment(s): Spinal surgery x2, spinal stimulator 2-2016, bilateral eye surgery for muscle repair, rt shoulder arthroscopy, rom carpal tunnel releases, cyst removed from wrist, EGD, colonoscopy Past Anesthesia/Blood Transfusion Reactions: Motion Sickness, Postoperative Nausea & Vomiting (PONV) Smoking Status: Former smoker - Past Family History Father Family Medical History: No Reported History Mother Family Medical History: Diabetes Mellitus Medications and Allergies Home Medications Medication Instructions Recorded Confirmed Type Dicyclomine [Bentyl] 20 mg PO Q6H PRN 10/08/14 08/08/19 History levETIRAcetam [Keppra] 750 mg PO BID 10/08/14 08/08/19 History Budesonide [Pulmicort] 0.5 mg INHALATION RT-BID PRN 10/20/16 08/08/19 History Levothyroxine Sodium [Synthroid] 50 mcg PO HS 10/20/16 08/08/19 History amLODIPine [Norvasc] 10 mg PO DAILY 10/20/16 08/08/19 History tiZANidine [Zanaflex] 2 mg PO DAILY PRN 10/20/16 08/08/19 History Acetaminophen Tab [Tylenol] 500 mg PO Q6HR PRN 04/20/19 08/08/19 History Atorvastatin [Lipitor] 10 mg PO HS@199904/20/19 08/08/19 History Butalb/Asprin/Caff 50-325-40Mg 1 cap PO Q4HR PRN 04/20/19 08/08/19 History [Fiorinal 50-325-40 MG] Cholecalciferol (Vitamin D3) 2,000 unit PO DAILY 04/20/19 08/08/19 History [Vitamin D3] Citalopram Hydrobromide [CeleXA] 20 mg PO DAILY@0800 04/20/19 08/08/19 History Ketoconazole [Ketoconazole 2%] 1 applic TOPICAL Q8H PRN 04/20/19 08/08/19 History Lisinopril [Zestril] 5 mg PO DAILY 04/20/19 08/08/19 History Melatonin 5 mg PO HS 04/20/19 08/08/19 History Oxybutynin Chloride [Oxybutynin 10 mg PO DAILY@0800 04/20/19 08/08/19 History Chloride ER] Promethazine [Phenergan] 25 mg PO Q6H PRN 04/20/19 08/08/19 History Sennosides-Docusate Sodium 1 tab PO BID@0800,1600 04/20/19 08/08/19 History [Senokot-S] Cholecalciferol [Vitamin D3 (25 1,000 unit PO DAILY@0800 07/04/19 08/08/19 History Mcg = 1000 Iu)] Levothyroxine Sodium [Synthroid] 200 mcg PO HS 07/04/19 08/08/19 History glipiZIDE XL [Glucotrol XL] 10 mg PO DAILY 07/04/19 08/08/19 History Gabapentin [Neurontin] 100 mg PO Q6H #12 cap 07/07/19 08/08/19 Rx Omeprazole [PriLOSEC] 20 mg PO HS 07/11/19 08/08/19 History 2 Hank Hn 30 ml PO QID 08/08/19 08/08/19 History Bisacodyl [Dulcolax] 10 mg RECTAL DAILY PRN 08/08/19 08/08/19 History Hyoscyamine Sulfate [Levsin-Sl] 0.125 - 0.25 mg SL Q4H PRN 08/08/19 08/08/19 History LORazepam [Ativan] 0.5 mg PO Q4H PRN 08/08/19 08/08/19 History Morphine Sulfate Oral Solution 1 mg PO Q1H PRN 08/08/19 08/08/19 History 20mg/5ml Morphine Sulfate Oral Solution 1 mg PO Q4H PRN 08/08/19 08/08/19 History 20mg/5ml Ziprasidone [Geodon] 20 mg PO BID@0800,1600 08/08/19 08/08/19 History Allergies Allergy/AdvReac Type Severity Reaction Status Date / Time Fish Containing Products Allergy Unknown Swelling Verified 08/08/19 13:10 [Fish] butalbital [From Fiorinal] Allergy Unknown Verified 08/08/19 13:10 caffeine [From Fiorinal] Allergy Unknown Verified 08/08/19 13:10 cimetidine [From Tagamet] Allergy Unknown Verified 08/08/19 13:10 cimetidine HCl [From Tagamet] Allergy Unknown Verified 08/08/19 13:10 codeine Allergy Unknown Verified 08/08/19 13:10 dichloralphenazone Allergy Unknown Verified 08/08/19 13:10 [From Midrin] diphenhydramine HCl Allergy Unknown Verified 08/08/19 13:10 [From Benadryl] heparin Allergy Rash/Hives Verified 08/08/19 13:10 indomethacin [From Indocin] Allergy Unknown Verified 08/08/19 13:10 indomethacin sodium Allergy Unknown Verified 08/08/19 13:10 [From Indocin] iodine Allergy Swelling Verified 08/08/19 13:10 isometheptene mucate Allergy Unknown Verified 08/08/19 13:10 [From Midrin] lactose Allergy Unknown Verified 08/08/19 13:10 latex Allergy Anaphylaxis Verified 08/08/19 13:10 Macrolide Antibiotics Allergy Unknown Verified 08/08/19 13:10 nystatin Allergy Rash/Hives Verified 08/08/19 13:10 Penicillins Allergy Unknown Verified 08/08/19 13:10 propoxyphene HCl Allergy Unknown Verified 08/08/19 13:10 [From Darvon] shellfish derived [Shellfish] Allergy Swelling Verified 08/08/19 13:10 theophylline anhydrous Allergy Unknown Verified 08/08/19 13:10 [From [place]] Physical Exam Vitals: Vital Signs Temp Pulse Resp BP Pulse Ox 08/08/19 14:00 76 18 86/58 99 08/08/19 13:45 66 18 106/57 100 08/08/19 13:30 78 18 96/70 98 08/08/19 13:16 88 08/08/19 13:15 87 14 108/57 08/08/19 13:00 75 18 94/54 08/08/19 12:52 80 08/08/19 12:45 79 21 91/36 100 08/08/19 12:30 79 0 L 91/36 84 L 08/08/19 12:15 84 14 80/52 100 08/08/19 12:10 80 18 91/36 100 08/08/19 12:08 18 08/08/19 12:00 88 17 91/36 87 L 08/08/19 11:56 86 16 08/08/19 11:50 89 16 91/40 100 08/08/19 11:46 90 20 91/40 100 08/08/19 11:42 88 16 88/45 100 08/08/19 11:32 93 16 68/37 100 08/08/19 11:30 89 16 87/52 100 08/08/19 11:28 90 11 L 87/52 100 08/08/19 11:26 90 19 87/52 08/08/19 11:24 92 11 L 80/38 96 08/08/19 11:22 98 29 H 59/35 99 08/08/19 11:20 71 26 H 107/95 90 L 08/08/19 11:18 90 22 107/95 08/08/19 11:16 90 19 107/95 08/08/19 11:14 91 20 08/08/19 11:05 98.9 F 87 32 H 77/41 90 L Intake and Output 08/08/19 08/08/19 08/08/19 06:59 14:59 22:59 Intake Total 1.383 75 Output Total 75 Balance 1.383 0 Intake: IV 75 Sodium Chloride 0.9% 1, 75 000 ml @ 75 mls/hr IV . [id number] [facility] Rx#:[id number] Intake, IV Titration 1.383 Amount Midazolam HCl 50 mg In 1.383 Sodium Chloride 0.9% 40 ml @ 1 MG/HR 1 mls/hr IV .Q24H [facility] Rx#:[id number] Output: Urine 75 Other: Weight 121 kg GENERAL EXAM: sedated, intubated, 54-year-old morbidly obese white female, on mechanical ventilator comfortable in no apparent distress. HEAD: Normocephalic/atraumatic. EYES: Normal reaction of pupils, equal size. Conjunctiva pink, sclera white. NOSE: Clear with pink turbinates. THROAT: No erythema or exudates. NECK: No masses, no JVD, no thyroid enlargement, no adenopathy. CHEST: No chest wall deformity. Symmetrical expansion. LUNGS: Equal air entry with a few scattered rhonchi CVS: Regular rate and rhythm, normal S1 and S2, no gallops, no murmurs, no rubs ABDOMEN: Soft, nontender. No hepatosplenomegaly, normal bowel sounds, no guarding or rigidity. EXTREMITIES: No clubbing, no edema, no cyanosis, 2+ pulses and upper and lower extremities. MUSCULOSKELETAL: Muscle strength and tone normal. SPINE: No scoliosis or deformity SKIN: No rashes CENTRAL NERVOUS SYSTEM:sedated, intubated No focal deficits, tone is normal in all 4 extremities. Results - Laboratory Findings CBC and BMP: 08/08/19 11:31 08/08/19 11:31 ABG ABG pH 7.19 (7.35-7.45) L* 08/08/19 12:03 ABG pCO2 56 mmHg (35-45) H 08/08/19 12:03 ABG pO2 202 mmHg (83-108) H 08/08/19 12:03 ABG O2 Saturation 99.3 % (94-97) H 08/08/19 12:03 PT/INR, D-dimer PT 9.8 sec (9.0-12.0) 08/08/19 12:07 INR 0.9 (<1.2) 08/08/19 12:07 Abnormal lab findings: Abnormal Labs 08/08/19 08/08/19 08/08/19 11:20 11:31 11:31 WBC 18.7 H RDW 15.7 H Neutrophils # 16.7 H Lymphocytes # 0.8 L APTT ABG pH ABG pCO2 ABG pO2 ABG O2 Saturation VBG pH VBG pCO2 VBG HCO3 Potassium 7.2 H* Carbon Dioxide 18 L BUN 161 H* Creatinine 4.68 H Glucose 153 H POC Glucose (mg/dL) 176 H Calcium 8.1 L AST 46 H Urine Appearance Urine Protein Urine Blood Ur Leukocyte Esterase Urine RBC Urine WBC Ur Squamous Epith Cells Urine Bacteria Urine Mucus Urine Yeast (Budding) 08/08/19 08/08/19 08/08/19 11:31 12:03 12:07 WBC RDW Neutrophils # Lymphocytes # APTT 18.1 L ABG pH 7.19 L* ABG pCO2 56 H ABG pO2 202 H ABG O2 Saturation 99.3 H VBG pH VBG pCO2 VBG HCO3 Potassium Carbon Dioxide BUN Creatinine Glucose POC Glucose (mg/dL) Calcium AST Urine Appearance Turbid H Urine Protein 1+ H Urine Blood Moderate H Ur Leukocyte Esterase Large H Urine RBC 68 H Urine WBC >182 H Ur Squamous Epith Cells 8 H Urine Bacteria Many H Urine Mucus Few H Urine Yeast (Budding) Many H 08/08/19 08/08/19 12:07 14:35 WBC RDW Neutrophils # Lymphocytes # APTT ABG pH ABG pCO2 ABG pO2 ABG O2 Saturation VBG pH 7.11 L* VBG pCO2 56 H VBG HCO3 17 L Potassium Carbon Dioxide BUN Creatinine Glucose POC Glucose (mg/dL) 195 H Calcium AST Urine Appearance Urine Protein Urine Blood Ur Leukocyte Esterase Urine RBC Urine WBC Ur Squamous Epith Cells Urine Bacteria Urine Mucus Urine Yeast (Budding) - Diagnostic Findings Chest x-ray: report reviewed, image reviewed Assessment and Plan Plan: assessment: #1. acute hypoxic respiratory failure related to acute pneumonia in the left lower lobe, possibly healthcare acquired or aspiration related, and acute exacerbation of congestive heart failure with an unknown ejection fraction #2. acute kidney injury #3.hyperkalemia #4. Anion gap metabolic acidosis #5. urinary tract infection #6. Septic shock #7. recent initiation of palliative care and hospice enrollment #8. Multiple comorbidities including history of cerebral palsy, chronic cognitive impairments, COPD, chronic congestive heart failure, diabetes mellitus, hypertension, hyperlipidemia, morbid obesity, hypothyroidism, sleep apnea, seizure disorder, previous episodes of pneumonia, osteoarthritis, MRSA infection Plan: Chest x-ray, blood gases, lab values have been reviewed, patient was fluid resuscitated, hyperkalemia has been treated, we'll repeat blood work at 1600, continue cefepime and vancomycin, blood culture sputum and urine cultures have been sent and are pending at this time, and DVT prophylaxis has been initiated. Patient is being treated for sepsis, septic shock related to pneumonia and urinary tract infection, public guardian is having a emergency hearing wedge Edison Tierney regarding patient's CODE STATUS, and were told that they hearing has been granted, and patient's CODE STATUS was changed to DO NOT RESUSCITATE and patient will be placed back in hospice she will be extubated and comfort care protocol will be re-initiated. we'll defer to attending physician in regards to whether or not to consult hospice and transfer the patient back to the long term under the hospice care. I performed a history & physical examination of the patient and discussed their management with my nurse practitioner, Valerie Lawson. I reviewed the nurse practitioner's note and agree with the documented findings and plan of care. Lung sounds are positive for a few diffuse rhonchi The findings and the impression was discussed with the patient. I attest to the documentation by the nurse practitioner. Time with Patient: Greater than 30
[2019-08-08] MEDS ORDERED: GLYCOPYRROLATE 0.2 MG/ML 2 ML VIAL IVP PRN (16:47)
[2019-08-08] MEDS ORDERED: ATROPINE OPHTH SOLN 1% 5ML BTL SUBLINGUAL PRN (16:47)
[2019-08-08] MEDS ORDERED: POLYETHYLENE GLYCOL 3350 17 GM POWD.PACK PO PRN (16:47)
--- NOTE | 2019-08-08 16:53 | P.PN ---
Progress Note - Text Patient is now back to status of hospice. Patient is DO NOT RESUSCITATE. Patient will be terminally extubated on antibiotics and all her medications will be discontinued and hospice will be resumed again patient will be transferred out of ICU only comfort medications will be continued.
[2019-08-08] MEDS ORDERED: MORPHINE SULFATE (100 MG/2 ML) 100 MG in SODIUM CHLORIDE 0.9% 100 ML IV SCH (17:00)
[2019-08-08] MEDS: ZIPRASIDONE 20 MG CAP PO SCH (17:09)
[2019-08-08] MEDS: SENNOSIDES-DOCUSATE SODIUM 1 EACH TAB PO SCH (17:09)
[2019-08-08] MEDS: MORPHINE SULFATE 2 MG/ML SYRINGE IV PRN (17:58)
[2019-08-08] MEDS ORDERED: ATORVASTATIN 10 MG TAB PO SCH (20:00)
[2019-08-08] MEDS ORDERED: LEVOTHYROXINE 50 MCG TAB PO SCH (21:00)
[2019-08-08] MEDS ORDERED: LEVOTHYROXINE 100 MCG TAB PO SCH (21:00)
[2019-08-08] MEDS ORDERED: methylPREDNISolone SOD SUCCI 40 MG/ML 1 ML VIAL IV SCH (21:00)
[2019-08-08] MEDS: SODIUM CHLORIDE 0.9% 1,000 ML IV SCH (23:24)
[2019-08-09] MEDS: LORazepam 2 MG/ML INJ IV PRN ×2 (01:11→12:49)
[2019-08-09 03:22] LABS: Glucose,Whole Blood 160 mg/dL (75-99)
[2019-08-09 05:22] LABS: Basophils % (A) 0 %; Eosinophils # (A) 0.1 k/uL (0-0.7); Eosinophils % (A) 0 %; HCT 35.2 % (34.0-46.0); HGB 11.2 gm/dL (11.4-16.0); Hypochromasia Moderate; Lymphocytes # (A) 0.8 k/uL (1.0-4.8); Lymphocytes % (A) 5 %; MCH 28.9 pg (25.0-35.0); MCHC 31.7 g/dL (31.0-37.0); Mean Platelet Volume 7.1; Monocytes # (A) 0.8 k/uL (0-1.0); Monocytes % (A) 5 %; Neutrophils % (A) 88 %; Platelet Count 296 k/uL (150-450); RBC 3.87 m/uL (3.80-5.40); RDW 15.5 % (11.5-15.5); WBC 14.8 k/uL (3.8-10.6)
[2019-08-09 05:43] LABS: Potassium 6.1 mmol/L (3.5-5.1)
[2019-08-09 06:13] LABS: Glucose,Whole Blood 158 mg/dL (75-99)
[2019-08-09] MEDS ORDERED: OXYBUTYNIN 10 MG TAB.ER.24 PO SCH (08:00)
[2019-08-09] MEDS ORDERED: VANCOMYCIN 2,250 MG in SODIUM CHLORIDE 0.9% 500 ML 500 ML IVPB ONE (08:00)
[2019-08-09] MEDS: SENNOSIDES-DOCUSATE SODIUM 1 EACH TAB PO SCH ×3 (08:58→17:10)
[2019-08-09] MEDS: CITALOPRAM HYDROBROMIDE 20 MG TAB PO SCH ×2 (08:58→12:03)
[2019-08-09] MEDS: ZIPRASIDONE 20 MG CAP PO SCH ×3 (08:59→17:10)
[2019-08-09] MEDS ORDERED: CEFEPIME 1 GM in SODIUM CHLORIDE 0.9% 50 ML IVPB SCH ×2 (09:00→16:00)
[2019-08-09 11:35] LABS: ABG PH 7.19 (7.35-7.45)
--- NOTE | 2019-08-09 11:57 | XR ---
EXAMINATION TYPE: XR chest 1V portable DATE OF EXAM: 08/09/2019 CLINICAL HISTORY: Difficulty breathing pneumonia progress study. TECHNIQUE: Single AP portable semiupright view of the chest is obtained. COMPARISON: Chest x-ray from one day earlier and older studies. FINDINGS: Interval extubation with endotracheal and orogastric tubes. Spinal stimulator device mid t o lower thoracic spine redemonstrated. Cardiomegaly and chronic parenchymal changes with some increased interstitial markings left lower yudy g redemonstrated without new focal airspace opacity, pleural effusion, or pneumothorax. Osseous struc tures are intact. IMPRESSION: Interval extubation. Cardiomegaly and chronic parenchymal changes with persistent left lo wer lung interstitial edema and/or infiltrate.
[2019-08-09] MEDS: MORPHINE SULFATE 2 MG/ML SYRINGE IV PRN (11:58)
[2019-08-09 12:00] LABS: Glucose,Whole Blood 99 mg/dL (75-99)
[2019-08-09] MEDS ORDERED: SODIUM POLYSTYRENE SULFONATE 15 GM/60 ML BOTTLE PO STA ×2 (12:03→19:32)
[2019-08-09] MEDS ORDERED: ASPRIN PO PRN (12:04)
[2019-08-09] MEDS ORDERED: CAFF PO PRN (12:04)
[2019-08-09] MEDS ORDERED: BUTALB PO PRN (12:04)
[2019-08-09] MEDS: SODIUM CHLORIDE 0.9% 1,000 ML IV SCH ×3 (12:11→22:09)
[2019-08-09] MEDS: GABAPENTIN 100 MG CAP PO SCH ×2 (12:12→17:13)
--- NOTE | 2019-08-09 13:44 | P.PN ---
Subjective Progress Note Date: 08/09/19 Principal diagnosis: acute hypoxic respiratory failure requiring intubation and mechanical ventilation. this is a 54-year-old female patient who is a resident of the local detention with past medical history of COPD, chronic congestive heart failure, diabetes mellitus, GERD/reflux, hypertension, hyperlipidemia, cerebral palsy, chronic cognitive impairment, Dr. nguyen krause, morbid obesity, chronic kidney disease stage II, hypothyroidism, who was recently placed in hospice, laboratory there was confusion about her CODE STATUS and apparently patient had remained a full code. This morning on 08/08/2019 patient was noted to be increasingly short of breath, hypoxic, and having altered mentation. Because of her full CODE STATUS, she was transported to the emergency department. Her public guardian was supposed to have an emergency hearing with the Auto Mechanics Instructor Niall about changing her CODE STATUS, but in view of her deteriorating clinical condition and respiratory distress she was emergently intubated and placed on mechanical ventilator. post intubation chest x-ray showed cardiomegaly, and interstitial densities, mild pulmonary vessel congestion and left lower lobe infiltrates. initial blood work showed leukocytosis, with blood cell was 18.7, hemoglobin was 11.8, sodium was 137, potassium 7.2, chloride was 101, CO2 is 18, B1 is 161, creatinine is 4.68, proBNP was 3440, urinalysis showed large amount of leuks, greater than 182 white blood cells, and many bacteria, influenza screen was negative. Patient was started on empiric antibiotics in the form of cefepime and vancomycin, she was fluid resuscitated and high potassium was treated with 50% dextrose, insulin and nebulized albuterol. Patient was transferred to the intensive care unit, and were consulted for critical care management. Patient was reevaluated today on 08/09/2019, remains in the ICU, she was extubated yesterday and she was supposed to go on comfort care. However when the patient woke up, and she was off mechanical ventilation, she requested that she does not go on comfort care, she would like to be treated for her condition, and to be DO NOT RESUSCITATE but not comfort care. Hence treatment has shifted now mostly to treatment of her underlying conditions, including her left lower lobe pneumonia which was seen on the chest x-ray on admission, and her other medical problems, but she will remain DO NOT RESUSCITATE CODE STATUS. According to the nurses, the patient has been refusing to take most of her oral medications.she is on nasal cannula, she is off mechanical ventilation, seems to be appropriate, and in no distress.WBC count is 14.8 hemoglobin is 11.2. Electrolytes showed elevated potassium of 6.1. BUN is 133 creatinine is 1.95, and that being addressed by nephrology on the case. Objective - Vital Signs Vital signs: Vital Signs Temp 97.2 F L 08/09/19 12:00 Pulse 85 08/09/19 13:00 Resp 12 08/09/19 13:00 BP 107/53 08/09/19 13:00 Pulse Ox 94 L 08/09/19 13:00 Intake & Output 08/08/19 08/09/19 08/09/19 18:59 06:59 18:59 Intake Total 253.273 817.850 425 Output Total 175 1600 555 Balance 78.273 -782.150 -130 Weight 121 kg 121 kg Intake: IV 225 800 425 Sodium Chloride 0.9% 1, 200 000 ml @ 125 mls/hr IV . Q8H [facility] Rx#:[id number] Sodium Chloride 0.9% 1, 225 800 225 000 ml @ 75 mls/hr IV . [id number] [facility] Rx#:[id number] Intake, IV Titration 28.273 17.850 Amount Midazolam HCl 50 mg In 1.383 Sodium Chloride 0.9% 40 ml @ 1 MG/HR 1 mls/hr IV .Q24H [facility] Rx#:[id number] Morphine Sulfate (100 mg/ 0.391 17.850 2 ml) 100 mg In Sodium Chloride 0.9% 100 ml @ 1 MG/HR 1.02 mls/hr IV . Q24H [facility] Rx#:[id number] Propofol 1,000 mg In 26.499 Empty Bag 1 bag @ Titrate IV .Q0M [facility] Rx#: [id number] Output: Urine 175 1600 555 Other: Voiding Method Indwelling Catheter Indwelling Catheter Indwelling Catheter - Exam Physical Exam: Revealed 54-year-old female, obese, in no distress, on nasal cannula. Head: Atraumatic, normocephalic. HEENT:[Neck is supple.] [No neck masses.] [No thyromegaly.] [No JVD.], PERRLA, EOMI, no icterus, short obese neck is noted. No neck masses no JVD no stridor Chest: [Clear throughout, no crackles, no rhonchi, no wheezes.]symmetrical chest expansion. Cardiac Exam: [Normal S1 and S2, no S3 gallop, no murmur.] Abdomen: [obese,Soft, nontender, no megaly, no rebound, no guarding, normal bowel sounds.] Extremities: [No clubbing, no edema, no cyanosis.] Neurological Exam:alert and oriented 3. [No focal neurologic deficit.] psychiatric: Normal mood affect and normal mental status examination. Skin: No rashes. - Labs CBC & Chem 7: 08/09/19 04:41 08/09/19 04:41 Labs: Abnormal Lab Results - Last 24 Hours (Table) 08/08/19 08/08/19 08/08/19 Range/Units 12:03 14:35 15:53 WBC (3.8-10.6) k/uL Hgb (11.4-16.0) gm/dL Neutrophils # (1.3-7.7) k/uL Lymphocytes # (1.0-4.8) k/uL ABG pH 7.19 L* (7.35-7.45) Sodium 135 L (137-145) mmol/L Potassium 7.0 H* (3.5-5.1) mmol/L Chloride (98-107) mmol/L Carbon Dioxide 15 L (22-30) mmol/L BUN 146 H* (7-17) mg/dL Creatinine 3.50 H (0.52-1.04) mg/dL Glucose 253 H (74-99) mg/dL POC Glucose (mg/dL) 195 H (75-99) mg/dL Calcium 7.7 L (8.4-10.2) mg/dL 08/09/19 08/09/19 08/09/19 Range/Units 03:10 04:41 04:41 WBC 14.8 H (3.8-10.6) k/uL Hgb 11.2 L (11.4-16.0) gm/dL Neutrophils # 13.0 H (1.3-7.7) k/uL Lymphocytes # 0.8 L (1.0-4.8) k/uL ABG pH (7.35-7.45) Sodium (137-145) mmol/L Potassium 6.1 H* (3.5-5.1) mmol/L Chloride 113 H (98-107) mmol/L Carbon Dioxide 16 L (22-30) mmol/L BUN 133 H* (7-17) mg/dL Creatinine 1.95 H (0.52-1.04) mg/dL Glucose 145 H (74-99) mg/dL POC Glucose (mg/dL) 160 H (75-99) mg/dL Calcium 8.0 L (8.4-10.2) mg/dL 08/09/19 Range/Units 06:02 WBC (3.8-10.6) k/uL Hgb (11.4-16.0) gm/dL Neutrophils # (1.3-7.7) k/uL Lymphocytes # (1.0-4.8) k/uL ABG pH (7.35-7.45) Sodium (137-145) mmol/L Potassium (3.5-5.1) mmol/L Chloride (98-107) mmol/L Carbon Dioxide (22-30) mmol/L BUN (7-17) mg/dL Creatinine (0.52-1.04) mg/dL Glucose (74-99) mg/dL POC Glucose (mg/dL) 158 H (75-99) mg/dL Calcium (8.4-10.2) mg/dL Microbiology - Last 24 Hours (Table) 08/08/19 11:25 Gram Stain - Preliminary Sputum Sputum Culture - Preliminary Presumptive Staph aureus Assessment and Plan Assessment: #1. acute hypoxic respiratory failure related to acute pneumonia in the left lower lobe, possibly healthcare acquired or aspiration related, and acute exace rbation of congestive heart failure with an unknown ejection fraction #2. acute kidney injury #3.hyperkalemia #4. Anion gap metabolic acidosis #5. urinary tract infection #6. Septic shock #7. recent initiation of palliative care and hospice enrollment #8. Multiple comorbidities including history of cerebral palsy, chronic cognitive impairments, COPD, chronic congestive heart failure, diabetes mellitus, hypertension, hyperlipidemia, morbid obesity, hypothyroidism, sleep apnea, seizure disorder, previous episodes of pneumonia, osteoarthritis, MRSA infection Recommendation: Patient was extubated yesterday based on her legal guardian wishes, she was supposed to go on comfort care measures, however the patient does not want comfort care, now she wants to be treated but continues to request DO NOT RESUSCITATE CODE STATUS. Discussed her condition with the admitting physician, we'll continue our treatment plan as outlined, and again no more comfort care measures. We will continue to follow. Possibly transfer out of the ICU today. Time with Patient: Less than 30
--- NOTE | 2019-08-09 15:03 | P.PN ---
Subjective 60-year-old female with known history of cerebral palsy and multiple psychiatric issues is hospice as an outpatient came in here unresponsive and septic because of the morphine she is receiving for hospice patient is mainly was treated for hypercapnic respiratory failure patient if it appears to have had apneic episodes most probably because of the morphine she is receiving for comfort purposes says she is hospice, patient probably aspirated because that and patient is severely dehydrated and volume depleted because of hospice status and not eating and drinking. Initially the public guardian wanted her to be full code until she gets a court order regarding her resuscitation status and apparently there is a state law are [facility] law now. Eventually we got the court order saying that patient need to be terminally extubated and patient will be DO NOT RESUSCITATE. We did exactly the same and as per the court ordered patient was switched to hospice status. Patient at night was awake more responsive able to answer questions and doesn't want to be hospice patient clearly voiced this to the nighttime nursing staff who informed that the power of county attorney would agree with the patient and wanted us to treat her again. But again in the morning apparently nursing staff was informed that patient had to go back on hospice status. I did a lengthy evaluation on the patient patient is able to tell me where she is I do not believe patient is confused and I believe patient can still make addition in spite of her psychiatric issues and cerebral palsy and doesn't want to be on hospice and she even knows the chair that giving morphine as she is hospice and doesn't want to take any morphine. The nurse did explain patient is only getting pain medications for her pain not because she is hospice. After which patient ended up taking medication. Patient is able to tell me exactly her name and age. Although she doesn't know the year she knows where she is patient appears to be more appropriate. I do not believe the hospice decision w as made in her best interest because of that reason, I decided to treat the patient reverse the hospice although DO NOT RESUSCITATE is still appropriate, patient will remain DO NOT RESUSCITATE patient was started on IV fluids will be on antibiotics we'll discuss at length with medical power of county attorney. Objective - Vital Signs Vital signs: Vital Signs Temp 97.2 F L 08/09/19 12:00 Pulse 81 08/09/19 14:00 Resp 15 08/09/19 14:00 BP 101/51 08/09/19 14:00 Pulse Ox 96 08/09/19 14:00 Intake & Output 08/08/19 08/09/19 08/09/19 18:59 06:59 18:59 Intake Total 253.273 817.850 550 Output Total 175 1600 630 Balance 78.273 -782.150 -80 Weight 121 kg 121 kg Intake: IV 225 800 550 Sodium Chloride 0.9% 1, 325 000 ml @ 125 mls/hr IV . Q8H [facility] Rx#:[id number] Sodium Chloride 0.9% 1, 225 800 225 000 ml @ 75 mls/hr IV . [id number] [facility] Rx#:[id number] Intake, IV Titration 28.273 17.850 Amount Midazolam HCl 50 mg In 1.383 Sodium Chloride 0.9% 40 ml @ 1 MG/HR 1 mls/hr IV .Q24H [facility] Rx#:[id number] Morphine Sulfate (100 mg/ 0.391 17.850 2 ml) 100 mg In Sodium Chloride 0.9% 100 ml @ 1 MG/HR 1.02 mls/hr IV . Q24H [facility] Rx#:[id number] Propofol 1,000 mg In 26.499 Empty Bag 1 bag @ Titrate IV .Q0M [facility] Rx#: [id number] Output: Urine 175 1600 630 Other: Voiding Method Indwelling Catheter Indwelling Catheter Indwelling Catheter - Exam PHYSICAL EXAMINATION: GENERAL: The patient is alert and oriented x2, not in any acute distress. Well developed, well nourished. Obese. HEENT: Pupils are round and equally reacting to light. EOMI. No scleral icterus. No conjunctival pallor. Normocephalic, atraumatic. No pharyngeal erythema. No thyromegaly. CARDIOVASCULAR: S1 and S2 present. No murmurs, rubs, or gallops. PULMONARY: Chest is clear to auscultation, no wheezing or crackles. ABDOMEN: Soft, nontender, nondistended, normoactive bowel sounds. No palpable organomegaly. MUSCULOSKELETAL: No joint swelling or deformity. EXTREMITIES: No cyanosis, clubbing, or pedal edema. NEUROLOGICAL: Gross neurological examination did not reveal any focal deficits. SKIN: No rashes. - Labs CBC & Chem 7: 08/09/19 04:41 08/09/19 04:41 Labs: Abnormal Lab Results - Last 24 Hours (Table) 08/08/19 08/08/19 08/09/19 Range/Units 12:03 15:53 03:10 WBC (3.8-10.6) k/uL Hgb (11.4-16.0) gm/dL Neutrophils # (1.3-7.7) k/uL Lymphocytes # (1.0-4.8) k/uL ABG pH 7.19 L* (7.35-7.45) Sodium 135 L (137-145) mmol/L Potassium 7.0 H* (3.5-5.1) mmol/L Chloride (98-107) mmol/L Carbon Dioxide 15 L (22-30) mmol/L BUN 146 H* (7-17) mg/dL Creatinine 3.50 H (0.52-1.04) mg/dL Glucose 253 H (74-99) mg/dL POC Glucose (mg/dL) 160 H (75-99) mg/dL Calcium 7.7 L (8.4-10.2) mg/dL 08/09/19 08/09/19 08/09/19 Range/Units 04:41 04:41 06:02 WBC 14.8 H (3.8-10.6) k/uL Hgb 11.2 L (11.4-16.0) gm/dL Neutrophils # 13.0 H (1.3-7.7) k/uL Lymphocytes # 0.8 L (1.0-4.8) k/uL ABG pH (7.35-7.45) Sodium (137-145) mmol/L Potassium 6.1 H* (3.5-5.1) mmol/L Chloride 113 H (98-107) mmol/L Carbon Dioxide 16 L (22-30) mmol/L BUN 133 H* (7-17) mg/dL Creatinine 1.95 H (0.52-1.04) mg/dL Glucose 145 H (74-99) mg/dL POC Glucose (mg/dL) 158 H (75-99) mg/dL Calcium 8.0 L (8.4-10.2) mg/dL Microbiology - Last 24 Hours (Table) 08/08/19 12:49 Blood Culture - Preliminary Blood No Growth after 24 hours 08/08/19 11:25 Gram Stain - Preliminary Sputum Sputum Culture - Preliminary Presumptive Staph aureus Assessment and Plan Plan: Possible septic shock: Secondary to diffuse pneumonia may have aspiration pneumonia patient will be continued on the cefepime and vancomycin will consider adding clindamycin patient is ALLERGIC to penicillins. Patient will continued on IV fluids and is looking much better now patient chest x-ray looks better after extubation patient chest x-ray findings are mostly because of apneic episodes and this is unfortunately because of the morphine she is not receiving as she is hospice. -Acute hypercapnic respiratory failure: Secondary to obesity and pneumonia along with morphine contributing to her respiratory failure . Patient was extubated a nd feeling much better now. Patient will be transferred out of ICU -Acute renal failure mostly prerenal azotemia that may be a competent of acute tubular necrosis , serum creatinine improved continue with IV fluids will continue more aggressive hydration. -Acute metabolic acidosis and acute respiratory acidosis , metabolic acidosis acidosis secondary to his hyperuricemia and respiratory acidosis secondary to CO2 retention. -History of cerebral palsy -Psychogenic mutism -Type 2 diabetes mellitus next and-gastroesophageal reflux disease -Hypothyroidism -The diabetic peripheral neuropathy -Obstructive sleep apnea and restrictive lung disease -Seizure disorder patient will be resumed on antiseizure medications -Hyperkalemia secondary to acute renal failure patient will be given capsulate patient received calcium gluconate. Patient still has elevated serum potassium will give her another dose of capsulate today -Patient has contaminated urine sample from a chronic Miranda catheter which will be replaced. Patient is on antibiotics anyways, may have not have urinary tract infection Her overall goals of care as mentioned above
[2019-08-09] MEDS: HYDROmorphone 0.5 MG/0.5 ML SYRINGE IVP PRN (17:28)
[2019-08-09 17:33] LABS: Glucose,Whole Blood 89 mg/dL (75-99)
[2019-08-09] MEDS ORDERED: SODIUM CHLORIDE 0.9% 1,000 ML IV ONE (19:24)
[2019-08-09] MEDS: INSULIN ASPART (NovoLOG) 100 UNIT/ML VIAL SQ SCH (21:41)
[2019-08-09 21:47] LABS: Glucose,Whole Blood 93 mg/dL (75-99)
[2019-08-10] MEDS: GABAPENTIN 100 MG CAP PO SCH ×4 (00:32→18:27)
[2019-08-10] MEDS: NOREPINEPHRINE 4 MG in SODIUM CHLORIDE 0.9% 250 ML IV SCH ×2 (01:33→14:16)
[2019-08-10 04:40] LABS: Basophils % (A) 0 %; Eosinophils # (A) 0.1 k/uL (0-0.7); Eosinophils % (A) 1 %; HCT 36.7 % (34.0-46.0); HGB 11.4 gm/dL (11.4-16.0); Hypochromasia Moderate; Lymphocytes # (A) 1.2 k/uL (1.0-4.8); Lymphocytes % (A) 11 %; MCH 28.9 pg (25.0-35.0); MCV 93.3 fL (80.0-100.0); Mean Platelet Volume 7.1; Monocytes # (A) 0.5 k/uL (0-1.0); Monocytes % (A) 5 %; Neutrophils % (A) 82 %; Platelet Count 384 k/uL (150-450); RBC 3.93 m/uL (3.80-5.40); RDW 15.7 % (11.5-15.5); WBC 11.1 k/uL (3.8-10.6)
[2019-08-10 04:50] LABS: African American GFR (CKD) >90 (>60 ml/min/1.73 sqM); Anion Gap 10 mmol/L; Blood Urea Nitrogen 88 mg/dL (7-17); Carbon Dioxide 15 mmol/L (22-30); Chloride 121 mmol/L (98-107); Glucose 96 mg/dL (74-99); Magnesium 1.3 mg/dL (1.6-2.3); Non-African American GFR(CKD) 88 (>60 ml/min/1.73 sqM); Potassium 4.9 mmol/L (3.5-5.1); Sodium 146 mmol/L (137-145)
[2019-08-10] MEDS: SODIUM CHLORIDE 0.9% 1,000 ML IV SCH ×2 (06:34→12:20)
[2019-08-10 06:40] LABS: Glucose,Whole Blood 91 mg/dL (75-99)
--- NOTE | 2019-08-10 07:21 | XR ---
EXAMINATION TYPE: XR chest 1V portable DATE OF EXAM: 08/10/2019 HISTORY: Shortness of breath. COMPARISON: 08/09/2019 TECHNIQUE: Single view of the chest is submitted. FINDINGS: Demonstrated are scattered senescent parenchymal change. There is pulmonary venous congestion with scattered infiltrates nonspecific in appearance. Cardiomega ly is noted. Hilar and mediastinal structures are within normal limits. Degenerative changes are seen of the dorsal spine. IMPRESSION: 1. Correlate for mild congestive failure. Infiltrates of other etiology not excluded. Progress studi es are advised.
[2019-08-10] MEDS: INSULIN ASPART (NovoLOG) 100 UNIT/ML VIAL SQ SCH ×4 (07:51→20:00)
[2019-08-10] MEDS: CITALOPRAM HYDROBROMIDE 20 MG TAB PO SCH (08:45)
[2019-08-10] MEDS: ZIPRASIDONE 20 MG CAP PO SCH ×2 (08:45→16:36)
[2019-08-10] MEDS: SENNOSIDES-DOCUSATE SODIUM 1 EACH TAB PO SCH ×2 (08:46→16:36)
[2019-08-10] MEDS ORDERED: Magnesium Replacement Protocol 1 EACH MISC MISCELLANE PRN (09:28)
[2019-08-10] MEDS: MAGNESIUM SULFATE-D5W PMX 1 GM in DEXTROSE/WATER 1 100ML.BAG IVPB SCH ×3 (09:49→12:17)
[2019-08-10] MEDS ORDERED: VANCOMYCIN IV PER PHARMACY 1 EACH MISC MISCELLANE PRN (10:46)
--- NOTE | 2019-08-10 10:51 | P.PN ---
Subjective Progress Note Date: 08/10/19 Principal diagnosis: acute hypoxic respiratory failure requiring intubation and mechanical ventilation. this is a 54-year-old female patient who is a resident of the local care home with past medical history of COPD, chronic congestive heart failure, diabetes mellitus, GERD/reflux, hypertension, hyperlipidemia, cerebral palsy, chronic cognitive impairment, Dr. nguyen krause, morbid obesity, chronic kidney disease stage II, hypothyroidism, who was recently placed in hospice, laboratory there was confusion about her CODE STATUS and apparently patient had remained a full code. This morning on 08/08/2019 patient was noted to be increasingly short of breath, hypoxic, and having altered mentation. Because of her full CODE STATUS, she was transported to the emergency department. Her public guardian was supposed to have an emergency hearing with the Vehicle [employer] about changing her CODE STATUS, but in view of her deteriorating clinical condition and respiratory distress she was emergently intubated and placed on mechanical ventilator. post intubation chest x-ray showed cardiomegaly, and interstitial densities, mild pulmonary vessel congestion and left lower lobe infiltrates. initial blood work showed leukocytosis, with blood cell was 18.7, hemoglobin was 11.8, sodium was 137, potassium 7.2, chloride was 101, CO2 is 18, B1 is 161, creatinine is 4.68, proBNP was 3440, urinalysis showed large amount of leuks, greater than 182 white blood cells, and many bacteria, influenza screen was negative. Patient was started on empiric antibiotics in the form of cefepime and vancomycin, she was fluid resuscitated and high potassium was treated with 50% dextrose, insulin and nebulized albuterol. Patient was transferred to the intensive care unit, and were consulted for critical care management. Patient was reevaluated today on 08/09/2019, remains in the ICU, she was extubated yesterday and she was supposed to go on comfort care. However when the patient woke up, and she was off mechanical ventilation, she requested that she does not go on comfort care, she would like to be treated for her condition, and to be DO NOT RESUSCITATE but not comfort care. Hence treatment has shifted now mostly to treatment of her underlying conditions, including her left lower lobe pneumonia which was seen on the chest x-ray on admission, and her other medical problems, but she will remain DO NOT RESUSCITATE CODE STATUS. According to the nurses, the patient has been refusing to take most of her oral medications.she is on nasal cannula, she is off mechanical ventilation, seems to be appropriate, and in no distress.WBC count is 14.8 hemoglobin is 11.2. Electrolytes showed elevated potassium of 6.1. BUN is 133 creatinine is 1.95, and that being addressed by nephrology on the case. Reevaluated today on 08/10/2019, patient remains in the ICU, required norepinephrine last night to maintain adequate blood pressure, however patient was given fluids, and she is presently off norepinephrine. Blood pressure remains marginal. Feeling better, breathing easier, denies any cough no wheezing no chest pain no shortness of breath no fever no chills no hemoptysis. Chest x-ray showed slight interstitial congestion. however clinically the patient doesn't reflect the findings noted on the chest x-ray, she has mostly diminished breath sounds at the bases, and atelectasis. Her labs were reviewed WBC count is 11.1 hemoglobin is 11.4. Basic metabolic profile was noted she does have non-anion gap metabolic acidosis bicarb is 15. BUN is 88 creatinine is 0.78, patient has been given fluids overnight, and will continue fluids but I will cut down the dose to 75 mL per hour. Patient had low magnesium being corrected as per protocol. Sputum cultures are showing presumptive staph. Patient was given cefepime and vancomycin on admission. We'll continue vancomycin empirically until the final culture is available. This may be MRSA. Objective - Vital Signs Vital signs: Vital Signs Temp 97.4 F L 08/10/19 08:00 Pulse 73 08/10/19 10:00 Resp 16 08/10/19 10:00 BP 112/50 08/10/19 10:00 Pulse Ox 96 08/10/19 10:00 Intake & Output 08/09/19 08/10/19 08/10/19 18:59 06:59 18:59 Intake Total 2350 2004.61 785.732 Output Total 1105 960 525 Balance 1245 1044.61 260.732 Weight 121 kg 126.4 kg Intake: IV 2149 1999 450 Sodium Chloride 0.9% 1, 225 000 ml @ 75 mls/hr IV . [id number] [facility] Rx#:[id number] Sodium Chloride 0.9% 1924 450 000 ml @ 75 mls/hr IV . [id number] [facility] Rx#:[id number] Intake, IV Titration 4.61 335.732 Amount Magnesium Sulfate-D5w Pmx 100 1 gm In Dextrose/Water 1 100ml.bag @ 100 mls/hr IVPB Q1H [facility] Rx#: [id number] Norepinephrine 4 mg In 4.61 235.732 Sodium Chloride 0.9% 250 ml @ 0.05 MCG/KG/MIN 23. 051 mls/hr IV .Q11H2M [facility] Rx#:[id number] Oral 200 Output: Urine 1105 960 525 Other: Voiding Method Indwelling Catheter Indwelling Catheter - Exam Physical Exam: Revealed 54-year-old female, obese, in no distress, on 3 L nasal cannula Head: Atraumatic, normocephalic. HEENT:[Neck is supple.] [No neck masses.] [No thyromegaly.] [No JVD.], PERRLA, EOMI, no icterus, short obese neck is noted. No neck masses no JVD no stridor Chest: [Clear throughout, very minimal crackles at the bases. No rhonchi no wheezes. Cardiac Exam: [Normal S1 and S2, no S3 gallop, no murmur.] Abdomen: [obese,Soft, nontender, no megaly, no rebound, no guarding, normal bowel sounds.] Extremities: [No clubbing, no edema, no cyanosis.] Neurological Exam:alert and oriented 3. [No focal neurologic deficit.] psychiatric: Normal mood affect and normal mental status examination. Skin: No rashes. - Labs CBC & Chem 7: 08/10/19 04:14 08/10/19 04:14 Labs: Abnormal Lab Results - Last 24 Hours (Table) 08/08/19 08/10/19 08/10/19 Range/Units 12:03 04:14 04:14 WBC 11.1 H (3.8-10.6) k/uL RDW 15.7 H (11.5-15.5) % Neutrophils # 9.0 H (1.3-7.7) k/uL ABG pH 7.19 L* (7.35-7.45) Sodium 146 H (137-145) mmol/L Chloride 121 H (98-107) mmol/L Carbon Dioxide 15 L (22-30) mmol/L BUN 88 H (7-17) mg/dL Calcium 8.0 L (8.4-10.2) mg/dL Magnesium 1.3 L (1.6-2.3) mg/dL Microbiology - Last 24 Hours (Table) 08/08/19 12:49 Blood Culture - Preliminary Blood No Growth after 24 hours 08/08/19 11:25 Gram Stain - Preliminary Sputum Sputum Culture - Preliminary Presumptive Staph aureus Assessment and Plan Assessment: #1. acute hypoxic respiratory failure related to acute pneumonia in the left lower lobe, possible MRSA pneumonia. Final sputum cultures are pending, however the preliminary report is showing staph aureus #2. acute kidney injury, improving. #3.hyperkalemia, and acute kidney injury improving. #4. Anion gap metabolic acidosis #5. urinary tract infection #6. Septic shock #7. recent initiation of palliative care and hospice enrollment #8. Multiple comorbidities including history of cerebral palsy, chronic cognitive impairments, COPD, chronic congestive heart failure, diabetes mellitus, hypertension, hyperlipidemia, morbid obesity, hypothyroidism, sleep apnea, seizure disorder, previous episodes of pneumonia, osteoarthritis, MRSA infection Recommendation: Continue present supportive care measures, added vancomycin only because the sputum is showing possible MRSA, continue cefepime, patient is off norepinephrine, continue cautious hydration, continue bronchodilators, we'll continue to monitor in the ICU for the next 24 hours, and if she remains stable was transferred to a regular medical floor. CODE STATUS remains DO NOT RESUSCITATE. Time with Patient: Less than 30
[2019-08-10 11:37] LABS: Glucose,Whole Blood 116 mg/dL (75-99)
[2019-08-10] MEDS ORDERED: VANCOMYCIN 2,500 MG in SODIUM CHLORIDE 0.9% 500 ML 500 ML IVPB ONE (12:00)
[2019-08-10] MEDS ORDERED: DEXTROSE 5% IN WATER 1,000 ML IV SCH (13:00)
--- NOTE | 2019-08-10 16:08 | P.PN ---
Subjective 60-year-old female with known history of cerebral palsy and multiple psychiatric issues is hospice as an outpatient came in here unresponsive and septic because of the morphine she is receiving for hospice patient is mainly was treated for hypercapnic respiratory failure patient if it appears to have had apneic episodes most probably because of the morphine she is receiving for comfort purposes says she is hospice, patient probably aspirated because that and patient is severely dehydrated and volume depleted because of hospice status and not eating and drinking. Initially the public guardian wanted her to be full code until she gets a court order regarding her resuscitation status and apparently there is a state law are on [facility] law now. Eventually we got the court order saying that patient need to be terminally extubated and patient will be DO NOT RESUSCITATE. We did exactly the same and as per the court ordered patient was switched to hospice status. Patient at night was awake more responsive able to answer questions and doesn't want to be hospice patient clearly voiced this to the nighttime nursing staff who informed that the power of textile designs sales representative would agree with the patient and wanted us to treat her again. But again in the morning apparently nursing staff was informed that patient had to go back on hospice status. I did a lengthy evaluation on the patient patient is able to tell me where she is I do not believe patient is confused and I believe patient can still make addition in spite of her psychiatric issues and cerebral palsy and doesn't want to be on hospice and she even knows the chair that giving morphine as she is hospice and doesn't want to take any morphine. The nurse did explain patient is only getting pain medications for her pain not because she is hospice. After which patient ended up taking medication. Patient is able to tell me exactly her name and age. Although she doesn't know the year she knows where she is patient appears to be more appropriate. I do not believe the hospice decision w as made in her best interest because of that reason, I decided to treat the patient reverse the hospice although DO NOT RESUSCITATE is still appropriate, patient will remain DO NOT RESUSCITATE patient was started on IV fluids will be on antibiotics we'll discuss at length with medical power of textile designs sales representative. 08/10/2019 Patient remains on IV fluids because of the normal saline patient's the patient is hyponatremic and the hyperchloremic leading to non-anion gap metabolic acidosis with bicarbonate of 15. Patient will be started on D5 water instead of normal saline. We'll recheck developed basic metabolic profile tomorrow patient's sputum is positive for MRSA Vanco mycin will be continued, cefepime will be discontinued. Patient's renal failure improved doing much better. I'm still unable to reach public guardian at this time. Objective - Vital Signs Vital signs: Vital Signs Temp 98.1 F 08/10/19 12:00 Pulse 63 08/10/19 15:00 Resp 12 08/10/19 15:00 BP 151/87 08/10/19 15:00 Pulse Ox 89 L 08/10/19 15:00 Intake & Output 08/09/19 08/10/19 08/10/19 18:59 06:59 18:59 Intake Total 2350 2004.61 1410.732 Output Total 6778 265 2436 Balance 1245 1044.61 85.732 Weight 121 kg 126.4 kg Intake: IV 2150 2000 600 Sodium Chloride 0.9% 1, 225 000 ml @ 75 mls/hr IV . [id number] [facility] Rx#:[id number] Sodium Chloride 0.9% 1, 1925 2000 600 000 ml @ 75 mls/hr IV . [id number] [facility] Rx#:[id number] Intake, IV Titration 4.61 810.732 Amount Dextrose 5% in Water 1, 150 000 ml @ 75 mls/hr IV . [id number] [facility] Rx#:[id number] Magnesium Sulfate-D5w Pmx 300 1 gm In Dextrose/Water 1 100ml.bag @ 100 mls/hr IVPB Q1H [facility] Rx#: [id number] Norepinephrine 4 mg In 4.61 235.732 Sodium Chloride 0.9% 250 ml @ 0.05 MCG/KG/MIN 23. 051 mls/hr IV .Q11H2M [facility] Rx#:[id number] Vancomycin 2,250 mg In 125 Sodium Chloride 0.9% 500 ml 500 ml @ 167 mls/hr IVPB Q16H [facility] Rx#: [id number] Oral 200 Output: Urine 7708 085 8971 Other: Voiding Method Indwelling Catheter Indwelling Catheter Indwelling Catheter # Bowel Movements 1 - Exam PHYSICAL EXAMINATION: GENERAL: The patient is alert and oriented x2, not in any acute distress. Well developed, well nourished. Obese. HEENT: Pupils are round and equally reacting to light. EOMI. No scleral icterus. No conjunctival pallor. Normocephalic, atraumatic. No pharyngeal erythema. No thyromegaly. CARDIOVASCULAR: S1 and S2 present. No murmurs, rubs, or gallops. PULMONARY: Chest is clear to auscultation, no wheezing or crackles. ABDOMEN: Soft, nontender, nondistended, normoactive bowel sounds. No palpable organomegaly. MUSCULOSKELETAL: No joint swelling or deformity. EXTREMITIES: No cyanosis, clubbing, or pedal edema. NEUROLOGICAL: Gross neurological examination did not reveal any focal deficits. SKIN: No rashes. - Labs CBC & Chem 7: 08/10/19 04:14 08/10/19 04:14 Labs: Abnormal Lab Results - Last 24 Hours (Table) 08/10/19 08/10/19 08/10/19 Range/Units 04:14 04:14 11:36 WBC 11.1 H (3.8-10.6) k/uL RDW 15.7 H (11.5-15.5) % Neutrophils # 9.0 H (1.3-7.7) k/uL Sodium 146 H (137-145) mmol/L Chloride 121 H (98-107) mmol/L Carbon Dioxide 15 L (22-30) mmol/L BUN 88 H (7-17) mg/dL POC Glucose (mg/dL) 116 H (75-99) mg/dL Calcium 8.0 L (8.4-10.2) mg/dL Magnesium 1.3 L (1.6-2.3) mg/dL Microbiology - Last 24 Hours (Table) 08/08/19 12:49 Blood Culture - Preliminary Blood No Growth after 48 hours 08/08/19 11:25 Gram Stain - Final Sputum Sputum Culture - Final Methicillin resist S. aureus Assessment and Plan Plan: Possible septic shock: Secondary to diffuse pneumonia may have aspiration pneumonia patient will be continued on the and vancomycin patient has MRSA in the sputum patient is off levo fed and patient is blood pressure is good because of which I'll stop the fluids and as patient's saturation started going down chest x-ray showing some pulmonary edema. If patient saturations go down even more than will give her a dose of Lasix. -Acute hypercapnic respiratory failure: Secondary to obesity and pneumonia along with morphine contributing to her respiratory failure . Patient was extubated and feeling much better now. Patient will be transferred out of ICU -Acute renal failure mostly prerenal azotemia , no evidence of acute tubular necrosis patient improved with IV fluids -Hypomagnesemia magnesium will be replaced -Acute metabolic acidosis and acute respiratory acidosis , metabolic acidosis acidosis secondary to his hyperuricemia and respiratory acidosis secondary to CO2 retention. -History of cerebral palsy -Type 2 diabetes mellitus -gastroesophageal reflux disease -Hypothyroidism -The diabetic peripheral neuropathy -Obstructive sleep apnea and restrictive lung disease -Seizure disorder patient will be resumed on antiseizure medications -Hyperkalemia secondary to acute renal failure , hyperkalemia resolved -Patient has contaminated urine sample from a chronic Miranda catheter which will be replaced. Her overall goals of care as mentioned
[2019-08-10] MEDS: DEXTROSE 5% IN WATER 1,000 ML IV SCH (16:36)
[2019-08-10 16:51] LABS: Glucose,Whole Blood 114 mg/dL (75-99)
[2019-08-10 19:58] LABS: Glucose,Whole Blood 111 mg/dL (75-99)
[2019-08-11] MEDS: GABAPENTIN 100 MG CAP PO SCH ×5 (00:38→23:24)
[2019-08-11] MEDS: NOREPINEPHRINE 4 MG in SODIUM CHLORIDE 0.9% 250 ML IV SCH ×2 (01:22→13:08)
[2019-08-11] MEDS: ACETAMINOPHEN TAB 500 MG TAB PO PRN ×2 (03:15→20:04)
[2019-08-11] MEDS: LORazepam 2 MG/ML INJ IV PRN (03:16)
[2019-08-11] MEDS ORDERED: VANCOMYCIN 2,250 MG in SODIUM CHLORIDE 0.9% 500 ML 500 ML IVPB SCH (04:00)
[2019-08-11 05:59] LABS: Basophils % (A) 0 %; Eosinophils # (A) 0.1 k/uL (0-0.7); Eosinophils % (A) 1 %; HCT 31.7 % (34.0-46.0); HGB 10.2 gm/dL (11.4-16.0); Hypochromasia Moderate; Lymphocytes % (A) 11 %; MCH 29.4 pg (25.0-35.0); MCHC 32.2 g/dL (31.0-37.0); MCV 91.1 fL (80.0-100.0); Mean Platelet Volume 6.7; Monocytes # (A) 0.4 k/uL (0-1.0); Monocytes % (A) 4 %; Neutrophils # (A) 7.2 k/uL (1.3-7.7); Neutrophils % (A) 82 %; Platelet Count 327 k/uL (150-450); RBC 3.48 m/uL (3.80-5.40); RDW 15.8 % (11.5-15.5); WBC 8.8 k/uL (3.8-10.6)
[2019-08-11 06:26] LABS: African American GFR (CKD) >90 (>60 ml/min/1.73 sqM); Anion Gap 3 mmol/L; Blood Urea Nitrogen 45 mg/dL (7-17); Calcium 8.4 mg/dL (8.4-10.2); Carbon Dioxide 22 mmol/L (22-30); Chloride 118 mmol/L (98-107); Glucose 153 mg/dL (74-99); Magnesium 1.5 mg/dL (1.6-2.3); Non-African American GFR(CKD) >90 (>60 ml/min/1.73 sqM); Potassium 4.3 mmol/L (3.5-5.1); Sodium 143 mmol/L (137-145)
[2019-08-11] MEDS ORDERED: Magnesium Replacement Protocol 1 EACH MISC MISCELLANE PRN (06:29)
[2019-08-11] MEDS: MAGNESIUM SULFATE-D5W PMX 1 GM in DEXTROSE/WATER 1 100ML.BAG IVPB SCH ×2 (06:45→07:47)
[2019-08-11 06:52] LABS: Glucose,Whole Blood 126 mg/dL (75-99)
[2019-08-11] MEDS: INSULIN ASPART (NovoLOG) 100 UNIT/ML VIAL SQ SCH ×4 (06:52→23:23)
--- NOTE | 2019-08-11 06:53 | XR ---
EXAMINATION TYPE: XR chest 1V portable DATE OF EXAM: 08/11/2019 COMPARISON: Prior chest x-ray 08/10/2019 HISTORY: Shortness of breath TECHNIQUE: Single frontal view of the chest is obtained. FINDINGS: Patient is rotated. Heart is enlarged. Pulmonary vascularity and interstitium are increase d. There is no evident pneumothorax. No definite pleural effusion. There are overlying cardiac leads. Thoracic cord stimulator present over the midthoracic spine. Groundglass opacity present bilaterally . IMPRESSION: Correlate for congestive heart failure, pneumonia not excluded. Follow-up recommended.
[2019-08-11 07:03] LABS: Glucose,Whole Blood 131 mg/dL (75-99)
[2019-08-11] MEDS: CITALOPRAM HYDROBROMIDE 20 MG TAB PO SCH (08:24)
[2019-08-11] MEDS: ZIPRASIDONE 20 MG CAP PO SCH ×2 (08:25→17:31)
[2019-08-11] MEDS: SENNOSIDES-DOCUSATE SODIUM 1 EACH TAB PO SCH ×2 (08:25→17:31)
[2019-08-11] MEDS ORDERED: FUROSEMIDE 10 MG/ML 4 ML VIAL IV SCH (09:30)
--- NOTE | 2019-08-11 09:54 | XR ---
EXAMINATION TYPE: XR chest 1V portable DATE OF EXAM: 08/11/2019 COMPARISON: Prior chest x-ray 08/11/2019 HISTORY: Abnormal chest x-ray TECHNIQUE: Single frontal view of the chest is obtained. FINDINGS: Patient is rotated and the heart remains enlarged. Thoracic cord stimulator is again seen. Central vascularity is less prominent. No evident pneumothorax or pleural effusion. There is improve ment in aeration. There are overlying cardiac leads. IMPRESSION: Persistent cardiomegaly, there may be improvement in patient's volume status. Additional follow-up recommended.
[2019-08-11 11:57] LABS: Glucose,Whole Blood 124 mg/dL (75-99)
[2019-08-11] MEDS ORDERED: FUROSEMIDE 10 MG/ML 4 ML VIAL IV STA (12:06)
--- NOTE | 2019-08-11 12:17 | P.PN ---
Subjective Progress Note Date: 08/11/19 Principal diagnosis: acute hypoxic respiratory failure requiring intubation and mechanical ventilation. this is a 54-year-old female patient who [facility] with past medical history of COPD, chronic congestive heart failure, diabetes mellitus, GERD/reflux, hypertension, hyperlipidemia, cerebral palsy, chronic cognitive impairment, Dr. nguyen krause, morbid obesity, chronic kidney disease stage II, hypothyroidism, who was recently placed in hospice, laboratory there was confusion about her CODE STATUS and apparently patient had remained a full code. This morning on 08/08/2019 patient was noted to be increasingly short of breath, hypoxic, and having altered mentation. Because of her full CODE STATUS, she was transported to the emergency department. Her public guardian was supposed to have an emergency hearing with the Reeler Operator Niall about changing her CODE STATUS, but in view of her deteriorating clinical condition and respiratory distress she was emergently intubated and placed on mechanical ventilator. post intubation chest x-ray showed cardiomegaly, and interstitial densities, mild pulmonary vessel congestion and left lower lobe infiltrates. initial blood work showed leukocytosis, with blood cell was 18.7, hemoglobin was 11.8, sodium was 137, potassium 7.2, chloride was 101, CO2 is 18, B1 is 161, creatinine is 4.68, proBNP was 3440, urinalysis showed large amount of leuks, greater than 182 white blood cells, and many bacteria, influenza screen was negative. Patient was started on empiric antibiotics in the form of cefepime and vancomycin, she was fluid resuscitated and high potassium was treated with 50% dextrose, insulin and nebulized albuterol. Patient was transferred to the intensive care unit, and were consulted for critical care management. Patient was reevaluated today on 08/09/2019, remains in the ICU, she was extubated yesterday and she was supposed to go on comfort care. However when the patient woke up, and she was off mechanical ventilation, she requested that she does not go on comfort care, she would like to be treated for her condition, and to be DO NOT RESUSCITATE but not comfort care. Hence treatment has shifted now mostly to treatment of her underlying conditions, including her left lower lobe pneumonia which was seen on the chest x-ray on admission, and her other medical problems, but she will remain DO NOT RESUSCITATE CODE STATUS. According to the nurses, the patient has been refusing to take most of her oral medications.she is on nasal cannula, she is off mechanical ventilation, seems to be appropriate, and in no distress.WBC count is 14.8 hemoglobin is 11.2. Electrolytes showed elevated potassium of 6.1. BUN is 133 creatinine is 1.95, and that being addressed by nephrology on the case. Reevaluated today on 08/10/2019, patient remains in the ICU, required norepinephrine last night to maintain adequate blood pressure, however patient was given fluids, and she is presently off norepinephrine. Blood pressure remains marginal. Feeling better, breathing easier, denies any cough no wheezing no chest pain no shortness of breath no fever no chills no hemoptysis. Chest x-ray showed slight interstitial congestion. however clinically the patient doesn't reflect the findings noted on the chest x-ray, she has mostly diminished breath sounds at the bases, and atelectasis. Her labs were reviewed WBC count is 11.1 hemoglobin is 11.4. Basic metabolic profile was noted she does have non-anion gap metabolic acidosis bicarb is 15. BUN is 88 creatinine is 0.78, patient has been given fluids overnight, and will continue fluids but I will cut down the dose to 75 mL per hour. Patient had low magnesium being corrected as per protocol. Sputum cultures are showing presumptive staph. Patient was given cefepime and vancomycin on admission. We'll continue vancomycin empirically until the final culture is available. This may be MRSA. Patient was reevaluated today on 08/11/2019, remains in the ICU, patient is not requiring any pressors at this point, apparently she responded to fluids, and her chest x-ray is showing left lower lobe infiltrate, and mild interstitial edema. Remains on diuretics, remains on antibiotics, patient is now on 2 L nasal cannula, overall she is making improvement. CBC is relatively normal basic metabolic profile is normal BUN is down to 45 creatinine is normal. Objective - Vital Signs Vital signs: Vital Signs Temp 98.9 F 08/11/19 04:00 Pulse 77 08/11/19 11:00 Resp 16 08/11/19 11:00 BP 111/55 08/11/19 11:00 Pulse Ox 93 L 08/11/19 11:00 Intake & Output 08/10/19 08/11/19 08/11/19 18:59 06:59 18:59 Intake Total 1545.732 840 614 Output Total 1750 1065 1030 Balance -204.268 -225 -416 Weight 126 kg Intake: IV 600 Sodium Chloride 0.9% 1, 600 000 ml @ 75 mls/hr IV . [id number] [facility] Rx#:[id number] Intake, IV Titration 945.732 840 614 Amount Dextrose 5% in Water 1, 60 240 80 000 ml @ 20 mls/hr IV . Q24H [facility] Rx#:[id number] Dextrose 5% in Water 1, 225 000 ml @ 75 mls/hr IV . [id number] [facility] Rx#:[id number] Magnesium Sulfate-D5w Pmx 300 100 1 gm In Dextrose/Water 1 100ml.bag @ 100 mls/hr IVPB Q1H [facility] Rx#: [id number] Magnesium Sulfate-D5w Pmx 200 1 gm In Dextrose/Water 1 100ml.bag @ 100 mls/hr IVPB Q1H [facility] Rx#: [id number] Norepinephrine 4 mg In 235.732 Sodium Chloride 0.9% 250 ml @ 0.05 MCG/KG/MIN 23. 051 mls/hr IV .[id number] [facility] Rx#:[id number] Vancomycin 2,250 mg In 125 334 Sodium Chloride 0.9% 500 ml 500 ml @ 167 mls/hr IVPB Q16H [facility] Rx#: [id number] Vancomycin 2,500 mg In 500 Sodium Chloride 0.9% 500 ml 500 ml @ 167 mls/hr IVPB ONCE ONE Rx#: [id number] Output: Urine 1750 1065 930 Emesis 100 Other: Voiding Method Indwelling Catheter Indwelling Catheter Indwelling Catheter # Bowel Movements 1 1 - Exam Physical Exam: Revealed 54-year-old female, obese, in no distress, on 2 L nasal cannula Head: Atraumatic, normocephalic. HEENT:[Neck is supple.] [No neck masses.] [No thyromegaly.] [No JVD.], PERRLA, EOMI, no icterus, short obese neck is noted. No neck masses no JVD no stridor Chest: Symmetrical expansion.minimal crackles at the bases. No rhonchi no wheezes. Cardiac Exam: [Normal S1 and S2, no S3 gallop, no murmur.] Abdomen: [obese,Soft, nontender, no megaly, no rebound, no guarding, normal bowel sounds.] Extremities: [No clubbing, no edema, no cyanosis.] Neurological Exam:alert and oriented 3. [No focal neurologic deficit.] psychiatric: Normal mood affect and normal mental status examination. Skin: No rashes. - Labs CBC & Chem 7: 08/11/19 05:24 08/11/19 05:24 Labs: Abnormal Lab Results - Last 24 Hours (Table) 08/10/19 08/10/19 08/11/19 Range/Units 16:50 19:56 05:24 RBC (3.80-5.40) m/uL Hgb (11.4-16.0) gm/dL Hct (34.0-46.0) % RDW (11.5-15.5) % Chloride 118 H (98-107) mmol/L BUN 45 H (7-17) mg/dL Glucose 153 H (74-99) mg/dL POC Glucose (mg/dL) 114 H 111 H (75-99) mg/dL Magnesium 1.5 L (1.6-2.3) mg/dL 08/11/19 08/11/19 08/11/19 Range/Units 05:24 06:51 07:02 RBC 3.48 L (3.80-5.40) m/uL Hgb 10.2 L (11.4-16.0) gm/dL Hct 31.7 L (34.0-46.0) % RDW 15.8 H (11.5-15.5) % Chloride (98-107) mmol/L BUN (7-17) mg/dL Glucose (74-99) mg/dL POC Glucose (mg/dL) 126 H 131 H (75-99) mg/dL Magnesium (1.6-2.3) mg/dL 08/11/19 Range/Units 11:55 RBC (3.80-5.40) m/uL Hgb (11.4-16.0) gm/dL Hct (34.0-46.0) % RDW (11.5-15.5) % Chloride (98-107) mmol/L BUN (7-17) mg/dL Glucose (74-99) mg/dL POC Glucose (mg/dL) 124 H (75-99) mg/dL Magnesium (1.6-2.3) mg/dL Microbiology - Last 24 Hours (Table) 08/08/19 12:49 Blood Culture - Preliminary Blood No Growth after 48 hours 08/08/19 11:25 Gram Stain - Final Sputum Sputum Culture - Final Methicillin resist S. aureus Assessment and Plan Assessment: #1. acute hypoxic respiratory failure related to acute pneumonia in the left lower lobe, secondary to MRSA. #2. acute kidney injury, improving. #3.hyperkalemia, and acute kidney injury improving. #4. Anion gap metabolic acidosis #5. urinary tract infection #6. Septic shock #7. recent initiation of palliative care and hospice enrollment #8. Multiple comorbidities including history of cerebral palsy, chronic cognit amanda impairments, COPD, chronic congestive heart failure, diabetes mellitus, hypertension, hyperlipidemia, morbid obesity, hypothyroidism, sleep apnea, seizure disorder, previous episodes of pneumonia, osteoarthritis, MRSA infection Recommendation: Continue antibiotics/vancomycin. Gentle diuresis. Corrected electrolytes accordingly. Use BiPAP as needed at night considering her morbid obesity and obesity hypoventilation syndrome. Continue bronchodilators. Continue Keppra. Continue Neurontin. Transfer patient out of the ICU to a regular medical floor, and we'll continue to follow. Repeat chest x-ray in a.m. Time with Patient: Less than 30
--- NOTE | 2019-08-11 15:46 | P.PN ---
Subjective 60-year-old female with known history of cerebral palsy and multiple psychiatric issues is hospice as an outpatient came in here unresponsive and septic because of the morphine she is receiving for hospice patient is mainly was treated for hypercapnic respiratory failure patient if it appears to have had apneic episodes most probably because of the morphine she is receiving for comfort purposes says she is hospice, patient probably aspirated because that and patient is severely dehydrated and volume depleted because of hospice status and not eating and drinking. Initially the public guardian wanted her to be full code until she gets a court order regarding her resuscitation status and apparently there is a state law are [facility] law now. Eventually we got the court order saying that patient need to be terminally extubated and patient will be DO NOT RESUSCITATE. We did exactly the same and as per the court ordered patient was switched to hospice status. Patient at night was awake more responsive able to answer questions and doesn't want to be hospice patient clearly voiced this to the nighttime nursing staff who informed that the power of real estate associate attorney would agree with the patient and wanted us to treat her again. But again in the morning apparently nursing staff was informed that patient had to go back on hospice status. I did a lengthy evaluation on the patient patient is able to tell me where she is I do not believe patient is confused and I believe patient can still make addition in spite of her psychiatric issues and cerebral palsy and doesn't want to be on hospice and she even knows the chair that giving morphine as she is hospice and doesn't want to take any morphine. The nurse did explain patient is only getting pain medications for her pain not because she is hospice. After which patient ended up taking medication. Patient is able to tell me exactly her name and age. Although she doesn't know the year she knows where she is patient appears to be more appropriate. I do not believe the hospice decision w as made in her best interest because of that reason, I decided to treat the patient reverse the hospice although DO NOT RESUSCITATE is still appropriate, patient will remain DO NOT RESUSCITATE patient was started on IV fluids will be on antibiotics we'll discuss at length with medical power of real estate associate attorney. 08/10/2019 Patient remains on IV fluids because of the normal saline patient's the patient is hyponatremic and the hyperchloremic leading to non-anion gap metabolic acidosis with bicarbonate of 15. Patient will be started on D5 water instead of normal saline. We'll recheck developed basic metabolic profile tomorrow patient's sputum is positive for MRSA Vanco mycin will be continued, cefepime will be discontinued. Patient's renal failure improved doing much better. I'm still unable to reach public guardian at this time. 08/11/2019 Patient is looking much better but patient has pulmonary edema will be started on Lasix. Patient was aggressively hydrated since her admission. We'll recheck the electrolytes tomorrow. Patient is declining to go to same rehab patient can pretty much make a decision although she has a public guardian. Public guardian did reach out to me today morning. I discussed entire case and recommended she need to be discharged. Different facility other than [facility] at least attempt to do that. Social work reach out to the public guardian and she still wants to send the patient to [facility] which I I'm not leaning to do as patient is declining to go there. As a K social work to discuss the whole situation with the public guardian again. Constitutional: Denied any fatigue denied any fever. Cardio vascular: denied any chest pain, palpitations Gastrointestinal denied any nausea vomiting Pulmonary: Denied any shortness of breath cough Neurologic denied any new focal deficits All inpatient medications were reviewed and appropriate changes in these medications as dictated in the interval history and assessment and plan. Objective - Vital Signs Vital signs: Vital Signs Temp 97.8 F 08/11/19 13:00 Pulse 76 08/11/19 13:00 Resp 18 08/11/19 13:00 BP 133/94 08/11/19 13:00 Pulse Ox 97 08/11/19 13:00 Intake & Output 08/10/19 08/11/19 08/11/19 18:59 06:59 18:59 Intake Total 1545.732 840 634 Output Total 1750 1065 1330 Balance -204.268 -225 -696 Weight 126 kg Intake: IV 600 Sodium Chloride 0.9% 1, 600 000 ml @ 75 mls/hr IV . [id number] [facility] Rx#:[id number] Intake, IV Titration 945.732 840 634 Amount Dextrose 5% in Water 1, 60 240 100 000 ml @ 20 mls/hr IV . Q24H [facility] Rx#:[id number] Dextrose 5% in Water 1, 225 000 ml @ 75 mls/hr IV . [id number] [facility] Rx#:[id number] Magnesium Sulfate-D5w Pmx 300 100 1 gm In Dextrose/Water 1 100ml.bag @ 100 mls/hr IVPB Q1H [facility] Rx#: [id number] Magnesium Sulfate-D5w Pmx 200 1 gm In Dextrose/Water 1 100ml.bag @ 100 mls/hr IVPB Q1H [facility] Rx#: [id number] Norepinephrine 4 mg In 235.732 Sodium Chloride 0.9% 250 ml @ 0.05 MCG/KG/MIN 23. 051 mls/hr IV .Q11H2M [facility] Rx#:[id number] Vancomycin 2,250 mg In 125 334 Sodium Chloride 0.9% 500 ml 500 ml @ 167 mls/hr IVPB Q16H [facility] Rx#: [id number] Vancomycin 2,500 mg In 500 Sodium Chloride 0.9% 500 ml 500 ml @ 167 mls/hr IVPB ONCE ONE Rx#: [id number] Output: Urine 1750 1065 1230 Emesis 100 Other: Voiding Method Indwelling Catheter Indwelling Catheter Indwelling Catheter # Bowel Movements 1 1 - Exam PHYSICAL EXAMINATION: GENERAL: The patient is alert and oriented x2, not in any acute distress. Well developed, well nourished. Obese. HEENT: Pupils are round and equally reacting to light. EOMI. No scleral icterus. No conjunctival pallor. Normocephalic, atraumatic. No pharyngeal erythema. No thyromegaly. CARDIOVASCULAR: S1 and S2 present. No murmurs, rubs, or gallops. PULMONARY: Chest is clear to auscultation, no wheezing or crackles. ABDOMEN: Soft, nontender, nondistended, normoactive bowel sounds. No palpable organomegaly. MUSCULOSKELETAL: No joint swelling or deformity. EXTREMITIES: No cyanosis, clubbing, or pedal edema. NEUROLOGICAL: Gross neurological examination did not reveal any focal deficits. SKIN: Patient has stage I decubitus ulcers which were present on admission - Labs CBC & Chem 7: 08/11/19 05:24 08/11/19 05:24 Labs: Abnormal Lab Results - Last 24 Hours (Table) 08/10/19 08/10/19 08/11/19 Range/Units 16:50 19:56 05:24 RBC (3.80-5.40) m/uL Hgb (11.4-16.0) gm/dL Hct (34.0-46.0) % RDW (11.5-15.5) % Chloride 118 H (98-107) mmol/L BUN 45 H (7-17) mg/dL Glucose 153 H (74-99) mg/dL POC Glucose (mg/dL) 114 H 111 H (75-99) mg/dL Magnesium 1.5 L (1.6-2.3) mg/dL 08/11/19 08/11/19 08/11/19 Range/Units 05:24 06:51 07:02 RBC 3.48 L (3.80-5.40) m/uL Hgb 10.2 L (11.4-16.0) gm/dL Hct 31.7 L (34.0-46.0) % RDW 15.8 H (11.5-15.5) % Chloride (98-107) mmol/L BUN (7-17) mg/dL Glucose (74-99) mg/dL POC Glucose (mg/dL) 126 H 131 H (75-99) mg/dL Magnesium (1.6-2.3) mg/dL 08/11/19 Range/Units 11:55 RBC (3.80-5.40) m/uL Hgb (11.4-16.0) gm/dL Hct (34.0-46.0) % RDW (11.5-15.5) % Chloride (98-107) mmol/L BUN (7-17) mg/dL Glucose (74-99) mg/dL POC Glucose (mg/dL) 124 H (75-99) mg/dL Magnesium (1.6-2.3) mg/dL Microbiology - Last 24 Hours (Table) 08/08/19 12:49 Blood Culture - Preliminary Blood No Growth after 72 hours 08/08/19 11:25 Gram Stain - Final Sputum Sputum Culture - Final Methicillin resist S. aureus Assessment and Plan Plan: Possible septic shock: Secondary to diffuse pneumonia may have aspiration pneumonia patient will be continued on the and vancomycin patient has MRSA in the sputum patient is off levo fed , patient has pulmonary edema on the chest x- ray because of which patient was started on IV Lasix twice a day. Patient has MRSA in the sputum because of which a I'm consulting infectious disease. -Acute hypercapnic respiratory failure: Secondary to obesity and pneumonia along with morphine contributing to her respiratory failure . Patient was admitted extubated on the day of admission -Acute renal failure mostly prerenal azotemia , no evidence of acute tubular necrosis patient improved with IV fluids, patient is volume overload not and is receiving Lasix -Hypomagnesemia magnesium was replaced repeat magnesium tomorrow again -Acute metabolic acidosis and acute respiratory acidosis , metabolic acidosis acidosis secondary to his hyperuricemia and respiratory acidosis secondary to CO2 retention. -History of cerebral palsy -Type 2 diabetes mellitus -gastroesophageal reflux disease -Hypothyroidism -The diabetic peripheral neuropathy -Obstructive sleep apnea and restrictive lung disease -Seizure disorder patient will be resumed on antiseizure medications -Hyperkalemia secondary to acute renal failure , hyperkalemia resolved -Patient has contaminated urine sample from a chronic Miranda catheter which will be replaced. Her overall goals of care as mentioned
[2019-08-11 16:36] LABS: African American GFR (CKD) >90 (>60 ml/min/1.73 sqM); Anion Gap 5 mmol/L; Blood Urea Nitrogen 34 mg/dL (7-17); Calcium 8.8 mg/dL (8.4-10.2); Carbon Dioxide 24 mmol/L (22-30); Chloride 113 mmol/L (98-107); Glucose 130 mg/dL (74-99); Non-African American GFR(CKD) >90 (>60 ml/min/1.73 sqM); Potassium 4.1 mmol/L (3.5-5.1); Sodium 142 mmol/L (137-145)
[2019-08-11 17:29] LABS: Glucose,Whole Blood 127 mg/dL (75-99)
[2019-08-11] MEDS: DEXTROSE 5% IN WATER 1,000 ML IV SCH (17:31)
[2019-08-11] MEDS: VANCOMYCIN 2,250 MG in SODIUM CHLORIDE 0.9% 500 ML 500 ML IVPB SCH (18:02)
[2019-08-11] MEDS: ONDANSETRON 4 MG/2 ML VIAL IVP PRN (19:52)
[2019-08-11 20:50] LABS: Glucose,Whole Blood 171 mg/dL (75-99)
[2019-08-11] MEDS: FUROSEMIDE 10 MG/ML 4 ML VIAL IV SCH (23:23)
[2019-08-11] MEDS: HYDROmorphone 0.5 MG/0.5 ML SYRINGE IVP PRN (23:24)
[2019-08-12] MEDS: VANCOMYCIN 2,250 MG in SODIUM CHLORIDE 0.9% 500 ML 500 ML IVPB SCH ×2 (05:20→17:05)
[2019-08-12] MEDS: GABAPENTIN 100 MG CAP PO SCH ×4 (06:21→23:52)
--- NOTE | 2019-08-12 07:18 | CONS ---
CONSULTATION DATE OF SERVICE: 08/11/2019 REASON FOR CONSULTATION: MRSA pneumonia. HISTORY OF PRESENT ILLNESS: The patient is a 54-year-old female with a past medical history significant for COPD and jail resident. The patient has been brought into the ER at [facility] on 08/08/2019 by the EMS from a local jail who were called in because of acute respiratory distress. On arrival of the EMS, the patient was noticed to be in respiratory distress and has been saturating 50% to 60%. The patient was emergently intubated on the field and was brought into the ER. On arrival to the ER, the patient was afebrile, however, did have elevated white count of 18,000. The patient did have a chest x-ray, which did shows mild cardiomegaly and pulmonary vascular congestion versus interstitial pneumonitis or atypical pneumonitis. The patient has been treated with cefepime and vancomycin. Sputum cultures were obtained, which are finalized today with MRSA. Blood culture has been negative. Infectious Disease was consulted for further recommendations regarding antibiotic therapy. The patient currently mentioned her breathing has slightly improved. Patient continued to have a cough which is mostly congested, but not bringing up any sputum. No chest pain. No choking on the food. No nausea, no vomiting. No abdominal pain and no diarrhea. REVIEW OF SYSTEMS: Positive points have been mentioned in HPI. Rest of systems negative. PAST MEDICAL HISTORY: Heart failure, diabetes mellitus, gastroesophageal reflux disease, hypertension, hyperlipidemia, osteoarthritis, pneumonia, seizure disorder, hypothyroidism. PAST SURGICAL HISTORY: Cholecystectomy, back surgery, right shoulder surgery, bilateral carpal tunnel release, EGD, colonoscopy. PAST PSYCHOLOGICAL HISTORY: Depression, schizoaffective disorder. SOCIAL HISTORY: Remote history of smoking. No drinking or drug use. FAMILY HISTORY: Mother history of diabetes mellitus. ALLERGIES: Allergies to CIMETIDINE, CAFFEINE, CODEINE, DICHLORALPHENAZONE. MEDICATIONS: Medications include the patient is on vancomycin 2250 q.12 hours, Senokot, MiraLAX, Zofran, Narcan, Ativan, Keppra, NovoLog, Dilaudid, Neurontin, Lasix, Celexa, Pulmicort, and Tylenol. PHYSICAL EXAMINATION: On examination, blood pressure 133/94 with a pulse of 76 temperature 97.8. She is 97% on 2 L nasal cannula. General description is a middle-aged female lying in bed in no distress. No tachypnea or accessory muscle of respiration use. HEENT: Examination shows slight pallor. No scleral icterus. Oral mucous membranes is moist. NECK: Trachea central. No thyromegaly. LUNGS: Unlabored breathing, decreased breath sounds at the bases. No wheeze. HEART: S1, S2. Regular rate and rhythm. No added sounds. ABDOMEN: Soft, no tenderness. No guarding. No rigidity. No organomegaly. EXTREMITIES: No edema of feet. SKIN EXAMINATION: No rash or mass palpable. NEUROLOGIC: The patient is awake, alert, oriented x2. Mood and affect normal. LABS: Hemoglobin is 10.2, white count 8.8, admission white count was 18.7 with a BUN of 34, creatinine 0.54. UA with large leukocyte esterase, more than 182 WBCs. No urine. No urine cultures were done. Sputum with MRSA. Blood culture has been negative. DIAGNOSTIC IMPRESSION AND PLAN: Patient admitted to the hospital with acute respiratory failure in this patient who did have hypoxemia, elevated white count with left lower lobe infiltrate. Now that sputum has been finalized and methicillin-resistant Staphylococcus aureus likely component of methicillin-resistant Staphylococcus aureus pneumonia. PLAN: 1. Vancomycin pharmacy to dose target of 15 while watching her kidney function closely for total of 2 weeks. Unfortunately, Zyvox could not be used as the patient is on SSRI, with the same. 2. We will follow on her clinical condition. Further adjustment of medication if needed. Thank you for this consultation. Will follow this patient along with you. MMODL / IJN: [id number] /
[2019-08-12 07:23] LABS: Glucose,Whole Blood 106 mg/dL (75-99)
[2019-08-12] MEDS: INSULIN ASPART (NovoLOG) 100 UNIT/ML VIAL SQ SCH ×4 (07:30→22:07)
[2019-08-12 08:07] LABS: Basophils % (A) 0 %; Eosinophils # (A) 0.3 k/uL (0-0.7); Eosinophils % (A) 3 %; HGB 11.5 gm/dL (11.4-16.0); Hypochromasia Moderate; Lymphocytes # (A) 1.5 k/uL (1.0-4.8); Lymphocytes % (A) 14 %; MCH 28.8 pg (25.0-35.0); MCHC 31.9 g/dL (31.0-37.0); MCV 90.2 fL (80.0-100.0); Mean Platelet Volume 6.8; Monocytes # (A) 0.5 k/uL (0-1.0); Monocytes % (A) 4 %; Neutrophils # (A) 8.8 k/uL (1.3-7.7); Neutrophils % (A) 78 %; Platelet Count 358 k/uL (150-450); Poikilocytosis Slight; RBC 3.99 m/uL (3.80-5.40); RDW 15.5 % (11.5-15.5); WBC 11.2 k/uL (3.8-10.6)
[2019-08-12 08:21] LABS: African American GFR (CKD) >90 (>60 ml/min/1.73 sqM); Anion Gap 5 mmol/L; Blood Urea Nitrogen 21 mg/dL (7-17); Calcium 8.5 mg/dL (8.4-10.2); Carbon Dioxide 26 mmol/L (22-30); Chloride 112 mmol/L (98-107); Glucose 117 mg/dL (74-99); Magnesium 1.2 mg/dL (1.6-2.3); Non-African American GFR(CKD) >90 (>60 ml/min/1.73 sqM); Potassium 4.2 mmol/L (3.5-5.1); Sodium 143 mmol/L (137-145)
[2019-08-12] MEDS: ZIPRASIDONE 20 MG CAP PO SCH ×2 (08:54→16:00)
[2019-08-12] MEDS: FUROSEMIDE 10 MG/ML 4 ML VIAL IV SCH (08:54)
[2019-08-12] MEDS: CITALOPRAM HYDROBROMIDE 20 MG TAB PO SCH (08:54)
[2019-08-12] MEDS: SENNOSIDES-DOCUSATE SODIUM 1 EACH TAB PO SCH ×2 (08:55→15:52)
--- NOTE | 2019-08-12 10:23 | P.PN ---
Subjective Progress Note Date: 08/12/19 Principal diagnosis: Acute hypoxic respiratory failure secondary to an acute left lower lobe MRSA pneumonia. This is a 54-year-old female patient who is a resident of the local [place] [facility] with past medical history of COPD, chronic congestive heart failure, diabetes mellitus, GERD/reflux, hypertension, hyperlipidemia, cerebral palsy, chronic cognitive impairment, Dr. nguyen krause, morbid obesity, chronic kidney disease stage II, hypothyroidism, who was recently placed in hospice, laboratory there was confusion about her CODE STATUS and apparently patient had remained a full code. This morning on 08/08/2019 patient was noted to be increasingly short of breath, hypoxic, and having altered mentation. Because of her full CODE STATUS, she was transported to the emergency department. Her public guardian was supposed to have an emergency hearing with the Consulting Sales Manager Niall about changing her CODE STATUS, but in view of her deteriorating clinical condition and respiratory distress she was emergently intubated and placed on mechanical ventilator. post intubation chest x-ray showed cardiomegaly, and interstitial densities, mild pulmonary vessel congestion and left lower lobe infiltrates. initial blood work showed leukocytosis, with blood cell was 18.7, hemoglobin was 11.8, sodium was 137, potassium 7.2, chloride was 101, CO2 is 18, B1 is 161, creatinine is 4.68, proBNP was 3440, urinalysis showed large amount of leuks, greater than 182 white blood cells, and many bacteria, influenza screen was negative. Patient was started on empiric antibiotics in the form of cefepime and vancomycin, she was fluid resuscitated and high potassium was treated with 50% dextrose, insulin and nebulized albuterol. Patient was transferred to the intensive care unit, and were consulted for critical care management. Patient was reevaluated today on 08/09/2019, remains in the ICU, she was extubated yesterday and she was supposed to go on comfort care. However when the patient woke up, and she was off mechanical ventilation, she requested that she does not go on comfort care, she would like to be treated for her condition, and to be DO NOT RESUSCITATE but not comfort care. Hence treatment has shifted now mostly to treatment of her underlying conditions, including her left lower lobe pneumonia which was seen on the chest x-ray on admission, and her other medical problems, but she will remain DO NOT RESUSCITATE CODE STATUS. According to the nurses, the patient has been refusing to take most of her oral medications.she is on nasal cannula, she is off mechanical ventilation, seems to be appropriate, and in no distress.WBC count is 14.8 hemoglobin is 11.2. Electrolytes showed elevated potassium of 6.1. BUN is 133 creatinine is 1.95, and that being addressed by nephrology on the case. Reevaluated today on 08/10/2019, patient remains in the ICU, required norepi nephrine last night to maintain adequate blood pressure, however patient was given fluids, and she is presently off norepinephrine. Blood pressure remains marginal. Feeling better, breathing easier, denies any cough no wheezing no chest pain no shortness of breath no fever no chills no hemoptysis. Chest x-ray showed slight interstitial congestion. however clinically the patient doesn't reflect the findings noted on the chest x-ray, she has mostly diminished breath sounds at the bases, and atelectasis. Her labs were reviewed WBC count is 11.1 hemoglobin is 11.4. Basic metabolic profile was noted she does have non-anion gap metabolic acidosis bicarb is 15. BUN is 88 creatinine is 0.78, patient has been given fluids overnight, and will continue fluids but I will cut down the dose to 75 mL per hour. Patient had low magnesium being corrected as per protocol. Sputum cultures are showing presumptive staph. Patient was given cefepime and vancomycin on admission. We'll continue vancomycin empirically until the final culture is available. This may be MRSA. Patient was reevaluated today on 08/11/2019, remains in the ICU, patient is not requiring any pressors at this point, apparently she responded to fluids, and her chest x-ray is showing left lower lobe infiltrate, and mild interstitial edema. Remains on diuretics, remains on antibiotics, patient is now on 2 L nasal cannula, overall she is making improvement. CBC is relatively normal basic metabolic profile is normal BUN is down to 45 creatinine is normal. The patient is seen today 08/12/2019 in follow-up on the regular medical floor. She is currently sitting up in bed. Awake and alert in no acute distress. Aayush es any worsening shortness of breath, cough or congestion. Currently maintaining good O2 saturations in the mid 90s on 2 L/m per nasal cannula. She's been afebrile. Hemodynamically stable. Sputum culture positive for MRSA. Blood cultures reveal no growth. White count 11.2. Hemoglobin 11.5. C reatinine 0.49. She remains on vancomycin. IV diuretics. Objective - Vital Signs Vital signs: Vital Signs Temp 98.1 F 08/12/19 06:30 Pulse 73 08/12/19 06:30 Resp 18 08/12/19 06:30 BP 116/72 08/12/19 06:30 Pulse Ox 96 08/12/19 06:30 Intake & Output 08/11/19 08/12/19 08/12/19 18:59 06:59 18:59 Intake Total 634 2200 Output Total 2080 Balance -1446 2200 Intake: IV 1200 Sodium Chloride 0.9% 1, 1200 000 ml @ 75 mls/hr IV . [id number] [facility] Rx#:[id number] Intake, IV Titration 634 1000 Amount Dextrose 5% in Water 1, 100 000 ml @ 20 mls/hr IV . Q24H [facility] Rx#:[id number] Magnesium Sulfate-D5w Pmx 200 1 gm In Dextrose/Water 1 100ml.bag @ 100 mls/hr IVPB Q1H [facility] Rx#: [id number] Vancomycin 2,250 mg In 1000 Sodium Chloride 0.9% 500 ml 500 ml @ 167 mls/hr IVPB Q12H [facility] Rx#: [id number] Vancomycin 2,250 mg In 334 Sodium Chloride 0.9% 500 ml 500 ml @ 167 mls/hr IVPB Q16H [facility] Rx#: [id number] Output: Urine 1980 Emesis 100 Other: Voiding Method Indwelling Catheter # Bowel Movements 2 - Exam GENERAL EXAM: Alert, pleasant 54-year-old female patient, on 2 L nasal cannula, comfortable in no apparent distress. HEAD: Normocephalic. EYES: Normal reaction of pupils, equal size. NOSE: Clear with pink turbinates. THROAT: No erythema or exudates. NECK: No masses, no JVD. CHEST: No chest wall deformity. LUNGS: Equal air entry with few scattered rhonchi in the left base. CVS: S1 and S2 normal with no audible murmur, regular rhythm. ABDOMEN: No hepatosplenomegaly, normal bowel sounds, no guarding or rigidity. SPINE: No scoliosis or deformity SKIN: No rashes CENTRAL NERVOUS SYSTEM: No focal deficits, tone is normal in all 4 extremities. EXTREMITIES: There is no peripheral edema. No clubbing, no cyanosis. Peripheral pulses are intact. - Labs CBC & Chem 7: 08/12/19 07:48 08/12/19 07:48 Labs: Abnormal Lab Results - Last 24 Hours (Table) 08/11/19 08/11/19 08/11/19 Range/Units 11:55 16:12 17:20 WBC (3.8-10.6) k/uL Neutrophils # (1.3-7.7) k/uL Chloride 113 H (98-107) mmol/L BUN 34 H (7-17) mg/dL Creatinine (0.52-1.04) mg/dL Glucose 130 H (74-99) mg/dL POC Glucose (mg/dL) 124 H 127 H (75-99) mg/dL Magnesium (1.6-2.3) mg/dL 08/11/19 08/12/19 08/12/19 Range/Units 20:44 07:21 07:48 WBC (3.8-10.6) k/uL Neutrophils # (1.3-7.7) k/uL Chloride 112 H (98-107) mmol/L BUN 21 H (7-17) mg/dL Creatinine 0.49 L (0.52-1.04) mg/dL Glucose 117 H (74-99) mg/dL POC Glucose (mg/dL) 171 H 106 H (75-99) mg/dL Magnesium 1.2 L (1.6-2.3) mg/dL 08/12/19 Range/Units 07:48 WBC 11.2 H (3.8-10.6) k/uL Neutrophils # 8.8 H (1.3-7.7) k/uL Chloride (98-107) mmol/L BUN (7-17) mg/dL Creatinine (0.52-1.04) mg/dL Glucose (74-99) mg/dL POC Glucose (mg/dL) (75-99) mg/dL Magnesium (1.6-2.3) mg/dL Microbiology - Last 24 Hours (Table) 08/08/19 12:49 Blood Culture - Preliminary Blood No Growth after 72 hours Assessment and Plan Assessment: #1. acute hypoxic respiratory failure requiring intubation mechanical ventilatory support, related to acute pneumonia in the left lower lobe, secondary to MRSA. Recovered and on 2 L nasal cannula #2. acute kidney injury, improving. #3. hyperkalemia, and acute kidney injury improving. #4. Anion gap metabolic acidosis, recovered #5. urinary tract infection #6. Septic shock, recovered #7. recent initiation of palliative care and hospice enrollment #8. history of cerebral palsy #9. chronic cognitive impairments #10. COPD #11. chronic congestive heart failure #12. diabetes mellitus #13. hypertension #14. hyperlipidemia #15. morbid obesity, sleep apnea #16. hypothyroidism #17. seizure disorder #18. previous episodes of pneumonia #19. osteoarthritis #20. MRSA infection Plan: The patient was seen and evaluated by Dr. Cook. We'll continue the current treatment plan. She is stable from the pulmonary and critical care standpoint. We'll see her on as-needed basis. Discharge planning in place. I, the cosigning physician, performed a history & physical examination of the patient. Lungs sounds with crackles in left posterior base. Maintaining good O2 saturations in the 90s on 2 L/m per nasal cannula. I discussed the assessment and plan of care with my nurse practitioner, Gabriela Jacobson. I attest to the above note as dictated by her.
[2019-08-12] MEDS: ONDANSETRON 4 MG/2 ML VIAL IVP PRN ×3 (10:52→22:17)
[2019-08-12] MEDS: HYDROmorphone 0.5 MG/0.5 ML SYRINGE IVP PRN ×2 (10:52→22:07)
[2019-08-12 12:30] LABS: Glucose,Whole Blood 132 mg/dL (75-99)
[2019-08-12 12:53] VITALS: BMI 54.2
[2019-08-12 13:14] LABS: Prothrombin Time 10.5 sec (9.0-12.0)
--- NOTE | 2019-08-12 13:54 | PN ---
PROGRESS NOTE DATE OF SERVICE: 08/12/2019 REASON FOR FOLLOWUP: MRSA pneumonia. INTERVAL HISTORY: The patient is currently afebrile. The patient is breathing more comfortably. The patient denies having any chest pain. She did have some cough, not bringing up any sputum. No nausea, no vomiting, no abdominal pain, no diarrhea. PHYSICAL EXAMINATION: Blood pressure 116/72 with a pulse of 73, temperature 98.1, she is 96% on 2 L nasal cannula. General description is a middle-aged female, lying in bed in no distress. RESPIRATORY SYSTEM: Unlabored breathing. Decreased breath sounds at bases, no wheeze. HEART: S1, S2. Regular rate and rhythm. ABDOMEN: Soft, no tenderness. EXTREMITIES: No edema of the feet. LABS: Hemoglobin is 11.5, white count 11.2, BUN of 21, creatinine 0.49. Sputum with MRSA. Blood culture has been negative. DIAGNOSTIC IMPRESSION AND PLAN: Patient with MRSA pneumonia, left lower lobe in this patient who is on Celexa that will currently begin use of Zyvox. She will get a PICC line to continue with IV vancomycin, pharmacy to dose for another 10 days to finish a course of therapy. Continue supportive care. MMODL / IJN: [id number] /
[2019-08-12] MEDS ORDERED: LIDOCAINE 1% INJ 10MG/ML (20 ML MDV) ONE (14:21)
[2019-08-12] MEDS ORDERED: IV FLUID CONTINUATION 1,000 ML IV ONE (14:23)
[2019-08-12] MEDS ORDERED: LIDOCAINE 1% INJ 10MG/ML (20 ML MDV) SQ ONE (14:30)
--- NOTE | 2019-08-12 14:58 | IR ---
EXAMINATION TYPE: IR cvc insert >=5 years DATE OF EXAM: 08/12/2019 COMPARISON: NONE CLINICAL HISTORY: Infection Needs long-term intravenous access for antibiotics. PROCEDURE: After informed consent, the skin overlying the right basilic vein was localized with ultrasound and n oted to be compressible and patent. An ultrasound image was obtained and submitted on the patient's chart. The overlying skin was prepped and draped and Lidocaine was used for local anesthesia. A ski n shanelle was made with a scalpel. Access was gained to the vein under ultrasound guidance with a 21 ga uge needle and a 0.018 inch wire was advanced. Access site was dilated with Peel-Away sheath and cat heter tailored to the appropriate length and advanced such that the distal tip is at the cavoatrial j unction. Spot image was obtained verifying placement. Catheter was fixed to the skin and a sterile dressing was placed following hemostasis. Catheter was aspirated and flushed with saline. Patient w as discharged in stable condition without complication.Maximal barrier technique is utilized. Ultras ound image is documented on the chart. Ultrasound used with sterile technique. Fluoro time and fluoroscopic images submitted to document procedure: 23 intraoperative C-arm images, 0.1 minutes fluoroscopy time IMPRESSION: STATUS POST ULTRASOUND AND FLUOROSCOPIC GUIDED PICC LINE PLACEMENT, READY FOR USE. THIS PROCEDURE WAS PERFORMED BY THE UNDERSIGNED.
[2019-08-12] MEDS: MAGNESIUM SULFATE-D5W PMX 1 GM in DEXTROSE/WATER 1 100ML.BAG IVPB SCH ×4 (15:51→23:52)
[2019-08-12] MEDS: DEXTROSE 5% IN WATER 1,000 ML IV SCH (15:51)
[2019-08-12 17:25] LABS: Glucose,Whole Blood 120 mg/dL (75-99)
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
[2019-08-12 22:08] LABS: Glucose,Whole Blood 119 mg/dL (75-99)
[2019-08-13] MEDS ORDERED: VANCOMYCIN TROUGH DUE 1 EACH MISC MISCELLANE ONE (04:00)
[2019-08-13] MEDS: VANCOMYCIN 2,250 MG in SODIUM CHLORIDE 0.9% 500 ML 500 ML IVPB SCH (04:42)
[2019-08-13 04:48] LABS: African American GFR (CKD) >90 (>60 ml/min/1.73 sqM); Anion Gap 3 mmol/L; Blood Urea Nitrogen 12 mg/dL (7-17); Calcium 8.3 mg/dL (8.4-10.2); Carbon Dioxide 28 mmol/L (22-30); Chloride 109 mmol/L (98-107); Glucose 123 mg/dL (74-99); Magnesium 1.8 mg/dL (1.6-2.3); Non-African American GFR(CKD) >90 (>60 ml/min/1.73 sqM); Sodium 140 mmol/L (137-145)
[2019-08-13] MEDS: GABAPENTIN 100 MG CAP PO SCH ×4 (04:56→23:32)
[2019-08-13 07:01] LABS: Glucose,Whole Blood 122 mg/dL (75-99)
[2019-08-13] MEDS: INSULIN ASPART (NovoLOG) 100 UNIT/ML VIAL SQ SCH ×4 (08:15→21:13)
[2019-08-13] MEDS: ZIPRASIDONE 20 MG CAP PO SCH ×2 (09:54→15:30)
[2019-08-13] MEDS: CITALOPRAM HYDROBROMIDE 20 MG TAB PO SCH (09:54)
[2019-08-13] MEDS: FUROSEMIDE 20 MG TAB PO SCH ×2 (09:54→15:30)
[2019-08-13] MEDS: SENNOSIDES-DOCUSATE SODIUM 1 EACH TAB PO SCH ×2 (09:55→15:30)
[2019-08-13 11:34] LABS: Glucose,Whole Blood 150 mg/dL (75-99)
[2019-08-13] MEDS: DEXTROSE 5% IN WATER 1,000 ML IV SCH (15:31)
[2019-08-13 17:19] LABS: Glucose,Whole Blood 112 mg/dL (75-99)
[2019-08-13] MEDS: VANCOMYCIN 2,000 MG in SODIUM CHLORIDE 0.9% 500 ML 500 ML IVPB SCH (17:53)
--- NOTE | 2019-08-13 20:17 | PN ---
PROGRESS NOTE DATE OF SERVICE: 08/13/2019 This 60-year-old woman who was admitted with multiple complex medical issues including septic shock and as well as acute hypercapnic respiratory failure, was previously on hospice and apparently per patient's wishes currently the patient is off hospice, but currently NO CODE. Patient being closely monitored. The legal guardian is also aware of the code status. The patient is much more alert compared to the previous days according to the staff notes and multiple consultants are following the patient closely. The sputum culture showed MRSA. The patient is on vancomycin at this time. PAST MEDICAL HISTORY: Reviewed. REVIEW OF SYSTEMS: CARDIOVASCULAR: No angina or palpitations. RESPIRATORY: As mentioned earlier. GI: As mentioned earlier. : No dysuria. CENTRAL NERVOUS SYSTEM: No focal deficits. CURRENT MEDICATIONS: Reviewed and include: Tylenol, Pulmicort, Celexa, Lasix, Neurontin, Dilaudid, Keppra, Ativan, magnesium, Narcan, MiraLAX, Senokot-S, vancomycin, Geodon. PHYSICAL EXAM: Patient is alert, oriented x2. Pulse 69, blood pressure 110/60. Respirations 20, temperature 97.8, pulse ox 98% on 2 L. HEENT: Conjunctivae normal. Oral mucosa moist. Neck is no jugular venous distention. No carotid bruit. No lymph node enlargement. CARDIOVASCULAR system: S1, S2 muffled. RESPIRATORY: Breath sounds diminished in the bases. Bilateral scattered rhonchi and crackles. ABDOMEN: Soft, obese, nontender. LEGS: No edema. No swelling. CENTRAL NERVOUS SYSTEM: Diffusely weak. LAB STUDIES: Sodium is 140, potassium 4. WBC 11.8, hemoglobin 11.5. ASSESSMENT: 1. Acute bilateral pneumonia possibly aspiration pneumonia with severe sepsis, septic shock, present on admission. 2. Acute hypoxic hypercarbic respiratory failure secondary to above and obesity hypoventilation with pneumonia status post mechanical ventilation. 3. Acute renal failure possibly prerenal acute tubular necrosis. 4. MRSA pneumonia left lower lobe. 5. Hypomagnesemia. 6. Acute metabolic acidosis. 7. Change in mental status, metabolic encephalopathy, multifactorial. 8. History of cerebral palsy. 9. Diabetes mellitus type 2. 10.Gastroesophageal reflux disease. 11.Hypothyroidism. 12.Diabetic peripheral neuropathy. 13.Obstructive sleep apnea. 14.History of seizure disorder. 15.Hyperkalemia. 16.Increased random blood sugar. 17.Hyperkalemia secondary to renal failure. RECOMMENDATIONS AND DISCUSSION: In this 54-year-old woman who presented with multiple complex medical issues, we will monitor the patient closely, continue the current medications, management and symptomatic treatment. I recommend continue the antibiotics. Continue the rest of medications. PT/OT evaluation as recommended earlier. Recommend ECF rehab and continue to monitor. Please note, the patient is currently NO CODE, NO CPR and NO VENT. Once again the prognosis is guarded. MMODL / IJN: [id number] /
[2019-08-13 20:49] LABS: Glucose,Whole Blood 111 mg/dL (75-99)
[2019-08-13] MEDS: LORazepam 2 MG/ML INJ IV PRN (21:20)
--- NOTE | 2019-08-14 01:04 | PN ---
PROGRESS NOTE DATE OF SERVICE: 08/13/2019. REASON FOR FOLLOWUP: MRSA pneumonia. INTERVAL HISTORY: The patient is currently afebrile. The patient is breathing comfortably. The patient denies having any chest pain. She did have some cough but not bringing up any sputum. No nausea, no vomiting. No abdominal pain. No diarrhea. PHYSICAL EXAMINATION: Blood pressure is 110/67 with a pulse of 69 , temperature 97.8. She is 99% on 2 L nasal cannula. General description is a middle-aged female lying in bed in no distress. Respiratory system: Unlabored breathing, clear to auscultation anteriorly. Heart S1, S2. Regular rate and rhythm. Abdomen soft. No tenderness. Extremities: No edema of the feet. LABS: BUN of 12, creatinine 0.47. Vanco trough is up at 28.5. DIAGNOSTIC IMPRESSION AND PLAN: Patient with MRSA pneumonia, left lower lobe for which the patient is currently covered with Vancomycin. Dose needs to be cut back to keep the trough around 15 and we will need to monitor kidney function closely. Total duration of antibody total to be 2 weeks and continue supportive care. MMODL / IJN: [id number] /
[2019-08-14] MEDS: VANCOMYCIN 2,000 MG in SODIUM CHLORIDE 0.9% 500 ML 500 ML IVPB SCH ×2 (05:24→17:57)
[2019-08-14] MEDS: GABAPENTIN 100 MG CAP PO SCH ×3 (05:25→17:58)
[2019-08-14 06:50] LABS: Glucose,Whole Blood 141 mg/dL (75-99)
[2019-08-14] MEDS: SENNOSIDES-DOCUSATE SODIUM 1 EACH TAB PO SCH ×2 (08:25→17:21)
[2019-08-14] MEDS: ZIPRASIDONE 20 MG CAP PO SCH ×2 (08:30→17:58)
[2019-08-14] MEDS: INSULIN ASPART (NovoLOG) 100 UNIT/ML VIAL SQ SCH ×4 (08:31→21:09)
[2019-08-14] MEDS: FUROSEMIDE 20 MG TAB PO SCH ×2 (08:31→17:58)
[2019-08-14] MEDS: CITALOPRAM HYDROBROMIDE 20 MG TAB PO SCH (08:31)
[2019-08-14] MEDS: HYDROmorphone 0.5 MG/0.5 ML SYRINGE IVP PRN ×3 (08:56→21:46)
[2019-08-14 11:21] LABS: Glucose,Whole Blood 117 mg/dL (75-99)
[2019-08-14] MEDS ORDERED: BISACODYL 10 MG SUPP RECTAL PRN (16:30)
[2019-08-14] MEDS ORDERED: DICYCLOMINE 20 MG TAB PO PRN (16:30)
[2019-08-14] MEDS ORDERED: CLOTRIMAZOLE 1% CREAM 15 GM TUBE TOPICAL PRN (16:30)
--- NOTE | 2019-08-14 16:57 | XR ---
EXAMINATION TYPE: XR chest 1V portable DATE OF EXAM: 08/14/2019 COMPARISON: 08/11/2019 HISTORY: Short of breath TECHNIQUE: Single view FINDINGS: There is no heart failure nor confluent pneumonic infiltrate. Heart is enlarged. There is r ight central venous catheter with tip in the superior vena cava. There is no evidence of pleural effu lalita. IMPRESSION: Cardiomegaly. No active cardiopulmonary disease. No change.
[2019-08-14 17:13] LABS: Glucose,Whole Blood 91 mg/dL (75-99)
--- NOTE | 2019-08-14 17:41 | PN ---
PROGRESS NOTE DATE OF SERVICE: 08/14/2019. REASON FOR FOLLOWUP: MRSA pneumonia. INTERVAL HISTORY: The patient is currently afebrile. Patient is breathing comfortably. The patient denies having chest pain. She did have some cough but not bringing up any sputum. No nausea, no vomiting. No abdominal pain. No diarrhea. PHYSICAL EXAMINATION: Blood pressure 110/75 with a pulse of 76, temperature 97.5. She is 100% on 3 L nasal cannula. General description is a middle-aged female up in the bed in no distress. Respiratory system: Unlabored breathing, decreased breath sounds in the base. No wheeze. Heart S1, S2. Regular rate and rhythm. Abdomen soft. No tenderness. LABS: No new labs have been obtained today. DIAGNOSTIC IMPRESSION AND PLAN: Patient with MRSA pneumonia. The patient seemed to have shown clinical improvement, received about 6 days of IV vancomycin to continue for another 8-10 days to finish a course of therapy and monitor clinical course closely. MMODL / IJN: [id number] /
[2019-08-14] MEDS: DEXTROSE 5% IN WATER 1,000 ML IV SCH (17:59)
--- NOTE | 2019-08-14 19:44 | PN ---
PROGRESS NOTE DATE OF SERVICE: 08/14/2019 This 54-year-old woman was admitted with multiple medical problems, being closely monitored. Sensorium is significantly improved at this time. The patient also had features of metabolic encephalopathy. Patient had bilateral pneumonia, sepsis, respiratory failure with MRSA. Multiple consultants are following the patient closely. The patient apparently would like to return to another [place] [facility] facility according to the patient. PAST MEDICAL HISTORY: Reviewed. REVIEW OF SYSTEMS: CARDIOVASCULAR SYSTEM: No angina. RESPIRATORY: As mentioned earlier. GI: As mentioned earlier. : No dysuria or retention. NERVOUS SYSTEM: No numbness or weakness. CURRENT MEDICATIONS: 1. Tylenol p.r.n. 2. Pulmicort 0.5 mg b.i.d. 3. Celexa 20 mg p.o. daily. 4. Lasix 20 mg p.o. b.i.d. 5. Neurontin 100 mg p.o. q.8h. 6. Dilaudid 0.5 q.3 p.r.n. 7. NovoLog. 8. Keppra 750 p.o. b.i.d. 9. Ativan 1 mg q.6h p.r.n. 10.Narcan. 11.Zofran 4 mg q.6h p.r.n. 12.MiraLAX. 13.Vancomycin. 14.Geodon. PHYSICAL EXAM: Patient is alert, oriented x3. Pulse is 76, blood pressure 110/75, respirations 16, temperature 97.4, pulse ox 100% on 3 L. HEENT: Conjunctivae normal. Oral mucosa moist. NECK: No jugular venous distention. No lymph node enlargement. CARDIOVASCULAR: S1, S2. RESPIRATORY: Diminished breath sounds at the bases. A few scattered rhonchi and crackles. ABDOMEN: Soft, obese, nontender. LEGS: No swelling. NERVOUS SYSTEM: No focal deficits. LAB STUDIES: WBC 11.2, otherwise glucose noted. Magnesium 1.2, improved to 1.8. ASSESSMENT: 1. Acute bibasilar pneumonia with possible aspiration pneumonia with severe sepsis, septic shock, present on admission. 2. Acute hypoxic hypercarbic respiratory failure secondary to above and obesity hypoventilation syndrome with pneumonia status post mechanical ventilation. 3. Change in mental status, metabolic encephalopathy, multifactorial secondary to above. 4. Acute renal failure, possibly prerenal acute tubular necrosis. 5. MRSA pneumonia on the left lower lobe. 6. Hypomagnesemia, persistent, improving. 7. Acute metabolic acidosis, present on admission. 8. History of cerebral palsy. 9. Diabetes mellitus type 2. 10.Gastroesophageal reflux disease. 11.Hypothyroidism. 12.Diabetic peripheral neuropathy. 13.Obstructive sleep apnea. 14.History of seizure disorder. 15.Increased random blood sugar. 16.Hyperkalemia secondary to acute renal failure. RECOMMENDATIONS AND DISCUSSION: In this 54-year-old woman who presented with multiple complex medical issues, at this time I recommend to continue the current medications, continue symptomatic treatment. The patient is still on vancomycin. Otherwise, continue the rest of medications. Recommend repeat labs. Continue with DVT prophylaxis, PT/OT evaluation, possible ECF rehab. Guarded prognosis because of multiple complex medical issues. Further recommendations to follow. MMODL / IJN: [id number] /
[2019-08-14 21:00] LABS: Glucose,Whole Blood 125 mg/dL (75-99)
[2019-08-14] MEDS ORDERED: MELATONIN 5 MG TABLET PO SCH (21:00)
[2019-08-14] MEDS ORDERED: PANTOPRAZOLE 40 MG TABLET PO SCH (21:00)
[2019-08-15] MEDS: LORazepam 2 MG/ML INJ IV PRN
[2019-08-15] MEDS ORDERED: VANCOMYCIN TROUGH DUE 1 EACH MISC MISCELLANE ONE (05:00)
[2019-08-15 05:37] LABS: Basophils % (A) 0 %; Eosinophils # (A) 0.6 k/uL (0-0.7); Eosinophils % (A) 4 %; HCT 34.5 % (34.0-46.0); HGB 10.6 gm/dL (11.4-16.0); Hypochromasia Marked; Lymphocytes # (A) 1.1 k/uL (1.0-4.8); Lymphocytes % (A) 7 %; MCH 29.1 pg (25.0-35.0); MCHC 30.9 g/dL (31.0-37.0); MCV 94.4 fL (80.0-100.0); Mean Platelet Volume 7.3; Monocytes # (A) 0.6 k/uL (0-1.0); Monocytes % (A) 4 %; Neutrophils # (A) 12.4 k/uL (1.3-7.7); Neutrophils % (A) 84 %; Platelet Count 301 k/uL (150-450); RBC 3.65 m/uL (3.80-5.40); RDW 15.1 % (11.5-15.5); WBC 14.9 k/uL (3.8-10.6)
[2019-08-15] MEDS: VANCOMYCIN 2,000 MG in SODIUM CHLORIDE 0.9% 500 ML 500 ML IVPB SCH (06:24)
[2019-08-15] MEDS: GABAPENTIN 100 MG CAP PO SCH ×3 (06:28→12:54)
[2019-08-15] MEDS ORDERED: VANCOMYCIN IV PER PHARMACY 1 EACH MISC MISCELLANE PRN (07:00)
[2019-08-15 07:01] LABS: Glucose,Whole Blood 121 mg/dL (75-99)
[2019-08-15 07:31] LABS: Glucose,Whole Blood 53 mg/dL (75-99)
[2019-08-15 07:31] LABS: Glucose,Whole Blood 84 mg/dL (75-99)
[2019-08-15 07:31] LABS: Calcium 8.2 mg/dL (8.4-10.2); Potassium 4.7 mmol/L (3.5-5.1)
[2019-08-15 07:31] LABS: Glucose,Whole Blood 79 mg/dL (75-99)
[2019-08-15] MEDS: FUROSEMIDE 20 MG TAB PO SCH (10:30)
[2019-08-15] MEDS: CITALOPRAM HYDROBROMIDE 20 MG TAB PO SCH (10:30)
[2019-08-15] MEDS: INSULIN ASPART (NovoLOG) 100 UNIT/ML VIAL SQ SCH ×2 (10:31→12:54)
[2019-08-15] MEDS: SENNOSIDES-DOCUSATE SODIUM 1 EACH TAB PO SCH (10:31)
[2019-08-15] MEDS: ZIPRASIDONE 20 MG CAP PO SCH (10:31)
[2019-08-15] MEDS: HYDROmorphone 0.5 MG/0.5 ML SYRINGE IVP PRN (10:36)
--- NOTE | 2019-08-15 11:15 | P.DS ---
Providers Date of admission: 08/08/19 12:53 Attending physician: Shelbie Batista Consults: 08/08/19 12:53 Consult Physician Stat Consulting Provider: Jasmeet Cook Consult Reason/Comments: Acute respiratory failure, acute renal failure, sepsis Do you want consulting provider notified?: Already Contacted 08/11/19 12:10 Consult Physician Routine Consulting Provider: Jimena Martini Consult Reason/Comments: MRSA pnuemonia Do you want consulting provider notified?: Yes Primary care physician: [facility] Course: Final diagnosis Acute bibasilar pneumonia with the possible aspiration pneumonia with severe sepsis septic shock present on admission. Acute hypoxic hypercarbic respiratory failure secondary to above and obesity hypoventilation syndrome with the pneumonia status post mechanical ventilation. Acute metabolic encephalopathy multifactorial secondary to above Acute renal failure possibly prerenal acute tubular necrosis MRSA pneumonia on the left lower lobe Hypomagnesemia persistent improving Acute metabolic acidosis present on admission History of cerebral palsy Diabetes was type II GERD Hypothyroidism Diabetic peripheral neuropathy Obstructive sleep apnea History of for seizure disorder Increased random blood sugar Hyperkalemia secondary to acute renal failure No code no CPR no event Discharge disposition This 54-year-old woman is being discharged in a stable condition with guarded prognosis to [facility]. Total time taken is 35 minutes. History of present illness This 54-year-old woman with a past medical history multiple medical problems admitted with possible aspiration pneumonia severe sepsis and septic shock to [facility]. Patient was mechanically ventilated intubated. Patient was extubated. Currently the patient is much more alert and would like to go with the no code no CPR no vent and the patient refused hospice care at this time. The medications were continued. Patient improved significantly. The patient be sent to [facility] per patient's request. On exam vitals are stable. Cardio S1 and S2 normal. Respirator system few scattered rhonchi and crackles. Abdomen soft nontender. Please see the medication reconciliation sheet for list of medications Patient Condition at Discharge: Serious Plan - Discharge Summary Discharge Rx Participant: No New Discharge Prescriptions: New Folic Acid 1 mg PO DAILY@1200 tab Furosemide [Lasix] 20 mg PO BID@0900,1600 #0 tab Polyethylene Glycol 3350 [Miralax] 17 gm PO DAILY PRN powd.pack PRN Reason: Constipation Multivitamins, Thera [Multivitamin (formulary)] 1 each PO DAILY@1200 tab Thiamine [Vitamin B-1] 100 mg PO DAILY@1200 tab Continue levETIRAcetam [Keppra] 750 mg PO BID Dicyclomine [Bentyl] 20 mg PO Q6H PRN PRN Reason: IBS tiZANidine [Zanaflex] 2 mg PO DAILY PRN PRN Reason: MUSCLE WEAKNESS Budesonide [Pulmicort] 0.5 mg INHALATION RT-BID PRN PRN Reason: Shortness Of Breath Promethazine [Phenergan] 25 mg PO Q6H PRN PRN Reason: Nausea Ketoconazole [Ketoconazole 2%] 1 applic TOPICAL Q8H PRN PRN Reason: REDNESS Butalb/Asprin/Caff 50-325-40Mg [Fiorinal 50-325-40 MG] 1 cap PO Q4HR PRN PRN Reason: Headache Acetaminophen Tab [Tylenol] 500 mg PO Q6HR PRN PRN Reason: Pain Oxybutynin Chloride [Oxybutynin Chloride ER] 10 mg PO DAILY@0800 Melatonin 5 mg PO HS Citalopram Hydrobromide [CeleXA] 20 mg PO DAILY@0800 Sennosides-Docusate Sodium [Senokot-S] 1 tab PO BID@0800,1600 Omeprazole [PriLOSEC] 20 mg PO HS 2 Hank Hn 30 ml PO QID Bisacodyl [Dulcolax] 10 mg RECTAL DAILY PRN PRN Reason: Constipation Hyoscyamine Sulfate [Levsin-Sl] 0.125 - 0.25 mg SL Q4H PRN PRN Reason: Congestion LORazepam [Ativan] 0.5 mg PO Q4H PRN PRN Reason: Agitation Ziprasidone [Geodon] 20 mg PO BID@0800,1600 #8 cap Gabapentin [Neurontin] 100 mg PO Q6H #12 cap Discontinued Levothyroxine Sodium [Synthroid] 50 mcg PO HS amLODIPine [Norvasc] 10 mg PO DAILY Lisinopril [Zestril] 5 mg PO DAILY Atorvastatin [Lipitor] 10 mg PO HS@2000 Cholecalciferol (Vitamin D3) [Vitamin D3] 2,000 unit PO DAILY Cholecalciferol [Vitamin D3 (25 Mcg = 1000 Iu)] 1,000 unit PO DAILY@0800 Levothyroxine Sodium [Synthroid] 200 mcg PO HS glipiZIDE XL [Glucotrol XL] 10 mg PO DAILY Morphine Sulfate Oral Solution 20mg/5ml 1 mg PO Q1H PRN PRN Reason: RESPITORY DISTRESS PAIN Morphine Sulfate Oral Solution 20mg/5ml 1 mg PO Q4H PRN PRN Reason: Pain Discharge Medication List Dicyclomine [Bentyl] 20 mg PO Q6H PRN 10/08/14 [History] levETIRAcetam [Keppra] 750 mg PO BID 10/08/14 [History] Budesonide [Pulmicort] 0.5 mg INHALATION RT-BID PRN 10/20/16 [History] tiZANidine [Zanaflex] 2 mg PO DAILY PRN 10/20/16 [History] Acetaminophen Tab [Tylenol] 500 mg PO Q6HR PRN 04/20/19 [History] Butalb/Asprin/Caff 50-325-40Mg [Fiorinal 50-325-40 MG] 1 cap PO Q4HR PRN 04/20/19 [History] Citalopram Hydrobromide [CeleXA] 20 mg PO DAILY@0800 04/20/19 [History] Ketoconazole [Ketoconazole 2%] 1 applic TOPICAL Q8H PRN 04/20/19 [History] Melatonin 5 mg PO HS 04/20/19 [History] Oxybutynin Chloride [Oxybutynin Chloride ER] 10 mg PO DAILY@0800 04/20/19 [History] Promethazine [Phenergan] 25 mg PO Q6H PRN 04/20/19 [History] Sennosides-Docusate Sodium [Senokot-S] 1 tab PO BID@0800,1600 04/20/19 [History] Omeprazole [PriLOSEC] 20 mg PO HS 07/11/19 [History] 2 Hank Hn 30 ml PO QID 08/08/19 [History] Bisacodyl [Dulcolax] 10 mg RECTAL DAILY PRN 08/08/19 [History] Hyoscyamine Sulfate [Levsin-Sl] 0.125 - 0.25 mg SL Q4H PRN 08/08/19 [History] LORazepam [Ativan] 0.5 mg PO Q4H PRN 08/08/19 [History] Folic Acid 1 mg PO DAILY@1200 tab 08/15/19 [Rx] Furosemide [Lasix] 20 mg PO BID@0900,1600 #0 tab 08/15/19 [Rx] Gabapentin [Neurontin] 100 mg PO Q6H #12 cap 08/15/19 [Rx] Multivitamins, Thera [Multivitamin (formulary)] 1 each PO DAILY@1200 tab 08/15/19 [Rx] Polyethylene Glycol 3350 [Miralax] 17 gm PO DAILY PRN powd.pack 08/15/19 [Rx] Thiamine [Vitamin B-1] 100 mg PO DAILY@1200 tab 08/15/19 [Rx] Ziprasidone [Geodon] 20 mg PO BID@0800,1600 #8 cap 08/15/19 [Rx] Follow up Appointment(s)/Referral(s): Anthony Stone DO [Primary Care Provider] - 1-2 days Activity/Diet/Wound Care/Special Instructions: Diet cardiac Activity as tolerated Discharge Dis[facility]
[2019-08-15 11:43] LABS: Glucose,Whole Blood 168 mg/dL (75-99)
[2019-08-15] MEDS ORDERED: MULTIVITAMINS, THERA 1 EACH TAB PO SCH (12:00)
[2019-08-15] MEDS ORDERED: FOLIC ACID 1 MG TAB PO SCH (12:00)
[2019-08-15] MEDS ORDERED: THIAMINE 100 MG TAB PO SCH (12:00)
[2019-08-15 14:21] VITALS: BP 146/72; PULSE 81; RESP 16; TEMP 97.9
--- NOTE | 2019-08-15 16:30 | PN ---
PROGRESS NOTE DATE OF SERVICE: 08/15/2019 REASON FOR FOLLOW UP: MRSA pneumonia. INTERVAL HISTORY: The patient is seen on rounds this afternoon. The patient has been afebrile. She has been breathing more comfortably. Denies having any chest pain. She did have some cough. No nausea, no vomiting. No abdominal pain, no diarrhea. PHYSICAL EXAMINATION: Blood pressure 146/72 with a pulse of 81, temperature 97.9. She is 98% on 2 L nasal cannula. General description is a middle-aged female lying in bed in no distress. Respiratory system: Unlabored breathing. Decreased breath sounds in the bases. No wheeze. Heart S1, S2. Regular rate and rhythm. Abdomen soft, no tenderness. LABS: Vanco trough has been significantly elevated to 50. Creatinine was 1.2. DIAGNOSTIC IMPRESSION AND PLAN: Patient with MRSA pneumonia. The vancomycin dose needs to be cut back to keep the trough around 15 and continue to monitor closely. ( ) should be at least for 1 week and continue supportive care. MMODL / IJN: [id number] /
== END 2019-08-15 14:45 | DRG 871 ==
LOC: EC 10:57 → 2SICU 12:53 → 6NMEDSUR 08-11 13:00
PROVIDERS: ADMIT Internal Medicine; ATTEND Internal Medicine
PROC: 0BH17EZ Insertion of Endotracheal Airway into Trachea, Via Natural or Artificial Opening (ICD-10-PCS; principal; 2019-08-08)
PROC: 5A1935Z Respiratory Ventilation, Less than 24 Consecutive Hours (ICD-10-PCS; 2019-08-08)
PROC: 02HV33Z Insertion of Infusion Device into Superior Vena Cava, Percutaneous Approach (ICD-10-PCS; 2019-08-12)
DX: A41.02 Sepsis due to Methicillin resistant Staphylococcus aureus (principal); G93.41 Metabolic encephalopathy; J15.212 Pneumonia due to Methicillin resistant Staphylococcus aureus; J69.0 Pneumonitis due to inhalation of food and vomit; J96.21 Acute and chronic respiratory failure with hypoxia; J96.22 Acute and chronic respiratory failure with hypercapnia; N17.0 Acute kidney failure with tubular necrosis; R65.21 Severe sepsis with septic shock; E66.2 Morbid (severe) obesity with alveolar hypoventilation; Z68.43 Body mass index [BMI] 50.0-59.9, adult; E87.1 Hypo-osmolality and hyponatremia; E87.4 Mixed disorder of acid-base balance; I13.0 Hypertensive heart and chronic kidney disease with heart failure and stage 1 through stage 4 chronic kidney disease, or unspecified chronic kidney disease; J44.0 Chronic obstructive pulmonary disease with (acute) lower respiratory infection; J44.1 Chronic obstructive pulmonary disease with (acute) exacerbation; N39.0 Urinary tract infection, site not specified; E03.9 Hypothyroidism, unspecified; E11.22 Type 2 diabetes mellitus with diabetic chronic kidney disease; E11.42 Type 2 diabetes mellitus with diabetic polyneuropathy; E78.5 Hyperlipidemia, unspecified; E83.42 Hypomagnesemia; E86.0 Dehydration; E87.5 Hyperkalemia; E87.8 Other disorders of electrolyte and fluid balance, not elsewhere classified; F25.9 Schizoaffective disorder, unspecified; R41.83 Borderline intellectual functioning; G40.909 Epilepsy, unspecified, not intractable, without status epilepticus; G80.9 Cerebral palsy, unspecified; I27.20 Pulmonary hypertension, unspecified; I50.9 Heart failure, unspecified; J98.4 Other disorders of lung; K21.9 Gastro-esophageal reflux disease without esophagitis; T40.2X5A Adverse effect of other opioids, initial encounter; M19.90 Unspecified osteoarthritis, unspecified site; N18.2 Chronic kidney disease, stage 2 (mild); N32.81 Overactive bladder; Z99.89 Dependence on other enabling machines and devices; F94.0 Selective mutism; Y95 Nosocomial condition; Z51.5 Encounter for palliative care; Z66 Do not resuscitate; Z79.84 Long term (current) use of oral hypoglycemic drugs; Z79.890 Hormone replacement therapy; Z79.899 Other long term (current) drug therapy; Z83.3 Family history of diabetes mellitus; Z86.14 Personal history of Methicillin resistant Staphylococcus aureus infection; Z87.01 Personal history of pneumonia (recurrent); Z87.442 Personal history of urinary calculi; Z87.891 Personal history of nicotine dependence; Z88.0 Allergy status to penicillin; Z88.8 Allergy status to other drugs, medicaments and biological substances; Z91.040 Latex allergy status; Z88.5 Allergy status to narcotic agent; Z91.013 Allergy to seafood; M48.061 Spinal stenosis, lumbar region without neurogenic claudication; G47.00 Insomnia, unspecified; Z87.440 Personal history of urinary (tract) infections; Z90.49 Acquired absence of other specified parts of digestive tract; G89.29 Other chronic pain
CPT/HCPCS: 31500; 36415; 36573; 36600; 71045; 80048; 80053; 80202; 81001; 82803; 82805; 83605; 83735; 83880; 85025; 85610; 85730; 87040; 87070; 87077; 87186; 87205; 87502; 93005; 94002; 94640; 96361; 96365; 96368; 96375; 99291